=== PATIENT | male | born 1945 | race Caucasian/White ===

== ENCOUNTER 2018-01-05 04:11 | Inpatient (IN) | payer MEDICARE, OTHER ==
[2018-01-05] MEDS ORDERED: IPRATROPIUM-ALBUTEROL 3 ML NEB INHALATION PRN (04:30)
--- NOTE | 2018-01-05 04:30 | ED ---
General Adult HPI - General Time Seen by Provider: 01/05/18 04:11 Source: RN notes reviewed - History of Present Illness Initial comments: This is a 72-year-old male who presents emergency department with past medical history significant for COPD. Patient states tonight he started having difficulty breathing got so bad that he passed out briefly. Patient was taken [facility] where the did a workup on him and gave him multiple breathing treatments and steroids and BiPAP. After an hour BiPAP they're able to remove him from the BiPAP and put him on nasal cannula. Patient was satting in the low 80s when he got to [place] and by the time the left an a couple of liters she was oxygenating in the mid 90s. I was told that there was no pneumonia. End it all labs were essentially normal. Currently patient states he is mildly short of breath but much improved from what he came in. Patient denies any chest pain or palpitations. Patient denies abdominal pain patient denies nausea vomiting diarrhea. Patient denies any patient denies numbness weakness. Patient denies any lightheadedness or near syncopal episode. Review of Systems ROS Statement: Those systems with pertinent positive or pertinent negative responses have been documented in the HPI. ROS Other: All systems not noted in ROS Statement are negative. General Exam - General Exam Comments Initial Comments: GENERAL: Patient is well-developed and well-nourished. Patient is nontoxic and well- hydrated and is in mild distress. ENT: Neck is soft and supple. No significant lymphadenopathy is noted. Oropharynx is clear. Moist mucous membranes. EYES: The sclera were anicteric and conjunctiva were pink and moist. Extraocular movements were intact and pupils were equal round and reactive to light. Eyelids were unremarkable. PULMONARY: Expiratory wheezing diffusely CARDIOVASCULAR: There is a regular rate and rhythm without any murmurs gallops or rubs. ABDOMEN: Soft and nontender with normal bowel sounds. No palpable organomegaly was noted. There is no palpable pulsatile mass. SKIN: Skin is clear with no lesions or rashes and otherwise unremarkable. NEUROLOGIC: Patient is alert and oriented x3. Cranial nerves II through XII are grossly intact. Motor and sensory are also intact. Normal speech, volume and content. Symmetrical smile. MUSCULOSKELETAL: Normal extremities with adequate strength and full range of motion. No lower extremity swelling or edema. No calf tenderness. LYMPHATICS: No significant lymphadenopathy is noted PSYCHIATRIC: Normal psychiatric evaluation. Normal interpersonal interactions appears functionally intact in deals appropriately with others. Medical Decision Making - Medical Decision Making EKG shows normal sinus rhythm at 80 bpm HI interval is 170 QRS is 86 QT interval 398 QTC is 459. Patient's EKG shows no ST segment elevation or depression or T wave abnormalities are noted. Patient received a double treatment of albuterol and Atrovent. I spoke with the [facility] hospitalist and admitted the patient and I wrote admitting orders. Disposition Clinical Impression: COPD exacerbation Disposition: ADMITTED IP TO THIS HOSP Referrals: Natali Parkinson MD [Primary Care Provider] - 1-2 days Time of Disposition: 04:29
[2018-01-05] MEDS ORDERED: methylPREDNISolone SOD SUCCI 125 MG/2 ML VIAL IV SCH (06:00)
[2018-01-05] MEDS ORDERED: HYDROcodone/APAP 5-325MG 1 EACH TAB PO STA (06:03)
[2018-01-05 08:32] LABS: Glucose,Whole Blood 288 mg/dL (75-99)
[2018-01-05] MEDS ORDERED: clonazePAM 0.5 MG TAB PO PRN (09:49)
[2018-01-05 10:12] LABS: Basophils % (A) 0 %; Eosinophils % (A) 0 %; HCT 51.1 % (39.0-53.0); HGB 15.6 gm/dL (13.0-17.5); Hypochromasia Slight; Lymphocytes # (A) 0.6 k/uL (1.0-4.8); Lymphocytes % (A) 13 %; MCH 30.4 pg (25.0-35.0); MCHC 30.5 g/dL (31.0-37.0); MCV 99.5 fL (80.0-100.0); Mean Platelet Volume 7.4; Monocytes # (A) 0.1 k/uL (0-1.0); Monocytes % (A) 2 %; Neutrophils % (A) 85 %; Platelet Count 150 k/uL (150-450); RBC 5.14 m/uL (4.30-5.90); RDW 12.9 % (11.5-15.5); WBC 4.7 k/uL (3.8-10.6)
[2018-01-05 10:29] LABS: Albumin 3.9 g/dL (3.5-5.0); Calcium 8.9 mg/dL (8.4-10.2); Potassium 4.4 mmol/L (3.5-5.1); Total Bilirubin 0.5 mg/dL (0.2-1.3); Total Protein 6.3 g/dL (6.3-8.2)
[2018-01-05] MEDS: INSULIN ASPART 100 UNIT/ML 1 ML 10 ML VIAL SQ SCH ×3 (10:35→18:27)
[2018-01-05 11:17] LABS: Glucose,Whole Blood 303 mg/dL (75-99)
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
--- NOTE | 2018-01-05 11:51 | P.DS ---
Providers Date of admission: 01/05/18 04:30 Attending physician: Adolfo Thakkar Consults: 01/05/18 04:30 Consult Physician Routine Consulting Provider: Mina Faith Consult Reason/Comments: COPD exacerbation Do you want consulting provider notified?: Yes Primary care physician: Natali Parkinson [facility] Course: Please refer to my HPI Plan - Discharge Summary Discharge Rx Participant: No New Discharge Prescriptions: New Doxycycline Monohydrate [Monodox] 100 mg PO Q12HR #6 cap predniSONE 10 mg PO DAILY #30 tab sitaGLIPtin PHOSPHATE [Januvia] 50 mg PO DAILY #30 tab No Action Mirtazapine 30 mg PO HS HYDROcodone/APAP 10-325MG [[place] 10-325] 1 tab PO BID clonazePAM [KlonoPIN] 0.5 mg PO BID Atorvastatin [Lipitor] 10 mg PO HS Roflumilast [Daliresp] 500 mcg PO DAILY Carvedilol 25 mg PO BID Aspirin EC [Ecotrin Low Dose] 81 mg PO DAILY Discharge Medication List Aspirin EC [Ecotrin Low Dose] 81 mg PO DAILY 01/05/18 [History] Atorvastatin [Lipitor] 10 mg PO HS 01/05/18 [History] Carvedilol 25 mg PO BID 01/05/18 [History] Doxycycline Monohydrate [Monodox] 100 mg PO Q12HR #6 cap 01/05/18 [Rx] HYDROcodone/APAP 10-325MG [[place] 10-325] 1 tab PO BID 01/05/18 [History] Mirtazapine 30 mg PO HS 01/05/18 [History] Roflumilast [Daliresp] 500 mcg PO DAILY 01/05/18 [History] clonazePAM [KlonoPIN] 0.5 mg PO BID 01/05/18 [History] predniSONE 10 mg PO DAILY #30 tab 01/05/18 [Rx] sitaGLIPtin PHOSPHATE [Januvia] 50 mg PO DAILY #30 tab 01/05/18 [Rx] Follow up Appointment(s)/Referral(s): Natali Parkinson MD [Primary Care Provider] - 3 Days Mina Faith MD [STAFF PHYSICIAN] - 1 Week Discharge Disposition: HOME SELF-CARE
--- NOTE | 2018-01-05 12:57 | XR ---
EXAMINATION TYPE: XR chest 2V DATE OF EXAM: 01/05/2018 COMPARISON: NONE HISTORY: Shortness of breath TECHNIQUE: Frontal and lateral views of the chest are obtained. FINDINGS: Scattered senescent parenchymal changes noted. Hyperinflation compatible with COPD. No evidence for infiltrate. No evidence for atelectasis. Heart size is stable. Mediastinal structures are stable and grossly unremarkable. No evidence for hilar prominence. Degenerative changes dorsal spine. IMPRESSION: 1. No evidence for acute pulmonary disease.
[2018-01-05] MEDS: IPRATROPIUM-ALBUTEROL 3 ML NEB INHALATION SCH ×3 (13:41→20:13)
[2018-01-05 15:36] VITALS: BP 108/65; RESP 18; TEMP 98
[2018-01-05 17:15] VITALS: PULSE 67
[2018-01-05] MEDS ORDERED: CARVEDILOL 12.5 MG TAB PO SCH (17:30)
[2018-01-05 17:37] LABS: Glucose,Whole Blood 80 mg/dL (75-99)
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
[2018-01-05] MEDS ORDERED: ATORVASTATIN 10 MG TAB PO SCH (21:00)
[2018-01-05] MEDS ORDERED: HYDROcodone/APAP 10-325MG 1 EACH TAB PO SCH (21:00)
[2018-01-05] MEDS ORDERED: MIRTAZAPINE 15 MG TAB PO SCH (21:00)
[2018-01-06] MEDS ORDERED: NON-FORMULARY DRUG (Roflumilast [Daliresp] 500 MCG) PO SCH (09:00)
[2018-01-06] MEDS ORDERED: predniSONE 20 MG TAB PO SCH (09:00)
[2018-01-06] MEDS ORDERED: ASPIRIN 81 MG PO SCH (09:00)
== END 2018-01-05 20:56 | disposition home or self-care (01) | DRG 190 ==
LOC: EC 04:11 → 5MS5E 04:30
PROVIDERS: ADMIT Hospitalist; ATTEND Hospitalist
DX: J44.1 Chronic obstructive pulmonary disease with (acute) exacerbation (principal); J96.21 Acute and chronic respiratory failure with hypoxia; J96.22 Acute and chronic respiratory failure with hypercapnia; E78.5 Hyperlipidemia, unspecified; F17.200 Nicotine dependence, unspecified, uncomplicated; G47.00 Insomnia, unspecified; G89.4 Chronic pain syndrome; I25.10 Atherosclerotic heart disease of native coronary artery without angina pectoris; K21.9 Gastro-esophageal reflux disease without esophagitis; I12.9 Hypertensive chronic kidney disease with stage 1 through stage 4 chronic kidney disease, or unspecified chronic kidney disease; N18.3 Chronic kidney disease, stage 3 (moderate); E11.22 Type 2 diabetes mellitus with diabetic chronic kidney disease; Z79.84 Long term (current) use of oral hypoglycemic drugs; Z80.3 Family history of malignant neoplasm of breast; Z85.528 Personal history of other malignant neoplasm of kidney; Z87.442 Personal history of urinary calculi; Z90.5 Acquired absence of kidney; Z95.5 Presence of coronary angioplasty implant and graft; Z87.01 Personal history of pneumonia (recurrent); Z99.81 Dependence on supplemental oxygen; Z79.82 Long term (current) use of aspirin; Z79.891 Long term (current) use of opiate analgesic; Z79.52 Long term (current) use of systemic steroids; Z79.899 Other long term (current) drug therapy
CPT/HCPCS: 71046; 80053; 83036; 85025; 93005; 94640; 96374; 99285

== ENCOUNTER 2019-11-25 03:58 | Inpatient (IN) | payer MEDICARE, OTHER ==
[2019-11-25] MEDS ORDERED: NALOXONE 0.4 MG/ML 1 ML VIAL IV PRN (04:03)
[2019-11-25] MEDS ORDERED: IPRATROPIUM-ALBUTEROL 3 ML NEB INHALATION PRN ×2 (04:05→11:33)
[2019-11-25] MEDS ORDERED: NICOTINE POLACRILEX 2 MG GUM BUCCAL PRN (04:05)
[2019-11-25] MEDS ORDERED: LORazepam 2 MG/ML INJ IV STA (04:24)
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
[2019-11-25 08:13] LABS: Glucose,Whole Blood 109 mg/dL (75-99)
[2019-11-25] MEDS ORDERED: clonazePAM 0.5 MG TAB PO SCH (09:45)
[2019-11-25] MEDS ORDERED: CARVEDILOL 12.5 MG TAB PO SCH (09:45)
[2019-11-25] MEDS ORDERED: LINAGLIPTIN 5 MG TABLET PO SCH (09:45)
[2019-11-25] MEDS: METOPROLOL TARTRATE 25 MG TAB PO SCH (11:17)
[2019-11-25] MEDS: amLODIPine 10 MG TAB PO SCH (11:17)
[2019-11-25] MEDS: NICOTINE 14MG/24HR PATCH TRANSDERM SCH (11:17)
[2019-11-25] MEDS: methylPREDNISolone SOD SUCCI 40 MG/ML 1 ML VIAL IV SCH ×2 (11:17→22:02)
[2019-11-25] MEDS ORDERED: ACETAMINOPHEN TAB 325 MG TAB PO PRN (11:35)
[2019-11-25] MEDS: IPRATROPIUM-ALBUTEROL 3 ML NEB INHALATION SCH ×3 (11:39→20:39)
[2019-11-25 11:53] LABS: Glucose,Whole Blood 107 mg/dL (75-99)
[2019-11-25] MEDS ORDERED: IPRATROPIUM-ALBUTEROL 3 ML NEB INHALATION SCH (12:00)
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
[2019-11-25 16:59] LABS: Glucose,Whole Blood 142 mg/dL (75-99)
[2019-11-25] MEDS: PANTOPRAZOLE 40 MG/10 ML VIAL IVP SCH (18:14)
[2019-11-25 20:50] LABS: Glucose,Whole Blood 167 mg/dL (75-99)
[2019-11-25] MEDS ORDERED: MIRTAZAPINE 15 MG TAB PO SCH (21:00)
[2019-11-25] MEDS ORDERED: HYDROcodone/APAP 10-325MG 1 EACH TAB PO SCH (21:00)
[2019-11-25] MEDS: MIRTAZAPINE 45 MG TABLET PO SCH (21:58)
[2019-11-25] MEDS: ATORVASTATIN 10 MG TAB PO SCH (21:58)
[2019-11-25] MEDS: clonazePAM 0.5 MG TAB PO PRN (22:02)
[2019-11-26 06:12] LABS: Glucose,Whole Blood 149 mg/dL (75-99)
[2019-11-26] MEDS: methylPREDNISolone SOD SUCCI 40 MG/ML 1 ML VIAL IV SCH ×2 (08:27→21:23)
[2019-11-26] MEDS: PANTOPRAZOLE 40 MG/10 ML VIAL IVP SCH (08:28)
[2019-11-26] MEDS: METOPROLOL TARTRATE 25 MG TAB PO SCH (08:28)
[2019-11-26] MEDS: amLODIPine 10 MG TAB PO SCH (08:28)
[2019-11-26] MEDS: NICOTINE 14MG/24HR PATCH TRANSDERM SCH (08:28)
[2019-11-26] MEDS: clonazePAM 0.5 MG TAB PO PRN ×2 (08:32→21:23)
[2019-11-26] MEDS: IPRATROPIUM-ALBUTEROL 3 ML NEB INHALATION SCH ×4 (08:40→19:20)
[2019-11-26] MEDS ORDERED: MELOXICAM 7.5 MG TAB PO SCH (09:00)
[2019-11-26 09:01] LABS: Calcium 9.2 mg/dL (8.4-10.2); Magnesium 2.4 mg/dL (1.6-2.3); Potassium 5.5 mmol/L (3.5-5.1)
[2019-11-26 09:50] LABS: Basophils % (A) 0 %; Eosinophils % (A) 0 %; HCT 43.6 % (39.0-53.0); HGB 12.1 gm/dL (13.0-17.5); Hypochromasia Marked; Lymphocytes # (A) 0.6 k/uL (1.0-4.8); Lymphocytes % (A) 7 %; MCH 27.1 pg (25.0-35.0); MCHC 27.8 g/dL (31.0-37.0); MCV 97.6 fL (80.0-100.0); Mean Platelet Volume 7.4; Monocytes # (A) 0.2 k/uL (0-1.0); Monocytes % (A) 2 %; Neutrophils # (A) 7.2 k/uL (1.3-7.7); Neutrophils % (A) 90 %; Platelet Count 345 k/uL (150-450); RBC 4.46 m/uL (4.30-5.90); RDW 13.1 % (11.5-15.5); WBC 8.1 k/uL (3.8-10.6)
[2019-11-26 11:35] LABS: Glucose,Whole Blood 174 mg/dL (75-99)
[2019-11-26] MEDS ORDERED: SODIUM POLYSTYRENE SULFONATE 15 GM/60 ML BOTTLE PO STA (12:13)
--- NOTE | 2019-11-26 12:25 | P.PN ---
Subjective Patient is admitted for COPD exacerbation and the patient is found have a lung mass. For which patient will undergo CT-guided biopsy. Patient wheezing improved compared to yesterday. But still have significant wheezing on exam. Patient has admitted potassium secondary to renal failure patient will be started on IV fluids and will be given a dose of kayexalate Constitutional: Denied any fatigue denied any fever. Cardio vascular: denied any chest pain, palpitations Gastrointestinal denied any nausea vomiting Pulmonary: Denied any shortness of breath cough Neurologic denied any new focal deficits All inpatient medications were reviewed and appropriate changes in these medications as dictated in the interval history and assessment and plan. Objective - Vital Signs Vital signs: Vital Signs Temp 98.1 F 11/26/19 11:45 Pulse 88 11/26/19 12:12 Resp 20 11/26/19 11:45 BP 111/68 11/26/19 11:45 Pulse Ox 98 11/26/19 11:45 Intake & Output 11/25/19 11/26/19 11/26/19 18:59 06:59 18:59 Intake Total 180 240 Balance 180 240 Weight 79.2 kg Intake: Oral 180 240 Other: Voiding Method Toilet Toilet # Voids 2 - Exam PHYSICAL EXAMINATION: GENERAL: The patient is alert and oriented x3, not in any acute distress. Well developed, well nourished. HEENT: Pupils are round and equally reacting to light. EOMI. No scleral icterus. No conjunctival pallor. Normocephalic, atraumatic. No pharyngeal erythema. No thyromegaly. CARDIOVASCULAR: S1 and S2 present. No murmurs, rubs, or gallops. PULMONARY: expiratory wheezing with decreased air entry into bilateral lung owens. Wheezing improved compared to yesterday. ABDOMEN: Soft, nontender, nondistended, normoactive bowel sounds. No palpable organomegaly. MUSCULOSKELETAL: No joint swelling or deformity. EXTREMITIES: No cyanosis, clubbing, or pedal edema. NEUROLOGICAL: Gross neurological examination did not reveal any focal deficits. SKIN: No rashes. - Labs CBC & Chem 7: 11/26/19 08:19 11/26/19 08:49 Labs: Abnormal Lab Results - Last 24 Hours (Table) 11/25/19 11/25/19 11/26/19 Range/Units 16:57 20:49 06:11 Hgb (13.0-17.5) gm/dL MCHC (31.0-37.0) g/dL Lymphocytes # (1.0-4.8) k/uL Potassium (3.5-5.1) mmol/L Carbon Dioxide (22-30) mmol/L BUN (9-20) mg/dL Glucose (74-99) mg/dL POC Glucose (mg/dL) 142 H 167 H 149 H (75-99) mg/dL Magnesium (1.6-2.3) mg/dL 11/26/19 11/26/19 11/26/19 Range/Units 08:19 08:49 11:32 Hgb 12.1 L (13.0-17.5) gm/dL MCHC 27.8 L (31.0-37.0) g/dL Lymphocytes # 0.6 L (1.0-4.8) k/uL Potassium 5.5 H (3.5-5.1) mmol/L Carbon Dioxide 37 H (22-30) mmol/L BUN 28 H (9-20) mg/dL Glucose 172 H (74-99) mg/dL POC Glucose (mg/dL) 174 H (75-99) mg/dL Magnesium 2.4 H (1.6-2.3) mg/dL Assessment and Plan Plan: -acute on chronic hypercapnic respiratory failure secondary to COPD exacerbation, patient will be continued on systemic steroids inhalational treatments. Patient has bronchitis suspicion for pneumonia is low. -Left upper lobe mass suspicious for bronchogenic carcinoma patient will undergo bronchoscopy and the pulmonology evaluated the patient -Mild acute renal failure patient will be given IV fluids patient baseline creatinine is around 1 -Hyperkalemia secondary to renal failure will be given a dose of capsulate an expected to improve with IV fluids -History of renal cell carcinoma status post right nephrectomy -History of CVA in the past next and heparin could not disease -Chronic low back
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
[2019-11-26] MEDS: INSULIN ASPART (NovoLOG) 100 UNIT/ML VIAL SQ SCH ×3 (12:30→21:23)
[2019-11-26] MEDS: HYDROcodone/APAP 10-325MG 1 EACH TAB PO PRN (16:06)
[2019-11-26 16:45] LABS: Glucose,Whole Blood 156 mg/dL (75-99)
[2019-11-26] MEDS: SODIUM CHLORIDE 0.9% 1,000 ML IV SCH (18:36)
[2019-11-26 20:56] LABS: Glucose,Whole Blood 168 mg/dL (75-99)
[2019-11-26] MEDS: MIRTAZAPINE 45 MG TABLET PO SCH (21:22)
[2019-11-26] MEDS: ATORVASTATIN 10 MG TAB PO SCH (21:23)
[2019-11-26] MEDS: MELATONIN 3 MG TABLET PO SCH (21:23)
[2019-11-27 06:29] LABS: Glucose,Whole Blood 166 mg/dL (75-99)
[2019-11-27] MEDS: INSULIN ASPART (NovoLOG) 100 UNIT/ML VIAL SQ SCH ×4 (06:39→20:59)
[2019-11-27] MEDS: amLODIPine 10 MG TAB PO SCH (07:40)
[2019-11-27] MEDS: METOPROLOL TARTRATE 25 MG TAB PO SCH (07:40)
[2019-11-27] MEDS: NICOTINE 14MG/24HR PATCH TRANSDERM SCH (07:40)
[2019-11-27] MEDS: methylPREDNISolone SOD SUCCI 40 MG/ML 1 ML VIAL IV SCH ×4 (07:40→23:42)
[2019-11-27] MEDS: IPRATROPIUM-ALBUTEROL 3 ML NEB INHALATION SCH ×4 (08:09→19:49)
[2019-11-27 10:12] LABS: Basophils % (A) 0 %; Eosinophils % (A) 0 %; Hypochromasia Marked; Lymphocytes # (A) 0.5 k/uL (1.0-4.8); Lymphocytes % (A) 4 %; MCH 27.6 pg (25.0-35.0); MCHC 27.9 g/dL (31.0-37.0); Mean Platelet Volume 7.3; Monocytes # (A) 0.4 k/uL (0-1.0); Monocytes % (A) 3 %; Neutrophils # (A) 12.1 k/uL (1.3-7.7); Neutrophils % (A) 92 %; Platelet Count 331 k/uL (150-450); RBC 4.34 m/uL (4.30-5.90); WBC 13.1 k/uL (3.8-10.6)
[2019-11-27 10:23] LABS: Calcium 8.9 mg/dL (8.4-10.2); Potassium 5.7 mmol/L (3.5-5.1)
[2019-11-27 10:26] LABS: INR 0.9 (<1.2); Prothrombin Time 9.8 sec (9.0-12.0)
[2019-11-27] MEDS ORDERED: SODIUM POLYSTYRENE SULFONATE 15 GM/60 ML BOTTLE PO STA (11:56)
[2019-11-27 11:57] LABS: Glucose,Whole Blood 232 mg/dL (75-99)
--- NOTE | 2019-11-27 11:58 | P.PN ---
Subjective Patient is admitted for COPD exacerbation and the patient is found have a lung mass. For which patient will undergo CT-guided biopsy. Patient wheezing improved compared to yesterday. But still have significant wheezing on exam. Patient has admitted potassium secondary to renal failure patient will be started on IV fluids and will be given a dose of kayexalate. 11/27/2019 Patient is clinically doing well aspirin twice radiology they cannot do CT- guided biopsy and Wednesday because of 81 mg of aspirin he received couple days ago patient is still wheezing on exam patient the potassium is still high will given a dose of Regular changes type II low potassium diet Constitutional: Denied any fatigue denied any fever. Cardio vascular: denied any chest pain, palpitations Gastrointestinal denied any nausea vomiting Pulmonary: Denied any shortness of breath cough Neurologic denied any new focal deficits All inpatient medications were reviewed and appropriate changes in these medications as dictated in the interval history and assessment and plan. Objective - Vital Signs Vital signs: Vital Signs Temp 98.4 F 11/27/19 11:21 Pulse 88 11/27/19 11:46 Resp 22 11/27/19 11:21 BP 118/64 11/27/19 11:21 Pulse Ox 96 11/27/19 11:21 Intake & Output 11/26/19 11/27/19 11/27/19 18:59 06:59 18:59 Intake Total 480 180 Output Total 0 200 Balance 480 -200 180 Weight 83 kg Intake: Oral 480 180 Output: Urine 0 200 Other: Voiding Method Toilet Toilet Toilet # Voids 2 1 - Exam PHYSICAL EXAMINATION: GENERAL: The patient is alert and oriented x3, not in any acute distress. Well developed, well nourished. HEENT: Pupils are round and equally reacting to light. EOMI. No scleral icterus. No conjunctival pallor. Normocephalic, atraumatic. No pharyngeal erythema. No thyromegaly. CARDIOVASCULAR: S1 and S2 present. No murmurs, rubs, or gallops. PULMONARY: expiratory wheezing with decreased air entry into bilateral lung owens. Wheezing improved compared to yesterday. ABDOMEN: Soft, nontender, nondistended, normoactive bowel sounds. No palpable organomegaly. MUSCULOSKELETAL: No joint swelling or deformity. EXTREMITIES: No cyanosis, clubbing, or pedal edema. NEUROLOGICAL: Gross neurological examination did not reveal any focal deficits. SKIN: No rashes. - Labs CBC & Chem 7: 11/27/19 09:42 11/27/19 09:42 Labs: Abnormal Lab Results - Last 24 Hours (Table) 11/26/19 11/26/19 11/27/19 Range/Units 16:34 20:54 06:27 WBC (3.8-10.6) k/uL Hgb (13.0-17.5) gm/dL MCHC (31.0-37.0) g/dL Neutrophils # (1.3-7.7) k/uL Lymphocytes # (1.0-4.8) k/uL Potassium (3.5-5.1) mmol/L Carbon Dioxide (22-30) mmol/L BUN (9-20) mg/dL Glucose (74-99) mg/dL POC Glucose (mg/dL) 156 H 168 H 166 H (75-99) mg/dL 11/27/19 11/27/19 Range/Units 09:42 09:42 WBC 13.1 H (3.8-10.6) k/uL Hgb 12.0 L (13.0-17.5) gm/dL MCHC 27.9 L (31.0-37.0) g/dL Neutrophils # 12.1 H (1.3-7.7) k/uL Lymphocytes # 0.5 L (1.0-4.8) k/uL Potassium 5.7 H (3.5-5.1) mmol/L Carbon Dioxide 36 H (22-30) mmol/L BUN 41 H (9-20) mg/dL Glucose 155 H (74-99) mg/dL POC Glucose (mg/dL) (75-99) mg/dL Assessment and Plan Plan: -acute on chronic hypercapnic respiratory failure secondary to COPD exacerbation, patient will be continued on systemic steroids inhalational treatments. Patient has bronchitis suspicion for pneumonia is low. -Left upper lobe mass suspicious for bronchogenic carcinoma patient will undergo bronchoscopy and the pulmonology evaluated the patient -Mild acute renal failure patient will be given IV fluids patient baseline creatinine is around 1 -Hyperkalemia secondary to renal failure will be given a dose of capsulate an expected to improve with IV fluids -History of renal cell carcinoma status post right nephrectomy -History of CVA in the past next and heparin could not disease -Chronic low back
[2019-11-27] MEDS: SODIUM CHLORIDE 0.9% 1,000 ML IV SCH ×2 (13:35→18:21)
[2019-11-27] MEDS: PANTOPRAZOLE 40 MG TABLET PO SCH (13:35)
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
[2019-11-27 16:57] LABS: Glucose,Whole Blood 203 mg/dL (75-99)
[2019-11-27] MEDS: HYDROcodone/APAP 10-325MG 1 EACH TAB PO PRN (18:01)
[2019-11-27] MEDS: SYMBICORT 160-4.5 MCG INHALER INHALATION SCH (19:49)
[2019-11-27 20:50] LABS: Glucose,Whole Blood 156 mg/dL (75-99)
[2019-11-27] MEDS: MELATONIN 3 MG TABLET PO SCH (20:59)
[2019-11-27] MEDS: clonazePAM 0.5 MG TAB PO PRN (20:59)
[2019-11-27] MEDS: ATORVASTATIN 10 MG TAB PO SCH (20:59)
[2019-11-27] MEDS: MIRTAZAPINE 45 MG TABLET PO SCH (20:59)
[2019-11-28] MEDS: SODIUM CHLORIDE 0.9% 1,000 ML IV SCH ×2 (04:06→18:02)
[2019-11-28 06:31] LABS: Glucose,Whole Blood 179 mg/dL (75-99)
[2019-11-28] MEDS: INSULIN ASPART (NovoLOG) 100 UNIT/ML VIAL SQ SCH ×4 (06:37→21:08)
[2019-11-28] MEDS: methylPREDNISolone SOD SUCCI 40 MG/ML 1 ML VIAL IV SCH ×3 (06:37→18:02)
[2019-11-28] MEDS: SYMBICORT 160-4.5 MCG INHALER INHALATION SCH ×2 (08:11→19:56)
[2019-11-28] MEDS: IPRATROPIUM-ALBUTEROL 3 ML NEB INHALATION SCH ×4 (08:11→19:56)
[2019-11-28 08:28] LABS: Calcium 8.8 mg/dL (8.4-10.2); Potassium 5.7 mmol/L (3.5-5.1)
[2019-11-28] MEDS: PANTOPRAZOLE 40 MG TABLET PO SCH (09:11)
[2019-11-28] MEDS: amLODIPine 10 MG TAB PO SCH (09:11)
[2019-11-28] MEDS: METOPROLOL TARTRATE 25 MG TAB PO SCH (09:11)
[2019-11-28] MEDS: NICOTINE 14MG/24HR PATCH TRANSDERM SCH (09:12)
[2019-11-28] MEDS ORDERED: SODIUM POLYSTYRENE SULFONATE 15 GM/60 ML BOTTLE PO STA (10:31)
--- NOTE | 2019-11-28 11:13 | XR ---
EXAMINATION TYPE: XR chest 1V DATE OF EXAM: 11/28/2019 COMPARISON: Outside CT chest dated 11/25/2019 HISTORY: Congestive heart failure and shortness of breath TECHNIQUE: Single frontal view of the chest is obtained. FINDINGS: Left upper lobe mass appears to invade the mediastinum partly silhouetting the mediastinal borders measuring 10.11 0.0 cm in craniocaudal dimension. Surrounding increased interstitial lung ma rkings on the left in comparison to the right. Surgical clips overlie the left lower heart border. Ri ght lung remains well aerated other than platelike atelectasis at the right costophrenic angle. Pleur al parenchymal scarring at the right lung apex. Underlying emphysematous change. Cardiomediastinal si lhouette is upper limits of normal. IMPRESSION: Highly suspicious left upper lobe mass that should be considered neoplasm until proven o therwise with diffuse interstitial prominence on the left in comparison to the right. This could rela te to fibrotic change, atelectasis, or infectious etiology.
[2019-11-28 11:40] LABS: Glucose,Whole Blood 205 mg/dL (75-99)
--- NOTE | 2019-11-28 11:45 | P.PN ---
Subjective Patient is admitted for COPD exacerbation and the patient is found have a lung mass. For which patient will undergo CT-guided biopsy. Patient wheezing improved compared to yesterday. But still have significant wheezing on exam. Patient has admitted potassium secondary to renal failure patient will be started on IV fluids and will be given a dose of kayexalate. 11/27/2019 Patient is clinically doing well aspirin twice radiology they cannot do CT- guided biopsy and Wednesday because of 81 mg of aspirin he received couple days ago patient is still wheezing on exam patient the potassium is still high will given a dose of Regular changes type II low potassium diet 11/28/2019 Patient is still wheezing quite a bit, still has elevated potassium patient did have a bowel movement yesterday along obtain a chest x-ray make sure doesn't have any pulmonary edema patient is receiving IV fluids in spite of which his potassium stays had patient is on low potassium diet and received And yesterday patient will receive another dose of Late patient probably will undergo biopsy tomorrow, his creatinine continued to go up. Constitutional: Denied any fatigue denied any fever. Cardio vascular: denied any chest pain, palpitations Gastrointestinal denied any nausea vomiting Pulmonary: Denied any shortness of breath cough Neurologic denied any new focal deficits All inpatient medications were reviewed and appropriate changes in these medications as dictated in the interval history and assessment and plan. Objective - Vital Signs Vital signs: Vital Signs Temp 98.1 F 11/28/19 09:00 Pulse 94 11/28/19 09:00 Resp 18 11/28/19 09:00 BP 127/74 11/28/19 09:00 Pulse Ox 93 L 11/28/19 09:00 Intake & Output 11/27/19 11/28/19 11/28/19 18:59 06:59 18:59 Intake Total 1650 240 Balance 1650 240 Weight 83.9 kg Intake: Intake, IV Titration 750 Amount Sodium Chloride 0.9% 1, 750 000 ml @ 125 mls/hr IV . Q8H [facility] Rx#:[id number] Oral 900 240 Other: Voiding Method Toilet # Voids 4 2 1 - Labs CBC & Chem 7: 11/27/19 09:42 11/28/19 07:14 Labs: Abnormal Lab Results - Last 24 Hours (Table) 11/27/19 11/27/19 11/27/19 Range/Units 11:56 16:48 20:49 Potassium (3.5-5.1) mmol/L Carbon Dioxide (22-30) mmol/L BUN (9-20) mg/dL Creatinine (0.66-1.25) mg/dL Glucose (74-99) mg/dL POC Glucose (mg/dL) 232 H 203 H 156 H (75-99) mg/dL 11/28/19 11/28/19 11/28/19 Range/Units 06:30 07:14 11:38 Potassium 5.7 H (3.5-5.1) mmol/L Carbon Dioxide 36 H (22-30) mmol/L BUN 43 H (9-20) mg/dL Creatinine 1.37 H (0.66-1.25) mg/dL Glucose 147 H (74-99) mg/dL POC Glucose (mg/dL) 179 H 205 H (75-99) mg/dL
[2019-11-28] MEDS ORDERED: DEXTROSE 50% SYRINGE 50 ML IVP STA (12:15)
[2019-11-28] MEDS ORDERED: INSULIN REGULAR 100 UNIT/ML VIAL IV ONE (12:15)
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
--- NOTE | 2019-11-28 15:09 | US ---
EXAMINATION TYPE: US kidneys/renal and bladder DATE OF EXAM: 11/28/2019 COMPARISON: NONE CLINICAL HISTORY: sue. EXAM MEASUREMENTS: Right Kidney: not visualized Left Kidney: 12.3 x 6.5 x 5.7 cm Right Kidney: not identified Left Kidney: multiple cysts, largest upper pole measures 5.4 x 4.3x 4.6 cm Bladder: wnl Bilateral Jets seen: No Incidental note is made of large liver cyst measures 7.8 x 4.9 cm and multiple gallstones with shad owing. IMPRESSION: 1. Right kidney is not seen sonographically. The left kidney demonstrates numerous cysts suggesting p olycystic kidney disease and hepatic cysts are also seen with the largest measuring 7.8 cm, possible polycystic liver disease. 2. Incidentally noted cholelithiasis.
[2019-11-28 16:29] LABS: Appearance,Urine Clear (Clear); Bilirubin,Urine Negative (Negative); Blood,Urine Negative (Negative); Color,Urine Light Yellow; Glucose,Urine (UA) Negative (Negative); Ketones,Urine Negative (Negative); Leukocyte Esterase,Urine Negative (Negative); Nitrite,Urine Negative (Negative); PH, Urine 5.5 (5.0-8.0); Protein,Urine Trace (Negative); Specific Gravity,Urine 1.014 (1.001-1.035); Urobilinogen,Urine <2.0 mg/dL (<2.0)
[2019-11-28 16:45] LABS: Glucose,Whole Blood 175 mg/dL (75-99)
[2019-11-28 20:51] LABS: Glucose,Whole Blood 171 mg/dL (75-99)
[2019-11-28] MEDS: MIRTAZAPINE 45 MG TABLET PO SCH (21:08)
[2019-11-28] MEDS: ATORVASTATIN 10 MG TAB PO SCH (21:08)
[2019-11-28] MEDS: MELATONIN 3 MG TABLET PO SCH (21:08)
[2019-11-29] MEDS: methylPREDNISolone SOD SUCCI 40 MG/ML 1 ML VIAL IV SCH ×4 (00:23→17:33)
[2019-11-29 06:06] LABS: Glucose,Whole Blood 130 mg/dL (75-99)
[2019-11-29] MEDS: INSULIN ASPART (NovoLOG) 100 UNIT/ML VIAL SQ SCH ×4 (06:10→21:15)
[2019-11-29] MEDS: SODIUM CHLORIDE 0.9% 1,000 ML IV SCH ×2 (06:20→18:30)
[2019-11-29 07:13] LABS: HCT 40.7 % (39.0-53.0); HGB 11.8 gm/dL (13.0-17.5); Hypochromasia Marked; MCH 28.8 pg (25.0-35.0); MCHC 28.9 g/dL (31.0-37.0); MCV 99.5 fL (80.0-100.0); Mean Platelet Volume 7.2; Platelet Count 330 k/uL (150-450); RBC 4.09 m/uL (4.30-5.90); RDW 13.2 % (11.5-15.5); WBC 10.1 k/uL (3.8-10.6)
[2019-11-29 07:41] LABS: Calcium 9.1 mg/dL (8.4-10.2); Magnesium 2.4 mg/dL (1.6-2.3); Potassium 5.6 mmol/L (3.5-5.1)
[2019-11-29] MEDS: HYDROcodone/APAP 10-325MG 1 EACH TAB PO PRN (08:20)
[2019-11-29] MEDS: clonazePAM 0.5 MG TAB PO PRN (08:21)
[2019-11-29] MEDS: IPRATROPIUM-ALBUTEROL 3 ML NEB INHALATION SCH ×4 (09:17→19:47)
[2019-11-29] MEDS: SYMBICORT 160-4.5 MCG INHALER INHALATION SCH ×2 (09:17→19:47)
--- NOTE | 2019-11-29 09:27 | P.PCN ---
Date of Procedure: 11/29/19 Preoperative Diagnosis: left upper lobe lung mass Procedure(s) Performed: ct lung core biopsy Anesthesia: local Estimated Blood Loss (ml): 5 Pathology: other (2 x 20 ga core biopsy in formalin)
--- NOTE | 2019-11-29 09:38 | XR ---
EXAMINATION TYPE: XR chest 1V portable DATE OF EXAM: 11/29/2019 COMPARISON: 11/28/2019 INDICATION: Post left lung biopsy TECHNIQUE: Single frontal view of the chest is obtained. FINDINGS: The heart size is normal. The pulmonary vasculature is normal. Left upper lobe medial lung mass is again evident. There is mild diffuse increased lung markings to t he left lung. Couple surgical clips may be within the left breast region. No pneumothorax is evident. IMPRESSION: 1. No pneumothorax post lung biopsy.
[2019-11-29] MEDS: NICOTINE 14MG/24HR PATCH TRANSDERM SCH (09:48)
[2019-11-29] MEDS: amLODIPine 10 MG TAB PO SCH (09:48)
[2019-11-29] MEDS: PANTOPRAZOLE 40 MG TABLET PO SCH (09:48)
[2019-11-29] MEDS: METOPROLOL TARTRATE 25 MG TAB PO SCH (09:48)
--- NOTE | 2019-11-29 10:18 | CT ---
EXAMINATION TYPE: CT biopsy lung LT DATE OF EXAM: 11/29/2019 HISTORY: Left upper lobe lung mass COMPARISON: CT from outside institution 11/25/2019 Maximal barrier technique was utilized, hand hygiene obtained with soap and water. The skin overlyin g a suitable path to the lesion in the left upper lobe was localized using CT and the overlying skin was prepped and draped. Lidocaine used for local anesthesia. A skin gill made with a scalpel. Usin g CT guidance, access was gained to the lesion with a 19-gauge guide needle. Coaxial placement of a 2 0-gauge needle was performed. Core specimen submitted to pathology. 2 pass(es) performed in all. Fo llowing the procedure no immediate complications. The patient is discharged in stable condition. H emostasis achieved. IMPRESSION: SUCCESSFUL CT GUIDED CORE BIOPSY left upper lobe lung mass. PATHOLOGY PENDING. THIS PROCEDURE WAS P ERFORMED BY THE UNDERSIGNED.
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
[2019-11-29 11:47] LABS: Glucose,Whole Blood 136 mg/dL (75-99)
--- NOTE | 2019-11-29 12:03 | XR ---
EXAMINATION TYPE: XR chest 1V portable DATE OF EXAM: 11/29/2019 COMPARISON: 11/29/2019 HISTORY: Post lung biopsy TECHNIQUE: Single frontal view of the chest is obtained. FINDINGS: No sizable pneumothorax. Large left upper lobe lung mass again noted with displacement of the trachea. There is consolidation right upper lobe. No interstitial edema. No pleural effusion. IMPRESSION: 1. No pneumothorax. 2. There is a new area of consolidation in the right upper lobe correlate for atelectasis or infiltra te. Report called to the radiology nurse.
--- NOTE | 2019-11-29 12:13 | P.PN ---
Subjective Patient is admitted for COPD exacerbation and the patient is found have a lung mass. For which patient will undergo CT-guided biopsy. Patient wheezing improved compared to yesterday. But still have significant wheezing on exam. Patient has admitted potassium secondary to renal failure patient will be started on IV fluids and will be given a dose of kayexalate. 11/27/2019 Patient is clinically doing well aspirin twice radiology they cannot do CT- guided biopsy and Wednesday because of 81 mg of aspirin he received couple days ago patient is still wheezing on exam patient the potassium is still high will given a dose of Regular changes type II low potassium diet 11/28/2019 Patient is still wheezing quite a bit, still has elevated potassium patient did have a bowel movement yesterday along obtain a chest x-ray make sure doesn't have any pulmonary edema patient is receiving IV fluids in spite of which his potassium stays had patient is on low potassium diet and received And yesterday patient will receive another dose of Late patient probably will undergo biopsy tomorrow, his creatinine continued to go up. 11/29/2019 Patient is still wheezing quite a bit did get a CT-guided biopsy patient's prognosis extended for appears to have metastatic lung cancer and there may not be a candidate for chemotherapy will oncology for prognostication and patient probably will benefit from hospice more than anything else Review of systems: Unable to obtain All inpatient medications were reviewed and appropriate changes in these medications as dictated in the interval history and assessment and plan. Objective - Vital Signs Vital signs: Vital Signs Temp 97.9 F 11/29/19 12:05 Pulse 74 11/29/19 12:05 Resp 18 11/29/19 12:05 BP 128/72 11/29/19 12:05 Pulse Ox 96 11/29/19 12:05 Intake & Output 11/28/19 11/29/19 11/29/19 18:59 06:59 18:59 Intake Total 480 Output Total 436 550 Balance 44 -550 Intake: Oral 480 Output: Urine 400 550 Post Void Residual 36 Other: Voiding Method Toilet # Voids 1 - Exam PHYSICAL EXAMINATION: GENERAL: The patient is alert and oriented x3, not in any acute distress. Well developed, well nourished. HEENT: Pupils are round and equally reacting to light. EOMI. No scleral icterus. No conjunctival pallor. Normocephalic, atraumatic. No pharyngeal erythema. No thyromegaly. CARDIOVASCULAR: S1 and S2 present. No murmurs, rubs, or gallops. PULMONARY: expiratory wheezing with decreased air entry into bilateral lung owens. Wheezing improved compared to yesterday. ABDOMEN: Soft, nontender, nondistended, normoactive bowel sounds. No palpable organomegaly. MUSCULOSKELETAL: No joint swelling or deformity. EXTREMITIES: No cyanosis, clubbing, or pedal edema. NEUROLOGICAL: Gross neurological examination did not reveal any focal deficits. SKIN: No rashes. - Labs CBC & Chem 7: 11/29/19 06:28 11/29/19 06:28 Labs: Abnormal Lab Results - Last 24 Hours (Table) 11/28/19 11/28/19 11/28/19 Range/Units 07:14 15:00 16:44 RBC (4.30-5.90) m/uL Hgb (13.0-17.5) gm/dL MCHC (31.0-37.0) g/dL Potassium (3.5-5.1) mmol/L Carbon Dioxide (22-30) mmol/L BUN (9-20) mg/dL Creatinine (0.66-1.25) mg/dL Glucose (74-99) mg/dL POC Glucose (mg/dL) 175 H (75-99) mg/dL Magnesium (1.6-2.3) mg/dL Lactate Dehydrogenase 693 H (313-618) U/L Urine Protein Trace H (Negative) 11/28/19 11/28/19 11/28/19 Range/Units 16:55 19:10 20:49 RBC (4.30-5.90) m/uL Hgb (13.0-17.5) gm/dL MCHC (31.0-37.0) g/dL Potassium 5.4 H 5.3 H (3.5-5.1) mmol/L Carbon Dioxide (22-30) mmol/L BUN (9-20) mg/dL Creatinine (0.66-1.25) mg/dL Glucose (74-99) mg/dL POC Glucose (mg/dL) 171 H (75-99) mg/dL Magnesium (1.6-2.3) mg/dL Lactate Dehydrogenase (313-618) U/L Urine Protein (Negative) 11/29/19 11/29/1920 Range/Units 06:05 06:28 06:28 RBC 4.09 L (4.30-5.90) m/uL Hgb 11.8 L (13.0-17.5) gm/dL MCHC 28.9 L (31.0-37.0) g/dL Potassium 5.6 H (3.5-5.1) mmol/L Carbon Dioxide 37 H (22-30) mmol/L BUN 42 H (9-20) mg/dL Creatinine 1.27 H (0.66-1.25) mg/dL Glucose 125 H (74-99) mg/dL POC Glucose (mg/dL) 130 H (75-99) mg/dL Magnesium 2.4 H (1.6-2.3) mg/dL Lactate Dehydrogenase (313-618) U/L Urine Protein (Negative) 11/29/19 Range/Units 11:45 RBC (4.30-5.90) m/uL Hgb (13.0-17.5) gm/dL MCHC (31.0-37.0) g/dL Potassium (3.5-5.1) mmol/L Carbon Dioxide (22-30) mmol/L BUN (9-20) mg/dL Creatinine (0.66-1.25) mg/dL Glucose (74-99) mg/dL POC Glucose (mg/dL) 136 H (75-99) mg/dL Magnesium (1.6-2.3) mg/dL Lactate Dehydrogenase (313-618) U/L Urine Protein (Negative) Assessment and Plan Plan: -acute on chronic hypercapnic respiratory failure secondary to COPD exacerbation, patient will be continued on systemic steroids inhalational treatments. Patient has bronchitis suspicion for pneumonia is low. -Left upper lobe mass suspicious for bronchogenic carcinoma patient had CT- guided biopsy today. Oncology is being consulted patient appears to metastatic lung cancer -Mild acute renal failure , nephrology was consulted bladder scan did not show any urinary retention, continued on IV fluids -Hyperkalemia secondary to renal failure nephrology following the patient -History of renal cell carcinoma status post right nephrectomy -History of CVA in the past next and heparin could not disease -Chronic low back
[2019-11-29] MEDS ORDERED: FUROSEMIDE 10 MG/ML 2 ML VIAL IV ONE (14:50)
--- NOTE | 2019-11-29 14:54 | P.PN ---
Subjective Patient is seen in follow-up for acute kidney injury on chronic kidney disease. Renal function stable. Potassium still on the higher side. He has been voiding. No vomiting or diarrhea. Underwent CT-guided biopsy of the lung mass this morning. Vital signs are stable. General: The patient appeared well nourished and normally developed. HEENT: Head exam is unremarkable. Neck is without jugular venous distension. LUNGS: Lungs are clear to auscultation and percussion. Breath sounds decreased. HEART: Rate and Rhythm are regular. First and second heart sounds normal. No murmurs, rubs or gallops. ABDOMEN: Soft, nontender. EXTREMITITES: No clubbing, cyanosis, or edema. Objective - Vital Signs Vital signs: Vital Signs Temp 97.9 F 11/29/19 12:05 Pulse 74 11/29/19 12:05 Resp 18 11/29/19 12:05 BP 128/72 11/29/19 12:05 Pulse Ox 96 11/29/19 12:05 Intake & Output 11/28/19 11/29/19 11/29/19 18:59 06:59 18:59 Intake Total 480 80 Output Total 436 550 Balance 44 -550 80 Intake: Oral 480 80 Output: Urine 400 550 Post Void Residual 36 Other: Voiding Method Toilet # Voids 1 - Labs CBC & Chem 7: 11/29/19 06:28 11/29/19 06:28 Labs: Abnormal Lab Results - Last 24 Hours (Table) 11/28/19 11/28/19 11/28/19 Range/Units 15:00 16:44 16:55 RBC (4.30-5.90) m/uL Hgb (13.0-17.5) gm/dL MCHC (31.0-37.0) g/dL Potassium 5.4 H (3.5-5.1) mmol/L Carbon Dioxide (22-30) mmol/L BUN (9-20) mg/dL Creatinine (0.66-1.25) mg/dL Glucose (74-99) mg/dL POC Glucose (mg/dL) 175 H (75-99) mg/dL Magnesium (1.6-2.3) mg/dL Urine Protein Trace H (Negative) 11/28/19 11/28/19 11/29/19 Range/Units 19:10 20:49 06:05 RBC (4.30-5.90) m/uL Hgb (13.0-17.5) gm/dL MCHC (31.0-37.0) g/dL Potassium 5.3 H (3.5-5.1) mmol/L Carbon Dioxide (22-30) mmol/L BUN (9-20) mg/dL Creatinine (0.66-1.25) mg/dL Glucose (74-99) mg/dL POC Glucose (mg/dL) 171 H 130 H (75-99) mg/dL Magnesium (1.6-2.3) mg/dL Urine Protein (Negative) 11/29/19 11/29/19 11/29/19 Range/Units 06:28 06:28 11:45 RBC 4.09 L (4.30-5.90) m/uL Hgb 11.8 L (13.0-17.5) gm/dL MCHC 28.9 L (31.0-37.0) g/dL Potassium 5.6 H (3.5-5.1) mmol/L Carbon Dioxide 37 H (22-30) mmol/L BUN 42 H (9-20) mg/dL Creatinine 1.27 H (0.66-1.25) mg/dL Glucose 125 H (74-99) mg/dL POC Glucose (mg/dL) 136 H (75-99) mg/dL Magnesium 2.4 H (1.6-2.3) mg/dL Urine Protein (Negative) Assessment and Plan Plan: Assessment: 1. Mild acute kidney injury versus underlying chronic kidney disease. Patient's baseline creatinine appears to be range of 1.2-1.4. UA quite benign. No hydronephrosis noted on kidney ultrasound. Right kidney wasn't visualized. 2. Hyperkalemia secondary to chronic kidney disease. Blood sugars not too high. No evidence of acidosis. He is not on any medications that would raise the potassium level. Lactic acid 1.0. 3. Dyspnea secondary to COPD exacerbation. Maintained on IV steroids and bronchodilator therapy. 4. Benign hypertension. Controlled. 5. Lung mass status post CT guided biopsy this morning. Plan: Maintain normal saline at 75 mL an hour. Lasix 20 mg IV once today. Maintain low potassium diet. Repeat potassium level this evening.
[2019-11-29 16:38] LABS: Glucose,Whole Blood 158 mg/dL (75-99)
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
[2019-11-29 21:06] LABS: Glucose,Whole Blood 183 mg/dL (75-99)
[2019-11-29] MEDS: MIRTAZAPINE 45 MG TABLET PO SCH (21:15)
[2019-11-29] MEDS: MELATONIN 3 MG TABLET PO SCH (21:15)
[2019-11-29] MEDS: ATORVASTATIN 10 MG TAB PO SCH (21:15)
[2019-11-29 22:52] LABS: Allen Test Performed? Yes
[2019-11-29] MEDS ORDERED: clonazePAM 0.5 MG TAB ONE (23:19)
[2019-11-29] MEDS ORDERED: methylPREDNISolone SOD SUCCI 40 MG/ML 1 ML VIAL ONE (23:19)
[2019-11-30 03:46] LABS: Glucose,Whole Blood 139 mg/dL (75-99)
[2019-11-30 06:07] LABS: Glucose,Whole Blood 113 mg/dL (75-99)
[2019-11-30 06:17] LABS: ABG PH 7.28 (7.35-7.45)
[2019-11-30 06:19] LABS: ABG PCO2 84 mmHg (35-45); ABG PO2 105 mmHg (83-108)
[2019-11-30 06:20] LABS: ABG Base Excess 12.1 mmol/L; ABG HCO3 39 mmol/L (21-25); ABG TCO2 42 mmol/L (19-24)
[2019-11-30] MEDS: methylPREDNISolone SOD SUCCI 40 MG/ML 1 ML VIAL IV SCH ×4 (06:33→23:09)
[2019-11-30] MEDS: INSULIN ASPART (NovoLOG) 100 UNIT/ML VIAL SQ SCH ×4 (06:33→20:14)
[2019-11-30 07:19] LABS: Potassium 5.1 mmol/L (3.5-5.1)
[2019-11-30] MEDS: IPRATROPIUM-ALBUTEROL 3 ML NEB INHALATION SCH ×4 (07:54→19:35)
[2019-11-30] MEDS: SYMBICORT 160-4.5 MCG INHALER INHALATION SCH ×2 (08:44→19:35)
[2019-11-30] MEDS: PANTOPRAZOLE 40 MG TABLET PO SCH (09:38)
[2019-11-30] MEDS: METOPROLOL TARTRATE 25 MG TAB PO SCH (09:38)
[2019-11-30] MEDS: amLODIPine 10 MG TAB PO SCH (09:38)
[2019-11-30] MEDS: NICOTINE 14MG/24HR PATCH TRANSDERM SCH (09:38)
--- NOTE | 2019-11-30 10:54 | P.PN ---
Subjective Patient is admitted for COPD exacerbation and the patient is found have a lung mass. For which patient will undergo CT-guided biopsy. Patient wheezing improved compared to yesterday. But still have significant wheezing on exam. Patient has admitted potassium secondary to renal failure patient will be started on IV fluids and will be given a dose of kayexalate. 11/27/2019 Patient is clinically doing well aspirin twice radiology they cannot do CT- guided biopsy and Wednesday because of 81 mg of aspirin he received couple days ago patient is still wheezing on exam patient the potassium is still high will given a dose of Regular changes type II low potassium diet 11/28/2019 Patient is still wheezing quite a bit, still has elevated potassium patient did have a bowel movement yesterday along obtain a chest x-ray make sure doesn't have any pulmonary edema patient is receiving IV fluids in spite of which his potassium stays had patient is on low potassium diet and received And yesterday patient will receive another dose of Late patient probably will undergo biopsy tomorrow, his creatinine continued to go up. 11/29/2019 Patient is still wheezing quite a bit did get a CT-guided biopsy patient's prognosis extended for appears to have metastatic lung cancer and there may not be a candidate for chemotherapy will oncology for prognostication and patient probably will benefit from hospice more than anything else 11/30/2019 Patient wheezing is bit better today patient is on BiPAP at this time patient has respiratory acidosis CO2 retention but oncology evaluated the patient. Patient's creatinine improved to 1.1 Constitutional: Denied any fatigue denied any fever. Cardio vascular: denied any chest pain, palpitations Gastrointestinal denied any nausea vomiting Pulmonary: Shortness of breath Neurologic denied any new focal deficits All inpatient medications were reviewed and appropriate changes in these medications as dictated in the interval history and assessment and plan. Objective - Vital Signs Vital signs: Vital Signs Temp 97.8 F 11/30/19 08:27 Pulse 70 11/30/19 08:27 Resp 18 11/30/19 08:27 BP 138/85 11/30/19 08:27 Pulse Ox 94 L 11/30/19 08:27 Intake & Output 11/29/19 11/30/19 11/30/19 18:59 06:59 18:59 Intake Total 905 Output Total 1000 Balance 905 -1000 Intake: Intake, IV Titration 600 Amount Sodium Chloride 0.9% 1, 600 000 ml @ 75 mls/hr IV . [id number] [facility] Rx#:[id number] Oral 305 Output: Urine 1000 Other: Voiding Method Toilet # Voids 1 - Exam PHYSICAL EXAMINATION: GENERAL: The patient is alert and oriented x3, not in any acute distress. Well developed, well nourished. HEENT: Pupils are round and equally reacting to light. EOMI. No scleral icterus. No conjunctival pallor. Normocephalic, atraumatic. No pharyngeal erythema. No thyromegaly. CARDIOVASCULAR: S1 and S2 present. No murmurs, rubs, or gallops. PULMONARY: Presently on BiPAP with fairly good air entry into bilateral lung owens minimal expiratory wheezing on exam. ABDOMEN: Soft, nontender, nondistended, normoactive bowel sounds. No palpable organomegaly. MUSCULOSKELETAL: No joint swelling or deformity. EXTREMITIES: No cyanosis, clubbing, or pedal edema. NEUROLOGICAL: Gross neurological examination did not reveal any focal deficits. SKIN: No rashes. - Labs CBC & Chem 7: 11/29/19 06:28 11/30/19 06:20 Labs: Abnormal Lab Results - Last 24 Hours (Table) 11/29/19 11/29/19 11/29/19 Range/Units 11:45 16:37 20:41 ABG pH (7.35-7.45) ABG pCO2 (35-45) mmHg ABG HCO3 (21-25) mmol/L ABG Total CO2 (19-24) mmol/L ABG O2 Saturation (94-97) % Potassium 5.2 H (3.5-5.1) mmol/L Carbon Dioxide (22-30) mmol/L BUN (9-20) mg/dL Glucose (74-99) mg/dL POC Glucose (mg/dL) 136 H 158 H (75-99) mg/dL 11/29/19 11/29/19 11/30/19 Range/Units 21:04 22:39 01:24 ABG pH 7.28 L (7.35-7.45) ABG pCO2 84 H* (35-45) mmHg ABG HCO3 39 H (21-25) mmol/L ABG Total CO2 42 H (19-24) mmol/L ABG O2 Saturation 98.0 H (94-97) % Potassium (3.5-5.1) mmol/L Carbon Dioxide (22-30) mmol/L BUN (9-20) mg/dL Glucose (74-99) mg/dL POC Glucose (mg/dL) 183 H 139 H (75-99) mg/dL 11/30/19 11/30/19 Range/Units 06:06 06:20 ABG pH (7.35-7.45) ABG pCO2 (35-45) mmHg ABG HCO3 (21-25) mmol/L ABG Total CO2 (19-24) mmol/L ABG O2 Saturation (94-97) % Potassium (3.5-5.1) mmol/L Carbon Dioxide 40 H (22-30) mmol/L BUN 48 H (9-20) mg/dL Glucose 115 H (74-99) mg/dL POC Glucose (mg/dL) 113 H (75-99) mg/dL Assessment and Plan Plan: -acute on chronic hypercapnic respiratory failure secondary to COPD exacerbation, patient will be continued on systemic steroids inhalational treatments. Patient has bronchitis suspicion for pneumonia is low. -Respiratory acidosis secondary to COPD patient is on now BiPAP at this time which will be continued continue with the -Left upper lobe mass suspicious for bronchogenic carcinoma patient had CT- guided biopsy today. Oncology evaluated the patient. -Mild acute renal failure , nephrology was consulted bladder scan did not show any urinary retention, continued on IV fluids for renal failure improved creatinine is 1.1 -Hyperkalemia secondary to renal failure nephrology following the patient -History of renal cell carcinoma status post right nephrectomy -History of CVA in the past next and heparin could not disease -Chronic low back
--- NOTE | 2019-11-30 11:03 | P.PN ---
Subjective Patient is seen in follow-up for acute kidney injury on chronic kidney disease. Renal function stable. Potassium better. He has been voiding. No vomiting or diarrhea. Underwent CT-guided biopsy of the lung mass on November 28. No active complaints at this time. Vital signs are stable. General: The patient appeared well nourished and normally developed. HEENT: Head exam is unremarkable. Neck is without jugular venous distension. LUNGS: Lungs are clear to auscultation and percussion. Breath sounds decreased. HEART: Rate and Rhythm are regular. First and second heart sounds normal. No murmurs, rubs or gallops. ABDOMEN: Soft, nontender. EXTREMITITES: No clubbing, cyanosis, or edema. Objective - Vital Signs Vital signs: Vital Signs Temp 97.8 F 11/30/19 08:27 Pulse 70 11/30/19 08:27 Resp 18 11/30/19 08:27 BP 138/85 11/30/19 08:27 Pulse Ox 94 L 11/30/19 08:27 Intake & Output 11/29/19 11/30/19 11/30/19 18:59 06:59 18:59 Intake Total 905 Output Total 1000 Balance 905 -1000 Intake: Intake, IV Titration 600 Amount Sodium Chloride 0.9% 1, 600 000 ml @ 75 mls/hr IV . [id number] [facility] Rx#:[id number] Oral 305 Output: Urine 1000 Other: Voiding Method Toilet # Voids 1 - Labs CBC & Chem 7: 11/29/19 06:28 11/30/19 06:20 Labs: Abnormal Lab Results - Last 24 Hours (Table) 11/29/19 11/29/19 11/29/19 Range/Units 11:45 16:37 20:41 ABG pH (7.35-7.45) ABG pCO2 (35-45) mmHg ABG HCO3 (21-25) mmol/L ABG Total CO2 (19-24) mmol/L ABG O2 Saturation (94-97) % Potassium 5.2 H (3.5-5.1) mmol/L Carbon Dioxide (22-30) mmol/L BUN (9-20) mg/dL Glucose (74-99) mg/dL POC Glucose (mg/dL) 136 H 158 H (75-99) mg/dL 11/29/19 11/29/1911/29/20 Range/Units 21:04 22:39 01:24 ABG pH 7.28 L (7.35-7.45) ABG pCO2 84 H* (35-45) mmHg ABG HCO3 39 H (21-25) mmol/L ABG Total CO2 42 H (19-24) mmol/L ABG O2 Saturation 98.0 H (94-97) % Potassium (3.5-5.1) mmol/L Carbon Dioxide (22-30) mmol/L BUN (9-20) mg/dL Glucose (74-99) mg/dL POC Glucose (mg/dL) 183 H 139 H (75-99) mg/dL 11/30/19 11/30/19 Range/Units 06:06 06:20 ABG pH (7.35-7.45) ABG pCO2 (35-45) mmHg ABG HCO3 (21-25) mmol/L ABG Total CO2 (19-24) mmol/L ABG O2 Saturation (94-97) % Potassium (3.5-5.1) mmol/L Carbon Dioxide 40 H (22-30) mmol/L BUN 48 H (9-20) mg/dL Glucose 115 H (74-99) mg/dL POC Glucose (mg/dL) 113 H (75-99) mg/dL Assessment and Plan Plan: Assessment: 1. Mild acute kidney injury versus underlying chronic kidney disease. Patient's baseline creatinine appears to be range of 1.2-1.4. UA quite benign. No hydronephrosis noted on kidney ultrasound. Right kidney wasn't visualized. Renal function stable. 2. Hyperkalemia secondary to chronic kidney disease. Blood sugars not too high. No evidence of acidosis. He is not on any medications that would raise the potassium level. Lactic acid 1.0. 3. Dyspnea secondary to COPD exacerbation. Maintained on IV steroids and bronchodilator therapy. 4. Benign hypertension. Controlled. 5. Lung mass status post CT guided biopsy this morning. Plan: Decrease rate of normal saline 50 mL an hour. Add Lasix 20 mg orally once daily. Low potassium diet.
[2019-11-30 11:21] LABS: Glucose,Whole Blood 128 mg/dL (75-99)
[2019-11-30] MEDS: FUROSEMIDE 20 MG TAB PO SCH (11:22)
[2019-11-30] MEDS: IOPAMIDOL CONTRAST (ORAL USE) VIAL PO PRN ×2 (12:13→13:20)
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
--- NOTE | 2019-11-30 14:20 | CT ---
EXAMINATION TYPE: CT abdomen pelvis w con DATE OF EXAM: 11/30/2019 COMPARISON: Correlation outside CT chest 11/25/2019 HISTORY: 73-year-old male Lung cancer staging TECHNIQUE: Contiguous axial scanning of the abdomen and pelvis following administration of 100 ml Iso aissatou 300 IV contrast. Delayed images through the kidneys and coronal/sagittal reconstructions perform ed. CT DLP: 1105.4 mGycm Automated exposure control for dose reduction was used. FINDINGS: Heart normal size without pericardial effusion. Some patchy groundglass changes in the left base unch anged from 11/25/2019. This is to be some surgical material or posttraumatic metallic debris along the posterior left basilar pleural surface. Aorta ectatic at the thoracoabdominal junction at 3.0 cm, mildly aneurysmal upper abdominal aorta at 3.3 cm. There is an aortobiiliac endovascular stent graft also demonstrated. Large right and left hepatic lobe cysts measuring up to 9.7 and 6.4 cm, respectively. Portal venous s ystem is patent. No biliary ductal dilatation. Suspect gallbladder collapsed around multiple gallstones measuring up to 2.5 cm. There does seem to b e some gallbladder wall thickening; correlation can be made for chronic cholecystitis. Adrenal glands, spleen, and pancreas show no gross abdomen body. There are numerous left renal cysts measuring up to 5.8 cm. By 2.4 cm lesion shows intermediate atten uation of 54 Hounsfield units but no change in density on the delayed kidney scan suggesting a protei naceous or hemorrhagic cyst. Complex, partially calcified 2.5 x 1.4 cm lesion along the lower pole of the left kidney. Status post right nephrectomy with the nephrectomy bed containing some small bowel loops. No mesenteric or retroperitoneal lymphadenopathy. No dilated small bowel, free fluid, or free air. Moderate stool burden without there are chronic inflammatory change. Bladder is urine distended. Prostate gland measures 5.0 cm wide. No abnormal fluid collection in the pelvis or pelvic lymphadenopathy. Multiple pelvic lymph nodes are present. Bones: Right L5 laminectomy change. Trace grade 1 retrolisthesis at L2-L4 and L2-L3. At L2-L3, there is a broad-based disc protrusion which may contribute to a moderate spinal canal stenosis. Degenerati ve disc disease lower thoracic spine. IMPRESSION: 1. STATUS POST RIGHT NEPHRECTOMY. NUMEROUS LEFT-SIDED RENAL CYSTS MEASURING UP TO 5.8 CM. A 2.4 CM LE FT RENAL LESION SHOWS INTERMEDIATE ATTENUATION BUT IS MOST SUGGESTIVE OF A PROTEINACEOUS OR HEMORRHAG IC CYST. AN INDETERMINATE , PARTIALLY CALCIFIED 2.5 X 1.4 CM LESION AT THE LEFT LOWER POLE CAN BE RADHA SSESSED IN 6 MONTHS. 2. BENIGN LARGE HEPATIC CYSTS MEASURING UP TO 9.7 CM. 3. CHOLELITHIASIS WITH GALLBLADDER WALL THICKENING BUT NO HYDROPIC CHANGE. CORRELATE FOR CHRONIC CHOL ECYSTITIS. HIDA SCAN IF INDICATED. 4. NO EVIDENT METASTATIC DISEASE TO THE ABDOMEN OR PELVIS.
[2019-11-30 14:41] VITALS: BMI 25.0
--- NOTE | 2019-11-30 15:47 | P.PN ---
Subjective Progress Note Date: 11/30/19 Principal diagnosis: CHAPITO lung mass In f/u today pt is more alert and oriented, denies any pain post biopsy, hemoptysis, O2 is stable. Objective - Vital Signs Vital signs: Vital Signs Temp 97.8 F 11/30/19 08:27 Pulse 88 11/30/19 11:15 Resp 18 11/30/19 08:27 BP 138/85 11/30/19 08:27 Pulse Ox 94 L 11/30/19 08:27 Intake & Output 11/29/19 11/30/19 11/30/19 18:59 06:59 18:59 Intake Total 905 450 Output Total 1000 300 Balance 905 -1000 150 Weight 83.9 kg Intake: IV 450 Sodium Chloride 0.9% 1, 450 000 ml @ 50 mls/hr IV . Q20H [facility] Rx#:[id number] Intake, IV Titration 600 Amount Sodium Chloride 0.9% 1, 600 000 ml @ 50 mls/hr IV . Q20H [facility] Rx#:[id number] Oral 305 Output: Urine 1000 300 Other: Voiding Method Toilet # Voids 1 - Constitutional General appearance: Present: average body habitus, cooperative, no acute distre ss - EENT Eyes: Present: anicteric sclerae, EOMI ENT: Present: hearing grossly normal - Respiratory Respiratory: bilateral: diminished - Cardiovascular Heart sounds: normal: S1, S2 - Gastrointestinal General gastrointestinal: Present: normal bowel sounds, soft - Musculoskeletal Musculoskeletal: Present: strength equal bilaterally - Psychiatric Psychiatric: Present: A&O x's 3, appropriate affect, intact judgment & insight - Labs CBC & Chem 7: 11/29/19 06:28 11/30/19 06:20 Labs: Abnormal Lab Results - Last 24 Hours (Table) 11/29/19 11/29/19 11/29/19 Range/Units 16:37 20:41 21:04 ABG pH (7.35-7.45) ABG pCO2 (35-45) mmHg ABG HCO3 (21-25) mmol/L ABG Total CO2 (19-24) mmol/L ABG O2 Saturation (94-97) % Potassium 5.2 H (3.5-5.1) mmol/L Carbon Dioxide (22-30) mmol/L BUN (9-20) mg/dL Glucose (74-99) mg/dL POC Glucose (mg/dL) 158 H 183 H (75-99) mg/dL 11/29/19 11/30/19 11/30/19 Range/Units 22:39 01:24 06:06 ABG pH 7.28 L (7.35-7.45) ABG pCO2 84 H* (35-45) mmHg ABG HCO3 39 H (21-25) mmol/L ABG Total CO2 42 H (19-24) mmol/L ABG O2 Saturation 98.0 H (94-97) % Potassium (3.5-5.1) mmol/L Carbon Dioxide (22-30) mmol/L BUN (9-20) mg/dL Glucose (74-99) mg/dL POC Glucose (mg/dL) 139 H 113 H (75-99) mg/dL 11/30/19 11/30/19 Range/Units 06:20 11:18 ABG pH (7.35-7.45) ABG pCO2 (35-45) mmHg ABG HCO3 (21-25) mmol/L ABG Total CO2 (19-24) mmol/L ABG O2 Saturation (94-97) % Potassium (3.5-5.1) mmol/L Carbon Dioxide 40 H (22-30) mmol/L BUN 48 H (9-20) mg/dL Glucose 115 H (74-99) mg/dL POC Glucose (mg/dL) 128 H (75-99) mg/dL Assessment and Plan (1) Lung mass Narrative/Plan: With patient's history a primary lung cancer is certainly a possibility. Patient is status post biopsy. Pending pathology. Staging CT AP and brain MRI today Current Visit: Yes Status: Acute Priority: High Code(s): R91.8 - OTHER NONSPECIFIC ABNORMAL FINDING OF LUNG FIELD SNOMED Code(s): 963139468 (2) Renal cell adenocarcinoma Narrative/Plan: History of, no current treatment Current Visit: No Status: Chronic Priority: Medium Code(s): C64.9 - MALIGNANT NEOPLASM OF UNSP KIDNEY, EXCEPT RENAL PELVIS SNOMED Code(s): 702292674
[2019-11-30 16:18] LABS: Glucose,Whole Blood 231 mg/dL (75-99)
[2019-11-30] MEDS: SODIUM CHLORIDE 0.9% 1,000 ML IV SCH ×2 (16:32→20:15)
[2019-11-30 20:03] LABS: Glucose,Whole Blood 166 mg/dL (75-99)
[2019-11-30] MEDS: ATORVASTATIN 10 MG TAB PO SCH (20:14)
[2019-11-30] MEDS: MIRTAZAPINE 45 MG TABLET PO SCH (20:14)
[2019-11-30] MEDS: MELATONIN 3 MG TABLET PO SCH (20:14)
[2019-11-30] MEDS: clonazePAM 0.5 MG TAB PO PRN (20:15)
[2019-12-01 06:05] LABS: Glucose,Whole Blood 138 mg/dL (75-99)
[2019-12-01] MEDS: methylPREDNISolone SOD SUCCI 40 MG/ML 1 ML VIAL IV SCH ×5 (06:29→20:23)
[2019-12-01] MEDS: INSULIN ASPART (NovoLOG) 100 UNIT/ML VIAL SQ SCH ×4 (06:29→20:22)
[2019-12-01] MEDS: IPRATROPIUM-ALBUTEROL 3 ML NEB INHALATION SCH ×4 (07:54→19:28)
[2019-12-01 07:56] LABS: Calcium 8.8 mg/dL (8.4-10.2); Magnesium 2.3 mg/dL (1.6-2.3); Potassium 4.9 mmol/L (3.5-5.1)
[2019-12-01] MEDS: SYMBICORT 160-4.5 MCG INHALER INHALATION SCH ×2 (08:00→19:28)
[2019-12-01] MEDS: NICOTINE 14MG/24HR PATCH TRANSDERM SCH (10:12)
[2019-12-01] MEDS: FUROSEMIDE 20 MG TAB PO SCH (10:13)
[2019-12-01] MEDS: METOPROLOL TARTRATE 25 MG TAB PO SCH (10:13)
[2019-12-01] MEDS: amLODIPine 10 MG TAB PO SCH (10:13)
[2019-12-01] MEDS: PANTOPRAZOLE 40 MG TABLET PO SCH (10:13)
--- NOTE | 2019-12-01 10:42 | MR ---
EXAMINATION TYPE: MR brain wo/w con DATE OF EXAM: 12/01/2019 COMPARISON: None HISTORY: Lung cancer staging TECHNIQUE: Multiplanar, multisequence images of the brain and brainstem is performed without and with IV contras t, utilizing 7.5 mL intravenous Gadavist . FINDINGS: Diffusion weighted images demonstrate no evidence of a recent infarct or other diffusion ab normality. There is no extra-axial fluid collection. Scattered and confluent hyperintensities are pr esent on inversion recovery T2-weighted sequences within the subcortical, juxtacortical, periventricu lar and pericallosal white matter. Approximately 30-40 lesions are present. Some minimal encephalomal acia is associated with these hyperintensities toward the convexity, small lacunar infarcts suspected in the basal ganglia bilaterally.. The ventricular system and cisternal spaces are normal in size an d appearance. The brain volume is age appropriate. Midline structures demonstrate normal morphology. The craniocervical junction appears within normal limits. Post contrast images demonstrate no abnormal enhancement. The dural venous sinuses appear pa tent. The visualized sinuses are clear and the globes are intact. IMPRESSION: Age-related changes of atrophy and chronic small vessel ischemia. No evident metastatic d isease.
--- NOTE | 2019-12-01 11:42 | P.PN ---
Subjective Patient is seen in follow-up for acute kidney injury on chronic kidney disease. Renal function stable. Potassium better. He has been voiding. No vomiting or diarrhea. Underwent CT-guided biopsy of the lung mass on November 28. No active complaints at this time. Currently receiving nebulized treatment for COPD. Vital signs are stable. General: The patient appeared well nourished and normally developed. HEENT: Head exam is unremarkable. Neck is without jugular venous distension. LUNGS: Lungs are clear to auscultation and percussion. Breath sounds decreased. HEART: Rate and Rhythm are regular. First and second heart sounds normal. No murmurs, rubs or gallops. ABDOMEN: Soft, nontender. EXTREMITITES: No clubbing, cyanosis, or edema. Objective - Vital Signs Vital signs: Vital Signs Temp 98.3 F 12/01/19 08:00 Pulse 84 12/01/19 11:16 Resp 19 12/01/19 08:00 BP 120/76 12/01/19 08:00 Pulse Ox 94 L 12/01/19 08:00 Intake & Output 11/30/19 12/01/19 12/01/19 18:59 06:59 18:59 Intake Total 450 200 180 Output Total 1350 1350 Balance -900 -1150 180 Weight 83.9 kg 80.9 kg Intake: IV 450 Sodium Chloride 0.9% 1, 450 000 ml @ 50 mls/hr IV . Q20H [facility] Rx#:[id number] Intake, IV Titration 200 Amount Sodium Chloride 0.9% 1, 200 000 ml @ 50 mls/hr IV . Q20H [facility] Rx#:[id number] Oral 180 Output: Urine 1350 1350 Other: Voiding Method Urinal # Voids 1 - Labs CBC & Chem 7: 11/29/19 06:28 12/01/19 06:56 Labs: Abnormal Lab Results - Last 24 Hours (Table) 11/30/19 11/30/19 12/01/19 Range/Units 16:17 20:01 06:03 Chloride (98-107) mmol/L Carbon Dioxide (22-30) mmol/L BUN (9-20) mg/dL Glucose (74-99) mg/dL POC Glucose (mg/dL) 231 H 166 H 138 H (75-99) mg/dL 12/01/19 Range/Units 06:56 Chloride 95 L (98-107) mmol/L Carbon Dioxide 40 H (22-30) mmol/L BUN 47 H (9-20) mg/dL Glucose 133 H (74-99) mg/dL POC Glucose (mg/dL) (75-99) mg/dL Assessment and Plan Plan: Assessment: 1. Mild acute kidney injury versus underlying chronic kidney disease. Patient's baseline creatinine appears to be range of 1.2-1.4. UA quite benign. No hydronephrosis noted on kidney ultrasound. Renal function stable. 2. Hyperkalemia secondary to chronic kidney disease. Blood sugars not too high. No evidence of acidosis. He is not on any medications that would raise the potassium level. Lactic acid 1.0. Better with Lasix. 3. Dyspnea secondary to COPD exacerbation. Maintained on IV steroids and bronchodilator therapy. 4. Benign hypertension. Controlled. 5. Lung mass status post CT guided biopsy on November 28. 6. History of right nephrectomy. 7. Kidney cyst. Will need follow-up outpatient. Plan: Maintain normal saline at 50 mL an hour. Maintain Lasix 20 mg orally once daily. Low potassium diet.
[2019-12-01 11:44] LABS: Glucose,Whole Blood 196 mg/dL (75-99)
[2019-12-01 11:50] VITALS: RESP 18
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
--- NOTE | 2019-12-01 13:43 | P.PN ---
Subjective Progress Note Date: 12/01/19 Principal diagnosis: Acute exacerbation of COPD, lung mass 12/01/2019 in follow-up in the selective care unit. He is currently sitting up in a chair at the bedside. Awake and alert in no acute distress. Maintaining O2 saturation in the mid 90s on room air. She's afebrile. Hemodynamically stable. Pathology is pending still from the core biopsy of the left upper lobe lung mass. MRI of the brain did not reveal any evidence of metastatic disease. Sodium 139. Potassium 4.9. Bicarb 40. Creatinine 1.15. Objective - Vital Signs Vital signs: Vital Signs Temp 96 F L 12/01/19 11:49 Pulse 83 12/01/19 11:49 Resp 18 12/01/19 11:49 BP 136/80 12/01/19 11:49 Pulse Ox 95 12/01/19 11:49 Intake & Output 11/30/19 12/01/19 12/01/19 18:59 06:59 18:59 Intake Total 450 200 480 Output Total 1350 1350 250 Balance -900 -1150 230 Weight 83.9 kg 80.9 kg Intake: IV 450 Sodium Chloride 0.9% 1, 450 000 ml @ 50 mls/hr IV . Q20H [facility] Rx#:[id number] Intake, IV Titration 200 Amount Sodium Chloride 0.9% 1, 200 000 ml @ 50 mls/hr IV . Q20H [facility] Rx#:[id number] Oral 480 Output: Urine 1350 1350 250 Other: Voiding Method Urinal # Voids 1 1 - Exam Head exam is unremarkable. No scleral icterus or corneal arcus noted. Neck is without jugular venous distension, thyromegaly, or carotid bruits. Carotid upstrokes are brisk bilaterally. Lungs are diminished bilaterally, clear bilaterally. Cardiac exam reveals the PMI to be normally sized and situated. Rh ythm is regular. First and second heart sounds normal. No murmurs, rubs or gallops. Abdominal exam reveals normal bowel sounds, no masses, no organomegaly and no aortic enlargement. Extremities are nonedematous and both femoral and pedal pulses are normal.Examination of the skin revealed no evidence of significant rashes, suspicious appearing nevi or other concerning lesions. Neurologically the patient is awake and alert and is no focal neurological - Labs CBC & Chem 7: 11/29/19 06:28 06/12/20 06:56 Labs: Abnormal Lab Results - Last 24 Hours (Table) 11/30/19 11/30/19 12/01/19 Range/Units 16:17 20:01 06:03 Chloride (98-107) mmol/L Carbon Dioxide (22-30) mmol/L BUN (9-20) mg/dL Glucose (74-99) mg/dL POC Glucose (mg/dL) 231 H 166 H 138 H (75-99) mg/dL 12/01/19 12/01/19 Range/Units 06:56 11:42 Chloride 95 L (98-107) mmol/L Carbon Dioxide 40 H (22-30) mmol/L BUN 47 H (9-20) mg/dL Glucose 133 H (74-99) mg/dL POC Glucose (mg/dL) 196 H (75-99) mg/dL Assessment and Plan Assessment: -acute on chronic hypercapnic respiratory failure secondary to COPD exacerbation, patient will be continued on systemic steroids inhalational treatments. Patient has bronchitis suspicion for pneumonia is low. -Respiratory acidosis secondary to COPD patient is on now BiPAP at this time which will be continued continue with the -Left upper lobe mass suspicious for bronchogenic carcinoma patient had CT- guided biopsy today. Oncology evaluated the patient. -Mild acute renal failure , nephrology was consulted bladder scan did not show any urinary retention, continued on IV fluids for renal failure improved c reatinine is 1.1 -Hyperkalemia secondary to renal failure nephrology following the patient -History of renal cell carcinoma status post right nephrectomy -History of CVA in the past next and heparin could not disease -Chronic low back
[2019-12-01 16:13] LABS: Glucose,Whole Blood 172 mg/dL (75-99)
[2019-12-01] MEDS: SODIUM CHLORIDE 0.9% 1,000 ML IV SCH (16:51)
--- NOTE | 2019-12-01 19:14 | CDI ---
Documentation Clarification Form Date: 12/01/2019 06:56:40 PM From: Sobeida Ko RN CCDS Admit Date: 11/25/2019 04:05:00 AM Patient Name: Destin Holcomb Visit Number: [id number] Discharge Date: ATTENTION: The Clinical Documentation Specialists (CDI) and [facility] Coding Staff appreciate your assistance in clarifying documentation. Please respond to the clarification below the line at the bottom and electronically sign. The CDI & [facility] Coding staff will review the response and follow-up if needed. Please note: Queries are made part of the Legal Health Record. If you have any questions, please contact the author of this message via ITS. Dr. Jazmin Hassan The patient did become hypercapnic and confused and required BiPap support last evening. Documented in your progress note 11/29 History/Risk Factors: 73-year-old male presents to the ED with shortness of breath. Medical history of COPD FEV1 of 40% Severe and uses 2L home oxygen, CHF, renal cancer Clinical Indicators: 11/28 22:36 Nursing Note Patient confused. A&O to self only. States he is in the front room and the year is 2025. 93% 4L oxygen Order from Dr. Hassan for Stat Abg Labs: ABG 11/28 20:00 23:59 PCo2 7.28, pCO2 84, pO2 105, HCO3 39, Total CO2 39, 11/30 MRI Brain: Age related changes of atrophy and chronic small vessel ischemia Treatment: BiPap In your professional opinion, can you please clarify the specific type of Encephalopathy, if known? Metabolic Encephalopathy due to Hypercapnia Encephalopathy Ruled out Other, please specify Unable to determine (Last Revision: September 2017) MTDD
[2019-12-01 20:13] LABS: Glucose,Whole Blood 223 mg/dL (75-99)
[2019-12-01] MEDS: ATORVASTATIN 10 MG TAB PO SCH (20:20)
[2019-12-01] MEDS: MIRTAZAPINE 45 MG TABLET PO SCH (20:20)
[2019-12-01] MEDS: MELATONIN 3 MG TABLET PO SCH (20:20)
[2019-12-01] MEDS: clonazePAM 0.5 MG TAB PO PRN (20:22)
--- NOTE | 2019-12-02 01:17 | P.PN ---
Subjective Progress Note Date: 12/01/19 The patient feels better overall. He is stronger and mentally more clear. Shortness of breath is improved. No fever/ chills/nausea/vomiting. Objective - Vital Signs Vital signs: Vital Signs Temp 97.9 F 12/01/19 21:41 Pulse 80 12/01/19 21:41 Resp 18 12/01/19 21:41 BP 122/72 12/01/19 21:41 Pulse Ox 92 L 12/01/19 21:41 Intake & Output 12/01/19 12/01/19 12/02/19 06:59 18:59 06:59 Intake Total 200 720 Output Total 1350 950 Balance -1150 -230 Weight 80.9 kg Intake: Intake, IV Titration 200 Amount Sodium Chloride 0.9% 1, 200 000 ml @ 50 mls/hr IV . Q20H [facility] Rx#:[id number] Oral 720 Output: Urine 1350 950 Other: Voiding Method Urinal # Voids 1 2 - Constitutional General appearance: Present: no acute distress - EENT Eyes: Present: EOMI ENT: Present: hearing grossly normal, normal oropharynx - Respiratory Respiratory: left: diminished (upper lobe) - Cardiovascular Rhythm: regular Heart sounds: normal: S1, S2 - Gastrointestinal General gastrointestinal: Present: normal bowel sounds, soft - Integumentary Integumentary: Present: normal - Neurologic Neurologic: Present: CNII-XII intact - Musculoskeletal Musculoskeletal: Present: generalized weakness, strength equal bilaterally - Psychiatric Psychiatric: Present: A&O x's 3 - Labs CBC & Chem 7: 11/29/19 06:28 12/01/19 06:56 Labs: Abnormal Lab Results - Last 24 Hours (Table) 12/01/19 12/01/19 12/01/19 Range/Units 06:03 06:56 11:42 Chloride 95 L (98-107) mmol/L Carbon Dioxide 40 H (22-30) mmol/L BUN 47 H (9-20) mg/dL Glucose 133 H (74-99) mg/dL POC Glucose (mg/dL) 138 H 196 H (75-99) mg/dL 12/01/19 12/01/19 Range/Units 16:12 20:12 Chloride (98-107) mmol/L Carbon Dioxide (22-30) mmol/L BUN (9-20) mg/dL Glucose (74-99) mg/dL POC Glucose (mg/dL) 172 H 223 H (75-99) mg/dL Assessment and Plan (1) Adenocarcinoma of left lung Narrative/Plan: The patient's biopsy of the left lung mass is now resulted. It shows adenocarcinoma consistent with lung primary. The results and implications were discussed in detail. At this time the pat ient has no obvious metastatic disease, a stone CT scan of the abdomen and pelvis and MRI of the brain. The patient was advised that in case of localized disease with this pathology, surgical evaluation would be first-line of management. The patient was therefore need a PET scan as an outpatient for completion of staging. This will be set up by the office He was advised that this seems to represent a new pathology from his prior history of renal cell cancer Current Visit: Yes Status: Acute Code(s): C34.92 - MALIGNANT NEOPLASM OF UNSP PART OF LEFT BRONCHUS OR LUNG SNOMED Code(s): 01412055697772829 (2) Pneumonia Narrative/Plan: improved with current treatment. Defer to admitting service and pulmonary medicine for continued management Current Visit: Yes Status: Acute Code(s): J18.9 - PNEUMONIA, UNSPECIFIED ORGANISM SNOMED Code(s): 736299844 Plan: Defer to the admitting service and other consultants for management of his other medical problems.
[2019-12-02] MEDS: HYDROcodone/APAP 10-325MG 1 EACH TAB PO PRN (05:23)
[2019-12-02 06:50] LABS: Glucose,Whole Blood 120 mg/dL (75-99)
[2019-12-02] MEDS: INSULIN ASPART (NovoLOG) 100 UNIT/ML VIAL SQ SCH (07:07)
[2019-12-02 07:32] VITALS: PULSE 82; TEMP 98
[2019-12-02 07:33] VITALS: BP 132/81
[2019-12-02] MEDS: FUROSEMIDE 20 MG TAB PO SCH (08:02)
[2019-12-02] MEDS: amLODIPine 10 MG TAB PO SCH (08:02)
[2019-12-02] MEDS: METOPROLOL TARTRATE 25 MG TAB PO SCH (08:02)
[2019-12-02] MEDS: NICOTINE 14MG/24HR PATCH TRANSDERM SCH (08:02)
[2019-12-02] MEDS: PANTOPRAZOLE 40 MG TABLET PO SCH (08:02)
[2019-12-02] MEDS: SYMBICORT 160-4.5 MCG INHALER INHALATION SCH (08:26)
[2019-12-02] MEDS: IPRATROPIUM-ALBUTEROL 3 ML NEB INHALATION SCH (08:26)
--- NOTE | 2019-12-04 16:33 | CDI ---
Documentation Clarification Form Date: 12/04/19 From: Jessica Godinez CCS Phone: If you have a question about this query, please contact Lacy Ferrer, Flexible Nanny at [phone] between 8am and 5pm. Admit Date: 11/25/19 Discharge Date:12/02/19 Patient Name: Destin Holcomb Visit Number: [id number] ATTENTION: The Clinical Documentation Specialists (CDI) and [facility] Coding Staff appreciate your assistance in clarifying documentation. Please respond to the clarification below the line at the bottom and electronically sign. The CDI & [facility] Coding staff will review the response and follow-up if needed. Please note: Queries are made part of the Legal Health Record. If you have any questions, please contact the author of this message via ITS. Dear Dr. Thakkar, CKD is documented in the PNs, Consult . History/Risk Factors: HTN, COPD, TARA, Hx renal cell CA Hx nephrectomy Clinical Indicators: TARA on chronic kidney disease Current BUN: 28, 41 Creatinine: 1.21, 1.37 GFR: 69, 70, 59 Consults: Ramon In order to capture the severity of condition, please clarify the stage of the CKD, if known: CKD Stage 1 (GFR > 90) CKD Stage 2 (GFR 60-89) CKD Stage 3 (GFR 30-59) CKD Stage 4 (GFR 15-29) CKD Stage 5 (GFR <15) ESRD Other, please specify Unable to determine CKD Stage 2 (GFR 60-89) [facility]
--- NOTE | 2019-12-04 16:42 | CDI ---
Documentation Clarification Form Date: 12/04/19 From: Jessica Godinez CCS Phone: If you have a question about this query, please contact Lacy Ferrer, Call Center Receptionist at [phone] between 8am and 5pm. Admit Date: 11/25/19 Discharge Date:12/02/19 Patient Name: Destin Holcomb Visit Number: [id number] ATTENTION: The Clinical Documentation Specialists (CDI) and [facility] Coding Staff appreciate your assistance in clarifying documentation. Please respond to the clarification below the line at the bottom and electronically sign. The CDI & [facility] Coding staff will review the response and follow-up if needed. Please note: Queries are made part of the Legal Health Record. If you have any questions, please contact the author of this message via ITS. Dear Dr. Thakkar, CHF is documented in the H&P. Patient is found to be in CHF COPD exacerbation patient had a CT angios the chest which were then dissected 13 cm mass in the left upper lobe extending into the mediastinum likely of malignancy. History/Risk Factors: HTN, Tobacco, CAD, HX CA, COPD Clinical Indicators: Acute on chronic hypoxic/hypercapnic respiratory failure VS/Pulse OX: BP 142/87, RR 20, CO 101, O2 Sat 94 Chest X Ray: Highly suspicious left upper lobe mass that should be considered neoplasm until proven otherwise with diffuse interstitial prominence on the left in comparison to the right.This could relate to fibrotic change, atelectasis, or infectious etiology. Treatment: Lasix 20 mg IV ONCE, Lasix 20 mg PO Daily In your professional opinion, can you please clarify the acuity and type of CHF if known? Systolic Heart Failure: Acute Chronic Acute on Chronic Diastolic Heart Failure: Acute Chronic Acute on Chronic Systolic & Diastolic Heart Failure: Acute Chronic Acute on Chronic Heart Failure Unable to Determine Other, please specify Unable to Determine MTDD
--- NOTE | 2019-12-06 16:56 | P.DS ---
Providers Date of admission: 11/25/19 04:05 Expected date of discharge: 12/02/19 Attending physician: Adolfo Thakkar Consults: 11/25/19 04:04 Consult Physician Urgent Consulting Provider: Mina Faith Consult Reason/Comments: COPD hx, lung mass on CT Do you want consulting provider notified?: Yes 11/28/19 11:44 Consult Physician Routine Consulting Provider: Jairo Navarro Consult Reason/Comments: TARA, Hyperkalemia Do you want consulting provider notified?: Yes 11/29/19 11:09 Consult Physician Routine Consulting Provider: Luis Leong Consult Reason/Comments: lung cancer Do you want consulting provider notified?: Yes Primary care physician: Kristy Williamson MD Hospital Course: 73-year-old male patient well known to me. Of known him for many years regarding his COPD as the patient has an FEV1 of 40% of predicted consistent with severe COPD. He is a chronic smoker. He also has history of renal cell carcinoma of the right kidney that was resected many years back without evidence of any recurrence. The patient has chronic hypoxic respiratory failure and his been also on oxygen. The patient has been utilizing oxygen at 2 L per minute nasal cannula. Note that he presented to an outside hospital with increasing shortness of breath and cough and congestion of one month duration. He denied having any hemoptysis. He was however producing sputum. He denied having any chest pain. He had some limited weight loss. No chest pain or chest discomfort. No previous history of DVT or pulmonary embolism. The patient accordingly was given a chest x-ray he was found to have a right upper lobe mass on the chest x-ray findings and accordingly the patient was given a CAT scan of the chest and based on the results the patient was referred to us for further evaluation. I reviewed the CAT scan of the chest and it shows a 13 cm mass in the left upper lobe with extension into the mediastinum likely affecting a malignancy. There is also scattered subcentimeter nonspecific mediastinal lymph nodes and a patchy left upper airspace opacity which may potentially reflect either an infiltrate or metastatic disease. There is also several cystic hepatic lesions measuring up to 9.5 cm in size and several left renal cysts measuring up to 5.2 cm in size. The patient is aware of these results. He has no specific complaints for now. His own accommodation of bronchodilators and and he will be also started on Solu-Medrol to optimize his COPD. The patient is seen today 11/26/2019 in follow-up on the selective care unit. He is currently awake and alert in no acute distress. He is breathing easier today compared to yesterday. Currently maintaining O2 saturation in the 90s on 4 L/m per nasal cannula. He is afebrile. Hemodynamically stable. White count 8.1. Hemoglobin 12.1. Sodium 141. Potassium 5.5. Creatinine 1.21. He is continued on DuoNeb inhalations, IV Solu-Medrol, NicoDerm patch. On 11/27/2019 patient seen in follow-up on selective care unit. He is awake and alert, he is significantly bronchospastic on today's exam, still dyspneic, he remains on IV steroids, 40 mg every 12 hours, DuoNeb, supplemental oxygen is currently at 4 L and his pulse ox is 96%, he's been afebrile, she is dyspneic with exertion as well. he is scheduled for fine-needle aspiration biopsy of the 13 cm mass in the left upper lobe with extension into the mediastinum by interventional radiology however because patient was on aspirin his procedure had to be postponed till Wednesday. In the meantime patient COPD is quite active, and we will continue medical treating him to optimize his breathing. On 11/28/2019 patient seen in follow-up on selective care unit, he is resting comfortably in bed, in no acute distress, less bronchospastic and dyspneic on t brenda's exam, he is on 4 L of oxygen his pulse ox is 93-94%, he has been afebrile, hemodynamically patient has been stable. Follow chest x-ray was obtained showing left upper lobe mass, and diffuse interstitial prominence on the left, related to suspected neoplasm. She is scheduled for fine-needle aspirate biopsy by interventional radiology tomorrow on 11/29/2019. Remains on nebulized bronchodilators, Symbicort, IV steroids. There has been some worsening of patient's renal profile, BUN of 43 and creatinine is up to 1.37. Potassium is 5.7, patient has received an oral dose of Kayexalate today. Nephrology has been consulted. The patient is seen today 11/29/2019 in follow-up on the selective care unit. He is currently resting comfortably in bed. Awake and alert in no acute distress. He is maintaining O2 saturation in the 90s on 5 L/m per nasal cannula. He's been afebrile. White count 10.1. Hemoglobin 11.8. Sodium 141. Potassium 5.6. Creatinine 1.27. He is continued on DuoNeb inhalations, Symbicort, IV Solu-Medrol. NicoDerm patches in place. He did undergo core biopsy of the left upper lobe lung mass by interventional radiology today. Pathology pending. The patient is seen today 11/30/2019 in follow-up on the selective care unit. He is currently awake and alert in no acute distress. He did require BiPAP support due to oxygen desaturations last evening and through the night. Arterial blood gases revealed a pO2 of 105, pCO2 84 and a pH of 7.28 and 36% FiO2. He is currently on BiPAP 12 over 4 and 35% FiO2. He is afebrile. Hemodynamically stable. Sodium 140. Potassium 5.1. Bicarb 40. Creatinine 1.19. He remains on Symbicort, DuoNeb inhalations, IV Solu-Medrol. NicoDerm patch is in place. The patient is seen today 12/01/2019 in follow-up in the selective care unit. He is currently sitting up in a chair at the bedside. Awake and alert in no acute distress. Maintaining O2 saturation in the mid 90s on room air. She's afebrile. Hemodynamically stable. Pathology is pending still from the core biopsy of the left upper lobe lung mass. MRI of the brain did not reveal any evidence of metastatic disease. Sodium 139. Potassium 4.9. Bicarb 40. Creatinine 1.15. Patient is cleared for discharge from pulmonary standpoint Patient Condition at Discharge: Serious Plan - Discharge Summary Discharge Rx Participant: No New Discharge Prescriptions: New Furosemide [Lasix] 20 mg PO DAILY #30 tab predniSONE See Taper PO DIRECTED 10 Days #20 tab Pantoprazole [Protonix] 40 mg PO DAILY #30 tablet. Budesonide-Formot 160-4.5 Mcg [Symbicort 160-4.5 Mcg Inhaler] 2 puff INHALATION RT-BID #1 puff Continue Mirtazapine 45 mg PO HS Atorvastatin [Lipitor] 10 mg PO HS Roflumilast [Daliresp] 500 mcg PO DAILY Aspirin EC [Ecotrin Low Dose] 81 mg PO DAILY amLODIPine [Norvasc] 10 mg PO DAILY Meloxicam 15 mg PO DAILY Ibuprofen [Motrin] 800 mg PO BID PRN PRN Reason: Pain Metoprolol Succinate [Toprol XL] 25 mg PO DAILY Trazodone (Unknown Strength) 1 tab PO DAILY Discharge Medication List Aspirin EC [Ecotrin Low Dose] 81 mg PO DAILY 01/05/18 [History] Atorvastatin [Lipitor] 10 mg PO HS 01/05/18 [History] Mirtazapine 45 mg PO HS 01/05/18 [History] Roflumilast [Daliresp] 500 mcg PO DAILY 01/05/18 [History] Ibuprofen [Motrin] 800 mg PO BID PRN 11/25/19 [History] Meloxicam 15 mg PO DAILY 11/25/19 [History] Metoprolol Succinate [Toprol XL] 25 mg PO DAILY 11/25/19 [History] Trazodone (Unknown Strength) 1 tab PO DAILY 11/25/19 [History] amLODIPine [Norvasc] 10 mg PO DAILY 11/25/19 [History] Budesonide-Formot 160-4.5 Mcg [Symbicort 160-4.5 Mcg Inhaler] 2 puff INHALATION RT-BID #1 puff 12/01/19 [Rx] Furosemide [Lasix] 20 mg PO DAILY #30 tab 12/01/19 [Rx] Pantoprazole [Protonix] 40 mg PO DAILY #30 tablet. 12/01/19 [Rx] predniSONE See Taper PO DIRECTED 10 Days #20 tab 12/01/19 [Rx] Follow up Appointment(s)/Referral(s): Luis Leong MD [STAFF PHYSICIAN] - 1 Week () Kristy Williamson MD [Primary Care Provider] - 12/08/19 9:15 am [facility], [NON-STAFF] - Jairo Navarro DO [STAFF PHYSICIAN] - 12/20/19 10:40 am (With Chat DRILLER HELPER) Mina Faith MD [STAFF PHYSICIAN] - 12/07/19 10:30 am Patient Instructions/Handouts: Pneumonia (DC) Activity/Diet/Wound Care/Special Instructions: Patient requires a walker at discharge for unsteady gait/copd Discharge Disposition: HOME WITH HOME HEALTH SERVICES
== END 2019-12-02 08:49 | disposition home health service (06) | DRG 190 ==
LOC: EC 03:58 → 3SCARD 04:05 → 4SSUR 12-01 21:22
PROVIDERS: ADMIT Hospitalist; ATTEND Hospitalist
PROC: 5A09357 Assistance with Respiratory Ventilation, Less than 24 Consecutive Hours, Continuous Positive Airway Pressure (ICD-10-PCS; principal; 2019-11-29)
PROC: 0BBG3ZX Excision of Left Upper Lung Lobe, Percutaneous Approach, Diagnostic (ICD-10-PCS; 2019-11-29)
DX: J44.1 Chronic obstructive pulmonary disease with (acute) exacerbation (principal); J18.9 Pneumonia, unspecified organism; J96.22 Acute and chronic respiratory failure with hypercapnia; J96.21 Acute and chronic respiratory failure with hypoxia; G93.41 Metabolic encephalopathy; N17.9 Acute kidney failure, unspecified; I13.0 Hypertensive heart and chronic kidney disease with heart failure and stage 1 through stage 4 chronic kidney disease, or unspecified chronic kidney disease; C77.1 Secondary and unspecified malignant neoplasm of intrathoracic lymph nodes; E87.2 Acidosis; C34.12 Malignant neoplasm of upper lobe, left bronchus or lung; Z20.828 Contact with and (suspected) exposure to other viral communicable diseases; J44.0 Chronic obstructive pulmonary disease with (acute) lower respiratory infection; I50.9 Heart failure, unspecified; I25.10 Atherosclerotic heart disease of native coronary artery without angina pectoris; K21.9 Gastro-esophageal reflux disease without esophagitis; N18.2 Chronic kidney disease, stage 2 (mild); F17.210 Nicotine dependence, cigarettes, uncomplicated; G89.29 Other chronic pain; N28.1 Cyst of kidney, acquired; K76.9 Liver disease, unspecified; F41.9 Anxiety disorder, unspecified; F32.9 Major depressive disorder, single episode, unspecified; F51.04 Psychophysiologic insomnia; E87.5 Hyperkalemia; Z71.6 Tobacco abuse counseling; Z71.3 Dietary counseling and surveillance; Z79.82 Long term (current) use of aspirin; Z79.1 Long term (current) use of non-steroidal anti-inflammatories (NSAID); Z79.899 Other long term (current) drug therapy; Z87.442 Personal history of urinary calculi; Z85.528 Personal history of other malignant neoplasm of kidney; Z90.5 Acquired absence of kidney; Z87.01 Personal history of pneumonia (recurrent); Z86.73 Personal history of transient ischemic attack (TIA), and cerebral infarction without residual deficits; Z95.5 Presence of coronary angioplasty implant and graft; Z98.890 Other specified postprocedural states; Z87.828 Personal history of other (healed) physical injury and trauma; Z80.3 Family history of malignant neoplasm of breast
CPT/HCPCS: 36600; 70553; 71045; 74177; 76770; 77012; 80048; 81003; 82805; 83605; 83615; 83735; 84132; 85025; 85027; 85610; 88305; 88341; 88342; 94640; 94660; 94760; 96374; 99285

== ENCOUNTER → 2019-12-15 | Outpatient (CLI) | payer MEDICARE ==
--- NOTE | 2019-12-19 13:16 | PE ---
Nuclear medicine PET/CT HISTORY: Lung carcinoma, initial Patient received 11.8 mCi F-18 FDG intravenously in delayed scanning was performed from the skull bas e to the mid thighs. Localization and attenuation correction CT scan was performed. Correlation to prior CT scan of the abdomen pelvis 11/30/2019, chest x-ray 12/07/2019 neck and chest: The large mass in the left upper lobe which extends to the anterior pleural margin, m ediastinal surface, apex of the left hemithorax and measures approximately 12 cm in AP dimension by 4 .9 cm by proximally 11 cm in cephalad to caudal dimension shows associated hypermetabolic uptake. Ant e postobstructive changes are suspected in the left upper lobe. There is volume loss present. No pleu ral or pericardial effusion. No additional mass. There is a calcified pleural plaque present posterio rly, postop changes to some posterior ribs present on the left. Ascending aorta measures 4.9 cm, aort ic root 4.7 cm. There is atherosclerotic calcification present in the aortoiliac, proximal descending aorta is ectatic at 3.1 cm. Pulmonary arteries prominent, correlate for pulmonary artery hypertensio n. No evident mediastinal, axillary, or hilar adenopathy. No supraclavicular or cervical adenopathy. ABDOMEN: Large cystic foci present within the liver, there is no suspicious hypermetabolic uptake. Mu ltiple cortical cysts associated with the left kidney. Right kidney has been removed. No suspicious h ypermetabolic uptake. Aortic stent graft noted in the infrarenal location of the abdominal aorta. Upt maru along the bowel is thought to be physiologic. No pelvic adenopathy or free fluid. Osseous structures: Uptake along the left hip laterally is thought to be physiologic extending along the left ilium. Postop change noted in the lumbar spine. IMPRESSION: Patient's left upper lobe mass shows associated hypermetabolic uptake.
== END | disposition home or self-care (01) ==
LOC: RADPETMAIN 11:22
PROVIDERS: ATTEND Internal Medicine Hematology & Oncology
DX: C34.12 Malignant neoplasm of upper lobe, left bronchus or lung (principal)
CPT/HCPCS: 78815; A9552

== ENCOUNTER 2019-12-20 10:54 | Inpatient (IN) | payer MEDICARE ==
[2019-12-20] MEDS ORDERED: ASPIRIN 81 MG PO STA (11:13)
[2019-12-20 11:39] LABS: Basophils % (A) 0 %; Eosinophils # (A) 0.1 k/uL (0-0.7); Eosinophils % (A) 1 %; HCT 45.6 % (39.0-53.0); Hypochromasia Marked; Lymphocytes # (A) 0.9 k/uL (1.0-4.8); Lymphocytes % (A) 9 %; MCH 29.1 pg (25.0-35.0); MCHC 30.6 g/dL (31.0-37.0); MCV 95.1 fL (80.0-100.0); Mean Platelet Volume 7.2; Monocytes # (A) 0.5 k/uL (0-1.0); Monocytes % (A) 6 %; Neutrophils # (A) 7.9 k/uL (1.3-7.7); Neutrophils % (A) 83 %; Platelet Count 321 k/uL (150-450); RBC 4.79 m/uL (4.30-5.90); RDW 14.4 % (11.5-15.5); WBC 9.5 k/uL (3.8-10.6)
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
[2019-12-20 11:46] LABS: Albumin 3.8 g/dL (3.5-5.0); Calcium 9.6 mg/dL (8.4-10.2)
[2019-12-20 11:47] LABS: Magnesium 2.4 mg/dL (1.6-2.3); Potassium 5.3 mmol/L (3.5-5.1)
[2019-12-20 12:05] LABS: INR 0.9 (<1.2); Partial Thromboplastin Time 21.3 sec (22.0-30.0); Prothrombin Time 9.8 sec (9.0-12.0)
[2019-12-20 12:09] LABS: D-Dimer 2.64 mg/L FEU (<0.60)
--- NOTE | 2019-12-20 12:14 | XR ---
EXAMINATION TYPE: XR chest 2V DATE OF EXAM: 12/20/2019 COMPARISON: 11/29/19 HISTORY: Shortness of breath TECHNIQUE: Frontal and lateral views of the chest are obtained. FINDINGS: Scattered senescent parenchymal changes noted. Hyperinflation compatible with COPD. No evidence for infiltrate. No evidence for atelectasis. Heart size is stable. Left suprahilar mass is again noted. No evidence for hilar prominence. Degenerative changes dorsal spine. IMPRESSION: 1. Left suprahilar mass is again noted.
--- NOTE | 2019-12-20 14:22 | NM ---
EXAMINATION TYPE: NM pul vent and perfuse DATE OF EXAM: 12/20/2019 COMPARISON: NONE HISTORY: CA patient with tachycardia/pleuritic chest pain TECHNIQUE: Utilizing inhalation of 68.3 mCi Tc 99m DTPA aerosol and intravenous injection of 4.91 mC i of Tc 99m MAA, ventilation and perfusion images are acquired post injection in multiple projections . FINDINGS: There is essentially matched decreased perfusion throughout the left lung on ventilation and perfusio n portions of the study resulting in intermediate mobility for pulmonary embolism. There is a patchy uptake throughout the right lung on the ventilation portion of the study which may reflect underlying COPD. A few matched defects are also noted. No evidence for perfusion ventilation mismatch. IMPRESSION: Intermediate probability for pulmonary embolism.
[2019-12-20] MEDS ORDERED: HYDROmorphone 0.5 MG/0.5 ML SYRINGE IVP STA (14:50)
--- NOTE | 2019-12-20 15:31 | US ---
EXAMINATION TYPE: US venous doppler duplex LE BI DATE OF EXAM: 12/20/2019 3:00 PM COMPARISON: NONE CLINICAL HISTORY: leg pain, elevated dimer. SOB, elevated D-dimer SIDE PERFORMED: Bilateral TECHNIQUE: The lower extremity deep venous system is examined utilizing real time linear array sonog anjana with graded compression, doppler sonography and color-flow sonography. VESSELS IMAGED: External Iliac Vein (EIV) Common Femoral Vein Deep Femoral Vein Greater Saphenous Vein * Femoral Vein Popliteal Vein Small Saphenous Vein * Proximal Calf Veins (* superficial vessels) Right Leg: Negative for DVT Left Leg: Negative for DVT IMPRESSION: No evidence for DVT.
[2019-12-20] MEDS ORDERED: NALOXONE 0.4 MG/ML 1 ML VIAL IV PRN (15:33)
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
[2019-12-20] MEDS: SODIUM CHLORIDE 0.9% 1,000 ML IV SCH ×2 (19:40→23:54)
[2019-12-20] MEDS: SYMBICORT 160-4.5 MCG INHALER INHALATION SCH (20:04)
[2019-12-20] MEDS: busPIRone HCl 10 MG TAB PO SCH (20:58)
[2019-12-20] MEDS: ATORVASTATIN 10 MG TAB PO SCH (20:58)
[2019-12-20] MEDS: NICOTINE 14MG/24HR PATCH TRANSDERM SCH (20:58)
[2019-12-20] MEDS: HEPARIN SODIUM,PORCINE 5,000 UNIT/ML 1 ML VIAL SQ SCH ×2 (21:00→23:54)
[2019-12-20] MEDS ORDERED: MIRTAZAPINE 45 MG TABLET PO SCH (21:00)
[2019-12-20] MEDS ORDERED: DIAZEPAM 5 MG TAB PO SCH (21:00)
[2019-12-20] MEDS: HYDROmorphone 0.5 MG/0.5 ML SYRINGE IVP PRN (21:02)
[2019-12-20] MEDS ORDERED: DIAZEPAM 5 MG TAB PO PRN (21:41)
[2019-12-21] MEDS: HYDROmorphone 0.5 MG/0.5 ML SYRINGE IVP PRN ×2 (02:36→08:04)
[2019-12-21] MEDS: PANTOPRAZOLE 40 MG TABLET PO SCH (06:25)
[2019-12-21] MEDS: SYMBICORT 160-4.5 MCG INHALER INHALATION SCH ×2 (07:46→19:43)
--- NOTE | 2019-12-21 08:05 | P.PN ---
Subjective This is a pleasant 74 years old male with past medical history of coronary artery disease, COPD and for follow-up with Dr. Faith, asthma, GERD, hypertension, left renal mass, chronic hypoxic respiratory failure and 2 L oxygen at home, chronic low back pain. Patient states that he has chest pain for 2 days about 10/10 in severity, the left side nonradiating, No associated dizziness no dyspnea no palpitation, no nausea vomiting or sweating. Patient has chronic cough, with mild phlegm with no recent worsening. He keeps smoking 2 cigars per day and patient counseled as wants to quit and wants nicotine patch. No alcohol or illicit drugs. Vitals are stable and he is tachycardic. At 105. CBC is unremarkable, d-dimer is elevated at 2.6. His potassium was 5.3 which is slightly elevated, creatinine 1.5, baseline is 1.15. First troponin is negative for 0.018. Chest x-ray: No acute process. Left suprahilar mass. EKG showing sinus tac hycardia at [address]-T changes and QTC of 545 intermediate from ability for PE , however i spoke with bed side RN at [facility] she states came and evaluated the pt and recommended no therapeutic anti-coagulation for now in the emergency room pt was stared on normal saline at 100 ml/hr 12/21/2019 Patient is awake and alert, history of complaining of from chest pain about 8/10, his dyspnea is little more this morning. He complains from cough and clear phlegm but states that its chronic. He has low-grade temperature this morning 100.3, is tachycardic 114, blood pressure 118/65, saturating 94% on 2 L oxygen via nasal cannula. Labs from this morning, CBC and BMP are pending. We will repeat chest x-ray. is aware of his lung mass. Also patient has intermediate probability for PE on his VQ scan done last night, however were not sure patient will need anticoagulation so we'll call pulmonary consult We will consult cardiology, pulmonary service already consulted Review of Systems CONSTITUTIONAL: No fever, no malaise, no fatigue. HEENT: No recent visual problems or hearing problems. Denied any sore throat. CARDIOVASCULAR: no palpitations, no syncope. PULMONARY: no hemoptysis. GASTROINTESTINAL: No diarrhea, no nausea, no vomiting, no abdominal pain. Normoactive bowel sounds. NEUROLOGICAL: No headaches, no weakness, no numbness. HEMATOLOGICAL: Denies any bleeding or petechiae. GENITOURINARY: Denies any burning micturition, frequency, or urgency. MUSCULOSKELETAL/RHEUMATOLOGICAL: Denies any joint pain, swelling, or any muscle pain. ENDOCRINE: Denies any polyuria or polydipsia. Active Medications Generic Name Dose Route Start Last Admin Trade Name Freq PRN Reason Stop Dose Admin Aspirin 81 mg 12/21/19 09:00 Aspirin PO DAILY [facility] Atorvastatin Calcium 10 mg 12/20/19 21:00 12/20/19 20:58 Lipitor PO 10 mg HS LISA Administration Budesonide/Formoterol Fumarate 2 puff 12/20/19 20:00 12/21/19 07:46 Symbicort 160-4.5 Mcg Inhaler INHALATION 2 puff RT-BID LISA Administration Buspirone HCl 10 mg 12/20/19 21:00 12/20/19 20:58 Buspar PO 10 mg BID LISA Administration Diazepam 10 mg 12/20/19 21:41 Valium PO HS PRN Insomnia Furosemide 20 mg 12/21/19 09:00 Lasix PO DAILY [facility] Heparin Sodium (Porcine) 5,000 unit 12/20/19 19:15 12/20/19 23:54 Heparin SQ 5,000 unit Q8HR LISA Administration Hydromorphone HCl 0.5 mg 12/20/19 15:33 12/21/19 02:36 Dilaudid IVP 0.5 mg Q3HR PRN Administration Moderate Pain Sodium Chloride 1,000 mls @ 75 mls/hr 12/20/19 15:45 12/20/19 23:54 Saline 0.9% IV Not Given .[id number] [facility] Metoprolol Succinate 25 mg 12/21/19 09:00 Toprol Xl PO DAILY [facility] Mirtazapine 45 mg 12/20/19 21:00 12/20/19 20:58 Remeron PO 45 mg HS LISA Administration Naloxone HCl 0.2 mg 12/20/19 15:33 Narcan IV Q2M PRN Opioid Reversal Nicotine 1 patch 12/20/19 19:15 12/20/19 20:58 Habitrol 14mg/24hr Patch TRANSDERM Not Given DAILY [facility] Pantoprazole Sodium 40 mg 12/21/19 07:30 12/21/19 06:25 Protonix PO Not Given AC-BRKFST [facility] Objective - Vital Signs Vital signs: Vital Signs Temp 100.3 F H 12/21/19 07:53 Pulse 114 H 12/21/19 07:53 Resp 20 12/21/19 07:53 BP 118/65 12/21/19 07:53 Pulse Ox 94 L 12/21/19 07:53 Intake & Output 12/20/19 12/21/19 12/21/19 18:59 06:59 18:59 Output Total 200 Balance -200 Weight 74.389 kg 78 kg Output: Urine 200 - Exam GENERAL: The patient is alert and oriented x3, not in any acute distress. Well developed, well nourished. HEENT: Pupils are round and equally reacting to light. EOMI. No scleral icterus. No conjunctival pallor. Normocephalic, atraumatic. No pharyngeal erythema. No thyromegaly. CARDIOVASCULAR: S1 and S2 present. No murmurs, rubs, or gallops. -PULMONARY: Chest is clear to auscultation, no wheezing. Coarse crepitation bilaterally ABDOMEN: Soft, nontender, nondistended, normoactive bowel sounds. No palpable organomegaly. MUSCULOSKELETAL: No joint swelling or deformity. EXTREMITIES: No cyanosis, clubbing, or pedal edema. NEUROLOGICAL: Gross neurological examination did not reveal any focal deficits. SKIN: No rashes. No petechiae - Labs CBC & Chem 7: 12/20/19 11:25 12/20/19 11:25 Labs: Abnormal Lab Results - Last 24 Hours (Table) 12/20/19 12/20/19 12/20/19 Range/Units 11:25 11:25 11:25 MCHC 30.6 L (31.0-37.0) g/dL Neutrophils # 7.9 H (1.3-7.7) k/uL Lymphocytes # 0.9 L (1.0-4.8) k/uL APTT 21.3 L (22.0-30.0) sec D-Dimer 2.64 H (<0.60) mg/L FEU Potassium 5.3 H (3.5-5.1) mmol/L BUN 37 H (9-20) mg/dL Creatinine 1.58 H (0.66-1.25) mg/dL Glucose 114 H (74-99) mg/dL Magnesium 2.4 H (1.6-2.3) mg/dL Assessment and Plan Assessment: Chest pain, rule out cardiac causes in view of his history of coronary artery disease status post stent placed in the past fever, and possible sepsis with tachycardia, fever and tachypnea he has 3/4 of SIRS criteria, rule out pneumonia versus other. Acute kidney injury Elevated d-dimer, with intermediate from ability for PE, no need for AC per pulmonary service Left suprahilar mass Hypertension GERD COPD, not an active issue Chronic hypoxic respiratory failure Chronic low back pain Plan: This is a pleasant 74 years old male who presents with chest pain. We'll do serial troponins and EKG. Cardiology consult.pulmonary consult , c/w iv hydration and f/u creatinine . Start the patient on Zosyn. Send sputum culture. Labs and medication were reviewed.. Continue same treatment. Continue with symptomatic treatment. Resume home medication. Monitor lytes and vitals. DVT and GI prophylaxis. Further recommendations of the clinical course of the patient DVT prophylaxis: Subcutaneous heparin GI Prophylaxis: Pepcid PT/OT: Pending Prognosis is guarded
[2019-12-21] MEDS: busPIRone HCl 10 MG TAB PO SCH ×3 (08:06→21:36)
[2019-12-21] MEDS: ASPIRIN 81 MG PO SCH (08:06)
[2019-12-21] MEDS: HEPARIN SODIUM,PORCINE 5,000 UNIT/ML 1 ML VIAL SQ SCH ×3 (08:06→23:59)
[2019-12-21] MEDS: METOPROLOL SUCCINATE (ER) 25 MG TAB.ER.24H PO SCH (08:07)
[2019-12-21] MEDS: NICOTINE 14MG/24HR PATCH TRANSDERM SCH (08:07)
--- NOTE | 2019-12-21 08:23 | XR ---
EXAMINATION TYPE: XR chest 1V portable DATE OF EXAM: 12/21/2019 Comparison: 12/20/2019 Clinical History: 74 year-old male shortness of breath Findings: Heart normal size. Hyperinflation. Patchy density throughout the left lung with known large medial le ft upper lobe mass measuring up to at least 13.0 cm. No pleural effusion. Patchy density appears incr eased on the left. Impression: COPD and known, large medial left upper lobe mass. There are increasing patchy densities in the left lung that could represent pneumonia.
[2019-12-21] MEDS: ACETAMINOPHEN TAB 325 MG TAB PO PRN (08:30)
[2019-12-21] MEDS: PIPERACILLIN-TAZOBACTAM 3.375 GM in SODIUM CHLORIDE 0.9% 100 ML IVPB SCH ×3 (08:30→23:58)
[2019-12-21] MEDS ORDERED: SODIUM CHLORIDE 0.9% 1,000 ML IV SCH (09:00)
[2019-12-21] MEDS ORDERED: FUROSEMIDE 20 MG TAB PO SCH (09:00)
[2019-12-21 10:56] LABS: Basophils % (A) 0 %; Eosinophils % (A) 0 %; HCT 43.8 % (39.0-53.0); HGB 12.5 gm/dL (13.0-17.5); Hypochromasia Marked; Lymphocytes % (A) 13 %; MCH 27.9 pg (25.0-35.0); MCHC 28.6 g/dL (31.0-37.0); MCV 97.7 fL (80.0-100.0); Mean Platelet Volume 7.1; Monocytes # (A) 0.5 k/uL (0-1.0); Monocytes % (A) 6 %; Neutrophils # (A) 6.3 k/uL (1.3-7.7); Neutrophils % (A) 80 %; Platelet Count 304 k/uL (150-450); RBC 4.48 m/uL (4.30-5.90); RDW 14.1 % (11.5-15.5); WBC 7.9 k/uL (3.8-10.6)
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
[2019-12-21 11:02] LABS: Calcium 9.1 mg/dL (8.4-10.2); Potassium 5.5 mmol/L (3.5-5.1)
[2019-12-21] MEDS: methylPREDNISolone SOD SUCCI 125 MG/2 ML VIAL IV SCH ×3 (11:02→23:59)
[2019-12-21 11:27] LABS: ABG Base Excess 9.1 mmol/L; ABG HCO3 36 mmol/L (21-25); ABG PH 7.28 (7.35-7.45); ABG PO2 124 mmHg (83-108); ABG TCO2 38 mmol/L (19-24); Allen Test Performed? Yes
[2019-12-21 11:32] LABS: ABG PCO2 77 mmHg (35-45)
[2019-12-21] MEDS: IPRATROPIUM-ALBUTEROL 3 ML NEB INHALATION SCH ×3 (11:38→19:43)
--- NOTE | 2019-12-21 11:45 | ECHOF ---
Referral Reason:chest pain MEASUREMENTS -------- HEIGHT: 180.3 cm WEIGHT: 77.1 kg BP: 118/65 RVIDd: 3.5 cm (< 3.3) IVSd: 1.0 cm (0.6 - 1.1) LVIDd: 3.9 cm (3.9 - 5.3) LVPWd: 1.4 cm (0.6 - 1.1) IVSs: 2.1 cm LVIDs: 2.3 cm LVPWs: 1.8 cm Ao Diam: 4.1 cm (2.0 - 3.7) AV Cusp: 2.4 cm (1.5 - 2.6) LA Diam: 3.2 cm (2.7 - 3.8) MV E Golden: 0.55 m/s MV DecT: 210 ms MV A Golden: 0.85 m/s MV E/A Ratio: 0.64 RAP: 5.00 mmHg RVSP: 17.25 mmHg FINDINGS -------- Resting tachycardia (HR>100bpm). This was a technically difficult study with suboptimal views. The left ventricular size is normal. There is mild concentric left ventricular hypertrophy. Overa ll left ventricular systolic function is normal with, an EF between 55 - 60 %. The right ventricle is mildly enlarged. The left atrial size is normal. The right atrial size is normal. Lumason used The aortic valve is trileaflet and appears structurally normal. The mitral valve is normal. There is trace mitral regurgitation. The tricuspid valve appears structurally normal. Trace tricuspid regurgitation present. Right cheryl tricular systolic pressure is normal at < 35 mmHg. There is no pulmonic regurgitation present. There is no pericardial effusion. CONCLUSIONS -------- 1. Resting tachycardia (HR>100bpm). 2. This was a technically difficult study with suboptimal views. 3. The left ventricular size is normal. 4. There is mild concentric left ventricular hypertrophy. 5. Overall left ventricular systolic function is normal with, an EF between 55 - 60 %. 6. The right ventricle is mildly enlarged. 7. The left atrial size is normal. 8. The right atrial size is normal. 9. Lumason used 10. The aortic valve is trileaflet and appears structurally normal. 11. The mitral valve is normal. 12. There is trace mitral regurgitation. 13. The tricuspid valve appears structurally normal. 14. Trace tricuspid regurgitation present. 15. Right ventricular systolic pressure is normal at < 35 mmHg. 16. There is no pulmonic regurgitation present. 17. There is no pericardial effusion. SENIOR HUMAN RESOURCES REPRESENTATIVE: Rhea Mercado RDCS
[2019-12-21 12:43] LABS: Glucose,Whole Blood 112 mg/dL (75-99)
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
[2019-12-21] MEDS: ATORVASTATIN 10 MG TAB PO SCH ×2 (21:33→21:36)
[2019-12-22] MEDS: ACETAMINOPHEN TAB 325 MG TAB PO PRN (05:53)
[2019-12-22 06:23] LABS: Potassium 5.8 mmol/L (3.5-5.1)
[2019-12-22] MEDS: HYDROmorphone 1 MG/ML 1 ML SYRINGE IVP PRN ×4 (06:48→21:42)
[2019-12-22] MEDS: methylPREDNISolone SOD SUCCI 125 MG/2 ML VIAL IV SCH ×4 (06:48→23:39)
[2019-12-22] MEDS: PANTOPRAZOLE 40 MG TABLET PO SCH (06:48)
--- NOTE | 2019-12-22 07:20 | XR ---
EXAMINATION TYPE: XR chest 1V portable DATE OF EXAM: 12/22/2019 COMPARISON: Prior chest x-ray 12/21/2019 HISTORY: COPD, lung mass TECHNIQUE: Single frontal view of the chest is obtained. FINDINGS: Left upper lobe lung mass is again noted. There is no evident pneumothorax or pleural effu ricky. Heart size is likely stable. There may be postobstructive changes in the left lung, correlate f or pneumonia. Surgical clips are present overlying the left lower chest. There are overlying cardiac leads. IMPRESSION: Patient's left upper lobe lung mass as described.
[2019-12-22] MEDS: IPRATROPIUM-ALBUTEROL 3 ML NEB INHALATION SCH ×4 (08:35→21:13)
[2019-12-22] MEDS: SYMBICORT 160-4.5 MCG INHALER INHALATION SCH ×2 (08:35→21:13)
[2019-12-22] MEDS: ASPIRIN 81 MG PO SCH (08:45)
[2019-12-22] MEDS: PIPERACILLIN-TAZOBACTAM 3.375 GM in SODIUM CHLORIDE 0.9% 100 ML IVPB SCH ×3 (08:45→23:40)
[2019-12-22] MEDS: METOPROLOL SUCCINATE (ER) 25 MG TAB.ER.24H PO SCH (08:45)
[2019-12-22] MEDS: NICOTINE 14MG/24HR PATCH TRANSDERM SCH (08:46)
[2019-12-22] MEDS: busPIRone HCl 10 MG TAB PO SCH ×2 (08:46→21:15)
[2019-12-22] MEDS: SODIUM CHLORIDE 0.9% 1,000 ML IV SCH (08:47)
[2019-12-22] MEDS: HEPARIN SODIUM,PORCINE 5,000 UNIT/ML 1 ML VIAL SQ SCH ×3 (08:53→23:40)
--- NOTE | 2019-12-22 09:14 | P.PN ---
Subjective This is a pleasant 74 years old male with past medical history of coronary artery disease, COPD and for follow-up with Dr. Faith, asthma, GERD, hypertension, left renal mass, chronic hypoxic respiratory failure and 2 L oxygen at home, chronic low back pain. Patient states that he has chest pain for 2 days about 10/10 in severity, the left side nonradiating, No associated dizziness no dyspnea no palpitation, no nausea vomiting or sweating. Patient has chronic cough, with mild phlegm with no recent worsening. He keeps smoking 2 cigars per day and patient counseled as wants to quit and wants nicotine patch. No alcohol or illicit drugs. Vitals are stable and he is tachycardic. At 105. CBC is unremarkable, d-dimer is elevated at 2.6. His potassium was 5.3 which is slightly elevated, creatinine 1.5, baseline is 1.15. First troponin is negative for 0.018. Chest x-ray: No acute process. Left suprahilar mass. EKG showing sinus tac hycardia at [address]-T changes and QTC of 545 intermediate from ability for PE , however i spoke with bed side RN at [facility] she states came and evaluated the pt and recommended no therapeutic anti-coagulation for now in the emergency room pt was stared on normal saline at 100 ml/hr 12/21/2019 Patient is awake and alert, history of complaining of from chest pain about 8/10, his dyspnea is little more this morning. He complains from cough and clear phlegm but states that its chronic. He has low-grade temperature this morning 100.3, is tachycardic 114, blood pressure 118/65, saturating 94% on 2 L oxygen via nasal cannula. Labs from this morning, CBC and BMP are pending. We will repeat chest x-ray. is aware of his lung mass. Also patient has intermediate probability for PE on his VQ scan done last night, however were not sure patient will need anticoagulation so we'll call pulmonary consult We will consult cardiology, pulmonary service already consulted [id number] Patient is sedated become more dyspneic and he was transferred to the ICU. He needed 10 L of oxygen via nasal cannula, however it was lowered today to 6 L and he saturating 91-94% he is fully awake, he does not use accessory muscles a lot with no chest pain, he has some mild headache which is controlled with pain medication. Patient with low-grade temperature 100.3 yesterday, maybe some elements of pneumonia and he was placed on Zosyn. Chest x-ray showing left upper mass about 13 cm, (non-small cell lung cancer. Biopsy from 11/28) Although patient has abnormal VQ scan, pulmonary team does not think patient will need anticoagulation as his symptoms mostly comes from his lung mass, pneumonia and advanced COPD, no other evidence of clot in disease. Last night the nurse told me he was asking for hospice care consult however when I talked to the patient this morning he does not feel he is ready for that yet. Continue with Zosyn and Solu-Medrol 60 mg, aspirin, breathing treatments. Patient is followed closely by pulmonary/critical care team and cartilage team Review of Systems CONSTITUTIONAL: No fever, no malaise, no fatigue. HEENT: No recent visual problems or hearing problems. Denied any sore throat. CARDIOVASCULAR: no palpitations, no syncope. PULMONARY: no hemoptysis. GASTROINTESTINAL: No diarrhea, no nausea, no vomiting, no abdominal pain. Normoactive bowel sounds. NEUROLOGICAL: No headaches, no weakness, no numbness. HEMATOLOGICAL: Denies any bleeding or petechiae. GENITOURINARY: Denies any burning micturition, frequency, or urgency. MUSCULOSKELETAL/RHEUMATOLOGICAL: Denies any joint pain, swelling, or any muscle pain. ENDOCRINE: Denies any polyuria or polydipsia. Active Medications Generic Name Dose Route Start Last Admin Trade Name Freq PRN Reason Stop Dose Admin Acetaminophen 650 mg 12/21/19 08:14 12/22/19 05:53 Tylenol Tab PO 650 mg Q6HR PRN Administration Fever and/ or Pain Albuterol/Ipratropium 3 ml 12/21/19 12:00 12/22/19 08:35 Duoneb 0.5 Mg-3 Mg/3 Ml Soln INHALATION 3 ml RT-QID LISA Administration Aspirin 81 mg 12/21/19 09:00 12/22/19 08:45 Aspirin PO 81 mg DAILY LISA Administration Atorvastatin Calcium 10 mg 12/20/19 21:00 12/21/19 21:36 Lipitor PO Not Given HS LISA Budesonide/Formoterol Fumarate 2 puff 12/20/19 20:00 12/22/19 08:35 Symbicort 160-4.5 Mcg Inhaler INHALATION 2 puff RT-BID LISA Administration Buspirone HCl 10 mg 12/20/19 21:00 12/22/19 08:46 Buspar PO 10 mg BID LISA Administration Heparin Sodium (Porcine) 5,000 unit 12/20/19 19:15 12/22/19 08:53 Heparin SQ 5,000 unit Q8HR LISA Administration Hydromorphone HCl 1 mg 12/21/19 17:12 12/22/19 06:48 Dilaudid IVP 1 mg Q4HR PRN Administration Pain Piperacillin Sod/Tazobactam 100 mls @ 25 mls/hr 12/21/19 08:15 12/22/19 08:45 Sod 3.375 gm/ Sodium Chloride IVPB 25 mls/hr Q8HR LISA Administration Sodium Chloride 1,000 mls @ 50 mls/hr 12/22/19 08:30 12/22/19 08:47 Saline 0.9% IV 50 mls/hr .Q20H LISA Administration Methylprednisolone Sodium Succinate 60 mg 12/21/19 12:00 12/22/19 06:48 Solu-Medrol IV 60 mg Q6HR LISA Administration Metoprolol Succinate 25 mg 12/21/19 09:00 12/22/19 08:45 Toprol Xl PO 25 mg DAILY LISA Administration Naloxone HCl 0.2 mg 12/20/19 15:33 Narcan IV Q2M PRN Opioid Reversal Nicotine 1 patch 12/20/19 19:15 12/22/19 08:46 Habitrol 14mg/24hr Patch TRANSDERM 1 patch DAILY LISA Administration Pantoprazole Sodium 40 mg 12/21/19 07:30 12/22/19 06:48 Protonix PO 40 mg [id number] LISA Administration Objective - Vital Signs Vital signs: Vital Signs Temp 97.6 F 12/22/19 08:00 Pulse 82 12/22/19 09:00 Resp 22 12/22/19 09:00 BP 109/69 12/22/19 09:00 Pulse Ox 91 L 12/22/19 09:00 Intake & Output 12/21/19 12/22/19 12/22/19 18:59 06:59 18:59 Intake Total 140 340 90 Output Total 300 400 300 Balance -160 -60 -210 Weight 77.8 kg Intake: IV 20 240 90 Sodium Chloride 0.9% 1, 20 240 40 000 ml @ 20 mls/hr IV . Q24H [facility] Rx#:[id number] Sodium Chloride 0.9% 1, 50 000 ml @ 50 mls/hr IV . Q20H [facility] Rx#:[id number] Intake, IV Titration 100 Amount Piperacillin-Tazobactam 3 100 .375 gm In Sodium Chloride 0.9% 100 ml @ 25 mls/hr IVPB Q8HR LISA Rx# :[id number] Oral 120 Output: Urine 300 400 300 Other: Voiding Method Urinal # Voids 1 1 - Exam GENERAL: The patient is alert and oriented x3, not in any acute distress. Well developed, well nourished. HEENT: Pupils are round and equally reacting to light. EOMI. No scleral icterus. No conjunctival pallor. Normocephalic, atraumatic. No pharyngeal erythema. No thyromegaly. CARDIOVASCULAR: S1 and S2 present. No murmurs, rubs, or gallops. -PULMONARY: Chest is clear to auscultation, no wheezing. Coarse crepitation bilaterally ABDOMEN: Soft, nontender, nondistended, normoactive bowel sounds. No palpable organomegaly. MUSCULOSKELETAL: No joint swelling or deformity. EXTREMITIES: No cyanosis, clubbing, or pedal edema. NEUROLOGICAL: Gross neurological examination did not reveal any focal deficits. SKIN: No rashes. No petechiae - Labs CBC & Chem 7: 12/21/19 10:27 12/22/19 05:30 Labs: Abnormal Lab Results - Last 24 Hours (Table) 12/21/19 12/21/19 12/21/19 Range/Units 10:27 10:27 11:23 Hgb 12.5 L (13.0-17.5) gm/dL MCHC 28.6 L (31.0-37.0) g/dL ABG pH 7.28 L (7.35-7.45) ABG pCO2 77 H* (35-45) mmHg ABG pO2 124 H (83-108) mmHg ABG HCO3 36 H (21-25) mmol/L ABG Total CO2 38 H (19-24) mmol/L ABG O2 Saturation 98.0 H (94-97) % Potassium 5.5 H (3.5-5.1) mmol/L Carbon Dioxide 34 H (22-30) mmol/L BUN 39 H (9-20) mg/dL Creatinine 1.57 H (0.66-1.25) mg/dL Glucose 145 H (74-99) mg/dL POC Glucose (mg/dL) (75-99) mg/dL 12/21/19 12/22/19 Range/Units 12:41 05:30 Hgb (13.0-17.5) gm/dL MCHC (31.0-37.0) g/dL ABG pH (7.35-7.45) ABG pCO2 (35-45) mmHg ABG pO2 (83-108) mmHg ABG HCO3 (21-25) mmol/L ABG Total CO2 (19-24) mmol/L ABG O2 Saturation (94-97) % Potassium 5.8 H (3.5-5.1) mmol/L Carbon Dioxide 31 H (22-30) mmol/L BUN 55 H (9-20) mg/dL Creatinine 1.73 H (0.66-1.25) mg/dL Glucose 158 H (74-99) mg/dL POC Glucose (mg/dL) 112 H (75-99) mg/dL Assessment and Plan Assessment: Acute COPD exacerbation, advanced age Non-small lung cancer with Left upper lung mass, about 13 cm Possible left sided pneumonia with fever, and possible sepsis with tachycardia, fever and tachypnea he has 3/4 of SIRS criteria, rule out pneumonia versus o ther. Acute kidney injury Elevated d-dimer, with intermediate from ability for PE, no need for AC per pulmonary service Left suprahilar mass Hypertension GERD COPD, not an active issue Chronic hypoxic respiratory failure Chronic low back pain Plan: This is a pleasant 74 years old male who presents with chest pain. Continue with steroids and breathing treatment, oxygen as needed. Pulmonary and cardiology on the case. Patient's symptoms, and from lung disease rather than heart.. Start the patient on Zosyn. Send sputum culture. Labs and medication were reviewed.. Continue same treatment. Continue with symptomatic treatment. Resume home medication. Monitor lytes and vitals. DVT and GI prophylaxis. Further recommendations of the clinical course of the patient DVT prophylaxis: Subcutaneous heparin GI Prophylaxis: Pepcid PT/OT: Pending Prognosis is guarded
--- NOTE | 2019-12-22 09:44 | P.PN ---
Subjective Progress Note Date: 12/22/19 Is a 74-year-old gentleman with history of of coronary artery disease with previous stent placement who follows with a trials manager out of town and also has history of renal cell carcinoma with prior nephrectomy, COPD, hypertension, hyperlipidemia who was admitted to the hospital with increasing shortness of breath. Patient also has left upper lobe mass in addition to mediastinal lymph nodes. Patient had a VQ scan admission which was intermittent positive for pulmonary emboli. Patient was seen by pulmonary and felt his symptoms are mostly related to exacerbation of COPD and possibly to the lung mass. Patient is complaining of left-sided chest pain which is pleuritic. It seemed to be at the site where he had a biopsy done. The pain appears to be noncardiac. His troponin are borderline elevated and not consistent with acute coronary syndrome. At this point his symptoms are mostly pulmonary. We'll continue current medical therapy and will follow as needed Objective - Vital Signs Vital signs: Vital Signs Temp 97.6 F 12/22/19 08:00 Pulse 82 12/22/19 09:00 Resp 22 12/22/19 09:00 BP 109/69 12/22/19 09:00 Pulse Ox 91 L 12/22/19 09:00 Intake & Output 12/21/19 12/22/19 12/22/19 18:59 06:59 18:59 Intake Total 140 340 90 Output Total 300 400 300 Balance -160 -60 -210 Weight 77.8 kg Intake: IV 20 240 90 Sodium Chloride 0.9% 1, 20 240 40 000 ml @ 20 mls/hr IV . Q24H LISA Rx#:[id number] Sodium Chloride 0.9% 1, 50 000 ml @ 50 mls/hr IV . Q20H LISA Rx#:[id number] Intake, IV Titration 100 Amount Piperacillin-Tazobactam 3 100 .375 gm In Sodium Chloride 0.9% 100 ml @ 25 mls/hr IVPB Q8HR LISA Rx# :[id number] Oral 120 Output: Urine 300 400 300 Other: Voiding Method Urinal # Voids 1 1 - Exam GENERAL EXAM: Patient is alert and oriented and in mild distress HEENT: Normocephalic. Normal reaction of pupils, equal size, normal range of extraocular motion. No erythema or exudates in the throat. NECK: No masses, no nuchal rigidity. CHEST: No chest wall deformity. LUNGS: Distant breath sounds and rhonchi HEART: S1 and S2 normal. Distant heart sounds ABDOMEN: No hepatosplenomegaly, normal bowel sounds, no guarding or rigidity. SKIN: No rashes CENTRAL NERVOUS SYSTEM: No focal deficits. EXTREMITIES: No cyanosis, clubbing or edema. - Labs CBC & Chem 7: 12/21/19 10:27 12/22/19 05:30 Labs: Abnormal Lab Results - Last 24 Hours (Table) 12/21/19 12/21/19 12/21/19 Range/Units 10:27 10:27 11:23 Hgb 12.5 L (13.0-17.5) gm/dL MCHC 28.6 L (31.0-37.0) g/dL ABG pH 7.28 L (7.35-7.45) ABG pCO2 77 H* (35-45) mmHg ABG pO2 124 H (83-108) mmHg ABG HCO3 36 H (21-25) mmol/L ABG Total CO2 38 H (19-24) mmol/L ABG O2 Saturation 98.0 H (94-97) % Potassium 5.5 H (3.5-5.1) mmol/L Carbon Dioxide 34 H (22-30) mmol/L BUN 39 H (9-20) mg/dL Creatinine 1.57 H (0.66-1.25) mg/dL Glucose 145 H (74-99) mg/dL POC Glucose (mg/dL) (75-99) mg/dL 12/21/19 12/22/19 Range/Units 12:41 05:30 Hgb (13.0-17.5) gm/dL MCHC (31.0-37.0) g/dL ABG pH (7.35-7.45) ABG pCO2 (35-45) mmHg ABG pO2 (83-108) mmHg ABG HCO3 (21-25) mmol/L ABG Total CO2 (19-24) mmol/L ABG O2 Saturation (94-97) % Potassium 5.8 H (3.5-5.1) mmol/L Carbon Dioxide 31 H (22-30) mmol/L BUN 55 H (9-20) mg/dL Creatinine 1.73 H (0.66-1.25) mg/dL Glucose 158 H (74-99) mg/dL POC Glucose (mg/dL) 112 H (75-99) mg/dL Assessment and Plan (1) Atypical chest pain Current Visit: Yes Status: Acute Code(s): R07.89 - OTHER CHEST PAIN SNOMED Code(s): 529593290 (2) COPD exacerbation Current Visit: Yes Status: Acute Code(s): J44.1 - CHRONIC OBSTRUCTIVE PULMONARY DISEASE W (ACUTE) EXACERBATION SNOMED Code(s): 649861146 (3) Dyspnea Current Visit: Yes Status: Acute Code(s): R06.00 - DYSPNEA, UNSPECIFIED SNOMED Code(s): 652251086 (4) Adenocarcinoma of left lung Current Visit: No Status: Acute Code(s): C34.92 - MALIGNANT NEOPLASM OF UNSP PART OF LEFT BRONCHUS OR LUNG SNOMED Code(s): 09292445944668221 (5) History of coronary artery disease Current Visit: Yes Status: Acute Code(s): Z86.79 - PERSONAL HISTORY OF OTHER DISEASES OF THE CIRCULATORY SYSTEM SNOMED Code(s): 216420208 (6) Elevated troponin Current Visit: Yes Status: Acute Code(s): R79.89 - OTHER SPECIFIED ABNORMAL FINDINGS OF BLOOD CHEMISTRY SNOMED Code(s): 635827404 Plan: Patient's symptoms are mostly related to see COPD and lung issues. He chest pain is atypical and pleuritic. No further cardiac workup at this time. We'll follow as needed
--- NOTE | 2019-12-22 11:35 | P.PN ---
Subjective Progress Note Date: 12/22/19 Principal diagnosis: Acute exacerbation of COPD This is a very pleasant 74-year-old gentleman who is well-known to Dr. Faith in our office for many years regarding his COPD as the patient has an FEV1 of 40% of predicted consistent with severe COPD. He is a chronic smoker. He also has history of renal cell carcinoma of the right kidney that was resected many years back without evidence of any recurrence. The patient has chronic hypoxic respiratory failure and his been also on oxygen. The patient has been utilizing oxygen at 2 L per minute nasal cannula. He was admitted in early November of this year for COPD exacerbation. 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 Computed tomography scan of the abdomen and pelvis revealed no evidence of metastatic disease. MRI of the brain revealed no metastatic disease. He had seen Dr. Faith in follow-up. He did not feel he was a good candidate for surgical intervention. A PET scan was scheduled and follow-up pulmonary function testing was planned. He was scheduled to see Dr. Leong in his office yesterday. The patient however presented to the emergency room yesterday with worsening shortness of breath and left-sided chest pain. Chest x-ray revealed a left suprahilar mass. VQ scan was performed and revealed in Guy probability for pulmonary embolism. Venous Doppler of the lower extremities were negative. White count 7.9. Hemoglobin 12.5. D-dimer 2.64. Sodium 138. Potassium 5.5. Chloride 100 bicarb 34 creatinine 1.57 proBNP 573. Troponin negative 1. Aiken virus not detected. He is seen today in consultation on the [facility] care unit. He is currently sitting up in bed. In moderate respiratory distress. Loose nonproductive cough. Diaphoretic. Oxygen saturation 74% on 2 L nasal cannula. He is tachycardic. He was immediately placed on BiPAP 12/4 and 100% FiO2. Given a breathing treatment. Blood gases revealed a PaO2 of 124 , pCO2 of 77 and a pH of 7.28. He was initiated on IV Solu-Medrol and transferred to the intensive care unit. He is currently on Zosyn. NicoDerm patch is in place. Patient was reevaluated today in the ICU on 7/30/20, patient is on high flow nasal cannula at 6 L/m, he is off BiPAP, and he seems to be doing much better compared to yesterday. Patient seems to be comfortable, and in no distress. Remains on bronchodilators and steroids. Off diuretics. And his IV fluid was increased because of his renal functioning. Electrolytes are normal except for slightly elevated potassium of 5.8 his BUN is up to 55 and his creatinine is up to 1.73. Hence fluid was liberalized today. His Aiken virus screening/PCR is negative. Objective - Vital Signs Vital signs: Vital Signs Temp 97.6 F 12/22/19 08:00 Pulse 81 12/22/19 10:00 Resp 20 12/22/19 10:00 BP 115/69 12/22/19 10:00 Pulse Ox 96 12/22/19 10:00 Intake & Output 12/21/19 12/22/19 12/22/19 18:59 06:59 18:59 Intake Total 140 340 140 Output Total 300 400 300 Balance -160 -60 -160 Weight 77.8 kg Intake: IV 20 240 140 Sodium Chloride 0.9% 1, 20 240 40 000 ml @ 20 mls/hr IV . Q24H LISA Rx#:[id number] Sodium Chloride 0.9% 1, 100 000 ml @ 50 mls/hr IV . Q20H LISA Rx#:[id number] Intake, IV Titration 100 Amount Piperacillin-Tazobactam 3 100 .375 gm In Sodium Chloride 0.9% 100 ml @ 25 mls/hr IVPB Q8HR LISA Rx# :[id number] Oral 120 Output: Urine 300 400 300 Other: Voiding Method Urinal # Voids 1 1 - Exam GENERAL EXAM: Revealed 74-year-old white male, looks in no form of distress, on nasal cannula. HEENT: PERRLA, EOMI, no icterus, no neck masses, no JVD. CHEST: No chest wall deformity. LUNGS: Equal air entry with wheezing on forced expiratory maneuver only. CVS: S1 and S2 normal with no audible murmur, regular rhythm. ABDOMEN: No hepatosplenomegaly, normal bowel sounds, no guarding or rigidity. SPINE: No scoliosis or deformity SKIN: No rashes CENTRAL NERVOUS SYSTEM: No focal deficits, tone is normal in all 4 extremities. EXTREMITIES: There is no peripheral edema. No clubbing, no cyanosis. Peripheral pulses are intact. - Labs CBC & Chem 7: 12/21/19 10:27 12/22/19 05:30 Labs: Abnormal Lab Results - Last 24 Hours (Table) 12/21/19 12/21/19 12/22/19 Range/Units 11:23 12:41 05:30 ABG pH 7.28 L (7.35-7.45) ABG pCO2 77 H* (35-45) mmHg ABG pO2 124 H (83-108) mmHg ABG HCO3 36 H (21-25) mmol/L ABG Total CO2 38 H (19-24) mmol/L ABG O2 Saturation 98.0 H (94-97) % Potassium 5.8 H (3.5-5.1) mmol/L Carbon Dioxide 31 H (22-30) mmol/L BUN 55 H (9-20) mg/dL Creatinine 1.73 H (0.66-1.25) mg/dL Glucose 158 H (74-99) mg/dL POC Glucose (mg/dL) 112 H (75-99) mg/dL Assessment and Plan Assessment: Impression: Acute on chronic hypoxic respiratory failure secondary to acute exacerbation of COPD, and non-small cell lung cancer. Severe oxygen dependent COPD, FEV1 is normally in the range of 40%. Chronic and ongoing tobacco dependence syndrome. History of recently diagnosed non-small cell lung cancer and history of right renal cell carcinoma previous nephrectomy. Dyslipidemia Benign essential hypertension GERD without esophagitis Recommendation: Continue present supportive care measures including BiPAP as needed Bronchodilators IV Solu-Medrol We'll continue to monitor the patient in the ICU for the next 24 hours, We'll continue to follow. Time with Patient: Less than 30
[2019-12-22 21:08] LABS: Glucose,Whole Blood 209 mg/dL (75-99)
[2019-12-22] MEDS: ATORVASTATIN 10 MG TAB PO SCH (21:15)
[2019-12-22] MEDS: INSULIN ASPART (NovoLOG) 100 UNIT/ML VIAL SQ SCH (21:15)
[2019-12-23] MEDS: HYDROmorphone 1 MG/ML 1 ML SYRINGE IVP PRN ×5 (02:49→23:48)
[2019-12-23] MEDS: SODIUM CHLORIDE 0.9% 1,000 ML IV SCH (04:43)
[2019-12-23 04:44] LABS: HCT 42.4 % (39.0-53.0); HGB 12.2 gm/dL (13.0-17.5); Hypochromasia Marked; MCH 27.9 pg (25.0-35.0); MCHC 28.7 g/dL (31.0-37.0); MCV 97.3 fL (80.0-100.0); Mean Platelet Volume 7.6; Platelet Count 285 k/uL (150-450); RBC 4.36 m/uL (4.30-5.90)
[2019-12-23 04:55] LABS: Calcium 9.1 mg/dL (8.4-10.2)
[2019-12-23 05:01] LABS: Potassium 6.5 mmol/L (3.5-5.1)
[2019-12-23 05:15] LABS: Neutrophils % (M) 95 %; Nucleated Red Blood Cells 0 /100 WBC (0-0); Total Cells Counted 100
[2019-12-23] MEDS ORDERED: SODIUM POLYSTYRENE SULFONATE 15 GM/60 ML BOTTLE PO STA ×2 (05:25→13:30)
[2019-12-23] MEDS ORDERED: CALCIUM GLUCONATE 1 GM in SODIUM CHLORIDE 0.9% 100 ML IVPB ONE (05:25)
[2019-12-23] MEDS ORDERED: INSULIN REGULAR 100 UNIT/ML VIAL IV ONE (05:26)
[2019-12-23] MEDS ORDERED: DEXTROSE 50% SYRINGE 50 ML IVP STA (05:27)
[2019-12-23] MEDS ORDERED: SODIUM BICARB 8.4% 50 ML SYR (1 MEQ/ML) IV STA (05:28)
[2019-12-23] MEDS: methylPREDNISolone SOD SUCCI 125 MG/2 ML VIAL IV SCH ×4 (05:53→23:47)
[2019-12-23] MEDS ORDERED: SODIUM POLYSTYRENE SULFONATE 15 GM/60 ML BOTTLE PO ONE (06:05)
[2019-12-23] MEDS: PANTOPRAZOLE 40 MG TABLET PO SCH (06:56)
--- NOTE | 2019-12-23 07:25 | XR ---
EXAMINATION TYPE: XR chest 1V DATE OF EXAM: 12/23/2019 COMPARISON: 70 09/08/2019 INDICATION: Short of breath TECHNIQUE: Single frontal view of the chest is obtained. FINDINGS: The heart size is normal. The pulmonary vasculature is upper limits of normal. Stable large left suprahilar mass. There may be some increasing linear opacities within the periphery of the left midlung. Consider some developing volume overload. IMPRESSION: 1. Stable left upper lobe mass.
[2019-12-23 07:27] LABS: Glucose,Whole Blood 204 mg/dL (75-99)
[2019-12-23] MEDS: INSULIN ASPART (NovoLOG) 100 UNIT/ML VIAL SQ SCH ×4 (07:28→21:33)
[2019-12-23] MEDS: HEPARIN SODIUM,PORCINE 5,000 UNIT/ML 1 ML VIAL SQ SCH ×3 (08:10→23:47)
[2019-12-23] MEDS: PIPERACILLIN-TAZOBACTAM 3.375 GM in SODIUM CHLORIDE 0.9% 100 ML IVPB SCH ×3 (08:10→23:48)
[2019-12-23] MEDS: METOPROLOL SUCCINATE (ER) 25 MG TAB.ER.24H PO SCH (08:10)
[2019-12-23] MEDS: busPIRone HCl 10 MG TAB PO SCH ×2 (08:10→21:32)
[2019-12-23] MEDS: ASPIRIN 81 MG PO SCH (08:10)
[2019-12-23] MEDS: NICOTINE 14MG/24HR PATCH TRANSDERM SCH (08:11)
[2019-12-23] MEDS: IPRATROPIUM-ALBUTEROL 3 ML NEB INHALATION SCH ×4 (08:22→19:26)
[2019-12-23] MEDS: SYMBICORT 160-4.5 MCG INHALER INHALATION SCH ×2 (08:23→19:26)
--- NOTE | 2019-12-23 09:46 | P.PN ---
Subjective This is a pleasant 74 years old male with past medical history of coronary artery disease, COPD and for follow-up with Dr. Faith, asthma, GERD, hypertension, left renal mass, chronic hypoxic respiratory failure and 2 L oxygen at home, chronic low back pain. Patient states that he has chest pain for 2 days about 10/10 in severity, the left side nonradiating, No associated dizziness no dyspnea no palpitation, no nausea vomiting or sweating. Patient has chronic cough, with mild phlegm with no recent worsening. He keeps smoking 2 cigars per day and patient counseled as wants to quit and wants nicotine patch. No alcohol or illicit drugs. Vitals are stable and he is tachycardic. At 105. CBC is unremarkable, d-dimer is elevated at 2.6. His potassium was 5.3 which is slightly elevated, creatinine 1.5, baseline is 1.15. First troponin is negative for 0.018. Chest x-ray: No acute process. Left suprahilar mass. EKG showing sinus tac hycardia at [address]-T changes and QTC of 545 intermediate from ability for PE , however i spoke with bed side RN at [facility] she states came and evaluated the pt and recommended no therapeutic anti-coagulation for now in the emergency room pt was stared on normal saline at 100 ml/hr 12/21/2019 Patient is awake and alert, history of complaining of from chest pain about 8/10, his dyspnea is little more this morning. He complains from cough and clear phlegm but states that its chronic. He has low-grade temperature this morning 100.3, is tachycardic 114, blood pressure 118/65, saturating 94% on 2 L oxygen via nasal cannula. Labs from this morning, CBC and BMP are pending. We will repeat chest x-ray. is aware of his lung mass. Also patient has intermediate probability for PE on his VQ scan done last night, however were not sure patient will need anticoagulation so we'll call pulmonary consult We will consult cardiology, pulmonary service already consulted [phone] Patient is sedated become more dyspneic and he was transferred to the ICU. He needed 10 L of oxygen via nasal cannula, however it was lowered today to 6 L and he saturating 91-94% he is fully awake, he does not use accessory muscles a lot with no chest pain, he has some mild headache which is controlled with pain medication. Patient with low-grade temperature 100.3 yesterday, maybe some elements of pneumonia and he was placed on Zosyn. Chest x-ray showing left upper mass about 13 cm, (non-small cell lung cancer. Biopsy from 11/28) Although patient has abnormal VQ scan, pulmonary team does not think patient will need anticoagulation as his symptoms mostly comes from his lung mass, pneumonia and advanced COPD, no other evidence of clot in disease. Last night the nurse told me he was asking for hospice care consult however when I talked to the patient this morning he does not feel he is ready for that yet. Continue with Zosyn and Solu-Medrol 60 mg, aspirin, breathing treatments. Patient is followed closely by pulmonary/critical care team and cartilage team 12/23/2019 Patient remains in the ICU, is somewhat dyspneic, similar to yesterday, and he is still coughing however patient generally feels better. This morning he got 1 dose of Dilaudid for his chest pain which is mostly musculoskeletal in nature. Patient is saturating at 4-6 L oxygen per nasal cannula. Patient has been refusing BiPAP however he is not in significant respiratory distress now.He still have some degree of wheezing. Potassium this morning was 6.5, he got treatment and follow-up the potassium l otilio. He is on normal saline at 50 mm per hour, his on Zosyn for possible postobstructive pneumonia and also is on Solu-Medrol 60 mg. states that they supposed to see Dr. Leong for his lung mass but he got admitted to the hospital and the patient request and if he can talk to Dr. leong now while he is in-house, so consult was placed for Dr. Leong team. Review of Systems CONSTITUTIONAL: No fever, no malaise, no fatigue. HEENT: No recent visual problems or hearing problems. Denied any sore throat. CARDIOVASCULAR: no palpitations, no syncope. PULMONARY: no hemoptysis. GASTROINTESTINAL: No diarrhea, no nausea, no vomiting, no abdominal pain. Normoactive bowel sounds. NEUROLOGICAL: No headaches, no weakness, no numbness. HEMATOLOGICAL: Denies any bleeding or petechiae. GENITOURINARY: Denies any burning micturition, frequency, or urgency. MUSCULOSKELETAL/RHEUMATOLOGICAL: Denies any joint pain, swelling, or any muscle pain. ENDOCRINE: Denies any polyuria or polydipsia. Active Medications Generic Name Dose Route Start Last Admin Trade Name Freq PRN Reason Stop Dose Admin Acetaminophen 650 mg 12/21/19 08:14 12/22/19 05:53 Tylenol Tab PO 650 mg Q6HR PRN Administration Fever and/ or Pain Albuterol/Ipratropium 3 ml 12/21/19 12:00 12/23/19 08:22 Duoneb 0.5 Mg-3 Mg/3 Ml Soln INHALATION 3 ml RT-QID LISA Administration Aspirin 81 mg 12/21/19 09:00 12/23/19 08:10 Aspirin PO 81 mg DAILY LISA Administration Atorvastatin Calcium 10 mg 12/20/19 21:00 12/22/19 21:15 Lipitor PO 10 mg HS LISA Administration Budesonide/Formoterol Fumarate 2 puff 12/20/19 20:00 12/23/19 08:23 Symbicort 160-4.5 Mcg Inhaler INHALATION 2 puff RT-BID LISA Administration Buspirone HCl 10 mg 12/20/19 21:00 12/23/19 08:10 Buspar PO 10 mg BID LISA Administration Heparin Sodium (Porcine) 5,000 unit 12/20/19 19:15 12/23/19 08:10 Heparin SQ 5,000 unit Q8HR LISA Administration Hydromorphone HCl 1 mg 12/21/19 17:12 12/23/19 06:58 Dilaudid IVP 1 mg Q4HR PRN Administration Pain Piperacillin Sod/Tazobactam 100 mls @ 25 mls/hr 12/21/19 08:15 12/23/19 08:10 Sod 3.375 gm/ Sodium Chloride IVPB 25 mls/hr Q8HR LISA Administration Sodium Chloride 1,000 mls @ 50 mls/hr 12/22/19 08:30 12/23/19 04:43 Saline 0.9% IV 50 mls/hr .Q20H LISA Administration Insulin Aspart 0 unit 12/22/19 21:00 12/23/19 07:28 Novolog SQ 6 unit ACHS LISA Administration Protocol Methylprednisolone Sodium Succinate 60 mg 12/21/19 12:00 12/23/19 05:53 Solu-Medrol IV 60 mg Q6HR LISA Administration Metoprolol Succinate 25 mg 12/21/19 09:00 12/23/19 08:10 Toprol Xl PO 25 mg DAILY LISA Administration Naloxone HCl 0.2 mg 12/20/19 15:33 Narcan IV Q2M PRN Opioid Reversal Nicotine 1 patch 12/20/19 19:15 12/23/19 08:11 Habitrol 14mg/24hr Patch TRANSDERM 1 patch DAILY LISA Administration Pantoprazole Sodium 40 mg 12/21/19 07:30 12/23/19 06:56 Protonix PO 40 mg [id number] LISA Administration Objective - Vital Signs Vital signs: Vital Signs Temp 97.1 F L 12/23/19 08:00 Pulse 89 12/23/19 09:00 Resp 19 12/23/19 09:00 BP 119/70 12/23/19 09:00 Pulse Ox 89 L 12/23/19 09:00 Intake & Output 12/22/19 12/23/19 12/23/19 18:59 06:59 18:59 Intake Total 540 880 205 Output Total 700 275 Balance -160 605 205 Weight 79.9 kg Intake: IV 540 880 205 Piperacillin-Tazobactam 3 300 100 .375 gm In Sodium Chloride 0.9% 100 ml @ 25 mls/hr IVPB Q8HR LISA Rx# :[id number] Sodium Chloride 0.9% 1, 40 000 ml @ 20 mls/hr IV . Q24H LISA Rx#:[id number] Sodium Chloride 0.9% 1, 500 580 105 000 ml @ 50 mls/hr IV . Q20H LISA Rx#:[id number] Output: Urine 700 275 Other: Voiding Method Urinal Urinal Urinal # Voids 1 - Exam GENERAL: The patient is alert and oriented x3, not in any acute distress. Well developed, well nourished. HEENT: Pupils are round and equally reacting to light. EOMI. No scleral icterus. No conjunctival pallor. Normocephalic, atraumatic. No pharyngeal erythema. No thyromegaly. CARDIOVASCULAR: S1 and S2 present. No murmurs, rubs, or gallops. -PULMONARY: Chest is clear to auscultation, no wheezing. Coarse crepitation bilaterally ABDOMEN: Soft, nontender, nondistended, normoactive bowel sounds. No palpable organomegaly. MUSCULOSKELETAL: No joint swelling or deformity. EXTREMITIES: No cyanosis, clubbing, or pedal edema. NEUROLOGICAL: Gross neurological examination did not reveal any focal deficits. SKIN: No rashes. No petechiae - Labs CBC & Chem 7: 12/23/19 04:27 12/23/19 04:27 Labs: Abnormal Lab Results - Last 24 Hours (Table) 12/22/19 12/23/19 12/23/19 Range/Units 21:06 04:27 04:27 Hgb 12.2 L (13.0-17.5) gm/dL MCHC 28.7 L (31.0-37.0) g/dL Neutrophils # (Manual) 9.50 H (1.3-7.7) k/uL Lymphocytes # (Manual) 0.50 L (1.0-4.8) k/uL Potassium 6.5 H* (3.5-5.1) mmol/L BUN 57 H (9-20) mg/dL Creatinine 1.64 H (0.66-1.25) mg/dL Glucose 155 H (74-99) mg/dL POC Glucose (mg/dL) 209 H (75-99) mg/dL 12/23/19 Range/Units 07:25 Hgb (13.0-17.5) gm/dL MCHC (31.0-37.0) g/dL Neutrophils # (Manual) (1.3-7.7) k/uL Lymphocytes # (Manual) (1.0-4.8) k/uL Potassium (3.5-5.1) mmol/L BUN (9-20) mg/dL Creatinine (0.66-1.25) mg/dL Glucose (74-99) mg/dL POC Glucose (mg/dL) 204 H (75-99) mg/dL Assessment and Plan Assessment: Acute COPD exacerbation, advanced age Non-small lung cancer with Left upper lung mass, about 13 cm Possible left sided pneumonia with fever, and possible sepsis with tachycardia, fever and tachypnea he has 3/4 of SIRS criteria, rule out pneumonia versus other. Acute kidney injury Elevated d-dimer, with intermediate from ability for PE, no need for AC per pulmonary service Left suprahilar mass Hypertension GERD COPD, not an active issue Chronic hypoxic respiratory failure Chronic low back pain Plan: This is a pleasant 74 years old male who presents with chest pain. Continue with steroids and breathing treatment, oxygen as needed. Pulmonary and cardiology on the case. Patient's symptoms, and from lung disease rather than heart.. Start the patient on Zosyn. Send sputum culture. Consult oncology team. Follow-up potassium level Labs and medication were reviewed.. Continue same treatment. Continue with symptomatic treatment. Resume home medication. Monitor lytes and vitals. DVT and GI prophylaxis. Further recommendations of the clinical course of the patient DVT prophylaxis: Subcutaneous heparin GI Prophylaxis: Pepcid PT/OT: Pending Prognosis is guarded
[2019-12-23 12:09] LABS: Glucose,Whole Blood 143 mg/dL (75-99)
--- NOTE | 2019-12-23 13:29 | P.PN ---
Subjective Progress Note Date: 12/23/19 Principal diagnosis: Acute exacerbation of COPD This is a very pleasant 74-year-old gentleman who is well-known to Dr. Faith in our office for many years regarding his COPD as the patient has an FEV1 of 40% of predicted consistent with severe COPD. He is a chronic smoker. He also has history of renal cell carcinoma of the right kidney that was resected many years back without evidence of any recurrence. The patient has chronic hypoxic respiratory failure and his been also on oxygen. The patient has been utilizing oxygen at 2 L per minute nasal cannula. He was admitted in early November of this year for COPD exacerbation. 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 Computed tomography scan of the abdomen and pelvis revealed no evidence of metastatic disease. MRI of the brain revealed no metastatic disease. He had seen Dr. Faith in follow-up. He did not feel he was a good candidate for surgical intervention. A PET scan was scheduled and follow-up pulmonary function testing was planned. He was scheduled to see Dr. Leong in his office yesterday. The patient however presented to the emergency room yesterday with worsening shortness of breath and left-sided chest pain. Chest x-ray revealed a left suprahilar mass. VQ scan was performed and revealed in Guy probability for pulmonary embolism. Venous Doppler of the lower extremities were negative. White count 7.9. Hemoglobin 12.5. D-dimer 2.64. Sodium 138. Potassium 5.5. Chloride 100 bicarb 34 creatinine 1.57 proBNP 573. Troponin negative 1. Aiken virus not detected. He is seen today in consultation on the [facility] care unit. He is currently sitting up in bed. In moderate respiratory distress. Loose nonproductive cough. Diaphoretic. Oxygen saturation 74% on 2 L nasal cannula. He is tachycardic. He was immediately placed on BiPAP 12/4 and 100% FiO2. Given a breathing treatment. Blood gases revealed a PaO2 of 124 , pCO2 of 77 and a pH of 7.28. He was initiated on IV Solu-Medrol and transferred to the intensive care unit. He is currently on Zosyn. NicoDerm patch is in place. Patient was reevaluated today in the ICU on 12/22/19, patient is on high flow nasal cannula at 6 L/m, he is off BiPAP, and he seems to be doing much better compared to yesterday. Patient seems to be comfortable, and in no distress. Remains on bronchodilators and steroids. Off diuretics. And his IV fluid was increased because of his renal functioning. Electrolytes are normal except for slightly elevated potassium of 5.8 his BUN is up to 55 and his creatinine is up to 1.73. Hence fluid was liberalized today. His Aiken virus screening/PCR is negative. Patient was reevaluated today on 12/23/19, remains in the intensive care unit, improving, but not back to his baseline. Patient has less shortness of breath and less cough and less wheezing. His potassium was noted to be quite high today, 6.5, patient was given bicarb, insulin, dextrose, calcium gluconate, and Kayexalate. Follow-up potassium came back down to 5.8, has the patient will receive another dose of Kayexalate. Overall no major change except for slight improvement in his pulmonary status. His labs showed slight improvement in his creatinine down to 1.64. CBC is relatively normal. Objective - Vital Signs Vital signs: Vital Signs Temp 97.4 F L 12/23/19 12:00 Pulse 93 12/23/19 13:00 Resp 22 12/23/19 13:00 BP 123/65 12/23/19 13:00 Pulse Ox 94 L 12/23/19 13:00 Intake & Output 12/22/19 12/23/19 12/23/19 18:59 06:59 18:59 Intake Total 540 880 405 Output Total 700 275 500 Balance -160 605 -95 Weight 79.9 kg Intake: IV 540 880 405 Piperacillin-Tazobactam 3 300 100 .375 gm In Sodium Chloride 0.9% 100 ml @ 25 mls/hr IVPB Q8HR [facility] Rx# :[id number] Sodium Chloride 0.9% 1, 40 000 ml @ 20 mls/hr IV . Q24H [facility] Rx#:[id number] Sodium Chloride 0.9% 1, 500 580 305 000 ml @ 50 mls/hr IV . Q20H [facility] Rx#:[id number] Output: Urine 700 275 500 Other: Voiding Method Urinal Urinal Urinal # Voids 1 - Exam GENERAL EXAM: Revealed 74-year-old white male, looks in no form of distress, on nasal cannula. BiPAP is at bedside, but not using at present. HEENT: PERRLA, EOMI, no icterus, no neck masses, no JVD. CHEST: No chest wall deformity. LUNGS: Equal air entry with wheezing on forced expiratory maneuver only. CVS: S1 and S2 normal with no audible murmur, regular rhythm. ABDOMEN: No hepatosplenomegaly, normal bowel sounds, no guarding or rigidity. SPINE: No scoliosis or deformity SKIN: No rashes CENTRAL NERVOUS SYSTEM: No focal deficits, tone is normal in all 4 extremities. EXTREMITIES: There is no peripheral edema. No clubbing, no cyanosis. Peripheral pulses are intact. - Labs CBC & Chem 7: 12/23/19 04:27 12/23/19 10:20 Labs: Abnormal Lab Results - Last 24 Hours (Table) 12/22/19 12/23/19 12/23/19 Range/Units 21:06 04:27 04:27 Hgb 12.2 L (13.0-17.5) gm/dL MCHC 28.7 L (31.0-37.0) g/dL Neutrophils # (Manual) 9.50 H (1.3-7.7) k/uL Lymphocytes # (Manual) 0.50 L (1.0-4.8) k/uL Potassium 6.5 H* (3.5-5.1) mmol/L BUN 57 H (9-20) mg/dL Creatinine 1.64 H (0.66-1.25) mg/dL Glucose 155 H (74-99) mg/dL POC Glucose (mg/dL) 209 H (75-99) mg/dL 12/23/19 12/23/19 12/23/19 Range/Units 07:25 10:20 12:08 Hgb (13.0-17.5) gm/dL MCHC (31.0-37.0) g/dL Neutrophils # (Manual) (1.3-7.7) k/uL Lymphocytes # (Manual) (1.0-4.8) k/uL Potassium 5.8 H (3.5-5.1) mmol/L BUN (9-20) mg/dL Creatinine (0.66-1.25) mg/dL Glucose (74-99) mg/dL POC Glucose (mg/dL) 204 H 143 H (75-99) mg/dL Assessment and Plan Assessment: Impression: Acute on chronic hypoxic respiratory failure secondary to acute exacerbation of COPD, and non-small cell lung cancer. Severe oxygen dependent COPD, FEV1 is normally in the range of 40%. Chronic and ongoing tobacco dependence syndrome. History of recently diagnosed non-small cell lung cancer and history of right renal cell carcinoma previous nephrectomy. Dyslipidemia Benign essential hypertension GERD without esophagitis Acute hyperkalemia secondary to acute on chronic kidney injury. Recommendation: Continue present supportive care measures including BiPAP as needed Bronchodilators IV Solu-Medrol Address hyperkalemia and treat accordingly. We'll continue to monitor the patient in the ICU specially with the significantly elevated potassium earlier today. Will follow. Time with Patient: Less than 30
[2019-12-23 16:52] LABS: Glucose,Whole Blood 168 mg/dL (75-99)
[2019-12-23 20:59] LABS: Glucose,Whole Blood 170 mg/dL (75-99)
[2019-12-23] MEDS: ATORVASTATIN 10 MG TAB PO SCH (21:32)
--- NOTE | 2019-12-23 22:33 | CONS ---
CONSULTATION REASON FOR CONSULTATION: Lung carcinoma. CHIEF COMPLAINT: Shortness of breath. Mr. Holcomb is a very pleasant 74 years old gentleman who recently diagnosed was adenocarcinoma of the lung when he presented with a 13 cm left upper lobe mass with extension to the mediastinum. He was evaluated by Dr. Faith. Subsequently had a CT-guided biopsy which was which confirmed the diagnosis. CT scan of the abdomen and pelvis revealed no evidence of metastatic disease. Brain MRI was negative for metastatic disease. Also, he had a PET scan done as part of his evaluation and there was no extrathoracic disease. He was supposed to see Dr. Leong for the 1st time yesterday in the office. However, he ended up coming into the hospital with worsening dyspnea and left-sided chest pain. He had a chest x-ray, which revealed he has known left suprahilar mass and V/Q scan was low probability for PE and venous Doppler were negative. The patient ended up being admitted to the hospital. He was seen by Dr. Hassan and it was felt they had that he had acute on chronic exacerbation of his COPD. The patient is known to have poor pulmonary function and advanced COPD and he has been on oxygen supplement at home. He feels tired. He has significant exertional dyspnea and cough, generalized weakness. He denies any headaches or blurred vision. No dysphagia. He has cough but no hemoptysis. His appetite is fair. No abdominal pain. No melena, hematochezia, hematuria, hemoptysis, hematemesis or epistaxis. PAST MEDICAL HISTORY: Significant for COPD, coronary artery disease. Gastroesophageal reflux disease, hypertension. He has a history of renal cell carcinoma status post right nephrectomy years ago. He had a heart cath in the past with stent placement. He has low back surgery and he had a colonoscopy in the past. PAST FAMILY HISTORY: His mother had breast cancer at age 42. His father had cancer at age 55 of unknown type. REVIEW OF SYSTEMS: As stated above in history of present illness. ALLERGIES: He has no known drug allergies. HOME MEDICATIONS: Include aspirin 81 mg daily, Lipitor 10 mg daily, Mirtazapine 45 mg q.h.s., Daliresp 500 mcg daily and meloxicam 50 mg daily and Toprol 25 mg daily, trazodone at bedtime, amlodipine 10 mg daily, Symbicort 2 puffs b.i.d., Lasix 20 mg daily, Protonix 40 mg daily. Diazepam 10 mg at bedtime. Buspirone 10 mg b.i.d. PHYSICAL EXAMINATION: He is alert, oriented x3. He does not appear to be in acute distress at this point in time. His vital signs: Temperature 97.4, afebrile, pulse 94 regular, respiration 34, blood pressure 118/72, pulse ox 93 percent on 4 L. HEENT: Normocephalic, atraumatic. No obvious icterus. NECK: Supple. CHEST equal expansion bilaterally. LUNGS: Decreased breath sounds in the right upper lobe and left upper lobe, prolonged expiration all owens. ABDOMEN: Soft. No tenderness. EXTREMITIES reveal no significant edema. SKIN: Few bruises on extremities. No petechiae or ecchymosis. LYMPHATICS: No peripherally enlarged cervical, supraclavicular nodes. MUSCULOSKELETAL: No percussion tenderness or response to sternum. LABORATORY DATA: WBC of 10.0, hemoglobin 12.2, hematocrit is 42.4, platelets are 285. Sodium 137, potassium 5.8, chloride 103, CO2 is 29, BUN is 56, creatinine 1.64. IMPRESSION: 1. Locally advanced non-small cell lung carcinoma without any obvious evidence of extrathoracic metastases. This is likely stage III disease based on the extension of his disease and the fact that he has poor pulmonary function, is was felt that the patient is not a surgical candidate. 2. Multiple other comorbidities as stated above. RECOMMENDATION: Ideally the patient would be treated with concurrent chemoradiation therapy with consideration for consolidative immunotherapy after completion of chemo radiation therapy. However, he has multiple comorbidities and advanced COPD. He may not be tolerate for concurrent therapy. Alternatively, sequential therapy would be a reasonable approach. Molecular studies in PDL1 should already been ordered on his recent biopsy. I highly encouraged him to follow up with Dr. Leong upon discharge for further recommendation in regard to systemic therapy and also he may benefit from a referral to Radiation Oncology. The above was discussed with the patient. I have answered all his questions. Thank you very much for asking me to participate in the care of this nice gentleman. MMODL / IJN: [id number] /
[2019-12-24] MEDS: SODIUM CHLORIDE 0.9% 1,000 ML IV SCH ×2 (03:46→20:23)
[2019-12-24] MEDS: HYDROmorphone 1 MG/ML 1 ML SYRINGE IVP PRN (03:48)
[2019-12-24 05:03] LABS: Basophils % (A) 0 %; Eosinophils % (A) 0 %; HCT 38.8 % (39.0-53.0); HGB 11.3 gm/dL (13.0-17.5); Hypochromasia Marked; Lymphocytes # (A) 0.3 k/uL (1.0-4.8); Lymphocytes % (A) 4 %; MCH 29.2 pg (25.0-35.0); MCHC 29.3 g/dL (31.0-37.0); MCV 99.8 fL (80.0-100.0); Mean Platelet Volume 7.4; Monocytes # (A) 0.2 k/uL (0-1.0); Monocytes % (A) 3 %; Neutrophils % (A) 92 %; Platelet Count 291 k/uL (150-450); RBC 3.88 m/uL (4.30-5.90); RDW 13.6 % (11.5-15.5); WBC 7.6 k/uL (3.8-10.6)
[2019-12-24 05:12] LABS: Calcium 8.6 mg/dL (8.4-10.2); Potassium 4.9 mmol/L (3.5-5.1)
[2019-12-24 06:18] LABS: Glucose,Whole Blood 143 mg/dL (75-99)
[2019-12-24] MEDS: INSULIN ASPART (NovoLOG) 100 UNIT/ML VIAL SQ SCH ×5 (06:20→21:47)
[2019-12-24] MEDS: PANTOPRAZOLE 40 MG TABLET PO SCH (06:20)
[2019-12-24] MEDS: methylPREDNISolone SOD SUCCI 125 MG/2 ML VIAL IV SCH ×4 (06:20→23:48)
--- NOTE | 2019-12-24 07:22 | XR ---
EXAMINATION TYPE: XR chest 1V DATE OF EXAM: 12/24/2019 COMPARISON: 12/23/2019 HISTORY: Shortness of breath TECHNIQUE: Single frontal view of the chest is obtained. FINDINGS: Large left upper lobe mass with deviation of the airway from left to right stable. Surgica l clips seen overlying the left chest. No pleural effusion or pneumothorax. No acute infiltrate. Degr ee of chronic underlying interstitial lung disease suspected. Subsegmental changes at the right lung base. IMPRESSION: 1. Stable large left upper lobe lung mass. 2. Right basilar atelectasis favored over infiltrate correlate clinically.
[2019-12-24] MEDS: PIPERACILLIN-TAZOBACTAM 3.375 GM in SODIUM CHLORIDE 0.9% 100 ML IVPB SCH ×3 (08:33→23:48)
[2019-12-24] MEDS: HEPARIN SODIUM,PORCINE 5,000 UNIT/ML 1 ML VIAL SQ SCH ×3 (08:33→23:48)
[2019-12-24] MEDS: ASPIRIN 81 MG PO SCH (08:33)
[2019-12-24] MEDS: busPIRone HCl 10 MG TAB PO SCH ×2 (08:33→20:21)
[2019-12-24] MEDS: METOPROLOL SUCCINATE (ER) 25 MG TAB.ER.24H PO SCH (08:34)
[2019-12-24] MEDS: NICOTINE 14MG/24HR PATCH TRANSDERM SCH (08:34)
[2019-12-24] MEDS: SYMBICORT 160-4.5 MCG INHALER INHALATION SCH ×2 (09:36→20:02)
[2019-12-24] MEDS: IPRATROPIUM-ALBUTEROL 3 ML NEB INHALATION SCH ×4 (09:36→20:02)
[2019-12-24 12:05] LABS: Glucose,Whole Blood 160 mg/dL (75-99)
--- NOTE | 2019-12-24 12:27 | P.PN ---
Subjective This is a pleasant 74 years old male with past medical history of coronary artery disease, COPD and for follow-up with Dr. Faith, asthma, GERD, hypertension, left renal mass, chronic hypoxic respiratory failure and 2 L oxygen at home, chronic low back pain. Patient states that he has chest pain for 2 days about 10/10 in severity, the left side nonradiating, No associated dizziness no dyspnea no palpitation, no nausea vomiting or sweating. Patient has chronic cough, with mild phlegm with no recent worsening. He keeps smoking 2 cigars per day and patient counseled as wants to quit and wants nicotine patch. No alcohol or illicit drugs. Vitals are stable and he is tachycardic. At 105. CBC is unremarkable, d-dimer is elevated at 2.6. His potassium was 5.3 which is slightly elevated, creatinine 1.5, baseline is 1.15. First troponin is negative for 0.018. Chest x-ray: No acute process. Left suprahilar mass. EKG showing sinus tac hycardia at [address]-T changes and QTC of 545 intermediate from ability for PE , however i spoke with bed side RN at [facility] she states came and evaluated the pt and recommended no therapeutic anti-coagulation for now in the emergency room pt was stared on normal saline at 100 ml/hr 12/21/2019 Patient is awake and alert, history of complaining of from chest pain about 8/10, his dyspnea is little more this morning. He complains from cough and clear phlegm but states that its chronic. He has low-grade temperature this morning 100.3, is tachycardic 114, blood pressure 118/65, saturating 94% on 2 L oxygen via nasal cannula. Labs from this morning, CBC and BMP are pending. We will repeat chest x-ray. is aware of his lung mass. Also patient has intermediate probability for PE on his VQ scan done last night, however were not sure patient will need anticoagulation so we'll call pulmonary consult We will consult cardiology, pulmonary service already consulted [id number] Patient is sedated become more dyspneic and he was transferred to the ICU. He needed 10 L of oxygen via nasal cannula, however it was lowered today to 6 L and he saturating 91-94% he is fully awake, he does not use accessory muscles a lot with no chest pain, he has some mild headache which is controlled with pain medication. Patient with low-grade temperature 100.3 yesterday, maybe some elements of pneumonia and he was placed on Zosyn. Chest x-ray showing left upper mass about 13 cm, (non-small cell lung cancer. Biopsy from 11/28) Although patient has abnormal VQ scan, pulmonary team does not think patient will need anticoagulation as his symptoms mostly comes from his lung mass, pneumonia and advanced COPD, no other evidence of clot in disease. Last night the nurse told me he was asking for hospice care consult however when I talked to the patient this morning he does not feel he is ready for that yet. Continue with Zosyn and Solu-Medrol 60 mg, aspirin, breathing treatments. Patient is followed closely by pulmonary/critical care team and cartilage team 12/23/2019 Patient remains in the ICU, is somewhat dyspneic, similar to yesterday, and he is still coughing however patient generally feels better. This morning he got 1 dose of Dilaudid for his chest pain which is mostly musculoskeletal in nature. Patient is saturating at 4-6 L oxygen per nasal cannula. Patient has been refusing BiPAP however he is not in significant respiratory distress now.He still have some degree of wheezing. Potassium this morning was 6.5, he got treatment and follow-up the ann yañez. He is on normal saline at 50 mm per hour, his on Zosyn for possible postobstructive pneumonia and also is on Solu-Medrol 60 mg. states that they supposed to see Dr. Leong for his lung mass but he got admitted to the hospital and the patient request and if he can talk to Dr. leong now while he is in-house, so consult was placed for Dr. Leong team. 12/24/2019 Patient seen and examined today in the ICU. His breathing looks better with some coughing he saturating 92% on 4 L oxygen via nasal cannula, not yesterday and is a breathing arthritis 20 06/22/2022. Blood pressure 107/76. And he is afebrile. He has improving creatinine down to 1.4, sugar controlled. CBC showed unremarkable WBC and platelet count, hemoglobin 11.3. His potassium improved down to 4.9. chest x-ray: Stable left upper lobe lung mass and right basilar atelectasis favored over infiltrate per radiologist, however when I reviewed chest x-ray by myself the postobstructive changes seen on 12/21 is improved on today's chest x- ray Patient remains on Zosyn, Solu-Medrol and normal saline at 50 mm per hour Patient can go to general medical floor once cleared by pulmonary team Review of Systems CONSTITUTIONAL: No fever, no malaise, no fatigue. HEENT: No recent visual problems or hearing problems. Denied any sore throat. CARDIOVASCULAR: no palpitations, no syncope. PULMONARY: no hemoptysis. GASTROINTESTINAL: No diarrhea, no nausea, no vomiting, no abdominal pain. Normoactive bowel sounds. NEUROLOGICAL: No headaches, no weakness, no numbness. HEMATOLOGICAL: Denies any bleeding or petechiae. GENITOURINARY: Denies any burning micturition, frequency, or urgency. MUSCULOSKELETAL/RHEUMATOLOGICAL: Denies any joint pain, swelling, or any muscle pain. ENDOCRINE: Denies any polyuria or polydipsia Active Medications Generic Name Dose Route Start Last Admin Trade Name Freq PRN Reason Stop Dose Admin Acetaminophen 650 mg 12/21/19 08:14 12/22/19 05:53 Tylenol Tab PO 650 mg Q6HR PRN Administration Fever and/ or Pain Hydrocodone Bitart/Acetaminophen 2 each 12/24/19 10:22 [place] 5-325 PO Q6HR PRN Pain Albuterol/Ipratropium 3 ml 12/21/19 12:00 12/24/19 12:12 Duoneb 0.5 Mg-3 Mg/3 Ml Soln INHALATION 3 ml RT-QID [facility] Administration Aspirin 81 mg 12/21/19 09:00 12/24/19 08:33 Aspirin PO 81 mg DAILY [facility] Administration Atorvastatin Calcium 10 mg 12/20/19 21:00 12/23/19 21:32 Lipitor PO 10 mg HS [facility] Administration Budesonide/Formoterol Fumarate 2 puff 12/20/19 20:00 12/24/19 09:36 Symbicort 160-4.5 Mcg Inhaler INHALATION Not Given RT-BID [facility] Buspirone HCl 10 mg 12/20/19 21:00 12/24/19 08:33 Buspar PO 10 mg BID [facility] Administration Heparin Sodium (Porcine) 5,000 unit 12/20/19 19:15 12/24/19 08:33 Heparin SQ 5,000 unit Q8HR [facility] Administration Hydromorphone HCl 1 mg 12/21/19 17:12 12/24/19 03:48 Dilaudid IVP 1 mg Q4HR PRN Administration Pain Piperacillin Sod/Tazobactam 100 mls @ 25 mls/hr 12/21/19 08:15 12/24/19 08:33 Sod 3.375 gm/ Sodium Chloride IVPB 25 mls/hr Q8HR [facility] Administration Sodium Chloride 1,000 mls @ 50 mls/hr 12/22/19 08:30 12/24/19 03:46 Saline 0.9% IV 50 mls/hr .Q20H [facility] Administration Insulin Aspart 0 unit 12/22/19 21:00 12/24/19 06:20 Novolog SQ 2 unit ACHS LISA Administration Protocol Methylprednisolone Sodium Succinate 60 mg 12/21/19 12:00 12/24/19 06:20 Solu-Medrol IV 60 mg Q6HR [facility] Administration Metoprolol Succinate 25 mg 12/21/19 09:00 12/24/19 08:34 Toprol Xl PO 25 mg DAILY [facility] Administration Naloxone HCl 0.2 mg 12/20/19 15:33 Narcan IV Q2M PRN Opioid Reversal Nicotine 1 patch 12/20/19 19:15 12/24/19 08:34 Habitrol 14mg/24hr Patch TRANSDERM 1 patch DAILY [facility] Administration Pantoprazole Sodium 40 mg 12/21/19 07:30 12/24/19 06:20 Protonix PO 40 mg [id number] [facility] Administration Objective - Vital Signs Vital signs: Vital Signs Temp 97.0 F L 12/24/19 08:00 Pulse 84 12/24/19 12:12 Resp 23 12/24/19 12:12 BP 107/65 12/24/19 10:00 Pulse Ox 92 L 12/24/19 10:00 Intake & Output 12/23/19 12/24/19 12/24/19 18:59 06:59 18:59 Intake Total 755 1005 300 Output Total 900 750 600 Balance -145 255 -300 Weight 81.8 kg Intake: IV 755 660 300 Piperacillin-Tazobactam 3 200 100 100 .375 gm In Sodium Chloride 0.9% 100 ml @ 25 mls/hr IVPB Q8HR [facility] Rx# :[id number] Sodium Chloride 0.9% 1, 555 560 200 000 ml @ 50 mls/hr IV . Q20H [facility] Rx#:[id number] Intake, IV Titration 100 Amount Piperacillin-Tazobactam 3 100 .375 gm In Sodium Chloride 0.9% 100 ml @ 25 mls/hr IVPB Q8HR [facility] Rx# :[id number] Tube Feeding 45 Other 200 Output: Urine 900 750 600 Other: Voiding Method Urinal Urinal Urinal # Voids 1 - Exam GENERAL: The patient is alert and oriented x3, not in any acute distress. Well developed, well nourished. HEENT: Pupils are round and equally reacting to light. EOMI. No scleral icterus. No conjunctival pallor. Normocephalic, atraumatic. No pharyngeal erythema. No thyromegaly. CARDIOVASCULAR: S1 and S2 present. No murmurs, rubs, or gallops. -PULMONARY: Chest is clear to auscultation, no wheezing. Coarse crepitation bilaterally ABDOMEN: Soft, nontender, nondistended, normoactive bowel sounds. No palpable organomegaly. MUSCULOSKELETAL: No joint swelling or deformity. EXTREMITIES: No cyanosis, clubbing, or pedal edema. NEUROLOGICAL: Gross neurological examination did not reveal any focal deficits. SKIN: No rashes. No petechiae - Labs CBC & Chem 7: 12/24/19 04:20 12/24/19 04:20 Labs: Abnormal Lab Results - Last 24 Hours (Table) 12/23/19 12/23/19 12/24/19 Range/Units 16:50 20:57 04:20 RBC 3.88 L (4.30-5.90) m/uL Hgb 11.3 L (13.0-17.5) gm/dL Hct 38.8 L (39.0-53.0) % MCHC 29.3 L (31.0-37.0) g/dL Lymphocytes # 0.3 L (1.0-4.8) k/uL Carbon Dioxide (22-30) mmol/L BUN (9-20) mg/dL Creatinine (0.66-1.25) mg/dL Glucose (74-99) mg/dL POC Glucose (mg/dL) 168 H 170 H (75-99) mg/dL 12/24/19 12/24/19 12/24/19 Range/Units 04:20 06:16 12:03 RBC (4.30-5.90) m/uL Hgb (13.0-17.5) gm/dL Hct (39.0-53.0) % MCHC (31.0-37.0) g/dL Lymphocytes # (1.0-4.8) k/uL Carbon Dioxide 36 H (22-30) mmol/L BUN 50 H (9-20) mg/dL Creatinine 1.44 H (0.66-1.25) mg/dL Glucose 150 H (74-99) mg/dL POC Glucose (mg/dL) 143 H 160 H (75-99) mg/dL Assessment and Plan Assessment: Acute COPD exacerbation, advanced age Non-small lung cancer with Left upper lung mass, about 13 cm Possible left sided pneumonia with fever, and possible sepsis with tachycardia, fever and tachypnea he has 3/4 of SIRS criteria, rule out pneumonia versus other. Acute kidney injury Elevated d-dimer, with intermediate from ability for PE, no need for AC per pulmonary service Left suprahilar mass Hypertension GERD COPD, not an active issue Chronic hypoxic respiratory failure Chronic low back pain Plan: This is a pleasant 74 years old male who presents with chest pain. Continue with steroids and breathing treatment, oxygen as needed. Pulmonary and cardiology on the case. Patient's symptoms, and from lung disease rather than heart.. Start the patient on Zosyn. Send sputum culture. Consult oncology team. Follow-up potassium level Labs and medication were reviewed.. Continue same treatment. Continue with symptomatic treatment. Resume home medication. Monitor lytes and vitals. DVT and GI prophylaxis. Further recommendations of the clinical course of the patient DVT prophylaxis: Subcutaneous heparin GI Prophylaxis: Pepcid PT/OT: Pending Prognosis is guarded
--- NOTE | 2019-12-24 14:00 | P.PN ---
Subjective Progress Note Date: 12/24/19 Principal diagnosis: Acute exacerbation of chronic obstructive pulmonary disease, recent diagnosis of lung cancer his is a very pleasant 74-year-old gentleman who is well-known to Dr. Faith in our office for many years regarding his COPD as the patient has an FEV1 of 40% of predicted consistent with severe COPD. He is a chronic smoker. He also has history of renal cell carcinoma of the right kidney that was resected many years back without evidence of any recurrence. The patient has chronic hypoxic respiratory failure and his been also on oxygen. The patient has been utilizing oxygen at 2 L per minute nasal cannula. He was admitted in early November of this year for COPD exacerbation. 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 Computed tomography scan of the abdomen and pelvis revealed no evidence of metastatic disease. MRI of the brain revealed no metastatic disease. He had seen Dr. Faith in follow-up. He did not feel he was a good candidate for surgical intervention. A PET scan was scheduled and follow-up pulmonary function testing was planned. He was scheduled to see Dr. Leogn in his office yesterday. The patient however presented to the emergency room yesterday with worsening shortness of breath and left-sided chest pain. Chest x-ray revealed a left suprahilar mass. VQ scan was performed and revealed in Guy probability for pulmonary embolism. Venous Doppler of the lower extremities were negative. White count 7.9. Hemoglobin 12.5. D-dimer 2.64. Sodium 138. Potassium 5.5. Chloride 100 bicarb 34 creatinine 1.57 proBNP 573. Troponin negative 1. Aiken virus not detected. He is seen today in consultation on the selective care unit. He is currently sitting up in bed. In moderate respiratory distress. Loose nonproductive cough. Diaphoretic. Oxygen saturation 74% on 2 L nasal cannula. He is tachycardic. He was immediately placed on BiPAP 12/4 and 100% FiO2. Given a breathing treatment. Blood gases revealed a PaO2 of 124, pCO2 of 77 and a pH of 7.28. He was initiated on IV Solu-Medrol and transferred to the intensive care unit. He is currently on Zosyn. NicoDerm patch is in place. Patient was reevaluated today in the ICU on 12/22/19, patient is on high flow nasal cannula at 6 L/m, he is off BiPAP, and he seems to be doing much better compared to yesterday. Patient seems to be comfortable, and in no distress. Remains on bronchodilators and steroids. Off diuretics. And his IV fluid was increased because of his renal functioning. Electrolytes are normal except for slightly elevated potassium of 5.8 his BUN is up to 55 and his creatinine is up to 1.73. Hence fluid was liberalized today. His Aiken virus screening/PCR is negative. Patient was reevaluated today on 12/23/19, remains in the intensive care unit, improving, but not back to his baseline. Patient has less shortness of breath and less cough and less wheezing. His potassium was noted to be quite high today, 6.5, patient was given bicarb, insulin, dextrose, calcium gluconate, and Kayexalate. Follow-up potassium came back down to 5.8, has the patient will receive another dose of Kayexalate. Overall no major change except for slight improvement in his pulmonary status. His labs showed slight improvement in his creatinine down to 1.64. CBC is relatively normal. Patient is seen today 12/24/2019 and follow-up in the intensive care unit. He is currently sitting up in a chair at the bedside. Awake and alert in no acute distress. He denies any worsening shortness of breath, cough or congestion. He is maintaining O2 saturations in the low 90s on 4 L high flow nasal cannula. He is having ongoing issues with left-sided chest discomfort, pain medications being adjusted. He's been afebrile. White count 7.6. Hemoglobin 11.3. Sodium 138. Potassium 4.9. Creatinine 1.44. Objective - Vital Signs Vital signs: Vital Signs Temp 97.4 F L 12/24/19 13:00 Pulse 103 H 12/24/19 13:00 Resp 17 12/24/19 13:00 BP 132/89 12/24/19 13:00 Pulse Ox 92 L 12/24/19 13:00 Intake & Output 12/23/19 12/24/19 12/24/19 18:59 06:59 18:59 Intake Total 755 1005 300 Output Total 900 750 600 Balance -145 255 -300 Weight 81.8 kg Intake: IV 755 660 300 Piperacillin-Tazobactam 3 200 100 100 .375 gm In Sodium Chloride 0.9% 100 ml @ 25 mls/hr IVPB Q8HR [facility] Rx# :[id number] Sodium Chloride 0.9% 1, 555 560 200 000 ml @ 50 mls/hr IV . Q20H [facility] Rx#:[id number] Intake, IV Titration 100 Amount Piperacillin-Tazobactam 3 100 .375 gm In Sodium Chloride 0.9% 100 ml @ 25 mls/hr IVPB Q8HR [facility] Rx# :[id number] Tube Feeding 45 Other 200 Output: Urine 900 750 600 Other: Voiding Method Urinal Urinal Urinal # Voids 1 - Exam GENERAL EXAM: Revealed 74-year-old white male, looks in no form of distress, on nasal cannula. BiPAP is at bedside, but not using at present. HEENT: PERRLA, EOMI, no icterus, no neck masses, no JVD. CHEST: No chest wall deformity. LUNGS: Equal air entry with wheezing on forced expiratory maneuver only. CVS: S1 and S2 normal with no audible murmur, regular rhythm. ABDOMEN: No hepatosplenomegaly, normal bowel sounds, no guarding or rigidity. SPINE: No scoliosis or deformity SKIN: No rashes CENTRAL NERVOUS SYSTEM: No focal deficits, tone is normal in all 4 extremities. EXTREMITIES: There is no peripheral edema. No clubbing, no cyanosis. Peripheral pulses are intact. - Labs CBC & Chem 7: 12/24/19 04:20 12/24/19 04:20 Labs: Abnormal Lab Results - Last 24 Hours (Table) 12/23/19 12/23/19 12/24/19 Range/Units 16:50 20:57 04:20 RBC 3.88 L (4.30-5.90) m/uL Hgb 11.3 L (13.0-17.5) gm/dL Hct 38.8 L (39.0-53.0) % MCHC 29.3 L (31.0-37.0) g/dL Lymphocytes # 0.3 L (1.0-4.8) k/uL Carbon Dioxide (22-30) mmol/L BUN (9-20) mg/dL Creatinine (0.66-1.25) mg/dL Glucose (74-99) mg/dL POC Glucose (mg/dL) 168 H 170 H (75-99) mg/dL 12/24/19 12/24/19 12/24/19 Range/Units 04:20 06:16 12:03 RBC (4.30-5.90) m/uL Hgb (13.0-17.5) gm/dL Hct (39.0-53.0) % MCHC (31.0-37.0) g/dL Lymphocytes # (1.0-4.8) k/uL Carbon Dioxide 36 H (22-30) mmol/L BUN 50 H (9-20) mg/dL Creatinine 1.44 H (0.66-1.25) mg/dL Glucose 150 H (74-99) mg/dL POC Glucose (mg/dL) 143 H 160 H (75-99) mg/dL Assessment and Plan Assessment: 1 Acute on chronic hypoxemic respiratory failure secondary to an acute exacerbation of chronic obstructive pulmonary disease, large left lung mass measuring 13 cm with recent diagnosis of non-small cell lung cancer on biopsy 11/29/2019. 2 Severe oxygen dependent chronic obstructive pulmonary disease with an FEV1 v alue of 40% of predicted 3 Recent diagnosis in November 2019 of primary lung adenocarcinoma with no evidence of metastasis to the abdomen, pelvis or brain. PET scan pending. Oncology consult was for 12/20/2019 however the patient and had been hospitalized, no treatment initiated. Not deemed a surgical candidate due to his severe COPD. 4 Chronic and ongoing tobacco dependence 5 History of right renal cell carcinoma status post nephrectomy 6 History of insomnia 7 Hyperlipidemia 8 Hyper tension 9 GERD Plan: The patient was seen and evaluated by Dr. Hassan He is currently stable from the critical care standpoint Transfer her out to the regular medical floor today Continue with BiPAP at the bedside Overall prognosis guarded He is a DO NOT RESUSCITATE/DO NOT INTUBATE CODE STATUS We will continue to follow and make further recommendations based on his clinical status I, the cosigning physician, performed a history & physical examination of the patient. Lungs sounds with bilateral scattered rhonchi more so on the left, end expiratory wheeze, diminished. Maintaining good O2 saturations in the 90s on 4 L/m per nasal cannula. I discussed the assessment and plan of care with my nurse practitioner, Bernadette Fernandez. I attest to the above note as dictated by her.
[2019-12-24 16:43] LABS: Glucose,Whole Blood 229 mg/dL (75-99)
[2019-12-24] MEDS: HYDROcodone/APAP 5-325MG 1 EACH TAB PO PRN (17:32)
[2019-12-24] MEDS: ATORVASTATIN 10 MG TAB PO SCH (20:21)
[2019-12-24 21:44] LABS: Glucose,Whole Blood 250 mg/dL (75-99)
[2019-12-25] MEDS: methylPREDNISolone SOD SUCCI 125 MG/2 ML VIAL IV SCH ×4 (05:40→23:42)
[2019-12-25 06:18] LABS: Basophils % (A) 0 %; Eosinophils % (A) 1 %; HCT 38.7 % (39.0-53.0); HGB 11.5 gm/dL (13.0-17.5); Hypochromasia Marked; Lymphocytes # (A) 0.4 k/uL (1.0-4.8); Lymphocytes % (A) 6 %; MCH 29.2 pg (25.0-35.0); MCHC 29.7 g/dL (31.0-37.0); MCV 98.4 fL (80.0-100.0); Mean Platelet Volume 7.3; Monocytes # (A) 0.3 k/uL (0-1.0); Monocytes % (A) 4 %; Neutrophils # (A) 5.7 k/uL (1.3-7.7); Neutrophils % (A) 89 %; Platelet Count 288 k/uL (150-450); RBC 3.93 m/uL (4.30-5.90); RDW 13.7 % (11.5-15.5); WBC 6.4 k/uL (3.8-10.6)
[2019-12-25 06:28] LABS: Calcium 8.6 mg/dL (8.4-10.2); Potassium 4.5 mmol/L (3.5-5.1)
[2019-12-25 06:42] LABS: Glucose,Whole Blood 158 mg/dL (75-99)
[2019-12-25] MEDS: INSULIN ASPART (NovoLOG) 100 UNIT/ML VIAL SQ SCH ×4 (06:46→20:09)
[2019-12-25] MEDS: PANTOPRAZOLE 40 MG TABLET PO SCH (06:51)
--- NOTE | 2019-12-25 07:33 | XR ---
EXAMINATION TYPE: XR chest 1V portable DATE OF EXAM: 12/25/2019 HISTORY: Shortness of breath. COMPARISON: 12/24/2019 TECHNIQUE: Single view of the chest is submitted. FINDINGS: Demonstrated are scattered senescent parenchymal change. Left suprahilar mass is unchanged. Patchy density left lower lobe persists. Right lung The heart is stable. Hilar and mediastinal structures are within normal limits. Degenerative changes are seen of the dorsal spine. IMPRESSION: 1. Stable left-sided suprahilar mass.
[2019-12-25] MEDS: busPIRone HCl 10 MG TAB PO SCH ×2 (07:54→20:10)
[2019-12-25] MEDS: METOPROLOL SUCCINATE (ER) 25 MG TAB.ER.24H PO SCH (07:54)
[2019-12-25] MEDS: ASPIRIN 81 MG PO SCH (07:54)
[2019-12-25] MEDS: HEPARIN SODIUM,PORCINE 5,000 UNIT/ML 1 ML VIAL SQ SCH ×3 (07:55→23:42)
[2019-12-25] MEDS: NICOTINE 14MG/24HR PATCH TRANSDERM SCH (07:55)
[2019-12-25] MEDS: HYDROcodone/APAP 5-325MG 1 EACH TAB PO PRN ×2 (07:55→20:13)
[2019-12-25] MEDS: PIPERACILLIN-TAZOBACTAM 3.375 GM in SODIUM CHLORIDE 0.9% 100 ML IVPB SCH ×3 (07:55→23:42)
[2019-12-25] MEDS: SYMBICORT 160-4.5 MCG INHALER INHALATION SCH ×2 (08:46→20:35)
[2019-12-25] MEDS: IPRATROPIUM-ALBUTEROL 3 ML NEB INHALATION SCH ×4 (08:46→20:35)
--- NOTE | 2019-12-25 09:32 | P.PN ---
Subjective Progress Note Date: 12/25/19 Principal diagnosis: Acute exacerbation of chronic obstructive pulmonary disease, recent diagnosis of adenocarcinoma of the lung This is a very pleasant 74-year-old gentleman who is well-known to Dr. Faith in our office for many years regarding his COPD as the patient has an FEV1 of 40% of predicted consistent with severe COPD. He is a chronic smoker. He also has history of renal cell carcinoma of the right kidney that was resected many years back without evidence of any recurrence. The patient has chronic hypoxic respiratory failure and his been also on oxygen. The patient has been utilizing oxygen at 2 L per minute nasal cannula. He was admitted in early November of this year for COPD exacerbation. 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 Computed tomography scan of the abdomen and pelvis revealed no evidence of metastatic disease. MRI of the brain revealed no metastatic disease. He had seen Dr. Juan Luis del angel in follow-up. He did not feel he was a good candidate for surgical intervention. A PET scan was scheduled and follow-up pulmonary function testing was planned. He was scheduled to see Dr. Leong in his office yesterday. The patient however presented to the emergency room yesterday with worsening shortness of breath and left-sided chest pain. Chest x-ray revealed a left suprahilar mass. VQ scan was performed and revealed in Guy probability for pulmonary embolism. Venous Doppler of the lower extremities were negative. White count 7.9. Hemoglobin 12.5. D-dimer 2.64. Sodium 138. Potassium 5.5. Chloride 100 bicarb 34 creatinine 1.57 proBNP 573. Troponin negative 1. Aiken virus not detected. He is seen today in consultation on the selective care unit. He is currently sitting up in bed. In moderate respiratory distress. Loose nonproductive cough. Diaphoretic. Oxygen saturation 74% on 2 L nasal cannula. He is tachycardic. He was immediately placed on BiPAP 12/4 and 100% FiO2. Given a breathing treatment. Blood gases revealed a PaO2 of 124, pCO2 of 77 and a pH of 7.28. He was initiated on IV Solu-Medrol and transferred to the intensive care unit. He is currently on Zosyn. NicoDerm patch is in place. Patient was reevaluated today in the ICU on 12/22/19, patient is on high flow nasal cannula at 6 L/m, he is off BiPAP, and he seems to be doing much better compared to yesterday. Patient seems to be comfortable, and in no distress. Remains on bronchodilators and steroids. Off diuretics. And his IV fluid was increased because of his renal functioning. Electrolytes are normal except for slightly elevated potassium of 5.8 his BUN is up to 55 and his creatinine is up to 1.73. Hence fluid was liberalized today. His Aiken virus screening/PCR is negative. Patient was reevaluated today on 12/23/19, remains in the intensive care unit, improving, but not back to his baseline. Patient has less shortness of breath and less cough and less wheezing. His potassium was noted to be quite high today, 6.5, patient was given bicarb, insulin, dextrose, calcium gluconate, and Kayexalate. Follow-up potassium came back down to 5.8, has the patient will receive another dose of Kayexalate. Overall no major change except for slight improvement in his pulmonary status. His labs showed slight improvement in his creatinine down to 1.64. CBC is relatively normal. Patient is seen today 12/24/2019 and follow-up in the intensive care unit. He is currently sitting up in a chair at the bedside. Awake and alert in no acute distress. He denies any worsening shortness of breath, cough or congestion. He is maintaining O2 saturations in the low 90s on 4 L high flow nasal cannula. He is having ongoing issues with left-sided chest discomfort, pain medications being adjusted. He's been afebrile. White count 7.6. Hemoglobin 11.3. Sodium 138. Potassium 4.9. Creatinine 1.44. On 12/25/2019 patient seen in follow-up in the intensive care unit, he is awake and alert, oriented 3, he is in no acute distress, he remains on 4 L of oxygen, the pulse ox of 97%, respirations are nonlabored however patient is still diffusely bronchospastic on physical exam, denies any cough, or congestion, he is afebrile. He states his breathing is improving, today's chest x-ray still shows stable left-sided suprahilar mass. Patient continues on IV steroids, molly athing treatments, and antibiotics in the form of Zosyn. IV fluids infusing at a rate of 50 ML per hour. Today's labs have been reviewed, showing white blood cell count of 6.4, hemoglobin of 11.5, sodium is 141, potassium is 4.5, chloride is 104, CO2 36, BUN of 48 and creatinine 1.14. He denies any chest pain, no signs have been stable, patient has been awaiting a bed on medical surgical floor with remote telemetry. Objective - Vital Signs Vital signs: Vital Signs Temp 97.8 F 12/25/19 08:00 Pulse 88 12/25/19 09:00 Resp 24 12/25/19 08:00 BP 144/98 12/25/19 08:00 Pulse Ox 97 12/25/19 08:00 Intake & Output 12/24/19 12/25/19 12/25/19 18:59 06:59 18:59 Intake Total 500 250 150 Output Total 1000 300 Balance -500 250 -150 Weight 83.6 kg Intake: IV 500 250 150 Piperacillin-Tazobactam 3 200 100 100 .375 gm In Sodium Chloride 0.9% 100 ml @ 25 mls/hr IVPB Q8HR [facility] Rx# :[id number] Sodium Chloride 0.9% 1, 300 150 50 000 ml @ 50 mls/hr IV . Q20H [facility] Rx#:[id number] Output: Urine 1000 300 Other: Voiding Method Urinal Urinal Urinal # Voids 1 1 - Exam GENERAL EXAM: Alert, very pleasant, 74-year-old white male, on 4 L of oxygen with a pulse ox of 97%, comfortable in no apparent distress. HEAD: Normocephalic/atraumatic. EYES: Normal reaction of pupils, equal size. Conjunctiva pink, sclera white. NOSE: Clear with pink turbinates. THROAT: No erythema or exudates. NECK: No masses, no JVD, no thyroid enlargement, no adenopathy. CHEST: No chest wall deformity. Symmetrical expansion. LUNGS: Equal air entry with diffuse wheezes CVS: Regular rate and rhythm, normal S1 and S2, no gallops, no murmurs, no rubs ABDOMEN: Soft, nontender. No hepatosplenomegaly, normal bowel sounds, no guarding or rigidity. EXTREMITIES: No clubbing, no edema, no cyanosis, 2+ pulses and upper and lower extremities. MUSCULOSKELETAL: Muscle strength and tone normal. SPINE: No scoliosis or deformity SKIN: No rashes CENTRAL NERVOUS SYSTEM: Alert and oriented -3. No focal deficits, tone is normal in all 4 extremities. PSYCHIATRIC: Alert and oriented -3. Appropriate affect. Intact judgment and insight. - Labs CBC & Chem 7: 12/25/19 05:44 12/25/19 05:44 Labs: Abnormal Lab Results - Last 24 Hours (Table) 12/24/19 12/24/19 12/24/19 Range/Units 12:03 16:41 21:42 RBC (4.30-5.90) m/uL Hgb (13.0-17.5) gm/dL Hct (39.0-53.0) % MCHC (31.0-37.0) g/dL Lymphocytes # (1.0-4.8) k/uL Carbon Dioxide (22-30) mmol/L BUN (9-20) mg/dL Glucose (74-99) mg/dL POC Glucose (mg/dL) 160 H 229 H 250 H (75-99) mg/dL 12/25/19 12/25/19 12/25/19 Range/Units 05:44 05:44 06:41 RBC 3.93 L (4.30-5.90) m/uL Hgb 11.5 L (13.0-17.5) gm/dL Hct 38.7 L (39.0-53.0) % MCHC 29.7 L (31.0-37.0) g/dL Lymphocytes # 0.4 L (1.0-4.8) k/uL Carbon Dioxide 36 H (22-30) mmol/L BUN 48 H (9-20) mg/dL Glucose 139 H (74-99) mg/dL POC Glucose (mg/dL) 158 H (75-99) mg/dL Assessment and Plan Plan: Assessment: #1. Acute on chronic hypercapnic respiratory failure secondary to an acute exacerbation of chronic obstructive pulmonary disease, large left lung mass measuring 13 cm with recent diagnosis of non-small cell cancer on biopsy dated 11/29/2019 #2. Severe oxygen dependent COPD with an FEV1 value of 40% of predicted #3. Recent diagnosis in November 2019 of primary lung adenocarcinoma with no evidence of metastasis to the abdomen, pelvis her brain, PET scan is pending. #4. Chronic and ongoing tobacco dependence #5. History of right renal cell carcinoma status post nephrectomy #6. History of insomnia #7. Hyperlipidemia #8. Hypertension #9. GERD Plan: Continue same dose IV steroids, breathing treatments, continue current antibiotics, vital signs have been stable, patient is still bronchospastic and dyspneic, although improved since admission, continue BiPAP as needed, code status is DO NOT RESUSCITATE and DO NOT INTUBATE. Continue to optimize patient's COPD, and and hopefully patient will be able to start concurrent chemoradiation as per medical oncology. Stable to go out in the intensive care unit to medical surgical floor with remote telemetry, will continue to follow I performed a history & physical examination of the patient and discussed their management with my nurse practitioner, Odalis Munguia. I reviewed the nurse practitioner's note and agree with the documented findings and plan of care. Lung sounds are positive for diminished breath sounds. The findings and the impression was discussed with the patient. I attest to the documentation by the nurse practitioner. Time with Patient: Less than 30
[2019-12-25 11:52] LABS: Glucose,Whole Blood 175 mg/dL (75-99)
--- NOTE | 2019-12-25 15:44 | P.PN ---
Subjective 74 years old male with past medical history of coronary artery disease, COPD and for follow-up with Dr. Faith, asthma, GERD, hypertension, left renal mass, chronic hypoxic respiratory failure and 2 L oxygen at home, chronic low back pain. Patient states that he has chest pain for 2 days about 10/10 in severity, the left side nonradiating, No associated dizziness no dyspnea no palpitation, no nausea vomiting or sweating. Patient has chronic cough, with mild phlegm with no recent worsening. He keeps smoking 2 cigars per day and patient counseled as wants to quit and wants nicotine patch. No alcohol or illicit drugs. Vitals are stable and he is tachycardic. At 105. CBC is unremarkable, d-dimer is elevated at 2.6. His potassium was 5.3 which is slightly elevated, creatinine 1.5, baseline is 1.15. First troponin is negative for 0.018. Chest x-ray: No acute process. Left suprahilar mass. EKG showing sinus tachycardia at [address]-T changes and QTC of 545 intermediate from ability for PE , however i spoke with bed side [facility] she states came and evaluated the pt and recommended no therapeutic anti-coagulation for now in the emergency room pt was stared on normal saline at 100 ml/hr 12/21/2019 Patient is awake and alert, history of complaining of from chest pain about 8/10, his dyspnea is little more this morning. He complains from cough and clear phlegm but states that its chronic. He has low-grade temperature this morning 100.3, is tachycardic 114, blood pressure 118/65, saturating 94% on 2 L oxygen via nasal cannula. Labs from this morning, CBC and BMP are pending. We will repeat chest x-ray. is aware of his lung mass. Also patient has intermediate probability for PE on his VQ scan done last night, however were not sure patient will need anticoagulation so we'll call pulmonary consult We will consult cardiology, pulmonary service already consulted [id number] Patient is sedated become more dyspneic and he was transferred to the ICU. He needed 10 L of oxygen via nasal cannula, however it was lowered today to 6 L and he saturating 91-94% he is fully awake, he does not use accessory muscles a lot with no chest pain, he has some mild headache which is controlled with pain medication. Patient with low-grade temperature 100.3 yesterday, maybe some elements of pneumonia and he was placed on Zosyn. Chest x-ray showing left upper mass about 13 cm, (non-small cell lung cancer. Biopsy from 11/28) Although patient has abnormal VQ scan, pulmonary team does not think patient will need anticoagulation as his symptoms mostly comes from his lung mass, pneumonia and advanced COPD, no other evidence of clot in disease. Last night the nurse told me he was asking for hospice care consult however when I talked to the patient this morning he does not feel he is ready for that yet. Continue with Zosyn and Solu-Medrol 60 mg, aspirin, breathing treatments. Patient is followed closely by pulmonary/critical care team and cartilage team 12/23/2019 Patient remains in the ICU, is somewhat dyspneic, similar to yesterday, and he is still coughing however patient generally feels better. This morning he got 1 dose of Dilaudid for his chest pain which is mostly musculoskeletal in nature. Patient is saturating at 4-6 L oxygen per nasal cannula. Patient has been refusing BiPAP however he is not in significant respiratory distress now.He still have some degree of wheezing. Potassium this morning was 6.5, he got treatment and follow-up the potassium level. He is on normal saline at 50 mm per hour, his on Zosyn for possible postobstructive pneumonia and also is on Solu-Medrol 60 mg. states that they supposed to see Dr. Leong for his lung mass but he got admitted to the hospital and the patient request and if he can talk to Dr. leong now while he is in-house, so consult was placed for Dr. Leong team. 12/24/2019 Patient seen and examined today in the ICU. His breathing looks better with some coughing he saturating 92% on 4 L oxygen via nasal cannula, not yesterday and is a breathing arthritis 20 06/22/2022. Blood pressure 107/76. And he is afebrile. He has improving creatinine down to 1.4, sugar controlled. CBC showed unremarkable WBC and platelet count, hemoglobin 11.3. His potassium improved down to 4.9. chest x-ray: Stable left upper lobe lung mass and right basilar atelectasis favored over infiltrate per radiologist, however when I reviewed chest x-ray by myself the postobstructive changes seen on 12/21 is improved on today's chest x- ray Patient remains on Zosyn, Solu-Medrol and normal saline at 50 mm per hour Patient can go to general medical floor once cleared by pulmonary team 12/25/2019 Patient has significant wheezing on exam. Constitutional: Denied any fatigue denied any fever. Cardio vascular: denied any chest pain, palpitations Gastrointestinal denied any nausea vomiting Pulmonary: still short of breath Neurologic denied any new focal deficits All inpatient medications were reviewed and appropriate changes in these medications as dictated in the interval history and assessment and plan. Objective - Vital Signs Vital signs: Vital Signs Temp 97.8 F 12/25/19 08:00 Pulse 84 12/25/19 12:27 Resp 24 12/25/19 08:00 BP 144/98 12/25/19 08:00 Pulse Ox 97 12/25/19 08:00 Intake & Output 12/24/19 12/25/19 12/25/19 18:59 06:59 18:59 Intake Total 500 250 150 Output Total 1000 300 Balance -500 250 -150 Weight 83.6 kg Intake: IV 500 250 150 Piperacillin-Tazobactam 3 200 100 100 .375 gm In Sodium Chloride 0.9% 100 ml @ 25 mls/hr IVPB Q8HR [facility] Rx# :[id number] Sodium Chloride 0.9% 1, 300 150 50 000 ml @ 50 mls/hr IV . Q20H [facility] Rx#:[id number] Output: Urine 1000 300 Other: Voiding Method Urinal Urinal Urinal # Voids 1 1 # Bowel Movements 1 - Exam PHYSICAL EXAMINATION: GENERAL: The patient is alert and oriented x3, not in any acute distress. Well developed, well nourished. HEENT: Pupils are round and equally reacting to light. EOMI. No scleral icterus. No conjunctival pallor. Normocephalic, atraumatic. No pharyngeal erythema. No thyromegaly. CARDIOVASCULAR: S1 and S2 present. No murmurs, rubs, or gallops. PULMONARY significant expiratory wheezing on exam significantly decreased air entry into bilateral lung owens ABDOMEN: Soft, nontender, nondistended, normoactive bowel sounds. No palpable organomegaly. MUSCULOSKELETAL: No joint swelling or deformity. EXTREMITIES: No cyanosis, clubbing, or pedal edema. NEUROLOGICAL: Gross neurological examination did not reveal any focal deficits. SKIN: No rashes. - Labs CBC & Chem 7: 12/25/19 05:44 12/25/19 05:44 Labs: Abnormal Lab Results - Last 24 Hours (Table) 12/24/19 12/24/19 12/25/19 Range/Units 16:41 21:42 05:44 RBC 3.93 L (4.30-5.90) m/uL Hgb 11.5 L (13.0-17.5) gm/dL Hct 38.7 L (39.0-53.0) % MCHC 29.7 L (31.0-37.0) g/dL Lymphocytes # 0.4 L (1.0-4.8) k/uL Carbon Dioxide (22-30) mmol/L BUN (9-20) mg/dL Glucose (74-99) mg/dL POC Glucose (mg/dL) 229 H 250 H (75-99) mg/dL 12/25/19 12/25/19 12/25/19 Range/Units 05:44 06:41 11:50 RBC (4.30-5.90) m/uL Hgb (13.0-17.5) gm/dL Hct (39.0-53.0) % MCHC (31.0-37.0) g/dL Lymphocytes # (1.0-4.8) k/uL Carbon Dioxide 36 H (22-30) mmol/L BUN 48 H (9-20) mg/dL Glucose 139 H (74-99) mg/dL POC Glucose (mg/dL) 158 H 175 H (75-99) mg/dL Assessment and Plan Plan: -Acute on chronic hypercapnic respiratory failure secondary to COPD exacerbation: Continue systemic steroids inhalational treatments -Metastatic non-small cell lung cancer patient was evaluated by oncology once patient is more stable will undergo chemotherapy followed by immunotherapy. -Continued nicotine use -Hyperlipidemia -Hypertension -Gastroesophageal reflux disease -His. Right renal cell cancer status post nephrectomy -Acute renal failure prerenal azotemia secondary to intravascular depletion improved now with IV fluids -Possibly of chronic kidney disease secondary to nephrectomy I cannot stage his chronic kidney disease at this time
[2019-12-25 16:34] LABS: Glucose,Whole Blood 219 mg/dL (75-99)
[2019-12-25] MEDS: SODIUM CHLORIDE 0.9% 1,000 ML IV SCH (17:33)
[2019-12-25] MEDS: NICOTINE 21MG/24HR PATCH TRANSDERM SCH (19:01)
[2019-12-25 19:57] LABS: Glucose,Whole Blood 196 mg/dL (75-99)
[2019-12-25] MEDS: ATORVASTATIN 10 MG TAB PO SCH (20:10)
--- NOTE | 2019-12-25 20:36 | P.PN ---
Subjective Progress Note Date: 12/25/19 Principal diagnosis: Exacerbation COPD no acute distress, oxygenating sufficient on 4 L of oxygen, continues on IV steroids, breathing treatments, and antibiotics.Pain in chest is improved since admission. at bedside and concerned he missed his first follow-up with oncology as an outpatient. Will get this rescheduled. Patient is stating the nicoteine patch is not working and asking for something stronger. 21mcg ordered.. Objective - Vital Signs Vital signs: Vital Signs Temp 97.8 F 12/25/19 08:00 Pulse 84 12/25/19 12:27 Resp 24 12/25/19 08:00 BP 144/98 12/25/19 08:00 Pulse Ox 97 12/25/19 08:00 Intake & Output 12/24/19 12/25/19 12/25/19 18:59 06:59 18:59 Intake Total 500 250 150 Output Total 1000 300 Balance -500 250 -150 Weight 83.6 kg Intake: IV 500 250 150 Piperacillin-Tazobactam 3 200 100 100 .375 gm In Sodium Chloride 0.9% 100 ml @ 25 mls/hr IVPB Q8HR [facility] Rx# :[id number] Sodium Chloride 0.9% 1, 300 150 50 000 ml @ 50 mls/hr IV . Q20H [facility] Rx#:[id number] Output: Urine 1000 300 Other: Voiding Method Urinal Urinal Urinal # Voids 1 1 # Bowel Movements 1 - Constitutional General appearance: Present: average body habitus, cooperative, no acute distress - EENT Eyes: Present: PERRLA, poor dentition ENT: Present: hard of hearing, NA/AT - Neck Neck: Present: normal ROM - Respiratory Respiratory: bilateral: diminished, rhonchi - Cardiovascular Rhythm: regular Heart sounds: normal: S1, S2 - Gastrointestinal General gastrointestinal: Present: normal bowel sounds, soft - Integumentary Integumentary: Present: pale - Neurologic Neurologic: Present: CNII-XII intact - Musculoskeletal Musculoskeletal: Present: generalized weakness, strength equal bilaterally - Psychiatric Psychiatric: Present: A&O x's 3, appropriate affect, intact judgment & insight - Labs CBC & Chem 7: 12/25/19 05:44 12/25/19 05:44 Labs: Abnormal Lab Results - Last 24 Hours (Table) 12/24/19 12/24/19 12/25/19 Range/Units 16:41 21:42 05:44 RBC 3.93 L (4.30-5.90) m/uL Hgb 11.5 L (13.0-17.5) gm/dL Hct 38.7 L (39.0-53.0) % MCHC 29.7 L (31.0-37.0) g/dL Lymphocytes # 0.4 L (1.0-4.8) k/uL Carbon Dioxide (22-30) mmol/L BUN (9-20) mg/dL Glucose (74-99) mg/dL POC Glucose (mg/dL) 229 H 250 H (75-99) mg/dL 12/25/19 12/25/19 12/25/19 Range/Units 05:44 06:41 11:50 RBC (4.30-5.90) m/uL Hgb (13.0-17.5) gm/dL Hct (39.0-53.0) % MCHC (31.0-37.0) g/dL Lymphocytes # (1.0-4.8) k/uL Carbon Dioxide 36 H (22-30) mmol/L BUN 48 H (9-20) mg/dL Glucose 139 H (74-99) mg/dL POC Glucose (mg/dL) 158 H 175 H (75-99) mg/dL - Imaging and Cardiology Chest x-ray: report reviewed, image reviewed Assessment and Plan (1) Atypical chest pain Current Visit: Yes Status: Acute Code(s): R07.89 - OTHER CHEST PAIN SNOMED Code(s): 298354782 (2) COPD exacerbation Current Visit: Yes Status: Acute Code(s): J44.1 - CHRONIC OBSTRUCTIVE PULMONARY DISEASE W (ACUTE) EXACERBATION SNOMED Code(s): 679811327 (3) Adenocarcinoma of left lung Current Visit: No Status: Acute Code(s): C34.92 - MALIGNANT NEOPLASM OF UNSP PART OF LEFT BRONCHUS OR LUNG SNOMED Code(s): 89704012243325514 Plan: Assessment and Recommendations: New Diagnosis of Adenocarcinoma of the Right Lung - No evidence of distant metastasis although likely locally advanced. - Missed follow-up for treatment plan with Dr. Leong secondary to this current hospital admission - PDL1 and NGS Sent on tissue pathology - No evidence of distant mets on MRI Brain or PET scan - Tobacco Cessation COPD Exacerbation: - Per Pulmonary - Steroids, Abx, and Nebs - Supportive Care Acute Renal Insufficiency: Resolved - Likely from decreased PO intake, not feeling well. Will have our office place [facility] on for patient office follow-up.
[2019-12-26 05:30] LABS: Calcium 8.5 mg/dL (8.4-10.2); Potassium 4.5 mmol/L (3.5-5.1)
[2019-12-26] MEDS: methylPREDNISolone SOD SUCCI 125 MG/2 ML VIAL IV SCH ×3 (05:33→18:16)
[2019-12-26 06:34] LABS: Glucose,Whole Blood 132 mg/dL (75-99)
[2019-12-26] MEDS: PANTOPRAZOLE 40 MG TABLET PO SCH (06:35)
[2019-12-26] MEDS: INSULIN ASPART (NovoLOG) 100 UNIT/ML VIAL SQ SCH ×4 (06:35→21:22)
--- NOTE | 2019-12-26 08:05 | P.PN ---
Subjective Progress Note Date: 12/26/19 Principal diagnosis: Acute exacerbation of chronic obstructive pulmonary disease, recent diagnosis of adenocarcinoma of the lung This is a very pleasant 74-year-old gentleman who is well-known to Dr. Faith in our office for many years regarding his COPD as the patient has an FEV1 of 40% of predicted consistent with severe COPD. He is a chronic smoker. He also has history of renal cell carcinoma of the right kidney that was resected many years back without evidence of any recurrence. The patient has chronic hypoxic respiratory failure and his been also on oxygen. The patient has been utilizing oxygen at 2 L per minute nasal cannula. He was admitted in early November of this year for COPD exacerbation. 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 Computed tomography scan of the abdomen and pelvis revealed no evidence of metastatic disease. MRI of the brain revealed no metastatic disease. He had seen Dr. Juan Luis del angel in follow-up. He did not feel he was a good candidate for surgical intervention. A PET scan was scheduled and follow-up pulmonary function testing was planned. He was scheduled to see Dr. Leong in his office yesterday. The patient however presented to the emergency room yesterday with worsening shortness of breath and left-sided chest pain. Chest x-ray revealed a left suprahilar mass. VQ scan was performed and revealed in Guy probability for pulmonary embolism. Venous Doppler of the lower extremities were negative. White count 7.9. Hemoglobin 12.5. D-dimer 2.64. Sodium 138. Potassium 5.5. Chloride 100 bicarb 34 creatinine 1.57 proBNP 573. Troponin negative 1. Aiken virus not detected. He is seen today in consultation on the selective care unit. He is currently sitting up in bed. In moderate respiratory distress. Loose nonproductive cough. Diaphoretic. Oxygen saturation 74% on 2 L nasal cannula. He is tachycardic. He was immediately placed on BiPAP 12/4 and 100% FiO2. Given a breathing treatment. Blood gases revealed a PaO2 of 124, pCO2 of 77 and a pH of 7.28. He was initiated on IV Solu-Medrol and transferred to the intensive care unit. He is currently on Zosyn. NicoDerm patch is in place. Patient was reevaluated today in the ICU on 12/22/19, patient is on high flow nasal cannula at 6 L/m, he is off BiPAP, and he seems to be doing much better compared to yesterday. Patient seems to be comfortable, and in no distress. Remains on bronchodilators and steroids. Off diuretics. And his IV fluid was increased because of his renal functioning. Electrolytes are normal except for slightly elevated potassium of 5.8 his BUN is up to 55 and his creatinine is up to 1.73. Hence fluid was liberalized today. His Aiken virus screening/PCR is negative. Patient was reevaluated today on 12/23/19, remains in the intensive care unit, improving, but not back to his baseline. Patient has less shortness of breath and less cough and less wheezing. His potassium was noted to be quite high today, 6.5, patient was given bicarb, insulin, dextrose, calcium gluconate, and Kayexalate. Follow-up potassium came back down to 5.8, has the patient will receive another dose of Kayexalate. Overall no major change except for slight improvement in his pulmonary status. His labs showed slight improvement in his creatinine down to 1.64. CBC is relatively normal. Patient is seen today 12/24/2019 and follow-up in the intensive care unit. He is currently sitting up in a chair at the bedside. Awake and alert in no acute distress. He denies any worsening shortness of breath, cough or congestion. He is maintaining O2 saturations in the low 90s on 4 L high flow nasal cannula. He is having ongoing issues with left-sided chest discomfort, pain medications being adjusted. He's been afebrile. White count 7.6. Hemoglobin 11.3. Sodium 138. Potassium 4.9. Creatinine 1.44. On 12/25/2019 patient seen in follow-up in the intensive care unit, he is awake and alert, oriented 3, he is in no acute distress, he remains on 4 L of oxygen, the pulse ox of 97%, respirations are nonlabored however patient is still diffusely bronchospastic on physical exam, denies any cough, or congestion, he is afebrile. He states his breathing is improving, today's chest x-ray still shows stable left-sided suprahilar mass. Patient continues on IV steroids, molly athing treatments, and antibiotics in the form of Zosyn. IV fluids infusing at a rate of 50 ML per hour. Today's labs have been reviewed, showing white blood cell count of 6.4, hemoglobin of 11.5, sodium is 141, potassium is 4.5, chloride is 104, CO2 36, BUN of 48 and creatinine 1.14. He denies any chest pain, no signs have been stable, patient has been awaiting a bed on medical surgical floor with remote telemetry. On 12/26/2019 patient seen in follow-up in intensive care unit, patient is awake and alert, oriented 3, taken on 4 L of oxygen, pulse ox is 92%, he has not required BiPAP support since 12/21/2019. FiO2 is down to 4 L, still broncospastic on today's exam, loose congested cough, but states his breathing easier. Remains on Zosyn for empiric and manic coverage, IV steroids 60 mg every 6 hours, nebulized bronchodilators and Symbicort. Today's chest x-ray has been reviewed, showing stable left-sided suprahilar mass, and appears to the patient's left hand is over his left chest. Today's labs have been reviewed, showing sodium of 139, potassium is 4.5, chloride is 105, CO2 is 21, BUN is 45 creatinine is 1.06. Patient states he was up in the chair yesterday, will savannah nue increasing his activity, will consult physical therapy. Otherwise no acute events overnight, still awaiting a bed in medical surgical floor with remote telemetry Objective - Vital Signs Vital signs: Vital Signs Temp 98.7 F 12/26/19 00:00 Pulse 85 12/25/19 20:49 Resp 24 12/26/19 00:00 BP 105/60 12/26/19 00:00 Pulse Ox 92 L 12/26/19 00:00 Intake & Output 12/25/19 12/26/19 12/26/19 18:59 06:59 18:59 Intake Total 150 275 Output Total 300 675 Balance -150 -400 Weight 86.273 kg Intake: IV 150 275 Piperacillin-Tazobactam 3 100 25 .375 gm In Sodium Chloride 0.9% 100 ml @ 25 mls/hr IVPB Q8HR [facility] Rx# :[id number] Sodium Chloride 0.9% 1, 50 250 000 ml @ 50 mls/hr IV . Q20H [facility] Rx#:[id number] Output: Urine 300 675 Other: Voiding Method Urinal Urinal # Voids 0 # Bowel Movements 1 - Exam GENERAL EXAM: Alert, very pleasant, 74-year-old white male, on 4 L of oxygen with a pulse ox of 92%, comfortable in no apparent distress. HEAD: Normocephalic/atraumatic. EYES: Normal reaction of pupils, equal size. Conjunctiva pink, sclera white. NOSE: Clear with pink turbinates. THROAT: No erythema or exudates. NECK: No masses, no JVD, no thyroid enlargement, no adenopathy. CHEST: No chest wall deformity. Symmetrical expansion. LUNGS: Equal air entry with diffuse wheezes CVS: Regular rate and rhythm, normal S1 and S2, no gallops, no murmurs, no rubs ABDOMEN: Soft, nontender. No hepatosplenomegaly, normal bowel sounds, no guarding or rigidity. EXTREMITIES: No clubbing, no edema, no cyanosis, 2+ pulses and upper and lower extremities. MUSCULOSKELETAL: Muscle strength and tone normal. SPINE: No scoliosis or deformity SKIN: No rashes CENTRAL NERVOUS SYSTEM: Alert and oriented -3. No focal deficits, tone is normal in all 4 extremities. PSYCHIATRIC: Alert and oriented -3. Appropriate affect. Intact judgment and insight. - Labs CBC & Chem 7: 12/25/19 05:44 12/26/19 05:09 Labs: Abnormal Lab Results - Last 24 Hours (Table) 12/25/19 12/25/19 12/25/19 Range/Units 11:50 16:33 19:55 Carbon Dioxide (22-30) mmol/L BUN (9-20) mg/dL Glucose (74-99) mg/dL POC Glucose (mg/dL) 175 H 219 H 196 H (75-99) mg/dL 12/26/19 12/26/19 Range/Units 05:09 06:32 Carbon Dioxide 31 H (22-30) mmol/L BUN 45 H (9-20) mg/dL Glucose 127 H (74-99) mg/dL POC Glucose (mg/dL) 132 H (75-99) mg/dL Assessment and Plan Plan: Assessment: #1. Acute on chronic hypercapnic respiratory failure secondary to an acute exacerbation of chronic obstructive pulmonary disease, large left lung mass measuring 13 cm with recent diagnosis of non-small cell cancer on biopsy dated 11/29/2019 #2. Severe oxygen dependent COPD with an FEV1 value of 40% of predicted #3. Recent diagnosis in November 2019 of primary lung adenocarcinoma with no evidence of metastasis to the abdomen, pelvis her brain, PET scan is pending. #4. Chronic and ongoing tobacco dependence #5. History of right renal cell carcinoma status post nephrectomy #6. History of insomnia #7. Hyperlipidemia #8. Hypertension #9. GERD Plan: Today's chest x-ray has been reviewed, stable in appearance, with the left suprahilar mass, patient's left hand is across his left chest. Did not require BiPAP last night, medicines signs are stable, continue same dose IV steroids, we'll switch Symbicort Pulmicort and Perforomist, increase activity, consult physical therapy. Continue with antibiotics, will try to collect sputum for culture, awaiting a bed in medical surgical floor without telemetry, stable overnight, we'll continue to follow. Use BiPAP as needed I performed a history & physical examination of the patient and discussed their management with my nurse practitioner, Odalis Munguia. I reviewed the nurse pr actitioner's note and agree with the documented findings and plan of care. Lung sounds are positive for diminished breath sounds. The findings and the impression was discussed with the patient. I attest to the documentation by the nurse practitioner. Time with Patient: Less than 30
[2019-12-26] MEDS: IPRATROPIUM-ALBUTEROL 3 ML NEB INHALATION SCH ×4 (08:23→20:06)
[2019-12-26] MEDS: ASPIRIN 81 MG PO SCH (08:25)
[2019-12-26] MEDS: HEPARIN SODIUM,PORCINE 5,000 UNIT/ML 1 ML VIAL SQ SCH ×2 (08:25→16:17)
[2019-12-26] MEDS: busPIRone HCl 10 MG TAB PO SCH ×2 (08:25→21:22)
[2019-12-26] MEDS: PIPERACILLIN-TAZOBACTAM 3.375 GM in SODIUM CHLORIDE 0.9% 100 ML IVPB SCH ×2 (08:25→16:17)
[2019-12-26] MEDS: METOPROLOL SUCCINATE (ER) 25 MG TAB.ER.24H PO SCH (08:25)
[2019-12-26] MEDS: NICOTINE 21MG/24HR PATCH TRANSDERM SCH (08:25)
[2019-12-26] MEDS: SYMBICORT 160-4.5 MCG INHALER INHALATION SCH (08:29)
--- NOTE | 2019-12-26 09:56 | XR ---
EXAMINATION TYPE: XR chest 1V portable DATE OF EXAM: 12/26/2019 COMPARISON: 12/25/2019 INDICATION: COPD, CHF TECHNIQUE: Single frontal view of the chest is obtained. FINDINGS: The heart size is upper limits of normal. Masslike area extending from the level aortic arch to the left upper lung field remains present. The pulmonary vasculature is normal. Suspicious developing infiltrate is not identified. A hand overlies the lower chest. IMPRESSION: 1. Stable left upper lobe mass.
[2019-12-26 11:40] LABS: Glucose,Whole Blood 137 mg/dL (75-99)
[2019-12-26] MEDS: SODIUM CHLORIDE 0.9% 1,000 ML IV SCH (12:27)
[2019-12-26] MEDS: HYDROcodone/APAP 5-325MG 1 EACH TAB PO PRN (13:20)
[2019-12-26 14:30] VITALS: BMI 25.7
--- NOTE | 2019-12-26 16:22 | P.PN ---
Subjective 74 years old male with past medical history of coronary artery disease, COPD and for follow-up with Dr. Faith, asthma, GERD, hypertension, left renal mass, chronic hypoxic respiratory failure and 2 L oxygen at home, chronic low back pain. Patient states that he has chest pain for 2 days about 10/10 in severity, the left side nonradiating, No associated dizziness no dyspnea no palpitation, no nausea vomiting or sweating. Patient has chronic cough, with mild phlegm with no recent worsening. He keeps smoking 2 cigars per day and patient counseled as wants to quit and wants nicotine patch. No alcohol or illicit drugs. Vitals are stable and he is tachycardic. At 105. CBC is unremarkable, d-dimer is elevated at 2.6. His potassium was 5.3 which is slightly elevated, creatinine 1.5, baseline is 1.15. First troponin is negative for 0.018. Chest x-ray: No acute process. Left suprahilar mass. EKG showing sinus tachycardia at [address]-T changes and QTC of 545 intermediate from ability for PE , however i spoke with bed side RN at [facility] she states came and evaluated the pt and recommended no therapeutic anti-coagulation for now in the emergency room pt was stared on normal saline at 100 ml/hr 12/21/2019 Patient is awake and alert, history of complaining of from chest pain about 8/10, his dyspnea is little more this morning. He complains from cough and clear phlegm but states that its chronic. He has low-grade temperature this morning 100.3, is tachycardic 114, blood pressure 118/65, saturating 94% on 2 L oxygen via nasal cannula. Labs from this morning, CBC and BMP are pending. We will repeat chest x-ray. is aware of his lung mass. Also patient has intermediate probability for PE on his VQ scan done last night, however were not sure patient will need anticoagulation so we'll call pulmonary consult We will consult cardiology, pulmonary service already consulted [phone] Patient is sedated become more dyspneic and he was transferred to the ICU. He needed 10 L of oxygen via nasal cannula, however it was lowered today to 6 L and he saturating 91-94% he is fully awake, he does not use accessory muscles a lot with no chest pain, he has some mild headache which is controlled with pain medication. Patient with low-grade temperature 100.3 yesterday, maybe some elements of pneumonia and he was placed on Zosyn. Chest x-ray showing left upper mass about 13 cm, (non-small cell lung cancer. Biopsy from 11/28) Although patient has abnormal VQ scan, pulmonary team does not think patient will need anticoagulation as his symptoms mostly comes from his lung mass, pneumonia and advanced COPD, no other evidence of clot in disease. Last night the nurse told me he was asking for hospice care consult however when I talked to the patient this morning he does not feel he is ready for that yet. Continue with Zosyn and Solu-Medrol 60 mg, aspirin, breathing treatments. Patient is followed closely by pulmonary/critical care team and cartilage team 12/23/2019 Patient remains in the ICU, is somewhat dyspneic, similar to yesterday, and he is still coughing however patient generally feels better. This morning he got 1 dose of Dilaudid for his chest pain which is mostly musculoskeletal in nature. Patient is saturating at 4-6 L oxygen per nasal cannula. Patient has been refusing BiPAP however he is not in significant respiratory distress now.He still have some degree of wheezing. Potassium this morning was 6.5, he got treatment and follow-up the potassium level. He is on normal saline at 50 mm per hour, his on Zosyn for possible postobstructive pneumonia and also is on Solu-Medrol 60 mg. states that they supposed to see Dr. Leong for his lung mass but he got admitted to the hospital and the patient request and if he can talk to Dr. leong now while he is in-house, so consult was placed for Dr. Leong team. 12/24/2019 Patient seen and examined today in the ICU. His breathing looks better with some coughing he saturating 92% on 4 L oxygen via nasal cannula, not yesterday and is a breathing arthritis 20 06/22/2022. Blood pressure 107/76. And he is afebrile. He has improving creatinine down to 1.4, sugar controlled. CBC showed unremarkable WBC and platelet count, hemoglobin 11.3. His potassium improved down to 4.9. chest x-ray: Stable left upper lobe lung mass and right basilar atelectasis favored over infiltrate per radiologist, however when I reviewed chest x-ray by myself the postobstructive changes seen on 12/21 is improved on today's chest x- ray Patient remains on Zosyn, Solu-Medrol and normal saline at 50 mm per hour Patient can go to general medical floor once cleared by pulmonary team 12/25/2019 Patient has significant wheezing on exam. 12/26/2019 Patient has significant improvement in his respiratory status patient still has rhonchi and wheezing but significantly improved compared to yesterday patient is feeling better patient is saturating well on 4 L of onset and which will be weaned off even further patient will transfer out of ICU patient actually wanted to go home Constitutional: Denied any fatigue denied any fever. Cardio vascular: denied any chest pain, palpitations Gastrointestinal denied any nausea vomiting Pulmonary: still short of breath Neurologic denied any new focal deficits All inpatient medications were reviewed and appropriate changes in these medications as dictated in the interval history and assessment and plan. Objective - Vital Signs Vital signs: Vital Signs Temp 97.6 F 12/26/19 16:00 Pulse 80 12/26/19 16:00 Resp 18 12/26/19 16:00 BP 128/83 12/26/19 16:00 Pulse Ox 95 12/26/19 16:00 Intake & Output 12/25/19 12/26/19 12/26/19 18:59 06:59 18:59 Intake Total 150 275 275 Output Total 300 675 Balance -150 -400 275 Weight 86.273 kg 86.273 kg Intake: IV 150 275 275 Piperacillin-Tazobactam 3 100 25 100 .375 gm In Sodium Chloride 0.9% 100 ml @ 25 mls/hr IVPB Q8HR [facility] Rx# :[id number] Sodium Chloride 0.9% 1, 50 250 175 000 ml @ 50 mls/hr IV . Q20H [facility] Rx#:[id number] Output: Urine 300 675 Other: Voiding Method Urinal Urinal Urinal # Voids 0 2 # Bowel Movements 1 2 - Exam PHYSICAL EXAMINATION: GENERAL: The patient is alert and oriented x3, not in any acute distress. Well developed, well nourished. HEENT: Pupils are round and equally reacting to light. EOMI. No scleral icterus. No conjunctival pallor. Normocephalic, atraumatic. No pharyngeal erythema. No thyromegaly. CARDIOVASCULAR: S1 and S2 present. No murmurs, rubs, or gallops. PULMONARYsignificant improvement in expiratory wheezing but still wheezing with some rhonchi ABDOMEN: Soft, nontender, nondistended, normoactive bowel sounds. No palpable organomegaly. MUSCULOSKELETAL: No joint swelling or deformity. EXTREMITIES: No cyanosis, clubbing, or pedal edema. NEUROLOGICAL: Gross neurological examination did not reveal any focal deficits. SKIN: No rashes. - Labs CBC & Chem 7: 12/25/19 05:44 12/26/19 05:09 Labs: Abnormal Lab Results - Last 24 Hours (Table) 12/25/19 12/25/19 12/26/19 Range/Units 16:33 19:55 05:09 Carbon Dioxide 31 H (22-30) mmol/L BUN 45 H (9-20) mg/dL Glucose 127 H (74-99) mg/dL POC Glucose (mg/dL) 219 H 196 H (75-99) mg/dL 12/26/19 12/26/19 Range/Units 06:32 11:38 Carbon Dioxide (22-30) mmol/L BUN (9-20) mg/dL Glucose (74-99) mg/dL POC Glucose (mg/dL) 132 H 137 H (75-99) mg/dL Assessment and Plan Plan: -Acute on chronic hypercapnic respiratory failure secondary to COPD exacerb ation: Continue systemic steroids inhalational treatments -Metastatic non-small cell lung cancer patient was evaluated by oncology once patient is more stable will undergo chemotherapy followed by immunotherapy. -Continued nicotine use -Hyperlipidemia -Hypertension -Gastroesophageal reflux disease -His. Right renal cell cancer status post nephrectomy -Acute renal failure prerenal azotemia secondary to intravascular depletion improved now with IV fluids -Possibly of chronic kidney disease secondary to nephrectomy I cannot stage his chronic kidney disease at this time
[2019-12-26 16:44] LABS: Glucose,Whole Blood 169 mg/dL (75-99)
[2019-12-26] MEDS: BUDESONIDE 1 MG/2 ML NEBU INHALATION SCH (20:06)
[2019-12-26] MEDS: FORMOTEROL FUMARATE 20 MCG/2 ML NEBU INHALATION SCH (20:06)
[2019-12-26 20:34] LABS: Glucose,Whole Blood 184 mg/dL (75-99)
[2019-12-26] MEDS: ATORVASTATIN 10 MG TAB PO SCH (21:22)
[2019-12-27] MEDS: PIPERACILLIN-TAZOBACTAM 3.375 GM in SODIUM CHLORIDE 0.9% 100 ML IVPB SCH ×2 (00:16→07:59)
[2019-12-27] MEDS: HEPARIN SODIUM,PORCINE 5,000 UNIT/ML 1 ML VIAL SQ SCH ×2 (00:16→07:59)
[2019-12-27] MEDS: methylPREDNISolone SOD SUCCI 125 MG/2 ML VIAL IV SCH ×2 (00:16→07:03)
[2019-12-27 00:32] VITALS: TEMP 98.4
[2019-12-27 06:58] LABS: Glucose,Whole Blood 129 mg/dL (75-99)
[2019-12-27] MEDS: INSULIN ASPART (NovoLOG) 100 UNIT/ML VIAL SQ SCH (07:02)
[2019-12-27] MEDS: PANTOPRAZOLE 40 MG TABLET PO SCH (07:03)
[2019-12-27] MEDS: FORMOTEROL FUMARATE 20 MCG/2 ML NEBU INHALATION SCH (08:23)
[2019-12-27] MEDS: IPRATROPIUM-ALBUTEROL 3 ML NEB INHALATION SCH ×2 (08:23→12:42)
[2019-12-27] MEDS: BUDESONIDE 1 MG/2 ML NEBU INHALATION SCH (08:23)
[2019-12-27] MEDS: SODIUM CHLORIDE 0.9% 1,000 ML IV SCH (08:35)
[2019-12-27] MEDS: METOPROLOL SUCCINATE (ER) 25 MG TAB.ER.24H PO SCH (08:35)
[2019-12-27] MEDS: NICOTINE 21MG/24HR PATCH TRANSDERM SCH (08:35)
[2019-12-27] MEDS: busPIRone HCl 10 MG TAB PO SCH (08:35)
[2019-12-27] MEDS: ASPIRIN 81 MG PO SCH (08:37)
--- NOTE | 2019-12-27 08:57 | P.PN ---
Subjective Progress Note Date: 12/27/19 Principal diagnosis: Acute exacerbation of chronic obstructive pulmonary disease, recent diagnosis of adenocarcinoma of the lung This is a very pleasant 74-year-old gentleman who is well-known to Dr. Faith in our office for many years regarding his COPD as the patient has an FEV1 of 40% of predicted consistent with severe COPD. He is a chronic smoker. He also has history of renal cell carcinoma of the right kidney that was resected many years back without evidence of any recurrence. The patient has chronic hypoxic respiratory failure and his been also on oxygen. The patient has been utilizing oxygen at 2 L per minute nasal cannula. He was admitted in early November of this year for COPD exacerbation. 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 Computed tomography scan of the abdomen and pelvis revealed no evidence of metastatic disease. MRI of the brain revealed no metastatic disease. He had seen Dr. Juan Luis del angel in follow-up. He did not feel he was a good candidate for surgical intervention. A PET scan was scheduled and follow-up pulmonary function testing was planned. He was scheduled to see Dr. Leong in his office yesterday. The patient however presented to the emergency room yesterday with worsening shortness of breath and left-sided chest pain. Chest x-ray revealed a left suprahilar mass. VQ scan was performed and revealed in Guy probability for pulmonary embolism. Venous Doppler of the lower extremities were negative. White count 7.9. Hemoglobin 12.5. D-dimer 2.64. Sodium 138. Potassium 5.5. Chloride 100 bicarb 34 creatinine 1.57 proBNP 573. Troponin negative 1. Aiken virus not detected. He is seen today in consultation on the selective care unit. He is currently sitting up in bed. In moderate respiratory distress. Loose nonproductive cough. Diaphoretic. Oxygen saturation 74% on 2 L nasal cannula. He is tachycardic. He was immediately placed on BiPAP 12/4 and 100% FiO2. Given a breathing treatment. Blood gases revealed a PaO2 of 124, pCO2 of 77 and a pH of 7.28. He was initiated on IV Solu-Medrol and transferred to the intensive care unit. He is currently on Zosyn. NicoDerm patch is in place. Patient was reevaluated today in the ICU on 12/22/19, patient is on high flow nasal cannula at 6 L/m, he is off BiPAP, and he seems to be doing much better compared to yesterday. Patient seems to be comfortable, and in no distress. Remains on bronchodilators and steroids. Off diuretics. And his IV fluid was increased because of his renal functioning. Electrolytes are normal except for slightly elevated potassium of 5.8 his BUN is up to 55 and his creatinine is up to 1.73. Hence fluid was liberalized today. His Aiken virus screening/PCR is negative. Patient was reevaluated today on 12/23/19, remains in the intensive care unit, improving, but not back to his baseline. Patient has less shortness of breath and less cough and less wheezing. His potassium was noted to be quite high today, 6.5, patient was given bicarb, insulin, dextrose, calcium gluconate, and Kayexalate. Follow-up potassium came back down to 5.8, has the patient will receive another dose of Kayexalate. Overall no major change except for slight improvement in his pulmonary status. His labs showed slight improvement in his creatinine down to 1.64. CBC is relatively normal. Patient is seen today 12/24/2019 and follow-up in the intensive care unit. He is currently sitting up in a chair at the bedside. Awake and alert in no acute distress. He denies any worsening shortness of breath, cough or congestion. He is maintaining O2 saturations in the low 90s on 4 L high flow nasal cannula. He is having ongoing issues with left-sided chest discomfort, pain medications being adjusted. He's been afebrile. White count 7.6. Hemoglobin 11.3. Sodium 138. Potassium 4.9. Creatinine 1.44. On 12/25/2019 patient seen in follow-up in the intensive care unit, he is awake and alert, oriented 3, he is in no acute distress, he remains on 4 L of oxygen, the pulse ox of 97%, respirations are nonlabored however patient is still diffusely bronchospastic on physical exam, denies any cough, or congestion, he is afebrile. He states his breathing is improving, today's chest x-ray still shows stable left-sided suprahilar mass. Patient continues on IV steroids, molly athing treatments, and antibiotics in the form of Zosyn. IV fluids infusing at a rate of 50 ML per hour. Today's labs have been reviewed, showing white blood cell count of 6.4, hemoglobin of 11.5, sodium is 141, potassium is 4.5, chloride is 104, CO2 36, BUN of 48 and creatinine 1.14. He denies any chest pain, no signs have been stable, patient has been awaiting a bed on medical surgical floor with remote telemetry. On 12/26/2019 patient seen in follow-up in intensive care unit, patient is awake and alert, oriented 3, taken on 4 L of oxygen, pulse ox is 92%, he has not required BiPAP support since 12/21/2019. FiO2 is down to 4 L, still broncospastic on today's exam, loose congested cough, but states his breathing easier. Remains on Zosyn for empiric and manic coverage, IV steroids 60 mg every 6 hours, nebulized bronchodilators and Symbicort. Today's chest x-ray has been reviewed, showing stable left-sided suprahilar mass, and appears to the patient's left hand is over his left chest. Today's labs have been reviewed, showing sodium of 139, potassium is 4.5, chloride is 105, CO2 is 21, BUN is 45 creatinine is 1.06. Patient states he was up in the chair yesterday, will savannah nue increasing his activity, will consult physical therapy. Otherwise no acute events overnight, still awaiting a bed in medical surgical floor with remote telemetry On 12/27/2019 patient seen in follow-up in the intensive care unit, he still awaiting a bed on medical surgical floor. He continues to improve, breathing easier, hardly any wheezing at today's exam, some scattered rhonchi, loose co ugh, did not require BiPAP support last night, he is currently on 2 L of oxygen the pulse ox of 91-94%, no fever or chills, vital signs have been stable, plan and was seen is running at a rate of 50 ML per hour, patient is tolerating oral intake. Denies any nausea vomiting or diarrhea, patient has been get not with physical therapy, and has been ambulating with a walker with minimal assistance. Patient has been treated with IV steroids, empiric antibiotics, breathing treatments, and as responded well to treatment. No acute events overnight. Sputum culture has been sent and Gram stain shows moderate yeast, rare gram- positive cocci. No fever or chills, vital stables overnight Objective - Vital Signs Vital signs: Vital Signs Temp 98.4 F 12/27/19 00:20 Pulse 78 12/27/19 08:50 Resp 21 12/27/19 00:20 BP 131/86 12/27/19 04:00 Pulse Ox 91 L 12/27/19 02:00 Intake & Output 12/26/19 12/27/19 12/27/19 18:59 06:59 18:59 Intake Total 675 350 650 Output Total 300 450 Balance 375 -100 650 Weight 86.273 kg 85.2 kg Intake: IV 675 350 500 Piperacillin-Tazobactam 3 200 100 100 .375 gm In Sodium Chloride 0.9% 100 ml @ 25 mls/hr IVPB Q8HR [facility] Rx# :[id number] Sodium Chloride 0.9% 1, 475 250 400 000 ml @ 50 mls/hr IV . Q20H [facility] Rx#:[id number] Oral 150 Output: Urine 300 450 Other: Voiding Method Urinal Urinal # Voids 2 1 # Bowel Movements 2 1 - Exam GENERAL EXAM: Alert, very pleasant, 74-year-old white male, on 2 L of oxygen with a pulse ox of 94%, comfortable in no apparent distress. HEAD: Normocephalic/atraumatic. EYES: Normal reaction of pupils, equal size. Conjunctiva pink, sclera white. NOSE: Clear with pink turbinates. THROAT: No erythema or exudates. NECK: No masses, no JVD, no thyroid enlargement, no adenopathy. CHEST: No chest wall deformity. Symmetrical expansion. LUNGS: Equal air entry with some scattered rhonchi CVS: Regular rate and rhythm, normal S1 and S2, no gallops, no murmurs, no rubs ABDOMEN: Soft, nontender. No hepatosplenomegaly, normal bowel sounds, no guarding or rigidity. EXTREMITIES: No clubbing, no edema, no cyanosis, 2+ pulses and upper and lower extremities. MUSCULOSKELETAL: Muscle strength and tone normal. SPINE: No scoliosis or deformity SKIN: No rashes CENTRAL NERVOUS SYSTEM: Alert and oriented -3. No focal deficits, tone is normal in all 4 extremities. PSYCHIATRIC: Alert and oriented -3. Appropriate affect. Intact judgment and insight. - Labs CBC & Chem 7: 12/25/19 05:44 12/26/19 05:09 Labs: Abnormal Lab Results - Last 24 Hours (Table) 12/26/19 12/26/19 12/26/19 Range/Units 11:38 16:43 20:33 POC Glucose (mg/dL) 137 H 169 H 184 H (75-99) mg/dL 12/27/19 Range/Units 06:57 POC Glucose (mg/dL) 129 H (75-99) mg/dL Microbiology - Last 24 Hours (Table) 12/26/19 15:44 Gram Stain - Preliminary Sputum Sputum Culture - Preliminary Assessment and Plan Plan: Assessment: #1. Acute on chronic hypercapnic respiratory failure secondary to an acute exacerbation of chronic obstructive pulmonary disease, large left lung mass measuring 13 cm with recent diagnosis of non-small cell cancer on biopsy dated 11/29/2019 #2. Severe oxygen dependent COPD with an FEV1 value of 40% of predicted #3. Recent diagnosis in November 2019 of primary lung adenocarcinoma with no evidence of metastasis to the abdomen, pelvis her brain, PET scan is pending. #4. Chronic and ongoing tobacco dependence #5. History of right renal cell carcinoma status post nephrectomy #6. History of insomnia #7. Hyperlipidemia #8. Hypertension #9. GERD Plan: Patient has remained stable, he continues to improve, we'll can switch his IV Solu-Medrol to oral prednisone, switch his Zosyn to oral Augmentin, Pulmicort and Perforomist to Symbicort, continue DuoNeb, from pulmonary perspective patient can be considered for discharge home today. He is tolerating activity, walking with minimal assistance with a walker. Vital signs are stable, outpatient follow-up with Dr. Faith in the office in 7-10 days I performed a history & physical examination of the patient and discussed their management with my nurse practitioner, Odalis Munguia. I reviewed the nurse practitioner's note and agree with the documented findings and plan of care. Lung sounds are positive for diminished breath sounds. The findings and the impression was discussed with the patient. I attest to the documentation by the nurse practitioner. Time with Patient: Less than 30
[2019-12-27] MEDS ORDERED: predniSONE 20 MG TAB PO SCH (09:00)
[2019-12-27] MEDS ORDERED: AMOXIC-POT CLAV 875-125MG 1 EACH TAB PO SCH (09:00)
[2019-12-27 11:51] LABS: Glucose,Whole Blood 138 mg/dL (75-99)
[2019-12-27] MEDS ORDERED: methylPREDNISolone SOD SUCCI 125 MG/2 ML VIAL ONE (12:00)
[2019-12-27] MEDS ORDERED: IPRATROPIUM-ALBUTEROL 3 ML NEB ONE (12:00)
--- NOTE | 2019-12-27 13:27 | P.DS ---
Providers Date of admission: 12/20/19 14:03 Attending physician: Juliet Rodriguez Consults: 12/20/19 15:33 Consult Physician Routine Consulting Provider: Jazmin Hassan Consult Reason/Comments: SOB, CA patient Do you want consulting provider notified?: Already Contacted 12/21/19 08:15 Consult Physician Stat Consulting Provider: Garret Messer Consult Reason/Comments: CHEST PAIN Do you want consulting provider notified?: Yes 12/23/19 09:07 Consult Physician Routine Consulting Provider: Luis Leong Consult Reason/Comments: lung cancer Do you want consulting provider notified?: Yes Primary care physician: Kristy Williamson MD Hospital Course: 74 years old male with past medical history of coronary artery disease, COPD and for follow-up with Dr. Faith, asthma, GERD, hypertension, left renal mass, chronic hypoxic respiratory failure and 2 L oxygen at home, chronic low back pain. Patient states that he has chest pain for 2 days about 10/10 in severity, the left side nonradiating, No associated dizziness no dyspnea no palpitation, no nausea vomiting or sweating. Patient has chronic cough, with mild phlegm with no recent worsening. He keeps smoking 2 cigars per day and patient counseled as wants to quit and wants nicotine patch. No alcohol or illicit drugs. Vitals are stable and he is tachycardic. At 105. CBC is unremarkable, d-dimer is elevated at 2.6. His potassium was 5.3 which is slightly elevated, creatinine 1.5, baseline is 1.15. First troponin is negative for 0.018. Chest x-ray: No acute process. Left suprahilar mass. EKG showing sinus tachycardia at [address]-T changes and QTC of 545 intermediate from ability for PE , however i spoke [facility] she states came and evaluated the pt and recommended no therapeutic a nti-coagulation for now in the emergency room pt was stared on normal saline at 100 ml/hr 12/21/2019 Patient is awake and alert, history of complaining of from chest pain about 8/10, his dyspnea is little more this morning. He complains from cough and clear phlegm but states that its chronic. He has low-grade temperature this morning 100.3, is tachycardic 114, blood pressure 118/65, saturating 94% on 2 L oxygen via nasal cannula. Labs from this morning, CBC and BMP are pending. We will repeat chest x-ray. is aware of his lung mass. Also patient has intermediate probability for PE on his VQ scan done last night, however were not sure patient will need anticoagulation so we'll call pulmonary consult We will consult cardiology, pulmonary service already consulted [id number] Patient is sedated become more dyspneic and he was transferred to the ICU. He needed 10 L of oxygen via nasal cannula, however it was lowered today to 6 L and he saturating 91-94% he is fully awake, he does not use accessory muscles a lot with no chest pain, he has some mild headache which is controlled with pain medication. Patient with low-grade temperature 100.3 yesterday, maybe some elements of pneumonia and he was placed on Zosyn. Chest x-ray showing left upper mass about 13 cm, (non-small cell lung cancer. Biopsy from 11/28) Although patient has abnormal VQ scan, pulmonary team does not think patient will need anticoagulation as his symptoms mostly comes from his lung mass, pneumonia and advanced COPD, no other evidence of clot in disease. Last night the nurse told me he was asking for hospice care consult however when I talked to the patient this morning he does not feel he is ready for that yet. Continue with Zosyn and Solu-Medrol 60 mg, aspirin, breathing treatments. Patient is followed closely by pulmonary/critical care team and cartilage team 12/23/2019 Patient remains in the ICU, is somewhat dyspneic, similar to yesterday, and he is still coughing however patient generally feels better. This morning he got 1 dose of Dilaudid for his chest pain which is mostly musculoskeletal in nature. Patient is saturating at 4-6 L oxygen per nasal cannula. Patient has been refusing BiPAP however he is not in significant respiratory distress now.He still have some degree of wheezing. Potassium this morning was 6.5, he got treatment and follow-up the potassium level. He is on normal saline at 50 mm per hour, his on Zosyn for possible postobstructive pneumonia and also is on Solu-Medrol 60 mg. states that they supposed to see Dr. Leong for his lung mass but he got admitted to the hospital and the patient request and if he can talk to Dr. leong now while he is in-house, so consult was placed for Dr. Leong team. 12/24/2019 Patient seen and examined today in the ICU. His breathing looks better with some coughing he saturating 92% on 4 L oxygen via nasal cannula, not yesterday and is a breathing arthritis 20 06/22/2022. Blood pressure 107/76. And he is afebrile. He has improving creatinine down to 1.4, sugar controlled. CBC showed unremarkable WBC and platelet count, hemoglobin 11.3. His potassium improved down to 4.9. chest x-ray: Stable left upper lobe lung mass and right basilar atelectasis favored over infiltrate per radiologist, however when I reviewed chest x-ray by myself the postobstructive changes seen on 12/21 is improved on today's chest x- ray Patient remains on Zosyn, Solu-Medrol and normal saline at 50 mm per hour Patient can go to general medical floor once cleared by pulmonary team 12/25/2019 Patient has significant wheezing on exam. 12/26/2019 Patient has significant improvement in his respiratory status patient still has rhonchi and wheezing but significantly improved compared to yesterday patient is feeling better patient is saturating well on 4 L of onset and which will be weaned off even further patient will transfer out of ICU patient actually wanted to go home 12/27/2019 Although there is significant improvement in his wheezing patient still has wheezing probably this is baseline patient has advanced COPD the patient weighs 2 L of onset at home presently on 2 L. His renal failure improved after discontinue his diuretics and these are being discontinued upon discharge patient's prescription given prescription for steroid taper patient was on meloxicam as well which will be discontinued as well but can be restarted once h is kidney function recovers present creatinine is around 1 PHYSICAL EXAMINATION: GENERAL: The patient is alert and oriented x3, not in any acute distress. Well developed, well nourished. HEENT: Pupils are round and equally reacting to light. EOMI. No scleral icterus. No conjunctival pallor. Normocephalic, atraumatic. No pharyngeal erythema. No thyromegaly. CARDIOVASCULAR: S1 and S2 present. No murmurs, rubs, or gallops. PULMONARYsignificant improvement in expiratory wheezing but still wheezing with some rhonchi ABDOMEN: Soft, nontender, nondistended, normoactive bowel sounds. No palpable organomegaly. MUSCULOSKELETAL: No joint swelling or deformity. EXTREMITIES: No cyanosis, clubbing, or pedal edema. NEUROLOGICAL: Gross neurological examination did not reveal any focal deficits. SKIN: No rashes. Assessment and Plan Plan: -Acute on chronic hypercapnic respiratory failure secondary to COPD exacerbation: His respiratory status appears to be at his baseline patient will be discharged today -Metastatic non-small cell lung cancer patient was evaluated by oncology once patient is more stable will undergo chemotherapy followed by immunotherapy. -Continued nicotine use -Hyperlipidemia -Hypertension -Gastroesophageal reflux disease -His. Right renal cell cancer status post nephrectomy -Acute renal failure prerenal azotemia secondary to intravascular depletion improved now with IV fluids, discontinued diuretics -Possibly of chronic kidney disease secondary to nephrectomy I cannot stage his chronic kidney disease at this time Patient Condition at Discharge: Stable Plan - Discharge Summary Discharge Rx Participant: No New Discharge Prescriptions: New predniSONE 10 mg PO DAILY #30 tab Acetaminophen Tab [Tylenol] 650 mg PO Q6HR PRN tab PRN Reason: Fever And/ Or Pain Ipratropium-Albuterol Nebulize [Duoneb 0.5 mg-3 mg/3 ml Soln] 3 ml INHALATION RT-QID #30 day Continue Mirtazapine 45 mg PO HS Atorvastatin [Lipitor] 10 mg PO HS Roflumilast [Daliresp] 500 mcg PO DAILY Aspirin EC [Ecotrin Low Dose] 81 mg PO DAILY amLODIPine [Norvasc] 10 mg PO DAILY Metoprolol Succinate [Toprol XL] 25 mg PO DAILY Trazodone (Unknown Strength) 1 tab PO HS Pantoprazole [Protonix] 40 mg PO DAILY #30 tablet. Budesonide-Formot 160-4.5 Mcg [Symbicort 160-4.5 Mcg Inhaler] 2 puff INHALATION RT-BID #1 puff busPIRone HCl [Buspar] 10 mg PO BID Discontinued Meloxicam 15 mg PO DAILY Furosemide [Lasix] 20 mg PO DAILY #30 tab Diazepam 10 mg PO HS Discharge Medication List Aspirin EC [Ecotrin Low Dose] 81 mg PO DAILY 01/05/18 [History] Atorvastatin [Lipitor] 10 mg PO HS 01/05/18 [History] Mirtazapine 45 mg PO HS 01/05/18 [History] Roflumilast [Daliresp] 500 mcg PO DAILY 01/05/18 [History] Metoprolol Succinate [Toprol XL] 25 mg PO DAILY 11/25/19 [History] Trazodone (Unknown Strength) 1 tab PO HS 11/25/19 [History] amLODIPine [Norvasc] 10 mg PO DAILY 11/25/19 [History] Budesonide-Formot 160-4.5 Mcg [Symbicort 160-4.5 Mcg Inhaler] 2 puff INHALATION RT-BID #1 puff 12/01/19 [Rx] Pantoprazole [Protonix] 40 mg PO DAILY #30 tablet.dr 12/01/19 [Rx] busPIRone HCl [Buspar] 10 mg PO BID 12/20/19 [History] Acetaminophen Tab [Tylenol] 650 mg PO Q6HR PRN tab 12/27/19 [Rx] Ipratropium-Albuterol Nebulize [Duoneb 0.5 mg-3 mg/3 ml Soln] 3 ml INHALATION RT-QID #30 day 12/27/19 [Rx] predniSONE 10 mg PO DAILY #30 tab 12/27/19 [Rx] Follow up Appointment(s)/Referral(s): Luis Leong MD [STAFF PHYSICIAN] - 01/02/20 4:00 pm Kristy Williamson MD [Primary Care Provider] - 1-2 days [facility], [NON-STAFF] - 1-2 Days ([facility] Care Team will also be out to evaluate you for any needs. ) Mina Faith MD [STAFF PHYSICIAN] - 01/15/20 9:45 am Patient Instructions/Handouts: COPD (Chronic Obstructive Pulmonary Disease) (DC) Discharge Disposition: HOME WITH HOME HEALTH SERVICES
[2019-12-27] MEDS ORDERED: SYMBICORT 160-4.5 MCG INHALER INHALATION SCH (20:00)
[2019-12-29 05:20] VITALS: BP 140/89; PULSE 70; RESP 16
--- NOTE | 2019-12-31 22:07 | CDI ---
Documentation Clarification Form Date: 01/01/2020 From: Rasta Padilla Phone: If you have a question about this query, please contact Lacy Ferrer, Information Security at [phone] between 8am and 5pm. Admit Date: 12/20/2019 Discharge Date: 12/27/2019 Patient Name: Destin Holcomb Visit Number: [id number] ATTENTION: The Clinical Documentation Specialists (CDI) and [facility] Coding Staff appreciate your assistance in clarifying documentation. Please respond to the clarification below the line at the bottom and electronically sign. The CDI & [facility] Coding staff will review the response and follow-up if needed. Please note: Queries are made part of the Legal Health Record. If you have any questions, please contact the author of this message via ITS. Dear Jane Arce., The patient presented with the Possible left sided pneumonia with fever, and possible sepsis with tachycardia, fever and tachypnea he has 3/4 of SIRS criteria, rule out pneumonia versus other. History/Risk Factors: HTN, COPD, CKD, TARA WBC : 9.5 Blood cultures: NA Vitals signs on admission: Pulse Rate 99 96 Respiratory 20 18 Rate Blood Pressure 118/85 114/75 O2 Sat by Pulse 98 97 Treatment:Patient has been treated with IV steroids, empiric antibiotics, breathing treatments, and as responded well to treatment. Antibiotics: Zosyn Other: Dr. Akhtar Sheet Note stated "Possible left sided pneumonia with fever, and possible sepsis with tachycardia, fever and tachypnea he has 3/4 of SIRS criteria, rule out pneumonia versus other". In your professional opinion, please clarify if these findings signify one of the following conditions, Sepsis ruled out SIRS, without underlying infectious process Sepsis Severe Sepsis Septic Shock Other, please specify Unable to determine No pneumonia, no sepsis MTDD
== END 2019-12-27 13:00 | disposition home health service (06) | DRG 190 ==
LOC: EC 10:54 → 3SCARD 14:03 → 2SICU 12-21 12:41
PROVIDERS: ADMIT Internal Medicine; ATTEND Internal Medicine
PROC: 5A09457 Assistance with Respiratory Ventilation, 24-96 Consecutive Hours, Continuous Positive Airway Pressure (ICD-10-PCS; principal; 2019-12-20)
DX: J44.1 Chronic obstructive pulmonary disease with (acute) exacerbation (principal); J96.21 Acute and chronic respiratory failure with hypoxia; J96.22 Acute and chronic respiratory failure with hypercapnia; I26.99 Other pulmonary embolism without acute cor pulmonale; N17.9 Acute kidney failure, unspecified; C34.92 Malignant neoplasm of unspecified part of left bronchus or lung; F32.9 Major depressive disorder, single episode, unspecified; F41.9 Anxiety disorder, unspecified; E87.5 Hyperkalemia; E78.5 Hyperlipidemia, unspecified; G89.29 Other chronic pain; I12.9 Hypertensive chronic kidney disease with stage 1 through stage 4 chronic kidney disease, or unspecified chronic kidney disease; N18.9 Chronic kidney disease, unspecified; M54.9 Dorsalgia, unspecified; G47.00 Insomnia, unspecified; Z66 Do not resuscitate; F17.290 Nicotine dependence, other tobacco product, uncomplicated; I25.10 Atherosclerotic heart disease of native coronary artery without angina pectoris; Z20.828 Contact with and (suspected) exposure to other viral communicable diseases; K21.9 Gastro-esophageal reflux disease without esophagitis; Z79.82 Long term (current) use of aspirin; Z79.51 Long term (current) use of inhaled steroids; Z79.1 Long term (current) use of non-steroidal anti-inflammatories (NSAID); Z80.3 Family history of malignant neoplasm of breast; Z79.899 Other long term (current) drug therapy; Z87.01 Personal history of pneumonia (recurrent); Z85.528 Personal history of other malignant neoplasm of kidney; Z85.118 Personal history of other malignant neoplasm of bronchus and lung; Z99.81 Dependence on supplemental oxygen; Z95.5 Presence of coronary angioplasty implant and graft; Z90.5 Acquired absence of kidney; Z95.1 Presence of aortocoronary bypass graft; Z87.442 Personal history of urinary calculi
CPT/HCPCS: 36415; 36600; 71045; 71046; 78582; 80048; 80053; 82805; 83735; 83880; 84132; 84484; 85025; 85379; 85610; 85730; 87070; 87205; 93005; 93306; 93970; 94640; 94660; 96374; 99285

== ENCOUNTER 2019-12-29 10:11 | Inpatient (IN) | payer MEDICARE ==
[2019-12-29] MEDS ORDERED: IPRATROPIUM-ALBUTEROL 3 ML NEB INHALATION PRN (10:20)
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
[2019-12-29] MEDS ORDERED: methylPREDNISolone SOD SUCCI 125 MG/2 ML VIAL IV SCH (12:00)
[2019-12-29] MEDS: IPRATROPIUM-ALBUTEROL 3 ML NEB INHALATION SCH ×4 (12:28→19:21)
[2019-12-29] MEDS ORDERED: TRAZODONE PO PRN (12:31)
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
[2019-12-29 13:29] LABS: ABG Base Excess 18.3 mmol/L; ABG Oxygen Saturation 93.2 % (94-97); ABG PCO2 65 mmHg (35-45); ABG PH 7.43 (7.35-7.45); ABG PO2 65 mmHg (83-108); ABG TCO2 45 mmol/L (19-24); Allen Test Performed? Yes
[2019-12-29 13:32] LABS: ABG HCO3 43 mmol/L (21-25)
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
[2019-12-29] MEDS: PIPERACILLIN-TAZOBACTAM 3.375 GM in SODIUM CHLORIDE 0.9% 100 ML IVPB SCH (15:36)
[2019-12-29] MEDS: ACETAMINOPHEN TAB 325 MG TAB PO PRN ×2 (15:51→20:01)
[2019-12-29] MEDS ORDERED: methylPREDNISolone SOD SUCCI 40 MG/ML 1 ML VIAL IV SCH (16:00)
[2019-12-29 16:09] LABS: Albumin 2.8 g/dL (3.5-5.0); Calcium 8.3 mg/dL (8.4-10.2); Magnesium 2.3 mg/dL (1.6-2.3); Potassium 4.1 mmol/L (3.5-5.1); Total Bilirubin 0.6 mg/dL (0.2-1.3); Total Protein 4.9 g/dL (6.3-8.2)
[2019-12-29 16:13] LABS: Basophils % (A) 0 %; Eosinophils % (A) 0 %; HCT 35.3 % (39.0-53.0); HGB 10.7 gm/dL (13.0-17.5); Hypochromasia Marked; Lymphocytes # (A) 0.3 k/uL (1.0-4.8); Lymphocytes % (A) 3 %; MCH 29.1 pg (25.0-35.0); MCHC 30.2 g/dL (31.0-37.0); MCV 96.4 fL (80.0-100.0); Mean Platelet Volume 7.7; Monocytes # (A) 0.1 k/uL (0-1.0); Monocytes % (A) 1 %; Neutrophils # (A) 8.6 k/uL (1.3-7.7); Neutrophils % (A) 95 %; Platelet Count 221 k/uL (150-450); RBC 3.66 m/uL (4.30-5.90); RDW 14.1 % (11.5-15.5)
--- NOTE | 2019-12-29 18:21 | XR ---
EXAMINATION TYPE: XR chest 2V DATE OF EXAM: 12/29/2019 COMPARISON: Prior exam 12/26/2019, 12/29/2019 from outside institution HISTORY: Abnormal chest x-ray, left upper lobe mass TECHNIQUE: Frontal and lateral views of the chest are obtained. FINDINGS: Findings are similar to prior. Largest left upper lobe mass is present. There is no pneumo thorax or evident sizable effusion, difficult to exclude small amount pleural fluid. Prominent lung l xenia suggest underlying COPD. The aorta is dense. IMPRESSION: Large left upper lobe mass.
[2019-12-29] MEDS: SYMBICORT 160-4.5 MCG INHALER INHALATION SCH (19:21)
[2019-12-29] MEDS: ATORVASTATIN 10 MG TAB PO SCH (20:40)
[2019-12-29] MEDS: busPIRone HCl 10 MG TAB PO SCH (20:40)
[2019-12-29] MEDS: MIRTAZAPINE 45 MG TABLET PO SCH (20:41)
[2019-12-30] MEDS: PIPERACILLIN-TAZOBACTAM 3.375 GM in SODIUM CHLORIDE 0.9% 100 ML IVPB SCH ×4 (01:08→23:11)
[2019-12-30 04:16] LABS: Glucose,Whole Blood 143 mg/dL (75-99)
[2019-12-30] MEDS ORDERED: FUROSEMIDE 10 MG/ML 4 ML VIAL IV STA (04:32)
[2019-12-30] MEDS ORDERED: FUROSEMIDE 10 MG/ML 4 ML VIAL ONE (04:33)
--- NOTE | 2019-12-30 04:48 | XR ---
EXAMINATION TYPE: XR chest 1V portable DATE OF EXAM: 12/30/2019 COMPARISON: Yesterday HISTORY: Respiratory distress TECHNIQUE: Single view FINDINGS: There is a large mass involving the left pulmonary hilum and left paratracheal region jackie t measures 14 x 11 cm with some displacement of the trachea to the right side. There is no heart fail ure. There is some linear infiltrate and atelectasis left upper lobe. There is slight blunting left c ostophrenic angle. There are chest leads. There is mild infiltrate left lung base. Right lung is fair ly clear. IMPRESSION: Large left side chest mass unchanged compared to yesterday. Mild infiltrate in the left l rebecca in left upper lobe and left lower lobe unchanged. No heart failure.
[2019-12-30] MEDS: ACETAMINOPHEN TAB 325 MG TAB PO PRN ×3 (04:53→20:00)
[2019-12-30 07:53] LABS: HCT 37.9 % (39.0-53.0); HGB 11.4 gm/dL (13.0-17.5); Hypochromasia Marked; MCH 29.4 pg (25.0-35.0); MCV 97.9 fL (80.0-100.0); Mean Platelet Volume 7.5; Platelet Count 229 k/uL (150-450); RBC 3.87 m/uL (4.30-5.90); RDW 14.2 % (11.5-15.5); WBC 11.7 k/uL (3.8-10.6)
[2019-12-30] MEDS: SYMBICORT 160-4.5 MCG INHALER INHALATION SCH ×2 (08:02→19:45)
[2019-12-30] MEDS: IPRATROPIUM-ALBUTEROL 3 ML NEB INHALATION SCH ×4 (08:02→19:45)
[2019-12-30 08:08] LABS: Calcium 8.3 mg/dL (8.4-10.2); Potassium 3.7 mmol/L (3.5-5.1)
[2019-12-30] MEDS: METOPROLOL SUCCINATE (ER) 25 MG TAB.ER.24H PO SCH (08:48)
[2019-12-30] MEDS: PANTOPRAZOLE 40 MG TABLET PO SCH (08:48)
[2019-12-30] MEDS: predniSONE 10 MG TAB PO SCH (08:48)
[2019-12-30] MEDS: amLODIPine 5 MG TAB PO SCH (08:48)
[2019-12-30] MEDS: busPIRone HCl 10 MG TAB PO SCH ×2 (08:48→20:01)
[2019-12-30] MEDS: ASPIRIN 81 MG PO SCH (08:48)
[2019-12-30] MEDS: NON FORMULARY DRUG (Roflumilast [Daliresp] 500 MCG) PO SCH (09:39)
--- NOTE | 2019-12-30 11:34 | P.PN ---
Subjective 74-year-old male history of COPD, current lung cancer presented to an outside hospital with respiratory distress. He was placed on BiPAP, x-ray had shown a worsening pneumonia patient was started on Zosyn and vancomycin as well as IV steroids. He was transferred for further evaluation to this institution. He was recently discharged from this hospital approximately 2 days ago. Denies fever. Denies chest pain. Denies lower extremity edema.patient has advanced COPD, patient has a squamous, cell cancer left side lung cancer. The chest x-ra y that was done at the outside facility apparently had increased the infiltrate on the right lower lobes. Although I cannot see a report of imaging studies from the other hospital for lipid on the chest x-ray here . I was told the patient had a pCO2 of time more than 100 result of which is not available at this time for me. Patient was initiated on BiPAP which will be continued. 12/30/2019 Patient went into respiratory decompensation last night after which patient received a dose of Lasix which was discontinued and the patient will need IV fluids respirations is related to decompensation is secondary to COPD. Patient remains on systemic steroids although his wheezing significantly improved still has some wheezing. Patient has a large mass in the left lung with some atelectasis. Patient's prognosis in my opinion is poor because of his COPD mainly pulmonology consulted the hospice. Oncology wanted to try radiation for the mass as the mass is localized shrinking of mass will help his symptoms. Will discuss with oncology as well and decided and not hospice or consulting hospice. Objective - Vital Signs Vital signs: Vital Signs Temp 97.9 F 12/30/19 03:30 Pulse 120 H 12/30/19 08:13 Resp 28 H 12/30/19 05:18 BP 160/94 12/30/19 04:38 Pulse Ox 97 12/30/19 05:18 Intake & Output 12/29/19 12/30/19 12/30/19 18:59 06:59 18:59 Output Total 700 1300 Balance -700 -1300 Weight 77.111 kg 79.5 kg 79.5 kg Output: Urine 700 1300 Other: Voiding Method Urinal - Exam PHYSICAL EXAMINATION: GENERAL: The patient is alert and oriented x3,patient is in mild distress on BiPAP. Well developed, well nourished. HEENT: Pupils are round and equally reacting to light. EOMI. No scleral icterus. No conjunctival pallor. Normocephalic, atraumatic. No pharyngeal erythema. No thyromegaly. CARDIOVASCULAR: S1 and S2 present. No murmurs, rubs, or gallops. PULMONARY:decreased air entry into bilateral lung owens predominantly on the right side left-sided fairly good air entry, minimal wheezing was appreciated bilaterally expiratory ABDOMEN: Soft, nontender, nondistended, normoactive bowel sounds. No palpable organomegaly. MUSCULOSKELETAL: No joint swelling or deformity. EXTREMITIES: No cyanosis, clubbing, or pedal edema. NEUROLOGICAL: Gross neurological examination did not reveal any focal deficits. SKIN: No rashes. - Labs CBC & Chem 7: 12/30/19 06:43 12/30/19 06:43 Labs: Abnormal Lab Results - Last 24 Hours (Table) 12/29/19 12/29/19 12/29/19 Range/Units 13:16 15:00 15:00 WBC (3.8-10.6) k/uL RBC 3.66 L (4.30-5.90) m/uL Hgb 10.7 L (13.0-17.5) gm/dL Hct 35.3 L (39.0-53.0) % MCHC 30.2 L (31.0-37.0) g/dL Neutrophils # 8.6 H (1.3-7.7) k/uL Lymphocytes # 0.3 L (1.0-4.8) k/uL ABG pCO2 65 H (35-45) mmHg ABG pO2 65 L (83-108) mmHg ABG HCO3 43 H* (21-25) mmol/L ABG Total CO2 45 H (19-24) mmol/L ABG O2 Saturation 93.2 L (94-97) % Sodium 135 L (137-145) mmol/L Chloride 90 L (98-107) mmol/L Carbon Dioxide 39 H (22-30) mmol/L BUN 31 H (9-20) mg/dL Creatinine (0.66-1.25) mg/dL Glucose 226 H (74-99) mg/dL POC Glucose (mg/dL) (75-99) mg/dL Calcium 8.3 L (8.4-10.2) mg/dL ALT 62 H (4-49) U/L Lactate Dehydrogenase 666 H (313-618) U/L Total Protein 4.9 L (6.3-8.2) g/dL Albumin 2.8 L (3.5-5.0) g/dL 12/30/19 12/30/19 12/30/19 Range/Units 04:14 06:43 06:43 WBC 11.7 H (3.8-10.6) k/uL RBC 3.87 L (4.30-5.90) m/uL Hgb 11.4 L (13.0-17.5) gm/dL Hct 37.9 L (39.0-53.0) % MCHC 30.0 L (31.0-37.0) g/dL Neutrophils # (1.3-7.7) k/uL Lymphocytes # (1.0-4.8) k/uL ABG pCO2 (35-45) mmHg ABG pO2 (83-108) mmHg ABG HCO3 (21-25) mmol/L ABG Total CO2 (19-24) mmol/L ABG O2 Saturation (94-97) % Sodium (137-145) mmol/L Chloride 92 L (98-107) mmol/L Carbon Dioxide 46 H* (22-30) mmol/L BUN 32 H (9-20) mg/dL Creatinine 1.37 H (0.66-1.25) mg/dL Glucose 113 H (74-99) mg/dL POC Glucose (mg/dL) 143 H (75-99) mg/dL Calcium 8.3 L (8.4-10.2) mg/dL ALT (4-49) U/L Lactate Dehydrogenase (313-618) U/L Total Protein (6.3-8.2) g/dL Albumin (3.5-5.0) g/dL Assessment and Plan Plan: Acute on chronic hypercapnic respiratory failure secondary to COPD exacerbation, patient appears to have large left-sided mass with some atelectasis surrounded is a possibility of postobstructive pneumonia which cannot be ruled out continue Zosyn. And use systemic steroids in the form of oral steroids -COPD with acute exacerbation -Acute renal failure secondary to Lasix patient received last night patient was started on IV fluids -History of lung cancer squamous cell cancer patient has advanced COPD I do not believe patient will tolerate any kind of chemotherapy or Biologic agents area discussed with oncology they believe radiation therapy with strength is the past may help his symptoms gastroesophageal reflux disease -Hypertension -Coronary artery disease with cardiac catheterization and stenting in the past
[2019-12-30] MEDS: SODIUM CHLORIDE 0.9% 1,000 ML IV SCH (12:45)
--- NOTE | 2019-12-30 13:11 | PN ---
PROGRESS NOTE DATE OF SERVICE: December 30, 2019 This is a 74-year-old gentleman with a history of acute on chronic hypoxemic and hypercapnic respiratory failure, related to underlying COPD exacerbation as well as left-sided pneumonia and lung cancer. The patient has a stage IIIA (T4 N0 M0), adenocarcinoma of the lung. He was diagnosed in November 21 2019. The patient also suffers from severe oxygen-dependent COPD, FEV1 being 40% predicted, has a history of chronic tobacco dependence, right renal cell carcinoma, status post nephrectomy, insomnia, hyperlipidemia, and GERD. The patient was recently inpatient discharged and was readmitted. The patient is a NO CODE. We have discussed hospice and palliative care with him in the past. Currently, he seems to be doing relatively well. He is on BiPAP. I told the nurses he can come off BiPAP and 1 either nasal O2 or Venturi mask. Saturations are perfectly acceptable in the 88-92 percent range. PHYSICAL EXAMINATION: VITAL SIGNS: Currently, vital signs include a temperature which is 97.9, heart rate which is 96, respiratory rate which is 24, and a blood pressure 160/94 with mean of 116. Saturations are 94%. Appears in no acute distress. HEENT: Examination is grossly unremarkable. NECK: Supple. Full range of motion. No adenopathy. Neck veins are flat. CARDIOVASCULAR: Examination reveals regular rhythm rate. Heart rate about 95 beats per minute. S1, S2 normal. LUNGS: Reveal coarse inspiratory and expiratory rhonchi and wheezes. Breath sounds are diminished. There is prolongation. No crackles. ABDOMEN: Soft. Bowel sounds are noted. EXTREMITIES are intact. No cyanosis, clubbing, or edema. SKIN: Without rash. NEUROLOGIC: Examination is nonfocal. Lab data reviewed. White count 11.7, hemoglobin 11.4, hematocrit 37.9, platelet count 329,000, sodium 140, potassium 3.7, chloride 92, CO2 46, from 39, anion gap is 2. BUN and creatinine were 32 and 1.37. The rest of the labs look okay. Microbiology is currently negative. The chest x-ray shows a large mass in the left peritracheal region. In addition, he has significant infiltrates throughout the left lung. Current medications are reviewed. He is on appropriate medications. From the pulmonary standpoint including Daliresp, prednisone, Zosyn, DuoNeb, and Symbicort. ASSESSMENT: 1. Acute on chronic hypoxemic hypercapnic respiratory failure, secondary to chronic obstructive pulmonary disease exacerbation and possible left lung pneumonia. 2. Stage IIIA (T4 N0 M0) adenocarcinoma of the lung, diagnosed in November 2019. 3. Severe oxygen-dependent chronic obstructive pulmonary disease, with a baseline FEV1 at 40% of predicted. 4. History of chronic tobacco dependence. 5. History of right renal cell carcinoma, status post nephrectomy. 6. History of insomnia. 7. Hyperlipidemia. 8. Gastroesophageal reflux disease. PLAN: The patient is stable. I told the nurses he could come off BiPAP. In addition, his saturation should be maintained between 88, 92%. He has a CO2 retainer. Giving him a high concentrations of oxygen may worsen his respiratory status. We did put in a consult for palliative care/hospice care. Additional recommendations and suggestions are forthcoming. From the pulmonary standpoint, he remains on DuoNeb, Symbicort, prednisone, antibiotics and Daliresp. MMODL / IJN: [id number] /
--- NOTE | 2019-12-30 18:25 | P.PN ---
Progress Note - Text Progress Note Date: 12/30/19 Discussed with case management and with Dr. Kumar. Patient is newly diagnosed with locally advanced (no evidence of metastatic disease) lung cancer. He unfortunately continues with repeated hospital stays due to his baseline COPD and exacerbations. Resonable treatment options with radiation and possible immune therapy should still be considered if chemotherapy is not an option. Molecular testing is also pending. At this time palliative care considerations should be based off his known COPD but not his cancer as this is still considered treatable. Treatment of his underlying new NSCLCA may hopefully help systems. Recommend to continue aggressive supportive care with Abx, steroids, and breathing treatments per pulmonology and reassess Wednesday by Dr. Leong for treatment options.
[2019-12-30] MEDS: MIRTAZAPINE 45 MG TABLET PO SCH (20:01)
[2019-12-30] MEDS: ATORVASTATIN 10 MG TAB PO SCH (20:01)
[2019-12-31] MEDS: SODIUM CHLORIDE 0.9% 1,000 ML IV SCH ×2 (03:16→14:48)
[2019-12-31] MEDS: PANTOPRAZOLE 40 MG TABLET PO SCH (06:08)
[2019-12-31] MEDS: SYMBICORT 160-4.5 MCG INHALER INHALATION SCH ×2 (08:11→20:44)
[2019-12-31] MEDS: IPRATROPIUM-ALBUTEROL 3 ML NEB INHALATION SCH ×4 (08:11→20:44)
[2019-12-31] MEDS: ASPIRIN 81 MG PO SCH (08:29)
[2019-12-31] MEDS: busPIRone HCl 10 MG TAB PO SCH ×2 (08:29→19:59)
[2019-12-31] MEDS: predniSONE 10 MG TAB PO SCH (08:29)
[2019-12-31] MEDS: amLODIPine 5 MG TAB PO SCH (08:29)
[2019-12-31] MEDS: PIPERACILLIN-TAZOBACTAM 3.375 GM in SODIUM CHLORIDE 0.9% 100 ML IVPB SCH ×3 (08:29→23:45)
[2019-12-31] MEDS: METOPROLOL SUCCINATE (ER) 25 MG TAB.ER.24H PO SCH (08:29)
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
[2019-12-31] MEDS: ONDANSETRON 4 MG/2 ML VIAL IVP PRN ×2 (09:35→17:08)
[2019-12-31] MEDS: NON FORMULARY DRUG (Roflumilast [Daliresp] 500 MCG) PO SCH (09:49)
[2019-12-31] MEDS: ACETAMINOPHEN TAB 325 MG TAB PO PRN (11:44)
--- NOTE | 2019-12-31 12:39 | PN ---
PROGRESS NOTE DATE OF SERVICE: December 31, 2019 74-year-old gentleman with history of acute on chronic hypoxemic hypercapnic respiratory failure, related to underlying COPD exacerbation as well as left-sided pneumonia and lung cancer. The patient has stage IIIA lung cancer (T4 N0 M0), adenocarcinoma of the lung. He was diagnosed in November 2019. He suffers from severe oxygen-dependent COPD with an FEV1 that is 40% of predicted, and a history of chronic tobacco dependence and right renal cell carcinoma status post nephrectomy. Other medical problems include insomnia, hyperlipidemia, and GERD. The patient is a NO CODE. He was recently inpatient and was discharged. The patient is basically back to the hospital. He had similar issues with his breathing. We have discussed hospice and palliative care with him and initially he was agreeable, but apparently now he has decided against those 2 modalities. Currently, he seems to be quite short of breath. He is on nasal O2. He goes on and off BiPAP. His BiPAP settings are typically 12/5 and 50%. The today we had a discussion about possible transfer at the [facility]. The patient's lung cancer doctor is there. This is the same cancer doctor who took care of him when he was diagnosed with renal cell carcinoma. He is going to give it some thought. Current vital signs are reviewed. Temperature is 98.6. Heart rate 98, respiratory rate 28, blood pressure 141/83 mean 102. 2 L saturation of 92%-93%. He does have some conversational dyspnea and some use of accessory muscles. No audible wheezing. Looks much more comfortable today than he did yesterday. HEENT: Examination is grossly unremarkable. Neck is supple. Full range of motion. No adenopathy. Neck veins are flat. CARDIOVASCULAR: Examination reveals regular rhythm rate. Heart rate 88 beats per minute. S1, S2 normal. Heart sounds are distant. LUNGS: Reveal diffuse inspiratory and expiratory rhonchi and wheezes. No crackles. Breath sounds equal bilaterally. ABDOMEN soft. Bowel sounds are heard. EXTREMITIES are intact. No cyanosis, clubbing, or significant edema. SKIN: Without rash. NEUROLOGIC: Examination is brief but nonfocal. LABS: Reviewed. Nothing new from December 30. Microbiology is reviewed. Nothing new there. No recent x-rays done other than the chest x-ray done yesterday on December 29, which shows a large left-sided chest mass, which is unchanged. There is also some left upper lobe and left lower lobe infiltrate consistent with possible underlying pneumonia. Medications are reviewed. ASSESSMENT: 1. Acute on chronic hypoxemic and hypercapnic respiratory failure, secondary to COPD exacerbation and possible left-sided pneumonia. 2. Stage IIIA (T4 N0 M0)adenocarcinoma of the lung, diagnosed in November 2019. 3. Severe oxygen-dependent COPD with a baseline FEV1 of 40% of predicted. 4. History of chronic tobacco dependence. 5. History of right renal cell carcinoma, status post nephrectomy. 6. History of insomnia. 7. Hyperlipidemia. 8. Gastroesophageal reflux disease. PLAN: Currently, the patient has given some consideration of palliative care and hospice. He has come back and forth about this. He is a NO CODE. The patient may want to be transferred to the [facility] to see his old oncologist. Additional recommendations and suggestions are forthcoming. He spends time both on BiPAP and nasal O2. He does not particularly care for the BiPAP, but he does seem to breathe better when he is on it. Additional recommendations and suggestions are forthcoming. Prognosis is guarded. We will continue to follow. The patient has not had any treatment thus far for his lung cancer. MMODL / IJN: [id number] /
[2019-12-31 12:52] LABS: Calcium 8.3 mg/dL (8.4-10.2); Potassium 4.2 mmol/L (3.5-5.1)
--- NOTE | 2019-12-31 13:28 | P.PN ---
Subjective 74-year-old male history of COPD, current lung cancer presented to an outside hospital with respiratory distress. He was placed on BiPAP, x-ray had shown a worsening pneumonia patient was started on Zosyn and vancomycin as well as IV steroids. He was transferred for further evaluation to this institution. He was recently discharged from this hospital approximately 2 days ago. Denies fever. Denies chest pain. Denies lower extremity edema.patient has advanced COPD, patient has a squamous, cell cancer left side lung cancer. The chest x-ra y that was done at the outside facility apparently had increased the infiltrate on the right lower lobes. Although I cannot see a report of imaging studies from the other hospital for lipid on the chest x-ray here . I was told the patient had a pCO2 of time more than 100 result of which is not available at this time for me. Patient was initiated on BiPAP which will be continued. 12/30/2019 Patient went into respiratory decompensation last night after which patient received a dose of Lasix which was discontinued and the patient will need IV fluids respirations is related to decompensation is secondary to COPD. Patient remains on systemic steroids although his wheezing significantly improved still has some wheezing. Patient has a large mass in the left lung with some atelectasis. Patient's prognosis in my opinion is poor because of his COPD mainly pulmonology consulted the hospice. Oncology wanted to try radiation for the mass as the mass is localized shrinking of mass will help his symptoms. Will discuss with oncology as well and decided and not hospice or consulting hospice. 12/31/2019 Patient was a evaluated with radiation oncology and radiation therapy is being planned the patient the looks fairly better today does have still wheezing on exam and decreased air entry into bilateral lung owens. Constitutional: Denied any fatigue denied any fever. Cardio vascular: denied any chest pain, palpitations Gastrointestinal denied any nausea vomiting Pulmonary: As mentioned in HPI Neurologic denied any new focal deficits All inpatient medications were reviewed and appropriate changes in these medications as dictated in the interval history and assessment and plan. Objective - Vital Signs Vital signs: Vital Signs Temp 98.5 F 12/31/19 12:00 Pulse 95 12/31/19 12:51 Resp 31 H 12/31/19 12:00 BP 123/62 12/31/19 12:00 Pulse Ox 89 L 12/31/19 12:00 Intake & Output 12/30/19 12/31/19 12/31/19 18:59 06:59 18:59 Intake Total 402 250 200 Output Total 1050 900 Balance -648 -650 200 Weight 79.5 kg 81.6 kg Intake: Oral 402 250 200 Output: Urine 1050 900 Other: Voiding Method Urinal Urinal Urinal # Voids 1 # Bowel Movements 0 - Exam PHYSICAL EXAMINATION: GENERAL: The patient is alert and oriented x3,patient is in mild distress on BiPAP. Well developed, well nourished. HEENT: Pupils are round and equally reacting to light. EOMI. No scleral icterus. No conjunctival pallor. Normocephalic, atraumatic. No pharyngeal erythema. No thyromegaly. CARDIOVASCULAR: S1 and S2 present. No murmurs, rubs, or gallops. PULMONARY:decreased air entry into bilateral lung owens predominantly on the right side left-sided fairly good air entry, minimal wheezing was appreciated bilaterally expiratory ABDOMEN: Soft, nontender, nondistended, normoactive bowel sounds. No palpable organomegaly. MUSCULOSKELETAL: No joint swelling or deformity. EXTREMITIES: No cyanosis, clubbing, or pedal edema. NEUROLOGICAL: Gross neurological examination did not reveal any focal deficits. SKIN: No rashes. - Labs CBC & Chem 7: 12/30/19 06:43 12/31/19 12:22 Labs: Abnormal Lab Results - Last 24 Hours (Table) 12/31/19 Range/Units 12:22 Chloride 91 L (98-107) mmol/L Carbon Dioxide 48 H* (22-30) mmol/L BUN 32 H (9-20) mg/dL Glucose 135 H (74-99) mg/dL Calcium 8.3 L (8.4-10.2) mg/dL Microbiology - Last 24 Hours (Table) 12/29/19 15:06 Blood Culture - Preliminary Blood No Growth after 24 hours 12/29/19 15:00 Blood Culture - Preliminary Blood No Growth after 24 hours Assessment and Plan Plan: Acute on chronic hypercapnic respiratory failure secondary to COPD exacerbation, patient appears to have large left-sided mass with some atelectasis surrounded is a possibility of postobstructive pneumonia which cannot be ruled out continue Zosyn. And use systemic steroids in the form of oral steroids -COPD with acute exacerbation -Acute renal failure secondary to Lasix , patient is on IV fluids with improved creatinine to 1.09 IV fluids will be continued as patient appears to have some contraction alkalosis -Metabolic alkalosis: As a compensation to CO2 retention and patient also has some contraction alkalosis -History of lung cancer squamous cell cancer patient has advanced COPD , patient has a large mass for which radiation oncology evaluated the planning or radiation therapy tomorrow with radiation therapy the mass is expected to shrink probably will help with the postobstructive pneumonia or atelectasis gastroesophageal reflux disease -Hypertension -Coronary artery disease with cardiac catheterization and stenting in the past
--- NOTE | 2019-12-31 13:53 | P.PN ---
Subjective Progress Note Date: 12/31/19 Principal diagnosis: New Lung Cancer Diagnosis, POst Obstructive Pneumonia and COPD Exacerbation I did review note from radiation oncology and agree with XRT directed to attempt to shrink tumor possibly increasing symptoms of post obstruction. Objective - Vital Signs Vital signs: Vital Signs Temp 98.5 F 12/31/19 12:00 Pulse 95 12/31/19 12:51 Resp 31 H 12/31/19 12:00 BP 123/62 12/31/19 12:00 Pulse Ox 89 L 12/31/19 12:00 Intake & Output 12/30/19 12/31/19 12/31/19 18:59 06:59 18:59 Intake Total 402 250 200 Output Total 1050 900 Balance -648 -650 200 Weight 79.5 kg 81.6 kg Intake: Oral 402 250 200 Output: Urine 1050 900 Other: Voiding Method Urinal Urinal Urinal # Voids 1 # Bowel Movements 0 - Exam - Constitutional General appearance: Present: average body habitus, cooperative, no acute distress - EENT Eyes: Present: PERRLA, poor dentition ENT: Present: hard of hearing, NA/AT - Neck Neck: Present: normal ROM - Respiratory Respiratory: bilateral: diminished, rhonchi bipap, increased respiratory effort - Cardiovascular Rhythm: regular Tachy Heart sounds: normal: S1, S2 - Gastrointestinal General gastrointestinal: Present: normal bowel sounds, soft - Integumentary Integumentary: Present: pale - Neurologic Neurologic: Present: CNII-XII intact - Musculoskeletal Musculoskeletal: Present: generalized weakness, strength equal bilaterally - Psychiatric Psychiatric: Present: A&O x's 3, appropriate affect, intact judgment & insight - Labs CBC & Chem 7: 12/30/19 06:43 12/31/19 12:22 Labs: Abnormal Lab Results - Last 24 Hours (Table) 12/31/19 Range/Units 12:22 Chloride 91 L (98-107) mmol/L Carbon Dioxide 48 H* (22-30) mmol/L BUN 32 H (9-20) mg/dL Glucose 135 H (74-99) mg/dL Calcium 8.3 L (8.4-10.2) mg/dL Microbiology - Last 24 Hours (Table) 12/29/19 15:06 Blood Culture - Preliminary Blood No Growth after 24 hours 12/29/19 15:00 Blood Culture - Preliminary Blood No Growth after 24 hours Assessment and Plan (1) Acute on chronic respiratory failure with hypoxia and hypercapnia Current Visit: Yes Status: Acute Code(s): J96.21 - ACUTE AND CHRONIC RESPIRATORY FAILURE WITH HYPOXIA; J96.22 - ACUTE AND CHRONIC RESPIRATORY FAILURE WITH HYPERCAPNIA SNOMED Code(s): 89930993581044 (2) COPD (chronic obstructive pulmonary disease) Current Visit: Yes Status: Acute Code(s): J44.9 - CHRONIC OBSTRUCTIVE PULMONARY DISEASE, UNSPECIFIED SNOMED Code(s): 40158578 (3) Adenocarcinoma of left lung Current Visit: No Status: Acute Code(s): C34.92 - MALIGNANT NEOPLASM OF UNSP PART OF LEFT BRONCHUS OR LUNG SNOMED Code(s): 26677612132425105 (4) COPD exacerbation Current Visit: No Status: Acute Code(s): J44.1 - CHRONIC OBSTRUCTIVE PULMONARY DISEASE W (ACUTE) EXACERBATION SNOMED Code(s): 320001198 (5) Dyspnea Current Visit: No Status: Acute Code(s): R06.00 - DYSPNEA, UNSPECIFIED SNOMED Code(s): 346336392 Plan: Assessment and Plan Acute on Chronic Hypoxic Respiratory Failure: - Currently on Bipap - Pulmonology is following - COPD Exacerbation plus Post obstruction component - Agree with XRT consultation for intervention to shrink and assist in improving symptoms New Diagnosis of Adenocarcinoma of the Right Lung - No evidence of distant metastasis although likely locally advanced. - Missed follow-up for treatment plan with Dr. Leong secondary to this current hospital admission - PDL1 and NGS Sent on tissue pathology - No evidence of distant mets on MRI Brain or PET scan - Tobacco Cessation COPD Exacerbation: - Per Pulmonary - Steroids, Abx, and Nebs - Supportive Care Acute Renal Insufficiency: Resolved - Likely from decreased PO intake, not feeling well. Plan: - Locally advanced new lung cancer diagnosis with delay in initiation of treatment related to recurrent hospitalizations from copd and possible post obstructive pneumonia - Await XRT intervention and improved performance to hopefully improve symptoms to allow discharge long enough to provide intervention for cancer as outpatient - Aggressive supportive care still recommended at this time
[2019-12-31] MEDS: MIRTAZAPINE 45 MG TABLET PO SCH (19:59)
[2019-12-31] MEDS: ATORVASTATIN 10 MG TAB PO SCH (19:59)
[2020-01-01] MEDS: SODIUM CHLORIDE 0.9% 1,000 ML IV SCH ×2 (03:18→17:20)
[2020-01-01] MEDS: PANTOPRAZOLE 40 MG TABLET PO SCH (06:09)
[2020-01-01] MEDS: SYMBICORT 160-4.5 MCG INHALER INHALATION SCH ×2 (07:39→21:16)
[2020-01-01] MEDS: IPRATROPIUM-ALBUTEROL 3 ML NEB INHALATION SCH ×4 (07:40→21:16)
[2020-01-01 08:06] LABS: Calcium 8.2 mg/dL (8.4-10.2); Potassium 4.4 mmol/L (3.5-5.1)
[2020-01-01] MEDS: busPIRone HCl 10 MG TAB PO SCH ×2 (08:06→21:19)
[2020-01-01] MEDS: amLODIPine 5 MG TAB PO SCH (08:06)
[2020-01-01] MEDS: PIPERACILLIN-TAZOBACTAM 3.375 GM in SODIUM CHLORIDE 0.9% 100 ML IVPB SCH ×2 (08:06→17:18)
[2020-01-01] MEDS: predniSONE 10 MG TAB PO SCH (08:06)
[2020-01-01] MEDS: ASPIRIN 81 MG PO SCH (08:06)
[2020-01-01] MEDS: ACETAMINOPHEN TAB 325 MG TAB PO PRN ×3 (08:07→21:24)
[2020-01-01] MEDS: METOPROLOL SUCCINATE (ER) 25 MG TAB.ER.24H PO SCH (08:07)
[2020-01-01] MEDS: NON FORMULARY DRUG (Roflumilast [Daliresp] 500 MCG) PO SCH (08:36)
--- NOTE | 2020-01-01 12:14 | P.PN ---
Subjective 74-year-old male history of COPD, current lung cancer presented to an outside hospital with respiratory distress. He was placed on BiPAP, x-ray had shown a worsening pneumonia patient was started on Zosyn and vancomycin as well as IV steroids. He was transferred for further evaluation to this institution. He was recently discharged from this hospital approximately 2 days ago. Denies fever. Denies chest pain. Denies lower extremity edema.patient has advanced COPD, patient has a squamous, cell cancer left side lung cancer. The chest x-ra y that was done at the outside facility apparently had increased the infiltrate on the right lower lobes. Although I cannot see a report of imaging studies from the other hospital for lipid on the chest x-ray here . I was told the patient had a pCO2 of time more than 100 result of which is not available at this time for me. Patient was initiated on BiPAP which will be continued. 12/30/2019 Patient went into respiratory decompensation last night after which patient received a dose of Lasix which was discontinued and the patient will need IV fluids respirations is related to decompensation is secondary to COPD. Patient remains on systemic steroids although his wheezing significantly improved still has some wheezing. Patient has a large mass in the left lung with some atelectasis. Patient's prognosis in my opinion is poor because of his COPD mainly pulmonology consulted the hospice. Oncology wanted to try radiation for the mass as the mass is localized shrinking of mass will help his symptoms. Will discuss with oncology as well and decided and not hospice or consulting hospice. 12/31/2019 Patient was a evaluated with radiation oncology and radiation therapy is being planned the patient the looks fairly better today does have still wheezing on exam and decreased air entry into bilateral lung owens. 01/01/2020 Patient looks better today will undergo radiation therapy today Constitutional: Denied any fatigue denied any fever. Cardio vascular: denied any chest pain, palpitations Gastrointestinal denied any nausea vomiting Pulmonary: As mentioned in HPI Neurologic denied any new focal deficits All inpatient medications were reviewed and appropriate changes in these medications as dictated in the interval history and assessment and plan. Objective - Vital Signs Vital signs: Vital Signs Temp 98.4 F 01/01/20 03:20 Pulse 88 01/01/20 07:55 Resp 20 01/01/20 03:20 BP 131/72 01/01/20 03:20 Pulse Ox 89 L 01/01/20 03:20 Intake & Output 12/31/19 01/01/20 01/01/20 18:59 06:59 18:59 Intake Total 560 Output Total 600 575 Balance -40 -575 Weight 109.5 kg Intake: Oral 560 Output: Urine 600 575 Other: Voiding Method Urinal Urinal # Voids 4 2 # Bowel Movements 0 - Exam PHYSICAL EXAMINATION: GENERAL: The patient is alert and oriented x3,patient is in mild distress on BiPAP. Well developed, well nourished. HEENT: Pupils are round and equally reacting to light. EOMI. No scleral icterus. No conjunctival pallor. Normocephalic, atraumatic. No pharyngeal erythema. No thyromegaly. CARDIOVASCULAR: S1 and S2 present. No murmurs, rubs, or gallops. PULMONARY: Wheezing improved fairly good air entry into bilateral lung owens. ABDOMEN: Soft, nontender, nondistended, normoactive bowel sounds. No palpable organomegaly. MUSCULOSKELETAL: No joint swelling or deformity. EXTREMITIES: No cyanosis, clubbing, or pedal edema. NEUROLOGICAL: Gross neurological examination did not reveal any focal deficits. SKIN: No rashes. - Labs CBC & Chem 7: 12/30/19 06:43 01/01/20 07:08 Labs: Abnormal Lab Results - Last 24 Hours (Table) 12/31/19 01/01/20 Range/Units 12:22 07:08 Chloride 91 L 94 L (98-107) mmol/L Carbon Dioxide 48 H* 44 H* (22-30) mmol/L BUN 32 H 26 H (9-20) mg/dL Glucose 135 H (74-99) mg/dL Calcium 8.3 L 8.2 L (8.4-10.2) mg/dL Microbiology - Last 24 Hours (Table) 12/31/19 16:17 Gram Stain - Preliminary Sputum Sputum Culture - Preliminary 12/29/19 15:06 Blood Culture - Preliminary Blood No Growth after 48 hours 12/29/19 15:00 Blood Culture - Preliminary Blood No Growth after 48 hours Assessment and Plan Plan: Acute on chronic hypercapnic respiratory failure secondary to COPD exacerbation, patient appears to have large left-sided mass with some atelectasis surrounded is a possibility of postobstructive pneumonia which cannot be ruled out continue Zosyn. And use systemic steroids in the form of oral steroids -COPD with acute exacerbation -Acute renal failure secondary to Lasix , patient is on IV fluids with improved creatinine to 1.09 IV fluids will be continued as patient appears to have some contraction alkalosis -Metabolic alkalosis: As a compensation to CO2 retention and patient also has some contraction alkalosis -History of lung cancer squamous cell cancer patient has advanced COPD , patient has a large mass for which radiation oncology evaluated the planning or radiation therapy tomorrow with radiation therapy the mass is expected to shrink probably will help with the postobstructive pneumonia or atelectasis gastroesophageal reflux disease -Hypertension -Coronary artery disease with cardiac catheterization and stenting in the past
--- NOTE | 2020-01-01 13:35 | P.PN ---
Subjective Progress Note Date: 01/01/20 74-year-old male patient with a recent diagnosis of lung cancer was Hospital as for worsening shortness of breath. The patient has a large left upper lobe mass for which the patient underwent a fine-needle aspirate and the patient was found to have squamous cell carcinoma of the lung. PET scan did not show any distant metastases and disease is locally advanced, possibly stage III. The patient has not started any treatment. The patient is not a candidate for any surgical resection as the patient has advanced COPD. He came in for respiratory distress and COPD exacerbation. He was initially placed on BiPAP for respiratory support and he was covered with broad-spectrum antibiotic including Zosyn and vancomycin and he was given IV Solu-Medrol. On today's evaluation is off the BiPAP he is feeling slightly better. Nevertheless, he still weak and he has very limited exercise capacity and he gets short of breath with limited amount of activity. The patient's has no significant sputum production. No hemoptysis. No pleurisy. He is feeling slightly better compared to yesterday. He was seen by radiation oncology and the patient is being given palliative radiation therapy. Regarding his left upper lobe mass. No reported fever. No reported chills. No reported hemoptysis. He is on bronchodilators. He is on prednisone burst taper starting with 30 mg. Objective - Vital Signs Vital signs: Vital Signs Temp 98.4 F 01/01/20 03:20 Pulse 92 01/01/20 12:40 Resp 20 01/01/20 03:20 BP 131/72 01/01/20 03:20 Pulse Ox 89 L 01/01/20 03:20 Intake & Output 12/31/19 01/01/20 01/01/20 18:59 06:59 18:59 Intake Total 560 Output Total 600 575 Balance -40 -575 Weight 109.5 kg 109.5 kg Intake: Oral 560 Output: Urine 600 575 Other: Voiding Method Urinal Urinal # Voids 4 2 # Bowel Movements 0 - Exam Gen. appearance sick elderly male patient nonacute distress Head exam was generally normal. There was no scleral icterus or corneal arcus. Mucous membranes were moist. Neck was supple and without jugular venous distension, thyromegaly, or carotid bruits. Carotids were easily palpable bilaterally. There was no adenopathy. Lungs sounds are diminished bilaterally along with diminished breath sounds and scattered expiratory wheezes throughout the lung owens bilaterally Cardiac exam revealed the PMI to be normally situated and sized. The rhythm was regular and no extrasystoles were noted during several minutes of auscultation. The first and second heart sounds were normal and physiologic splitting of the second heart sound was noted. There were no murmurs, rubs, clicks, or gallops. Abdominal exam revealed normal bowel sounds. The abdomen was soft, non-tender, and without masses, organomegaly, or appreciable enlargement of the abdominal aorta. Examination of the extremities revealed easily palpable radial, femoral and pedal pulses. There was no cyanosis, clubbing or edema. Examination of the skin revealed no evidence of significant rashes, suspicious appearing nevi or other concerning lesions. Neurologically the patient is awake and alert and is no focal neurological deficit. - Labs CBC & Chem 7: 12/30/19 06:43 01/01/20 07:08 Labs: Abnormal Lab Results - Last 24 Hours (Table) 01/01/20 Range/Units 07:08 Chloride 94 L (98-107) mmol/L Carbon Dioxide 44 H* (22-30) mmol/L BUN 26 H (9-20) mg/dL Calcium 8.2 L (8.4-10.2) mg/dL Microbiology - Last 24 Hours (Table) 12/31/19 16:17 Gram Stain - Preliminary Sputum Sputum Culture - Preliminary 12/29/19 15:06 Blood Culture - Preliminary Blood No Growth after 48 hours 12/29/19 15:00 Blood Culture - Preliminary Blood No Growth after 48 hours Assessment and Plan Plan: 1 advanced COPD with an FEV1 of 40% of predicted with significant limitation of exercise capacity. The patient also has a chronic hypoxic respiratory failure and the patient has been on oxygen at 2 L per minute nasal cannula on outpatient basis. 2 shortness of breath and COPD exacerbation. 3 locally advanced adenocarcinoma a large left upper lobe mass not causing any mass effect on the main trachea or in the left upper lobe bronchus based on the CAT scan and the PET scan findings. The patient was started on radiation therapy 4 previous history of nephrectomy for renal cell carcinoma 5 coronary artery disease 6 History of CVA/TIA 7 hypertension 8 acid reflux 9 chronic anxiety 10 chronic insomnia. 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 Not sure that the patient will be able to handle any concurrent chemoradiation therapy at this stage. He is receiving palliative radiation therapy. The PVL 1 and the rest of the oncologic and it is still pending for now. Maybe candidate for targeted/immunotherapy. The final decision will be done by oncology. We'll continue to follow. Poor prognosis
[2020-01-01] MEDS: ONDANSETRON 4 MG/2 ML VIAL IVP PRN (13:37)
--- NOTE | 2020-01-01 17:01 | P.PN ---
Subjective Progress Note Date: 01/01/20 Principal diagnosis: lung ca - dyspnea The patient reports he is feeling slightly better, but is still very winded with minimal activity. He is currently on 3L of O2 and appears comfortable. He reports a poor appetite. Objective - Vital Signs Vital signs: Vital Signs Temp 98.9 F 01/01/20 15:59 Pulse 96 01/01/20 16:43 Resp 18 01/01/20 15:59 BP 114/59 01/01/20 15:59 Pulse Ox 93 L 01/01/20 15:59 Intake & Output 12/31/19 01/01/20 01/01/20 18:59 06:59 18:59 Intake Total 560 240 Output Total 600 575 Balance -40 -335 Weight 109.5 kg 109.5 kg Intake: Oral 560 240 Output: Urine 600 575 Other: Voiding Method Urinal Urinal # Voids 4 2 # Bowel Movements 0 - Constitutional General appearance: Present: no acute distress - EENT Eyes: Present: EOMI, PERRLA ENT: Present: hearing grossly normal - Neck Neck: Absent: lymphadenopathy - Respiratory Respiratory: right: diminished, left: CTA - Cardiovascular Rhythm: regular - Integumentary Integumentary: Absent: calor, cellulitis - Neurologic Neurologic: Present: CNII-XII intact - Psychiatric Psychiatric: Present: appropriate affect - Labs CBC & Chem 7: 12/30/19 06:43 01/01/20 07:08 Labs: Abnormal Lab Results - Last 24 Hours (Table) 01/01/20 Range/Units 07:08 Chloride 94 L (98-107) mmol/L Carbon Dioxide 44 H* (22-30) mmol/L BUN 26 H (9-20) mg/dL Calcium 8.2 L (8.4-10.2) mg/dL Microbiology - Last 24 Hours (Table) 12/31/19 16:17 Gram Stain - Preliminary Sputum Sputum Culture - Preliminary 12/29/19 15:06 Blood Culture - Preliminary Blood No Growth after 48 hours 12/29/19 15:00 Blood Culture - Preliminary Blood No Growth after 48 hours Assessment and Plan Plan: 74 year old male with a stage III non-small cell lung cancer of the left upper lobe. The patient was not felt to be good candidate for concurrent therapy owing to his underlying medical comorbidities. He was planning on initiating chemotherapy as an outpatient, but now that he has had 2 recent hospitalizations secondary to dyspnea, we will be initiating palliative radiation as an inpatient. 1. Left upper lobe lung cancer: The patient underwent CT simulation for milli tment planning. The patient's was contacted regarding the plan for palliative radiation. She is in agreement with the patient undergoing palliative radiotherapy, but unfortunately when he is discharged and will be very difficult for them to commute down to our center from [place]. I will plan to initiate his therapy as long as he is in house, and upon discharge home we will transfer his care to Dr. Torres at [facility] which is closer to the patient and his could drive him. Time with Patient: Less than 30
--- NOTE | 2020-01-01 17:01 | P.PN ---
Subjective Progress Note Date: 01/01/20 Principal diagnosis: New Lung Cancer Diagnosis, POst Obstructive Pneumonia and COPD Exacerbation Breathing better, nasal canula, to begin xrt today Objective - Vital Signs Vital signs: Vital Signs Temp 98.9 F 01/01/20 15:59 Pulse 96 01/01/20 16:43 Resp 18 01/01/20 15:59 BP 114/59 01/01/20 15:59 Pulse Ox 93 L 01/01/20 15:59 Intake & Output 12/31/19 01/01/20 01/01/20 18:59 06:59 18:59 Intake Total 560 240 Output Total 600 575 Balance -40 -335 Weight 109.5 kg 109.5 kg Intake: Oral 560 240 Output: Urine 600 575 Other: Voiding Method Urinal Urinal # Voids 4 2 # Bowel Movements 0 - Exam - Constitutional General appearance: Present: average body habitus, cooperative, no acute distress - EENT Eyes: Present: PERRLA, poor dentition ENT: Present: hard of hearing, NA/AT - Neck Neck: Present: normal ROM - Respiratory Respiratory: bilateral: diminished, rhonchi bipap, increased respiratory effort - Cardiovascular Rhythm: regular Tachy Heart sounds: normal: S1, S2 - Gastrointestinal General gastrointestinal: Present: normal bowel sounds, soft - Integumentary Integumentary: Present: pale - Neurologic Neurologic: Present: CNII-XII intact - Musculoskeletal Musculoskeletal: Present: generalized weakness, strength equal bilaterally - Psychiatric Psychiatric: Present: A&O x's 3, appropriate affect, intact judgment & insight - Labs CBC & Chem 7: 12/30/19 06:43 01/01/20 07:08 Labs: Abnormal Lab Results - Last 24 Hours (Table) 01/01/20 Range/Units 07:08 Chloride 94 L (98-107) mmol/L Carbon Dioxide 44 H* (22-30) mmol/L BUN 26 H (9-20) mg/dL Calcium 8.2 L (8.4-10.2) mg/dL Microbiology - Last 24 Hours (Table) 12/31/19 16:17 Gram Stain - Preliminary Sputum Sputum Culture - Preliminary 12/29/19 15:06 Blood Culture - Preliminary Blood No Growth after 48 hours 12/29/19 15:00 Blood Culture - Preliminary Blood No Growth after 48 hours Assessment and Plan (1) Acute on chronic respiratory failure with hypoxia and hypercapnia Current Visit: Yes Status: Acute Code(s): J96.21 - ACUTE AND CHRONIC RESP IRATORY FAILURE WITH HYPOXIA; J96.22 - ACUTE AND CHRONIC RESPIRATORY FAILURE WITH HYPERCAPNIA SNOMED Code(s): 80739659105282 (2) COPD (chronic obstructive pulmonary disease) Current Visit: Yes Status: Acute Code(s): J44.9 - CHRONIC OBSTRUCTIVE PULMONARY DISEASE, UNSPECIFIED SNOMED Code(s): 40110018 (3) Adenocarcinoma of left lung Current Visit: No Status: Acute Code(s): C34.92 - MALIGNANT NEOPLASM OF UNSP PART OF LEFT BRONCHUS OR LUNG SNOMED Code(s): 45793056151754848 (4) COPD exacerbation Current Visit: No Status: Acute Code(s): J44.1 - CHRONIC OBSTRUCTIVE PULMONARY DISEASE W (ACUTE) EXACERBATION SNOMED Code(s): 230507288 (5) Dyspnea Current Visit: No Status: Acute Code(s): R06.00 - DYSPNEA, UNSPECIFIED SNOMED Code(s): 581173048 Plan: Assessment and Plan Acute on Chronic Hypoxic Respiratory Failure: - Currently on Bipap - Pulmonology is following - COPD Exacerbation plus Post obstruction component - Agree with XRT consultation for intervention to shrink and assist in improving symptoms New Diagnosis of Adenocarcinoma of the Right Lung - No evidence of distant metastasis although likely locally advanced. - Missed follow-up for treatment plan with Dr. Leong secondary to this current hospital admission - PDL1 and NGS Sent on tissue pathology - No evidence of distant mets on MRI Brain or PET scan - Tobacco Cessation COPD Exacerbation: - Per Pulmonary - Steroids, Abx, and Nebs - Supportive Care Acute Renal Insufficiency: Resolved - Likely from decreased PO intake, not feeling well. Plan: - XRT -Continue to improve performance to hopefully improve symptoms to allow discharge long enough to provide intervention for cancer as outpatient - Aggressive supportive care still recommended at this time
[2020-01-01] MEDS: ATORVASTATIN 10 MG TAB PO SCH (21:19)
[2020-01-01] MEDS: MIRTAZAPINE 45 MG TABLET PO SCH (21:19)
[2020-01-02] MEDS: PIPERACILLIN-TAZOBACTAM 3.375 GM in SODIUM CHLORIDE 0.9% 100 ML IVPB SCH ×2 (01:27→07:54)
[2020-01-02] MEDS: PANTOPRAZOLE 40 MG TABLET PO SCH (06:39)
[2020-01-02] MEDS: ACETAMINOPHEN TAB 325 MG TAB PO PRN ×2 (06:45→15:47)
[2020-01-02] MEDS: busPIRone HCl 10 MG TAB PO SCH ×2 (07:52→22:08)
[2020-01-02] MEDS: METOPROLOL SUCCINATE (ER) 25 MG TAB.ER.24H PO SCH (07:52)
[2020-01-02] MEDS: ASPIRIN 81 MG PO SCH (07:52)
[2020-01-02] MEDS: amLODIPine 5 MG TAB PO SCH (07:53)
[2020-01-02] MEDS: predniSONE 10 MG TAB PO SCH (07:53)
[2020-01-02] MEDS: IPRATROPIUM-ALBUTEROL 3 ML NEB INHALATION SCH ×4 (08:05→19:27)
[2020-01-02] MEDS: SYMBICORT 160-4.5 MCG INHALER INHALATION SCH ×2 (08:06→19:28)
--- NOTE | 2020-01-02 11:49 | P.PN ---
Subjective 74-year-old male history of COPD, current lung cancer presented to an outside hospital with respiratory distress. He was placed on BiPAP, x-ray had shown a worsening pneumonia patient was started on Zosyn and vancomycin as well as IV steroids. He was transferred for further evaluation to this institution. He was recently discharged from this hospital approximately 2 days ago. Denies fever. Denies chest pain. Denies lower extremity edema.patient has advanced COPD, patient has a squamous, cell cancer left side lung cancer. The chest x-ra y that was done at the outside facility apparently had increased the infiltrate on the right lower lobes. Although I cannot see a report of imaging studies from the other hospital for lipid on the chest x-ray here . I was told the patient had a pCO2 of time more than 100 result of which is not available at this time for me. Patient was initiated on BiPAP which will be continued. 12/30/2019 Patient went into respiratory decompensation last night after which patient received a dose of Lasix which was discontinued and the patient will need IV fluids respirations is related to decompensation is secondary to COPD. Patient remains on systemic steroids although his wheezing significantly improved still has some wheezing. Patient has a large mass in the left lung with some atelectasis. Patient's prognosis in my opinion is poor because of his COPD mainly pulmonology consulted the hospice. Oncology wanted to try radiation for the mass as the mass is localized shrinking of mass will help his symptoms. Will discuss with oncology as well and decided and not hospice or consulting hospice. 12/31/2019 Patient was a evaluated with radiation oncology and radiation therapy is being planned the patient the looks fairly better today does have still wheezing on exam and decreased air entry into bilateral lung owens. 01/01/2020 Patient looks better today will undergo radiation therapy today 01/02/2020 Patient went on BiPAP clinically not doing well significant wheezing patient was evaluated by pulmonology. I had discussion with pulmonology patient had a CAT scan in the past which didn't show any posterior obstructive atelectasis or pneumonia patient was switched to Augmentin patient not may not benefit from antibiotics considering his advanced COPD after discussion with pulmonology patient the may or may not tolerate radiation therapy and chemotherapy and patient prognosis remains poor. Constitutional: Denied any fatigue denied any fever. Cardio vascular: denied any chest pain, palpitations Gastrointestinal denied any nausea vomiting Pulmonary: As mentioned in HPI Neurologic denied any new focal deficits All inpatient medications were reviewed and appropriate changes in these medications as dictated in the interval history and assessment and plan. Objective - Vital Signs Vital signs: Vital Signs Temp 99.9 F H 01/02/20 08:00 Pulse 95 01/02/20 11:13 Resp 28 H 01/02/20 08:00 BP 134/76 01/02/20 08:00 Pulse Ox 88 L 01/02/20 08:00 Intake & Output 01/01/20 01/02/20 01/02/20 18:59 06:59 18:59 Intake Total 760 Output Total 775 450 Balance -15 -450 Weight 109.5 kg 83 kg Intake: Intake, IV Titration 280 Amount Piperacillin-Tazobactam 3 200 .375 gm In Sodium Chloride 0.9% 100 ml @ 25 mls/hr IVPB Q8HR [facility] Rx# :[id number] Sodium Chloride 0.9% 1, 80 000 ml @ 10 mls/hr IV . Q24H [facility] Rx#:[id number] Oral 480 Output: Urine 775 450 Other: Voiding Method Urinal # Voids 1 1 - Exam PHYSICAL EXAMINATION: GENERAL: The patient is alert and oriented x3,patient is in mild distress on BiPAP. Well developed, well nourished. HEENT: Pupils are round and equally reacting to light. EOMI. No scleral icterus. No conjunctival pallor. Normocephalic, atraumatic. No pharyngeal erythema. No thyromegaly. CARDIOVASCULAR: S1 and S2 present. No murmurs, rubs, or gallops. PULMONARY: Significant wheezing on exam rhonchi bilaterally ABDOMEN: Soft, nontender, nondistended, normoactive bowel sounds. No palpable organomegaly. MUSCULOSKELETAL: No joint swelling or deformity. EXTREMITIES: No cyanosis, clubbing, or pedal edema. NEUROLOGICAL: Gross neurological examination did not reveal any focal deficits. SKIN: No rashes. - Labs CBC & Chem 7: 12/30/19 06:43 01/01/20 07:08 Labs: Microbiology - Last 24 Hours (Table) 12/31/19 16:17 Gram Stain - Final Sputum Sputum Culture - Final Valeria albicans 12/29/19 15:06 Blood Culture - Preliminary Blood No Growth after 72 hours 12/29/19 15:00 Blood Culture - Preliminary Blood No Growth after 72 hours Assessment and Plan Plan: Acute on chronic hypercapnic respiratory failure secondary to COPD exacerbation, patient appears to have large left-sided mass computed tomography scan from the last admission did not she does show significant of postop obstructive atelectasis or pneumonia. Patient was switched to Augmentin -COPD with acute exacerbation and patient was switched to IV steroids by pulmonology. -Acute renal failure secondary to Lasix , patient is on IV fluids with improved creatinine to 1.09 IV fluids will be continued as patient appears to have some contraction alkalosis -Metabolic alkalosis: As a compensation to CO2 retention and patient also has some contraction alkalosis -History of lung cancer squamous cell cancer patient has advanced COPD , patient has a large mass for which radiation oncology evaluated the planning or radiation therapy tomorrow with radiation therapy the mass is expected to shrink probably will help with the postobstructive pneumonia or atelectasis gastroesophageal reflux disease -Hypertension -Coronary artery disease with cardiac catheterization and stenting in the past
[2020-01-02] MEDS: NON FORMULARY DRUG (Roflumilast [Daliresp] 500 MCG) PO SCH (11:52)
[2020-01-02] MEDS: methylPREDNISolone SOD SUCCI 125 MG/2 ML VIAL IV SCH ×3 (14:11→22:09)
--- NOTE | 2020-01-02 15:50 | P.PN ---
Subjective Progress Note Date: 01/02/20 74-year-old male patient with a recent diagnosis of lung cancer was Hospital as for worsening shortness of breath. The patient has a large left upper lobe mass for which the patient underwent a fine-needle aspirate and the patient was found to have squamous cell carcinoma of the lung. PET scan did not show any distant metastases and disease is locally advanced, possibly stage III. The patient has not started any treatment. The patient is not a candidate for any surgical resection as the patient has advanced COPD. He came in for respiratory distress and COPD exacerbation. He was initially placed on BiPAP for respiratory support and he was covered with broad-spectrum antibiotic including Zosyn and vancomycin and he was given IV Solu-Medrol. On today's evaluation is off the BiPAP he is feeling slightly better. Nevertheless, he still weak and he has very limited exercise capacity and he gets short of breath with limited amount of activity. The patient's has no significant sputum production. No hemoptysis. No pleurisy. He is feeling slightly better compared to yesterday. He was seen by radiation oncology and the patient is being given palliative radiation therapy. Regarding his left upper lobe mass. No reported fever. No reported chills. No reported hemoptysis. He is on bronchodilators. He is on prednisone burst taper starting with 30 mg. On today's evaluation of 01/02/2020, the patient is still doing poorly. The patient on BiPAP at a pressure of 1205 cm of water and he seems to be requiring BiPAP more often. He underwent his first session of radiation yesterday. No hemoptysis. No pleurisy. No chest pain. He is awake and alert. He is on DuoNeb about treatments around the clock. I would suggest putting this patient back on IV Solu-Medrol as the patient is still quite bronchospastic and wheezy and I think this switched to oral prednisone was admitted to [facility]. For that reason is for sedation back in 93 Solu-Medrol. No other new complaints otherwise for now. Objective - Vital Signs Vital signs: Vital Signs Temp 99.9 F H 01/02/20 08:00 Pulse 100 01/02/20 15:44 Resp 29 H 01/02/20 12:00 BP 134/89 01/02/20 12:00 Pulse Ox 88 L 01/02/20 12:00 Intake & Output 01/01/20 01/02/20 01/02/20 18:59 06:59 18:59 Intake Total 760 Output Total 775 450 Balance -15 -450 Weight 109.5 kg 83 kg Intake: Intake, IV Titration 280 Amount Piperacillin-Tazobactam 3 200 .375 gm In Sodium Chloride 0.9% 100 ml @ 25 mls/hr IVPB Q8HR [facility] Rx# :[id number] Sodium Chloride 0.9% 1, 80 000 ml @ 10 mls/hr IV . Q24H LISA Rx#:[id number] Oral 480 Output: Urine 775 450 Other: Voiding Method Urinal # Voids 1 1 - Exam Gen. appearance sick elderly male patient mild degree of respiratory distress the patient is utilizing BiPAP for now. Head exam was generally normal. There was no scleral icterus or corneal arcus. Mucous membranes were moist. Neck was supple and without jugular venous distension, thyromegaly, or carotid bruits. Carotids were easily palpable bilaterally. There was no adenopathy. Lungs sounds are diminished bilaterally along with diminished breath sounds and scattered expiratory wheezes throughout the lung owens bilaterally Cardiac exam revealed the PMI to be normally situated and sized. The rhythm was regular and no extrasystoles were noted during several minutes of auscultation. The first and second heart sounds were normal and physiologic splitting of the second heart sound was noted. There were no murmurs, rubs, clicks, or gallops. Abdominal exam revealed normal bowel sounds. The abdomen was soft, non-tender, and without masses, organomegaly, or appreciable enlargement of the abdominal aorta. Examination of the extremities revealed easily palpable radial, femoral and pedal pulses. There was no cyanosis, clubbing or edema. Examination of the skin revealed no evidence of significant rashes, suspicious appearing nevi or other concerning lesions. Neurologically the patient is awake and alert and is no focal neurological deficit. - Labs CBC & Chem 7: 12/30/19 06:43 01/01/20 07:08 Labs: Microbiology - Last 24 Hours (Table) 12/31/19 16:17 Gram Stain - Final Sputum Sputum Culture - Final Valeria albicans 12/29/19 15:06 Blood Culture - Preliminary Blood No Growth after 72 hours 12/29/19 15:00 Blood Culture - Preliminary Blood No Growth after 72 hours Assessment and Plan Plan: 1 advanced COPD with an FEV1 of 40% of predicted with significant limitation of exercise capacity. The patient also has a chronic hypoxic respiratory failure and the patient has been on oxygen at 2 L per minute nasal cannula on outpatient basis. Currently the patient is a combination of bronchodilators and noninvasive positive pressure ventilator is being dosed utilized for respiratory support in regards to COPD exacerbation. He has a large left upper lobe mass consistent with adenocarcinoma lung. He is receiving palliative radiation therapy for now. 2 shortness of breath and COPD exacerbation. 3 locally advanced adenocarcinoma a large left upper lobe mass not causing any mass effect on the main trachea or in the left upper lobe bronchus based on the CAT scan and the PET scan findings. The patient was started on radiation therapy 4 previous history of nephrectomy for renal cell carcinoma 5 coronary artery disease 6 History of CVA/TIA 7 hypertension 8 acid reflux 9 chronic anxiety 10 chronic insomnia. 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 Not sure that the patient will be able to handle any concurrent chemoradiation therapy at this stage. He is receiving palliative radiation therapy. The PVL 1 and the rest of the oncologic and it is still pending for no w. Maybe candidate for targeted/immunotherapy. The final decision will be done by oncology. We'll continue to follow. Poor prognosis
[2020-01-02 16:54] LABS: Glucose,Whole Blood 166 mg/dL (75-99)
--- NOTE | 2020-01-02 17:05 | P.PN ---
Subjective Progress Note Date: 01/02/20 Principal diagnosis: New Lung Cancer Diagnosis, POst Obstructive Pneumonia and COPD Exacerbation patient back on bipap through night. Planning with radiation, discussed with dr heredia Objective - Vital Signs Vital signs: Vital Signs Temp 99.9 F H 01/02/20 08:00 Pulse 100 01/02/20 15:44 Resp 29 H 01/02/20 12:00 BP 134/89 01/02/20 12:00 Pulse Ox 88 L 01/02/20 12:00 Intake & Output 01/01/20 01/02/20 01/02/20 18:59 06:59 18:59 Intake Total 760 Output Total 775 450 Balance -15 -450 Weight 109.5 kg 83 kg Intake: Intake, IV Titration 280 Amount Piperacillin-Tazobactam 3 200 .375 gm In Sodium Chloride 0.9% 100 ml @ 25 mls/hr IVPB Q8HR LISA Rx# :[id number] Sodium Chloride 0.9% 1, 80 000 ml @ 10 mls/hr IV . Q24H LISA Rx#:[id number] Oral 480 Output: Urine 775 450 Other: Voiding Method Urinal # Voids 1 1 - Exam - Constitutional General appearance: Present: average body habitus, cooperative, no acute distress - EENT Eyes: Present: PERRLA, poor dentition ENT: Present: hard of hearing, NA/AT - Neck Neck: Present: normal ROM - Respiratory Respiratory: bilateral: diminished, rhonchi bipap, increased respiratory effort - Cardiovascular Rhythm: regular Tachy Heart sounds: normal: S1, S2 - Gastrointestinal General gastrointestinal: Present: normal bowel sounds, soft - Integumentary Integumentary: Present: pale - Neurologic Neurologic: Present: CNII-XII intact - Musculoskeletal Musculoskeletal: Present: generalized weakness, strength equal bilaterally - Psychiatric Psychiatric: Present: A&O x's 3, appropriate affect, intact judgment & insight - Labs CBC & Chem 7: 12/30/19 06:43 01/01/20 07:08 Labs: Abnormal Lab Results - Last 24 Hours (Table) 01/02/20 Range/Units 16:53 POC Glucose (mg/dL) 166 H (75-99) mg/dL Microbiology - Last 24 Hours (Table) 12/31/19 16:17 Gram Stain - Final Sputum Sputum Culture - Final Valeria albicans 12/29/19 15:06 Blood Culture - Preliminary Blood No Growth after 72 hours 12/29/19 15:00 Blood Culture - Preliminary Blood No Growth after 72 hours Assessment and Plan (1) Acute on chronic respiratory failure with hypoxia and hypercapnia Current Visit: Yes Status: Acute Code(s): J96.21 - ACUTE AND CHRONIC RESPIRATORY FAILURE WITH HYPOXIA; J96.22 - ACUTE AND CHRONIC RESPIRATORY FAILURE WITH HYPERCAPNIA SNOMED Code(s): 54997274348770 (2) COPD (chronic obstructive pulmonary disease) Current Visit: Yes Status: Acute Code(s): J44.9 - CHRONIC OBSTRUCTIVE PULMONARY DISEASE, UNSPECIFIED SNOMED Code(s): 44122587 (3) Adenocarcinoma of left lung Current Visit: No Status: Acute Code(s): C34.92 - MALIGNANT NEOPLASM OF UNSP PART OF LEFT BRONCHUS OR LUNG SNOMED Code(s): 92381482864458535 (4) COPD exacerbation Current Visit: No Status: Acute Code(s): J44.1 - CHRONIC OBSTRUCTIVE PULMONARY DISEASE W (ACUTE) EXACERBATION SNOMED Code(s): 935641889 (5) Dyspnea Current Visit: No Status: Acute Code(s): R06.00 - DYSPNEA, UNSPECIFIED SNOMED Code(s): 026948835 Plan: Assessment and Plan Acute on Chronic Hypoxic Respiratory Failure: - Currently on Bipap - Pulmonology is following - COPD Exacerbation plus Post obstruction component - Cont XRT consultation for intervention to shrink and assist in improving symptoms New Diagnosis of Adenocarcinoma of the Right Lung - No evidence of distant metastasis although likely locally advanced. - Missed follow-up for treatment plan with Dr. Leong secondary to this current hospital admission - PDL1 and NGS Sent on tissue pathology - No evidence of distant mets on MRI Brain or PET scan - Tobacco Cessation COPD Exacerbation: - Per Pulmonary - Steroids, Abx, and Nebs - Supportive Care Acute Renal Insufficiency: Resolved - Likely from decreased PO intake, not feeling well. Plan: - Once patient is stable plan will be to continue radiation in [place] as transportation richi be issue per , dicussed with Dr. Heredia
[2020-01-02] MEDS: INSULIN ASPART (NovoLOG) 100 UNIT/ML VIAL SQ SCH ×2 (18:07→22:08)
[2020-01-02] MEDS: SODIUM CHLORIDE 0.9% 1,000 ML IV SCH (18:08)
[2020-01-02 20:51] LABS: Glucose,Whole Blood 184 mg/dL (75-99)
[2020-01-02] MEDS: AMOXIC-POT CLAV 875-125MG 1 EACH TAB PO SCH (22:08)
[2020-01-02] MEDS: ATORVASTATIN 10 MG TAB PO SCH (22:08)
[2020-01-02] MEDS: MIRTAZAPINE 45 MG TABLET PO SCH (22:09)
[2020-01-03 06:07] LABS: Glucose,Whole Blood 165 mg/dL (75-99)
[2020-01-03] MEDS: INSULIN ASPART (NovoLOG) 100 UNIT/ML VIAL SQ SCH ×4 (06:17→20:45)
[2020-01-03] MEDS: methylPREDNISolone SOD SUCCI 125 MG/2 ML VIAL IV SCH ×4 (06:17→22:54)
[2020-01-03] MEDS: PANTOPRAZOLE 40 MG TABLET PO SCH (06:17)
[2020-01-03] MEDS: IPRATROPIUM-ALBUTEROL 3 ML NEB INHALATION SCH ×4 (08:17→19:54)
[2020-01-03] MEDS: SYMBICORT 160-4.5 MCG INHALER INHALATION SCH ×2 (08:17→19:54)
[2020-01-03] MEDS: busPIRone HCl 10 MG TAB PO SCH ×2 (09:46→20:45)
[2020-01-03] MEDS: METOPROLOL SUCCINATE (ER) 25 MG TAB.ER.24H PO SCH (09:47)
[2020-01-03] MEDS: amLODIPine 5 MG TAB PO SCH (09:47)
[2020-01-03] MEDS: ASPIRIN 81 MG PO SCH (09:47)
[2020-01-03] MEDS: AMOXIC-POT CLAV 875-125MG 1 EACH TAB PO SCH ×2 (09:47→20:45)
[2020-01-03] MEDS: ACETAMINOPHEN TAB 325 MG TAB PO PRN ×2 (09:47→20:44)
[2020-01-03] MEDS: NON FORMULARY DRUG (Roflumilast [Daliresp] 500 MCG) PO SCH (11:07)
--- NOTE | 2020-01-03 12:26 | P.PN ---
Subjective Progress Note Date: 01/03/20 Principal diagnosis: Acute exacerbation of COPD, clinically advanced adenocarcinoma 74-year-old male patient with a recent diagnosis of lung cancer was Hospital as for worsening shortness of breath. The patient has a large left upper lobe mass for which the patient underwent a fine-needle aspirate and the patient was found to have squamous cell carcinoma of the lung. PET scan did not show any distant metastases and disease is locally advanced, possibly stage III. The patient has not started any treatment. The patient is not a candidate for any surgical resection as the patient has advanced COPD. He came in for respiratory distress and COPD exacerbation. He was initially placed on BiPAP for respiratory support and he was covered with broad-spectrum antibiotic including Zosyn and vancomycin and he was given IV Solu-Medrol. On today's evaluation is off the BiPAP he is feeling slightly better. Nevertheless, he still weak and he has very limited exercise capacity and he gets short of breath with limited amount of activity. The patient's has no significant sputum production. No hemoptysis. No pleurisy. He is feeling slightly better compared to yesterday. He was seen by radiation oncology and the patient is being given palliative radiation therapy. Regarding his left upper lobe mass. No reported fever. No reported chills. No reported hemoptysis. He is on bronchodilators. He is on prednisone burst taper starting with 30 mg. On today's evaluation of 01/02/2020, the patient is still doing poorly. The patient on BiPAP at a pressure of 1205 cm of water and he seems to be requiring BiPAP more often. He underwent his first session of radiation yesterday. No hemoptysis. No pleurisy. No chest pain. He is awake and alert. He is on DuoNeb about treatments around the clock. I would suggest putting this patient back on IV Solu-Medrol as the patient is still quite bronchospastic and wheezy and I think this switched to oral prednisone was admitted to [facility]. For that reason is for sedation back in 93 Solu-Medrol. No other new complaints otherwise for now. On 01/03/2020 patient seen in follow-up on selective care unit, he is awake and alert, in no acute distress, patient is on 4 L of oxygen pulse ox of 92%, she did wear BiPAP at night, with pressures of 12/5 FiO2 of 45%, he's been afebrile, hemodynamically patient has been stable. Patient continues on empiric antibiotics, currently on Augmentin, continues on IV Solu-Medrol, breathing treatments. Breathing has improved, some scattered wheezing and rhonchi, nonproductive cough. IV fluids infusing at a rate of 50 ML per hour, patient has been started on radiation therapy. Denies any chest pain, denies any pleurisy or hemoptysis. Mentation is appropriate, he is answering questions appropriately. No confusion. Objective - Vital Signs Vital signs: Vital Signs Temp 99.5 F 01/03/20 08:00 Pulse 94 01/03/20 11:30 Resp 22 01/03/20 08:00 BP 124/67 01/03/20 08:00 Pulse Ox 92 L 01/03/20 08:00 Intake & Output 01/02/20 01/03/20 01/03/20 18:59 06:59 18:59 Intake Total 100 Output Total 350 0 Balance -250 0 Weight 85 kg Intake: Oral 100 Output: Urine 350 0 Other: Voiding Method Urinal Urinal Urinal # Voids 2 1 # Bowel Movements 0 - Exam GENERAL EXAM: Alert, very pleasant, 74-year-old white male, on BiPAP support with FiO2 of 45% comfortable in no apparent distress. HEAD: Normocephalic/atraumatic. EYES: Normal reaction of pupils, equal size. Conjunctiva pink, sclera white. NOSE: Clear with pink turbinates. THROAT: No erythema or exudates. NECK: No masses, no JVD, no thyroid enlargement, no adenopathy. CHEST: No chest wall deformity. Symmetrical expansion. LUNGS: Equal air entry with some scattered rhonchi and wheezing CVS: Regular rate and rhythm, normal S1 and S2, no gallops, no murmurs, no rubs ABDOMEN: Soft, nontender. No hepatosplenomegaly, normal bowel sounds, no guard ing or rigidity. EXTREMITIES: No clubbing, no edema, no cyanosis, 2+ pulses and upper and lower extremities. MUSCULOSKELETAL: Muscle strength and tone normal. SPINE: No scoliosis or deformity SKIN: No rashes CENTRAL NERVOUS SYSTEM: Alert and oriented -3. No focal deficits, tone is normal in all 4 extremities. PSYCHIATRIC: Alert and oriented -3. Appropriate affect. Intact judgment and insight. - Labs CBC & Chem 7: 12/30/19 06:43 01/01/20 07:08 Labs: Abnormal Lab Results - Last 24 Hours (Table) 01/02/20 01/02/20 01/03/20 Range/Units 16:53 20:50 06:06 POC Glucose (mg/dL) 166 H 184 H 165 H (75-99) mg/dL Microbiology - Last 24 Hours (Table) 12/29/19 15:06 Blood Culture - Preliminary Blood No Growth after 96 hours 12/29/19 15:00 Blood Culture - Preliminary Blood No Growth after 96 hours 12/31/19 16:17 Gram Stain - Final Sputum Sputum Culture - Final Valeria albicans Assessment and Plan Plan: Assessment: #1. Acute on chronic hypoxemic and hypercapnic respiratory failure related to acute COPD exacerbation #2. Locally advanced pulmonary adenocarcinoma with a large left upper lobe mass not causing any mass effect in the meantime care or in the left upper lobe bronchus based on the CAT scan and the PET scan findings, recently diagnosed, in November 2019, with no evidence of distant metastasis, outpatient PET scan, stage IIIa. Patient has been started on radiation therapy #3. Severe oxygen-dependent COPD with a baseline FEV1 value of 40% of predicted #4. History of tobacco dependence #5. History of right renal cell carcinoma status post nephrectomy #6. History of insomnia #7. Hyperlipidemia #8. GERD #9. 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 Chronic back pain Plan: Continue IV steroids for another 24 hours, continue breathing treatments, use BiPAP support as needed, breathing is improving, patient continues on radiation therapy. Increase activity as tolerated, continue empiric antibiotics, blood and sputum cultures have shown no growth. Vital signs are stable. Overall prognosis extremely poor in view of overall medical debility, poor underlying lung function, and multiple comorbidities. We'll continue to follow I performed a history & physical examination of the patient and discussed their management with my nurse practitioner, Odalis Munguia. I reviewed the nurse practitioner's note and agree with the documented findings and plan of care. Lung sounds are positive for decreased breath sounds, decreased rhonchi. The findings and the impression was discussed with the patient. I attest to the documentation by the nurse practitioner. Time with Patient: Less than 30
[2020-01-03 13:09] LABS: Glucose,Whole Blood 289 mg/dL (75-99)
[2020-01-03 14:28] LABS: Basophils % (A) 0 %; Eosinophils % (A) 0 %; HCT 39.1 % (39.0-53.0); HGB 10.6 gm/dL (13.0-17.5); Hypochromasia Marked; Lymphocytes # (A) 0.2 k/uL (1.0-4.8); Lymphocytes % (A) 3 %; MCH 27.1 pg (25.0-35.0); MCHC 27.2 g/dL (31.0-37.0); MCV 99.7 fL (80.0-100.0); Macrocytosis Slight; Mean Platelet Volume 7.9; Monocytes # (A) 0.2 k/uL (0-1.0); Monocytes % (A) 2 %; Neutrophils # (A) 8.8 k/uL (1.3-7.7); Neutrophils % (A) 95 %; Platelet Count 185 k/uL (150-450); RBC 3.93 m/uL (4.30-5.90); RDW 14.7 % (11.5-15.5); WBC 9.3 k/uL (3.8-10.6)
[2020-01-03 14:31] LABS: Calcium 8.5 mg/dL (8.4-10.2); Magnesium 2.5 mg/dL (1.6-2.3); Potassium 4.8 mmol/L (3.5-5.1); Total Bilirubin 0.3 mg/dL (0.2-1.3); Total Protein 5.3 g/dL (6.3-8.2)
--- NOTE | 2020-01-03 14:34 | P.PN ---
Subjective 74-year-old male history of COPD, current lung cancer presented to an outside hospital with respiratory distress. He was placed on BiPAP, x-ray had shown a worsening pneumonia patient was started on Zosyn and vancomycin as well as IV steroids. He was transferred for further evaluation to this institution. He was recently discharged from this hospital approximately 2 days ago. Denies fever. Denies chest pain. Denies lower extremity edema.patient has advanced COPD, patient has a squamous, cell cancer left side lung cancer. The chest x-ra y that was done at the outside facility apparently had increased the infiltrate on the right lower lobes. Although I cannot see a report of imaging studies from the other hospital for lipid on the chest x-ray here . I was told the patient had a pCO2 of time more than 100 result of which is not available at this time for me. Patient was initiated on BiPAP which will be continued. 12/30/2019 Patient went into respiratory decompensation last night after which patient received a dose of Lasix which was discontinued and the patient will need IV fluids respirations is related to decompensation is secondary to COPD. Patient remains on systemic steroids although his wheezing significantly improved still has some wheezing. Patient has a large mass in the left lung with some atelectasis. Patient's prognosis in my opinion is poor because of his COPD mainly pulmonology consulted the hospice. Oncology wanted to try radiation for the mass as the mass is localized shrinking of mass will help his symptoms. Will discuss with oncology as well and decided and not hospice or consulting hospice. 12/31/2019 Patient was a evaluated with radiation oncology and radiation therapy is being planned the patient the looks fairly better today does have still wheezing on exam and decreased air entry into bilateral lung owens. 01/01/2020 Patient looks better today will undergo radiation therapy today 01/02/2020 Patient went on BiPAP clinically not doing well significant wheezing patient was evaluated by pulmonology. I had discussion with pulmonology patient had a CAT scan in the past which didn't show any post obstructive atelectasis or pneumonia patient was switched to Augmentin patient not may not benefit from antibiotics considering his advanced COPD after discussion with pulmonology patient the may or may not tolerate radiation therapy and chemotherapy and patient prognosis remains poor. 01/03/2020 Looks better today with no syncope and wheezing today shadows with improved patient presently on 4 L of Cardizem which we'll try to wean it off in the possibility of discharge tomorrow and patient will need to follow up with radiation oncology as an outpatient. Constitutional: Denied any fatigue denied any fever. Cardio vascular: denied any chest pain, palpitations Gastrointestinal denied any nausea vomiting Pulmonary: As mentioned in HPI Neurologic denied any new focal deficits All inpatient medications were reviewed and appropriate changes in these medications as dictated in the interval history and assessment and plan. Objective - Vital Signs Vital signs: Vital Signs Temp 99.5 F 01/03/20 08:00 Pulse 94 01/03/20 11:30 Resp 22 01/03/20 08:00 BP 124/67 01/03/20 08:00 Pulse Ox 92 L 01/03/20 08:00 Intake & Output 01/02/20 01/03/20 01/03/20 18:59 06:59 18:59 Intake Total 100 Output Total 350 0 Balance -250 0 Weight 85 kg Intake: Oral 100 Output: Urine 350 0 Other: Voiding Method Urinal Urinal Urinal # Voids 2 1 # Bowel Movements 0 - Exam PHYSICAL EXAMINATION: GENERAL: The patient is alert and oriented x3,patient is in mild distress on BiPAP. Well developed, well nourished. HEENT: Pupils are round and equally reacting to light. EOMI. No scleral icterus. No conjunctival pallor. Normocephalic, atraumatic. No pharyngeal erythema. No thyromegaly. CARDIOVASCULAR: S1 and S2 present. No murmurs, rubs, or gallops. PULMONARY: Significant improvement in wheezing fairly good air entry into bilateral lung owens. ABDOMEN: Soft, nontender, nondistended, normoactive bowel sounds. No palpable organomegaly. MUSCULOSKELETAL: No joint swelling or deformity. EXTREMITIES: No cyanosis, clubbing, or pedal edema. NEUROLOGICAL: Gross neurological examination did not reveal any focal deficits. SKIN: No rashes. - Labs CBC & Chem 7: 01/03/20 14:00 01/01/20 07:08 Labs: Abnormal Lab Results - Last 24 Hours (Table) 01/02/20 01/02/20 01/03/20 Range/Units 16:53 20:50 06:06 RBC (4.30-5.90) m/uL Hgb (13.0-17.5) gm/dL MCHC (31.0-37.0) g/dL Neutrophils # (1.3-7.7) k/uL Lymphocytes # (1.0-4.8) k/uL POC Glucose (mg/dL) 166 H 184 H 165 H (75-99) mg/dL 01/03/20 01/03/20 Range/Units 13:07 14:00 RBC 3.93 L (4.30-5.90) m/uL Hgb 10.6 L (13.0-17.5) gm/dL MCHC 27.2 L (31.0-37.0) g/dL Neutrophils # 8.8 H (1.3-7.7) k/uL Lymphocytes # 0.2 L (1.0-4.8) k/uL POC Glucose (mg/dL) 289 H (75-99) mg/dL Microbiology - Last 24 Hours (Table) 12/29/19 15:06 Blood Culture - Preliminary Blood No Growth after 96 hours 12/29/19 15:00 Blood Culture - Preliminary Blood No Growth after 96 hours Assessment and Plan Plan: Acute on chronic hypercapnic respiratory failure secondary to COPD exacerbation, patient appears to have large left-sided mass computed tomography scan from the last admission did not she does show significant of postop obstructive atelectasis or pneumonia. Patient was switched to Augmentin -COPD with acute exacerbation and patient was switched to IV steroids by pulmonology. -Acute renal failure secondary to Lasix , patient is on IV fluids with improved creatinine to 1.09 IV fluids will be continued as patient appears to have some contraction alkalosis -Metabolic alkalosis: As a compensation to CO2 retention and patient also has some contraction alkalosis -History of lung cancer squamous cell cancer patient has advanced COPD , patient has a large mass for which radiation oncology evaluated the planning or radiati on therapy tomorrow with radiation therapy the mass is expected to shrink probably will help with the postobstructive pneumonia or atelectasis gastroesophageal reflux disease -Hypertension -Coronary artery disease with cardiac catheterization and stenting in the past
--- NOTE | 2020-01-03 16:17 | P.PN ---
Subjective Progress Note Date: 01/03/20 Principal diagnosis: New Lung Cancer Diagnosis, POst Obstructive Pneumonia and COPD Exacerbation nO acute complaints today, no increased distressed Objective - Vital Signs Vital signs: Vital Signs Temp 99.5 F 01/03/20 08:00 Pulse 94 01/03/20 11:30 Resp 22 01/03/20 08:00 BP 124/67 01/03/20 08:00 Pulse Ox 92 L 01/03/20 08:00 Intake & Output 01/02/20 01/03/20 01/03/20 18:59 06:59 18:59 Intake Total 100 Output Total 350 0 Balance -250 0 Weight 85 kg Intake: Oral 100 Output: Urine 350 0 Other: Voiding Method Urinal Urinal Urinal # Voids 2 1 # Bowel Movements 0 - Exam - Constitutional General appearance: Present: average body habitus, cooperative, no acute distress - EENT Eyes: Present: PERRLA, poor dentition ENT: Present: hard of hearing, NA/AT - Neck Neck: Present: normal ROM - Respiratory Respiratory: bilateral: diminished, rhonchi bipap, increased respiratory effort - Cardiovascular Rhythm: regular Tachy Heart sounds: normal: S1, S2 - Gastrointestinal General gastrointestinal: Present: normal bowel sounds, soft - Integumentary Integumentary: Present: pale - Neurologic Neurologic: Present: CNII-XII intact - Musculoskeletal Musculoskeletal: Present: generalized weakness, strength equal bilaterally - Psychiatric Psychiatric: Present: A&O x's 3, appropriate affect, intact judgment & insight - Labs CBC & Chem 7: 01/03/20 14:00 01/03/20 14:00 Labs: Abnormal Lab Results - Last 24 Hours (Table) 01/02/20 01/02/20 01/03/20 Range/Units 16:53 20:50 06:06 POC Glucose (mg/dL) 166 H 184 H 165 H (75-99) mg/dL 01/03/20 Range/Units 13:07 POC Glucose (mg/dL) 289 H (75-99) mg/dL Microbiology - Last 24 Hours (Table) 12/29/19 15:06 Blood Culture - Preliminary Blood No Growth after 96 hours 12/29/19 15:00 Blood Culture - Preliminary Blood No Growth after 96 hours Assessment and Plan (1) Acute on chronic respiratory failure with hypoxia and hypercapnia Current Visit: Yes Status: Acute Code(s): J96.21 - ACUTE AND CHRONIC RESPIRATORY FAILURE WITH HYPOXIA; J96.22 - ACUTE AND CHRONIC RESPIRATORY FAILURE WITH HYPERCAPNIA SNOMED Code(s): 28262131176988 (2) COPD (chronic obstructive pulmonary disease) Current Visit: Yes Status: Acute Code(s): J44.9 - CHRONIC OBSTRUCTIVE PULMONARY DISEASE, UNSPECIFIED SNOMED Code(s): 67093563 (3) Adenocarcinoma of left lung Current Visit: No Status: Acute Code(s): C34.92 - MALIGNANT NEOPLASM OF UNSP PART OF LEFT BRONCHUS OR LUNG SNOMED Code(s): 53156741476595709 (4) COPD exacerbation Current Visit: No Status: Acute Code(s): J44.1 - CHRONIC OBSTRUCTIVE PULMONARY DISEASE W (ACUTE) EXACERBATION SNOMED Code(s): 804774600 (5) Dyspnea Current Visit: No Status: Acute Code(s): R06.00 - DYSPNEA, UNSPECIFIED SNOMED Code(s): 229427145 Plan: Assessment and Plan Acute on Chronic Hypoxic Respiratory Failure: - Currently on Bipap - Pulmonology is following - COPD Exacerbation plus Post obstruction component - Cont XRT consultation for intervention to shrink and assist in improving symptoms 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 - Missed follow-up for treatment plan with Dr. Leong secondary to this current hospital admission - PDL1 and NGS Sent on tissue pathology - No evidence of distant mets on MRI Brain or PET scan - Tobacco Cessation COPD Exacerbation: - Per Pulmonary - Steroids, Abx, and Nebs - Supportive Care Acute Renal Insufficiency: Resolved 12/31 - Re-evaluate CMP today - Likely from decreased PO intake, not feeling well. Normocytic Anemia: - Anemia work-up and recheck CBC Plan: - Once patient is stable plan will be to continue radiation in [place] as transportation richi be issue per , dicussed with Dr. Zhou
[2020-01-03] MEDS: SODIUM CHLORIDE 0.9% 1,000 ML IV SCH (16:24)
[2020-01-03 17:25] LABS: Glucose,Whole Blood 205 mg/dL (75-99)
[2020-01-03 20:08] LABS: Glucose,Whole Blood 194 mg/dL (75-99)
[2020-01-03] MEDS: ATORVASTATIN 10 MG TAB PO SCH (20:45)
[2020-01-03] MEDS: MIRTAZAPINE 45 MG TABLET PO SCH (20:51)
[2020-01-04 00:52] LABS: % Iron Saturation 14.23 (15.00-50.00)
[2020-01-04 01:00] LABS: Folate, Serum 5.6 ng/mL
[2020-01-04 01:03] LABS: Ferritin 310.9 ng/mL (22.0-322.0)
[2020-01-04 03:09] LABS: Glucose,Whole Blood 165 mg/dL (75-99)
[2020-01-04 06:08] LABS: Glucose,Whole Blood 176 mg/dL (75-99)
[2020-01-04] MEDS: PANTOPRAZOLE 40 MG TABLET PO SCH (06:29)
[2020-01-04] MEDS: methylPREDNISolone SOD SUCCI 125 MG/2 ML VIAL IV SCH ×4 (06:29→23:47)
[2020-01-04] MEDS: INSULIN ASPART (NovoLOG) 100 UNIT/ML VIAL SQ SCH ×4 (06:30→21:06)
[2020-01-04] MEDS: SYMBICORT 160-4.5 MCG INHALER INHALATION SCH ×2 (06:56→19:20)
[2020-01-04] MEDS: IPRATROPIUM-ALBUTEROL 3 ML NEB INHALATION SCH ×4 (06:56→19:20)
[2020-01-04 08:00] LABS: Basophils % (A) 0 %; Eosinophils % (A) 0 %; HCT 35.8 % (39.0-53.0); HGB 10.2 gm/dL (13.0-17.5); Hypochromasia Marked; Lymphocytes # (A) 0.3 k/uL (1.0-4.8); Lymphocytes % (A) 3 %; MCH 27.7 pg (25.0-35.0); MCHC 28.5 g/dL (31.0-37.0); MCV 97.2 fL (80.0-100.0); Mean Platelet Volume 7.5; Monocytes # (A) 0.2 k/uL (0-1.0); Monocytes % (A) 2 %; Neutrophils # (A) 8.9 k/uL (1.3-7.7); Neutrophils % (A) 94 %; Platelet Count 169 k/uL (150-450); RBC 3.68 m/uL (4.30-5.90); RDW 14.5 % (11.5-15.5); WBC 9.4 k/uL (3.8-10.6)
[2020-01-04 08:04] LABS: Albumin 2.7 g/dL (3.5-5.0); Calcium 8.1 mg/dL (8.4-10.2); Magnesium 2.3 mg/dL (1.6-2.3); Total Bilirubin 0.4 mg/dL (0.2-1.3); Total Protein 4.9 g/dL (6.3-8.2)
[2020-01-04] MEDS: AMOXIC-POT CLAV 875-125MG 1 EACH TAB PO SCH ×2 (09:11→21:05)
[2020-01-04] MEDS: SODIUM CHLORIDE 0.9% 1,000 ML IV SCH (09:11)
[2020-01-04] MEDS: amLODIPine 5 MG TAB PO SCH (09:11)
[2020-01-04] MEDS: ASPIRIN 81 MG PO SCH (09:11)
[2020-01-04] MEDS: METOPROLOL SUCCINATE (ER) 25 MG TAB.ER.24H PO SCH (09:11)
[2020-01-04] MEDS: busPIRone HCl 10 MG TAB PO SCH ×2 (09:11→21:05)
[2020-01-04] MEDS: NON FORMULARY DRUG (Roflumilast [Daliresp] 500 MCG) PO SCH (09:12)
[2020-01-04] MEDS: ACETAMINOPHEN TAB 325 MG TAB PO PRN ×2 (09:16→21:20)
[2020-01-04 12:08] LABS: Glucose,Whole Blood 176 mg/dL (75-99)
[2020-01-04 13:03] LABS: Glucose,Whole Blood 220 mg/dL (75-99)
--- NOTE | 2020-01-04 13:16 | P.PN ---
Subjective Progress Note Date: 01/04/20 Principal diagnosis: Acute exacerbation of chronic obstructive pulmonary disease, clinically advanced adenocarcinoma 74-year-old male patient with a recent diagnosis of lung cancer was Hospital as for worsening shortness of breath. The patient has a large left upper lobe mass for which the patient underwent a fine-needle aspirate and the patient was found to have squamous cell carcinoma of the lung. PET scan did not show any distant metastases and disease is locally advanced, possibly stage III. The patient has not started any treatment. The patient is not a candidate for any surgical resection as the patient has advanced COPD. He came in for respiratory distress and COPD exacerbation. He was initially placed on BiPAP for respiratory support and he was covered with broad-spectrum antibiotic including Zosyn and vancomycin and he was given IV Solu-Medrol. On today's evaluation is off the BiPAP he is feeling slightly better. Nevertheless, he still weak and he has very limited exercise capacity and he gets short of breath with limited amount of activity. The patient's has no significant sputum production. No hemoptysis. No pleurisy. He is feeling slightly better compared to yesterday. He was seen by radiation oncology and the patient is being given palliative radiation therapy. Regarding his left upper lobe mass. No reported fever. No reported chills. No reported hemoptysis. He is on bronchodilators. He is on prednisone burst taper starting with 30 mg. On today's evaluation of 01/02/2020, the patient is still doing poorly. The patient on BiPAP at a pressure of 1205 cm of water and he seems to be requiring BiPAP more often. He underwent his first session of radiation yesterday. No hemoptysis. No pleurisy. No chest pain. He is awake and alert. He is on DuoNeb about treatments around the clock. I would suggest putting this patient back on IV Solu-Medrol as the patient is still quite bronchospastic and wheezy and I think this switched to oral prednisone was admitted to [facility]. For that reason is for sedation back in 93 Solu-Medrol. No other new complaints otherwise for now. On 01/03/2020 patient seen in follow-up on selective care unit, he is awake and alert, in no acute distress, patient is on 4 L of oxygen pulse ox of 92%, she did wear BiPAP at night, with pressures of 12/5 FiO2 of 45%, he's been afebrile, hemodynamically patient has been stable. Patient continues on empiric antibiotics, currently on Augmentin, continues on IV Solu-Medrol, breathing treatments. Breathing has improved, some scattered wheezing and rhonchi, nonproductive cough. IV fluids infusing at a rate of 50 ML per hour, patient has been started on radiation therapy. Denies any chest pain, denies any pleurisy or hemoptysis. Mentation is appropriate, he is answering questions appropriately. No confusion. The patient is seen today 01/04/2020 in follow-up on the selective care unit. He is currently off BiPAP and on oxygen at 3 L/m per nasal cannula. O2 saturation 98%. He is currently afebrile. Hemodynamically stable. Sputum culture positive for Valeria only. Blood cultures reveal no growth. White count 9.4. Hemoglobin 10.2. Sodium 141. Potassium 5.0. Bicarb 46. Creatinine 0.97. He remains on DuoNeb inhalations, Symbicort, IV Solu-Medrol, Augmentin. Objective - Vital Signs Vital signs: Vital Signs Temp 97.9 F 01/04/20 07:50 Pulse 92 01/04/20 11:01 Resp 22 01/04/20 07:50 BP 144/85 01/04/20 07:50 Pulse Ox 98 01/04/20 07:50 Intake & Output 01/03/20 01/04/20 01/04/20 18:59 06:59 18:59 Intake Total 1480 100 120 Output Total 3 600 Balance 1477 -500 120 Weight 79.5 kg Intake: Intake, IV Titration 600 100 Amount Sodium Chloride 0.9% 1, 600 100 000 ml @ 50 mls/hr IV . Q20H [facility] Rx#:[id number] Oral 880 120 Output: Urine 3 600 Other: Voiding Method Urinal Urinal Urinal # Voids 350 0 # Bowel Movements 0 0 - Exam GENERAL EXAM: Alert, very pleasant, 74-year-old male patient, on on 3 L nasal cannula, O2 saturation 98%, comfortable in no apparent distress. HEAD: Normocephalic/atraumatic. EYES: Normal reaction of pupils, equal size. Conjunctiva pink, sclera white. NOSE: Clear with pink turbinates. THROAT: No erythema or exudates. NECK: No masses, no JVD, no thyroid enlargement, no adenopathy. CHEST: No chest wall deformity. Symmetrical expansion. LUNGS: Equal air entry with some scattered rhonchi and wheezing CVS: Regular rate and rhythm, normal S1 and S2, no gallops, no murmurs, no rubs ABDOMEN: Soft, nontender. No hepatosplenomegaly, normal bowel sounds, no guarding or rigidity. EXTREMITIES: No clubbing, no edema, no cyanosis, 2+ pulses and upper and lower extremities. MUSCULOSKELETAL: Muscle strength and tone normal. SPINE: No scoliosis or deformity SKIN: No rashes CENTRAL NERVOUS SYSTEM: No focal deficits, tone is normal in all 4 extremities. PSYCHIATRIC: Alert and oriented -3. Appropriate affect. Intact judgment and insight. - Labs CBC & Chem 7: 01/04/20 06:50 01/04/20 06:50 Labs: Abnormal Lab Results - Last 24 Hours (Table) 01/03/20 01/03/20 01/03/20 Range/Units 13:07 14:00 14:00 RBC 3.93 L (4.30-5.90) m/uL Hgb 10.6 L (13.0-17.5) gm/dL Hct (39.0-53.0) % MCHC 27.2 L (31.0-37.0) g/dL Neutrophils # 8.8 H (1.3-7.7) k/uL Lymphocytes # 0.2 L (1.0-4.8) k/uL Chloride 93 L (98-107) mmol/L Carbon Dioxide 42 H* (22-30) mmol/L BUN 37 H (9-20) mg/dL Creatinine 1.27 H (0.66-1.25) mg/dL Glucose 275 H (74-99) mg/dL POC Glucose (mg/dL) 289 H (75-99) mg/dL Calcium (8.4-10.2) mg/dL Magnesium 2.5 H (1.6-2.3) mg/dL Iron 38 L (65-175) ug/dL % Saturation 14.23 L (15.00-50.00) ALT 75 H (4-49) U/L Lactate Dehydrogenase 866 H (313-618) U/L Total Protein 5.3 L (6.3-8.2) g/dL Albumin 3.0 L (3.5-5.0) g/dL 01/03/20 01/03/20 01/04/20 Range/Units 17:07 20:06 02:53 RBC (4.30-5.90) m/uL Hgb (13.0-17.5) gm/dL Hct (39.0-53.0) % MCHC (31.0-37.0) g/dL Neutrophils # (1.3-7.7) k/uL Lymphocytes # (1.0-4.8) k/uL Chloride (98-107) mmol/L Carbon Dioxide (22-30) mmol/L BUN (9-20) mg/dL Creatinine (0.66-1.25) mg/dL Glucose (74-99) mg/dL POC Glucose (mg/dL) 205 H 194 H 165 H (75-99) mg/dL Calcium (8.4-10.2) mg/dL Magnesium (1.6-2.3) mg/dL Iron (65-175) ug/dL % Saturation (15.00-50.00) ALT (4-49) U/L Lactate Dehydrogenase (313-618) U/L Total Protein (6.3-8.2) g/dL Albumin (3.5-5.0) g/dL 01/04/20 01/04/20 01/04/20 Range/Units 06:07 06:50 06:50 RBC 3.68 L (4.30-5.90) m/uL Hgb 10.2 L (13.0-17.5) gm/dL Hct 35.8 L (39.0-53.0) % MCHC 28.5 L (31.0-37.0) g/dL Neutrophils # 8.9 H (1.3-7.7) k/uL Lymphocytes # 0.3 L (1.0-4.8) k/uL Chloride 96 L (98-107) mmol/L Carbon Dioxide 46 H* (22-30) mmol/L BUN 38 H (9-20) mg/dL Creatinine (0.66-1.25) mg/dL Glucose 145 H (74-99) mg/dL POC Glucose (mg/dL) 176 H (75-99) mg/dL Calcium 8.1 L (8.4-10.2) mg/dL Magnesium (1.6-2.3) mg/dL Iron (65-175) ug/dL % Saturation (15.00-50.00) ALT 64 H (4-49) U/L Lactate Dehydrogenase (313-618) U/L Total Protein 4.9 L (6.3-8.2) g/dL Albumin 2.7 L (3.5-5.0) g/dL 01/04/20 01/04/20 Range/Units 11:52 12:59 RBC (4.30-5.90) m/uL Hgb (13.0-17.5) gm/dL Hct (39.0-53.0) % MCHC (31.0-37.0) g/dL Neutrophils # (1.3-7.7) k/uL Lymphocytes # (1.0-4.8) k/uL Chloride (98-107) mmol/L Carbon Dioxide (22-30) mmol/L BUN (9-20) mg/dL Creatinine (0.66-1.25) mg/dL Glucose (74-99) mg/dL POC Glucose (mg/dL) 176 H 220 H (75-99) mg/dL Calcium (8.4-10.2) mg/dL Magnesium (1.6-2.3) mg/dL Iron (65-175) ug/dL % Saturation (15.00-50.00) ALT (4-49) U/L Lactate Dehydrogenase (313-618) U/L Total Protein (6.3-8.2) g/dL Albumin (3.5-5.0) g/dL Microbiology - Last 24 Hours (Table) 12/29/19 15:06 Blood Culture - Preliminary Blood No Growth after 120 hours 12/29/19 15:00 Blood Culture - Preliminary Blood No Growth after 120 hours Assessment and Plan Assessment: #1. Acute on chronic hypoxemic and hypercapnic respiratory failure related to acute COPD exacerbation #2. Locally advanced pulmonary adenocarcinoma with a large left upper lobe mass not causing any mass effect in the meantime care or in the left upper lobe bronchus based on the CAT scan and the PET scan findings, recently diagnosed, in November 2019, with no evidence of distant metastasis, outpatient PET scan, stage IIIa. Patient has been started on radiation therapy #3. Severe oxygen-dependent COPD with a baseline FEV1 value of 40% of predicted #4. History of tobacco dependence #5. History of right renal cell carcinoma status post nephrectomy #6. History of insomnia #7. Hyperlipidemia #8. GERD #9. 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 Chronic back pain Plan: The patient was seen and evaluated by Dr. Faith He may qualify for BiPAP Obtain a nocturnal pulse oximeter readings Continue current medical treatment Overall prognosis remains quite poor and guarded I, the cosigning physician, performed a history & physical examination of the patient. Lungs sounds with bilateral end expiratory wheeze, diminished. Maintaining good O2 saturations in the 90s on 3 L/m per nasal cannula. I discussed the assessment and plan of care with my nurse practitioner, Bernadette Fernandez. I attest to the above note as dictated by her.
[2020-01-04 14:07] VITALS: BMI 23.8
--- NOTE | 2020-01-04 14:11 | P.PN ---
Subjective Progress Note Date: 01/04/20 Principal diagnosis: New Lung Cancer Diagnosis, POst Obstructive Pneumonia and COPD Exacerbation Patient appeared better this am when evaluated. He is saturating well on 3 liter NC. Objective - Vital Signs Vital signs: Vital Signs Temp 97.9 F 01/04/20 07:50 Pulse 92 01/04/20 11:01 Resp 22 01/04/20 07:50 BP 144/85 01/04/20 07:50 Pulse Ox 98 01/04/20 07:50 Intake & Output 01/03/20 01/04/20 01/04/20 18:59 06:59 18:59 Intake Total 1480 100 240 Output Total 3 600 Balance 1477 -500 240 Weight 79.5 kg 79.5 kg Intake: Intake, IV Titration 600 100 Amount Sodium Chloride 0.9% 1, 600 100 000 ml @ 50 mls/hr IV . Q20H [facility] Rx#:[id number] Oral 880 240 Output: Urine 3 600 Other: Voiding Method Urinal Urinal Urinal # Voids 350 0 # Bowel Movements 0 0 - Exam - Constitutional General appearance: Present: average body habitus, cooperative, no acute distress - EENT Eyes: Present: PERRLA, poor dentition ENT: Present: hard of hearing, NA/AT - Neck Neck: Present: normal ROM - Respiratory - Improving Respiratory: bilateral: diminished, rhonchi NC, increased respiratory effort - Cardiovascular Rhythm: regular Tachy Heart sounds: normal: S1, S2 - Gastrointestinal General gastrointestinal: Present: normal bowel sounds, soft - Integumentary Integumentary: Present: pale - Neurologic Neurologic: Present: CNII-XII intact - Musculoskeletal Musculoskeletal: Present: generalized weakness, strength equal bilaterally - Psychiatric Psychiatric: Present: A&O x's 3, appropriate affect, intact judgment & insight - Labs CBC & Chem 7: 01/04/20 06:50 01/04/20 06:50 Labs: Abnormal Lab Results - Last 24 Hours (Table) 01/03/20 01/03/20 01/03/20 Range/Units 14:00 14:00 17:07 RBC 3.93 L (4.30-5.90) m/uL Hgb 10.6 L (13.0-17.5) gm/dL Hct (39.0-53.0) % MCHC 27.2 L (31.0-37.0) g/dL Neutrophils # 8.8 H (1.3-7.7) k/uL Lymphocytes # 0.2 L (1.0-4.8) k/uL Chloride 93 L (98-107) mmol/L Carbon Dioxide 42 H* (22-30) mmol/L BUN 37 H (9-20) mg/dL Creatinine 1.27 H (0.66-1.25) mg/dL Glucose 275 H (74-99) mg/dL POC Glucose (mg/dL) 205 H (75-99) mg/dL Calcium (8.4-10.2) mg/dL Magnesium 2.5 H (1.6-2.3) mg/dL Iron 38 L (65-175) ug/dL % Saturation 14.23 L (15.00-50.00) ALT 75 H (4-49) U/L Lactate Dehydrogenase 866 H (313-618) U/L Total Protein 5.3 L (6.3-8.2) g/dL Albumin 3.0 L (3.5-5.0) g/dL 01/03/20 01/04/20 01/04/20 Range/Units 20:06 02:53 06:07 RBC (4.30-5.90) m/uL Hgb (13.0-17.5) gm/dL Hct (39.0-53.0) % MCHC (31.0-37.0) g/dL Neutrophils # (1.3-7.7) k/uL Lymphocytes # (1.0-4.8) k/uL Chloride (98-107) mmol/L Carbon Dioxide (22-30) mmol/L BUN (9-20) mg/dL Creatinine (0.66-1.25) mg/dL Glucose (74-99) mg/dL POC Glucose (mg/dL) 194 H 165 H 176 H (75-99) mg/dL Calcium (8.4-10.2) mg/dL Magnesium (1.6-2.3) mg/dL Iron (65-175) ug/dL % Saturation (15.00-50.00) ALT (4-49) U/L Lactate Dehydrogenase (313-618) U/L Total Protein (6.3-8.2) g/dL Albumin (3.5-5.0) g/dL 01/04/20 01/04/20 01/04/20 Range/Units 06:50 06:50 11:52 RBC 3.68 L (4.30-5.90) m/uL Hgb 10.2 L (13.0-17.5) gm/dL Hct 35.8 L (39.0-53.0) % MCHC 28.5 L (31.0-37.0) g/dL Neutrophils # 8.9 H (1.3-7.7) k/uL Lymphocytes # 0.3 L (1.0-4.8) k/uL Chloride 96 L (98-107) mmol/L Carbon Dioxide 46 H* (22-30) mmol/L BUN 38 H (9-20) mg/dL Creatinine (0.66-1.25) mg/dL Glucose 145 H (74-99) mg/dL POC Glucose (mg/dL) 176 H (75-99) mg/dL Calcium 8.1 L (8.4-10.2) mg/dL Magnesium (1.6-2.3) mg/dL Iron (65-175) ug/dL % Saturation (15.00-50.00) ALT 64 H (4-49) U/L Lactate Dehydrogenase (313-618) U/L Total Protein 4.9 L (6.3-8.2) g/dL Albumin 2.7 L (3.5-5.0) g/dL 01/04/20 Range/Units 12:59 RBC (4.30-5.90) m/uL Hgb (13.0-17.5) gm/dL Hct (39.0-53.0) % MCHC (31.0-37.0) g/dL Neutrophils # (1.3-7.7) k/uL Lymphocytes # (1.0-4.8) k/uL Chloride (98-107) mmol/L Carbon Dioxide (22-30) mmol/L BUN (9-20) mg/dL Creatinine (0.66-1.25) mg/dL Glucose (74-99) mg/dL POC Glucose (mg/dL) 220 H (75-99) mg/dL Calcium (8.4-10.2) mg/dL Magnesium (1.6-2.3) mg/dL Iron (65-175) ug/dL % Saturation (15.00-50.00) ALT (4-49) U/L Lactate Dehydrogenase (313-618) U/L Total Protein (6.3-8.2) g/dL Albumin (3.5-5.0) g/dL Microbiology - Last 24 Hours (Table) 12/29/19 15:06 Blood Culture - Preliminary Blood No Growth after 120 hours 12/29/19 15:00 Blood Culture - Preliminary Blood No Growth after 120 hours Assessment and Plan (1) Acute on chronic respiratory failure with hypoxia and hypercapnia Current Visit: Yes Status: Acute Code(s): J96.21 - ACUTE AND CHRONIC RESPIRATORY FAILURE WITH HYPOXIA; J96.22 - ACUTE AND CHRONIC RESPIRATORY FAILURE WITH HYPERCAPNIA SNOMED Code(s): 57419882961630 (2) COPD (chronic obstructive pulmonary disease) Current Visit: Yes Status: Acute Code(s): J44.9 - CHRONIC OBSTRUCTIVE PULMONARY DISEASE, UNSPECIFIED SNOMED Code(s): 24087614 (3) Adenocarcinoma of left lung Current Visit: No Status: Acute Code(s): C34.92 - MALIGNANT NEOPLASM OF UNSP PART OF LEFT BRONCHUS OR LUNG SNOMED Code(s): 71773753869553563 (4) COPD exacerbation Current Visit: No Status: Acute Code(s): J44.1 - CHRONIC OBSTRUCTIVE PULMONARY DISEASE W (ACUTE) EXACERBATION SNOMED Code(s): 121020256 (5) Dyspnea Current Visit: No Status: Acute Code(s): R06.00 - DYSPNEA, UNSPECIFIED SNOMED Code(s): 027952318 Plan: Assessment and Plan Acute on Chronic Hypoxic Respiratory Failure: - Currently on Bipap - Pulmonology is following - COPD Exacerbation plus Post obstruction component - Cotninue on XRT in attempt to shrink and assist in improving symptoms 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 - Missed follow-up for treatment plan with Dr. Leong secondary to this current hospital admission - PDL1 and NGS Sent on tissue pathology - No evidence of distant mets on MRI Brain or PET scan - Tobacco Cessation COPD Exacerbation: - Per Pulmonary - Steroids, Abx, and Nebs - Supportive Care Acute Renal Insufficiency: Resolved 12/31 - Re-evaluate CMP today - Likely from decreased PO intake, not feeling well. Normocytic Anemia: - Anemia work-up and recheck CBC Plan: - Once patient is stable plan will be to continue [facility] [place] [facility] as transportation will be issue - Continue supportive care and PT/OT - Continue Radiation per Dr. Zhou - Follow-up in office immediately after stable to [place] for systemic treatment - Discussed with Dr. Zhou in detail
--- NOTE | 2020-01-04 14:50 | P.PN ---
Subjective Progress Note Date: 01/04/20 Principal diagnosis: 74-year-old male history of COPD, current lung cancer presented to an outside hospital with respiratory distress. He was placed on BiPAP, x-ray had shown a w orsening pneumonia patient was started on Zosyn and vancomycin as well as IV steroids. He was transferred for further evaluation to this institution. He was recently discharged from this hospital approximately 2 days ago. Denies fever. Denies chest pain. Denies lower extremity edema.patient has advanced COPD, patient has a squamous, cell cancer left side lung cancer. The chest x- ray that was done at the outside facility apparently had increased the infiltrate on the right lower lobes. Although I cannot see a report of imaging studies from the other hospital for lipid on the chest x-ray here . I was told the patient had a pCO2 of time more than 100 result of which is not available at this time for me. Patient was initiated on BiPAP which will be continued. 12/30/2019 Patient went into respiratory decompensation last night after which patient received a dose of Lasix which was discontinued and the patient will need IV fluids respirations is related to decompensation is secondary to COPD. Patient remains on systemic steroids although his wheezing significantly improved still has some wheezing. Patient has a large mass in the left lung with some atelectasis. Patient's prognosis in my opinion is poor because of his COPD mainly pulmonology consulted the hospice. Oncology wanted to try radiation for the mass as the mass is localized shrinking of mass will help his symptoms. Will discuss with oncology as well and decided and not hospice or consulting hospice. 12/31/2019 Patient was a evaluated with radiation oncology and radiation therapy is being planned the patient the looks fairly better today does have still wheezing on exam and decreased air entry into bilateral lung owens. 01/01/2020 Patient looks better today will undergo radiation therapy today 01/02/2020 Patient went on BiPAP clinically not doing well significant wheezing patient was evaluated by pulmonology. I had discussion with pulmonology patient had a CAT scan in the past which didn't show any post obstructive atelectasis or pneumonia patient was switched to Augmentin patient not may not benefit from antibiotics considering his advanced COPD after discussion with pulmonology patient the may or may not tolerate radiation therapy and chemotherapy and patient prognosis remains poor. 01/03/2020 Looks better today with no syncope and wheezing today shadows with improved patient presently on 4 L of Cardizem which we'll try to wean it off in the possibility of discharge tomorrow and patient will need to follow up with radiation oncology as an outpatient. Constitutional: Denied any fatigue denied any fever. Cardio vascular: denied any chest pain, palpitations Gastrointestinal denied any nausea vomiting Pulmonary: As mentioned in HPI Neurologic denied any new focal deficits All inpatient medications were reviewed and appropriate changes in these medications as dictated in the interval history and assessment and plan. 01/04/2020 Patient is seen and evaluated and follow-up and continues to be dyspneic although states has improved slightly. Per nursing staff patient oxygen saturations dropped into the 70s off of BiPAP last night and has been using the BiPAP at night. Patient to undergo pulse oximeter readings to see if he qualifies for a BiPAP in the home setting. Case management and social work following and working on possible discharge planning needs and patient will continue with home care in the outpatient setting. Pulmonary continues to follow closely as well. Patient currently on 4 L of oxygen via nasal cannula. Patient is also maintained on IV steroids and bronchodilators and will continue at this time. Currently no reports of chest pain or palpitations. Patient is afebrile. No reports of nausea or vomiting and patient is tolerating diet. Oncology also following and arranging for radiation to continue in [place] in the outpatient setting. Objective - Vital Signs Vital signs: Vital Signs Temp 97.9 F 01/04/20 07:50 Pulse 92 01/04/20 11:01 Resp 22 01/04/20 07:50 BP 144/85 01/04/20 07:50 Pulse Ox 98 01/04/20 07:50 Intake & Output 01/03/20 01/04/20 01/04/20 18:59 06:59 18:59 Intake Total 1480 100 120 Output Total 3 600 Balance 1477 -500 120 Weight 79.5 kg Intake: Intake, IV Titration 600 100 Amount Sodium Chloride 0.9% 1, 600 100 000 ml @ 50 mls/hr IV . Q20H [facility] Rx#:[id number] Oral 880 120 Output: Urine 3 600 Other: Voiding Method Urinal Urinal Urinal # Voids 350 0 # Bowel Movements 0 0 - Exam GENERAL: The patient is alert and oriented x3, patient is in no acute distress. Well developed, well nourished. HEENT: Pupils are round and equally reacting to light. EOMI. No scleral icterus. No conjunctival pallor. Normocephalic, atraumatic. No pharyngeal erythema. No thyromegaly. CARDIOVASCULAR: S1 and S2 present. No murmurs, rubs, or gallops. PULMONARY: Significant improvement in wheezing fairly good air entry into bilateral lung owens. ABDOMEN: Soft, nontender, nondistended, normoactive bowel sounds. No palpable organomegaly. MUSCULOSKELETAL: No joint swelling or deformity. EXTREMITIES: No cyanosis, clubbing, or pedal edema. NEUROLOGICAL: Gross neurological examination did not reveal any focal deficits. SKIN: No rashes. - Labs CBC & Chem 7: 01/04/20 06:50 01/04/20 06:50 Labs: Abnormal Lab Results - Last 24 Hours (Table) 01/03/20 01/03/20 01/03/20 Range/Units 13:07 14:00 14:00 RBC 3.93 L (4.30-5.90) m/uL Hgb 10.6 L (13.0-17.5) gm/dL Hct (39.0-53.0) % MCHC 27.2 L (31.0-37.0) g/dL Neutrophils # 8.8 H (1.3-7.7) k/uL Lymphocytes # 0.2 L (1.0-4.8) k/uL Chloride 93 L (98-107) mmol/L Carbon Dioxide 42 H* (22-30) mmol/L BUN 37 H (9-20) mg/dL Creatinine 1.27 H (0.66-1.25) mg/dL Glucose 275 H (74-99) mg/dL POC Glucose (mg/dL) 289 H (75-99) mg/dL Calcium (8.4-10.2) mg/dL Magnesium 2.5 H (1.6-2.3) mg/dL Iron 38 L (65-175) ug/dL % Saturation 14.23 L (15.00-50.00) ALT 75 H (4-49) U/L Lactate Dehydrogenase 866 H (313-618) U/L Total Protein 5.3 L (6.3-8.2) g/dL Albumin 3.0 L (3.5-5.0) g/dL 07/01/03/20 01/04/20 Range/Units 17:07 20:06 02:53 RBC (4.30-5.90) m/uL Hgb (13.0-17.5) gm/dL Hct (39.0-53.0) % MCHC (31.0-37.0) g/dL Neutrophils # (1.3-7.7) k/uL Lymphocytes # (1.0-4.8) k/uL Chloride (98-107) mmol/L Carbon Dioxide (22-30) mmol/L BUN (9-20) mg/dL Creatinine (0.66-1.25) mg/dL Glucose (74-99) mg/dL POC Glucose (mg/dL) 205 H 194 H 165 H (75-99) mg/dL Calcium (8.4-10.2) mg/dL Magnesium (1.6-2.3) mg/dL Iron (65-175) ug/dL % Saturation (15.00-50.00) ALT (4-49) U/L Lactate Dehydrogenase (313-618) U/L Total Protein (6.3-8.2) g/dL Albumin (3.5-5.0) g/dL 01/04/20 01/04/20 01/04/20 Range/Units 06:07 06:50 06:50 RBC 3.68 L (4.30-5.90) m/uL Hgb 10.2 L (13.0-17.5) gm/dL Hct 35.8 L (39.0-53.0) % MCHC 28.5 L (31.0-37.0) g/dL Neutrophils # 8.9 H (1.3-7.7) k/uL Lymphocytes # 0.3 L (1.0-4.8) k/uL Chloride 96 L (98-107) mmol/L Carbon Dioxide 46 H* (22-30) mmol/L BUN 38 H (9-20) mg/dL Creatinine (0.66-1.25) mg/dL Glucose 145 H (74-99) mg/dL POC Glucose (mg/dL) 176 H (75-99) mg/dL Calcium 8.1 L (8.4-10.2) mg/dL Magnesium (1.6-2.3) mg/dL Iron (65-175) ug/dL % Saturation (15.00-50.00) ALT 64 H (4-49) U/L Lactate Dehydrogenase (313-618) U/L Total Protein 4.9 L (6.3-8.2) g/dL Albumin 2.7 L (3.5-5.0) g/dL Microbiology - Last 24 Hours (Table) 12/29/19 15:06 Blood Culture - Preliminary Blood No Growth after 120 hours 12/29/19 15:00 Blood Culture - Preliminary Blood No Growth after 120 hours Assessment and Plan Assessment: -Acute on chronic hypercapnic respiratory failure secondary to COPD exacerbation, patient appears to have large left-sided mass computed tomography scan from the last admission, oncology following and currently receiving radiation which is new. Patient will follow-up with radiation oncology in [place] in the outpatient setting. -COPD with acute exacerbation and patient remains on IV steroids by pulmonology. -Acute renal failure secondary to Lasix, improving, current creatinine is 0.97 -Metabolic alkalosis: As a compensation to CO2 retention and patient also has some contraction alkalosis -History of lung cancer squamous cell cancer patient has advanced COPD , patient has a large mass for which radiation oncology is following and planning to con tinue with radiation therapy in [place] in the outpatient setting. the mass is expected to shrink probably will help with the postobstructive pneumonia or atelectasis -gastroesophageal reflux disease -Hypertension -Coronary artery disease with cardiac catheterization and stenting in the past Plan: Continue with current medications, management, and symptomatic treatment. Patient to continue with pulse oximeter reading evaluations overnight to assess for possible BiPAP in the home setting. Case management and social work following and assisting with discharge planning needs as patient will continue with home care and radiation treatments in [place] with radiation oncology. Will repeat a.m. labs. Further recommendations to follow. Anticipate discharge in 24 hours.
[2020-01-04 17:14] LABS: Glucose,Whole Blood 202 mg/dL (75-99)
[2020-01-04 20:17] LABS: Glucose,Whole Blood 207 mg/dL (75-99)
[2020-01-04] MEDS: MIRTAZAPINE 45 MG TABLET PO SCH (21:06)
[2020-01-04] MEDS: ATORVASTATIN 10 MG TAB PO SCH (21:06)
[2020-01-05 06:10] LABS: Basophils % (A) 0 %; Eosinophils % (A) 0 %; HCT 36.2 % (39.0-53.0); HGB 10.7 gm/dL (13.0-17.5); Hypochromasia Marked; Lymphocytes # (A) 0.2 k/uL (1.0-4.8); Lymphocytes % (A) 3 %; MCHC 29.6 g/dL (31.0-37.0); Mean Platelet Volume 7.5; Monocytes # (A) 0.2 k/uL (0-1.0); Monocytes % (A) 2 %; Neutrophils # (A) 7.2 k/uL (1.3-7.7); Neutrophils % (A) 95 %; Platelet Count 193 k/uL (150-450); RDW 14.2 % (11.5-15.5); WBC 7.6 k/uL (3.8-10.6)
[2020-01-05 06:12] LABS: Glucose,Whole Blood 168 mg/dL (75-99)
[2020-01-05 06:24] LABS: Calcium 8.6 mg/dL (8.4-10.2); Potassium 4.7 mmol/L (3.5-5.1)
[2020-01-05] MEDS: PANTOPRAZOLE 40 MG TABLET PO SCH (06:38)
[2020-01-05] MEDS: INSULIN ASPART (NovoLOG) 100 UNIT/ML VIAL SQ SCH (06:38)
[2020-01-05] MEDS: methylPREDNISolone SOD SUCCI 125 MG/2 ML VIAL IV SCH (06:39)
[2020-01-05] MEDS: IPRATROPIUM-ALBUTEROL 3 ML NEB INHALATION SCH ×2 (08:29→11:18)
[2020-01-05] MEDS: SODIUM CHLORIDE 0.9% 1,000 ML IV SCH (09:30)
[2020-01-05 09:37] VITALS: RESP 18; TEMP 97.1
[2020-01-05] MEDS: amLODIPine 5 MG TAB PO SCH (09:37)
[2020-01-05] MEDS: AMOXIC-POT CLAV 875-125MG 1 EACH TAB PO SCH (09:37)
[2020-01-05] MEDS: ASPIRIN 81 MG PO SCH (09:38)
[2020-01-05] MEDS: busPIRone HCl 10 MG TAB PO SCH (09:38)
[2020-01-05] MEDS: METOPROLOL SUCCINATE (ER) 25 MG TAB.ER.24H PO SCH (09:38)
[2020-01-05] MEDS: NON FORMULARY DRUG (Roflumilast [Daliresp] 500 MCG) PO SCH (09:39)
[2020-01-05] MEDS: ACETAMINOPHEN TAB 325 MG TAB PO PRN (09:43)
[2020-01-05] MEDS: SYMBICORT 160-4.5 MCG INHALER INHALATION SCH (11:18)
[2020-01-05 11:19] VITALS: BP 137/78
[2020-01-05 11:33] VITALS: PULSE 88
--- NOTE | 2020-01-05 11:35 | P.PN ---
Subjective Progress Note Date: 01/05/20 Principal diagnosis: Acute exacerbation of chronic obstructive pulmonary disease, clinically advanced adenocarcinoma 74-year-old male patient with a recent diagnosis of lung cancer was Hospital as for worsening shortness of breath. The patient has a large left upper lobe mass for which the patient underwent a fine-needle aspirate and the patient was found to have squamous cell carcinoma of the lung. PET scan did not show any distant metastases and disease is locally advanced, possibly stage III. The patient has not started any treatment. The patient is not a candidate for any surgical resection as the patient has advanced COPD. He came in for respiratory distress and COPD exacerbation. He was initially placed on BiPAP for respiratory support and he was covered with broad-spectrum antibiotic including Zosyn and vancomycin and he was given IV Solu-Medrol. On today's evaluation is off the BiPAP he is feeling slightly better. Nevertheless, he still weak and he has very limited exercise capacity and he gets short of breath with limited amount of activity. The patient's has no significant sputum production. No hemoptysis. No pleurisy. He is feeling slightly better compared to yesterday. He was seen by radiation oncology and the patient is being given palliative radiation therapy. Regarding his left upper lobe mass. No reported fever. No reported chills. No reported hemoptysis. He is on bronchodilators. He is on prednisone burst taper starting with 30 mg. On today's evaluation of 01/02/2020, the patient is still doing poorly. The patient on BiPAP at a pressure of 1205 cm of water and he seems to be requiring BiPAP more often. He underwent his first session of radiation yesterday. No hemoptysis. No pleurisy. No chest pain. He is awake and alert. He is on DuoNeb about treatments around the clock. I would suggest putting this patient back on IV Solu-Medrol as the patient is still quite bronchospastic and wheezy and I think this switched to oral prednisone [facility]. For that reason is for sedation back in 93 Solu-Medrol. No other new complaints otherwise for now. On 01/03/2020 patient seen in follow-up on selective care unit, he is awake and alert, in no acute distress, patient is on 4 L of oxygen pulse ox of 92%, she did wear BiPAP at night, with pressures of 12/5 FiO2 of 45%, he's been afebrile, hemodynamically patient has been stable. Patient continues on empiric antibiotics, currently on Augmentin, continues on IV Solu-Medrol, breathing treatments. Breathing has improved, some scattered wheezing and rhonchi, nonproductive cough. IV fluids infusing at a rate of 50 ML per hour, patient has been started on radiation therapy. Denies any chest pain, denies any pleurisy or hemoptysis. Mentation is appropriate, he is answering questions appropriately. No confusion. The patient is seen today 01/04/2020 in follow-up on the selective care unit. He is currently off BiPAP and on oxygen at 3 L/m per nasal cannula. O2 saturation 98%. He is currently afebrile. Hemodynamically stable. Sputum culture positive for Valeria only. Blood cultures reveal no growth. White count 9.4. Hemoglobin 10.2. Sodium 141. Potassium 5.0. Bicarb 46. Creatinine 0.97. He remains on DuoNeb inhalations, Symbicort, IV Solu-Medrol, Augmentin. The patient is seen today 01/05/2020 in follow-up on the selective care unit. He is currently awake and alert in no acute distress. He is maintaining O2 saturations in the 90s on 2 L/m per nasal cannula. He desaturated to 89% and up to 3 L. Alternating with BiPAP 12/5 and 45%. White count 7.6. Hemoglobin 10.7. Sodium 139. Potassium 4.7. Bicarb 45. Creatinine 0.99. He remains on bronchodilators, IV Solu-Medrol, Augmentin. Objective - Vital Signs Vital signs: Vital Signs Temp 97.1 F L 01/05/20 08:00 Pulse 84 01/05/20 11:18 Resp 18 01/05/20 11:16 BP 137/78 01/05/20 11:16 Pulse Ox 89 L 01/05/20 11:16 Intake & Output 01/04/20 01/05/20 01/05/20 18:59 06:59 18:59 Intake Total 489 50 Output Total 1800 400 Balance 489 -1800 -350 Weight 79.5 kg 83.5 kg Intake: Oral 489 50 Output: Urine 1800 400 Other: Voiding Method Urinal Urinal Urinal # Voids 0 2 1 # Bowel Movements 0 - Exam GENERAL EXAM: Alert, very pleasant, 74-year-old male patient, on on 3 L nasal cannula, O2 saturation 98%, alternating with BiPAP, comfortable in no apparent distress. HEAD: Normocephalic/atraumatic. EYES: Normal reaction of pupils, equal size. Conjunctiva pink, sclera white. NOSE: Clear with pink turbinates. THROAT: No erythema or exudates. NECK: No masses, no JVD, no thyroid enlargement, no adenopathy. CHEST: No chest wall deformity. Symmetrical expansion. LUNGS: Equal air entry with some scattered rhonchi and wheezing CVS: Regular rate and rhythm, normal S1 and S2, no gallops, no murmurs, no rubs ABDOMEN: Soft, nontender. No hepatosplenomegaly, normal bowel sounds, no guardi ng or rigidity. EXTREMITIES: No clubbing, no edema, no cyanosis, 2+ pulses and upper and lower extremities. MUSCULOSKELETAL: Muscle strength and tone normal. SPINE: No scoliosis or deformity SKIN: No rashes CENTRAL NERVOUS SYSTEM: No focal deficits, tone is normal in all 4 extremities. PSYCHIATRIC: Alert and oriented -3. Appropriate affect. Intact judgment and insight. - Labs CBC & Chem 7: 01/05/20 05:45 01/05/20 05:45 Labs: Abnormal Lab Results - Last 24 Hours (Table) 01/03/20 01/04/20 01/04/20 Range/Units 14:00 11:52 12:59 RBC (4.30-5.90) m/uL Hgb (13.0-17.5) gm/dL Hct (39.0-53.0) % MCHC (31.0-37.0) g/dL Lymphocytes # (1.0-4.8) k/uL Chloride (98-107) mmol/L Carbon Dioxide (22-30) mmol/L BUN (9-20) mg/dL Glucose (74-99) mg/dL POC Glucose (mg/dL) 176 H 220 H (75-99) mg/dL Methylmalonic Acid 0.93 H (<0.40) umol/L 01/04/20 01/04/20 01/05/20 Range/Units 17:07 20:16 05:45 RBC 3.70 L (4.30-5.90) m/uL Hgb 10.7 L (13.0-17.5) gm/dL Hct 36.2 L (39.0-53.0) % MCHC 29.6 L (31.0-37.0) g/dL Lymphocytes # 0.2 L (1.0-4.8) k/uL Chloride (98-107) mmol/L Carbon Dioxide (22-30) mmol/L BUN (9-20) mg/dL Glucose (74-99) mg/dL POC Glucose (mg/dL) 202 H 207 H (75-99) mg/dL Methylmalonic Acid (<0.40) umol/L 01/05/20 01/05/20 Range/Units 05:45 06:11 RBC (4.30-5.90) m/uL Hgb (13.0-17.5) gm/dL Hct (39.0-53.0) % MCHC (31.0-37.0) g/dL Lymphocytes # (1.0-4.8) k/uL Chloride 95 L (98-107) mmol/L Carbon Dioxide 45 H* (22-30) mmol/L BUN 40 H (9-20) mg/dL Glucose 151 H (74-99) mg/dL POC Glucose (mg/dL) 168 H (75-99) mg/dL Methylmalonic Acid (<0.40) umol/L Microbiology - Last 24 Hours (Table) 12/29/19 15:06 Blood Culture - Final Blood No Growth after 144 hours 12/29/19 15:00 Blood Culture - Final Blood No Growth after 144 hours Assessment and Plan Assessment: #1. Acute on chronic hypoxemic and hypercapnic respiratory failure related to acute COPD exacerbation #2. Locally advanced pulmonary adenocarcinoma with a large left upper lobe mass not causing any mass effect in the meantime care or in the left upper lobe bronchus based on the CAT scan and the PET scan findings, recently diagnosed, in November 2019, with no evidence of distant metastasis, outpatient PET scan, stage IIIa. Patient has been started on radiation therapy #3. Severe oxygen-dependent COPD with a baseline FEV1 value of 40% of predicted #4. History of tobacco dependence #5. History of right renal cell carcinoma status post nephrectomy #6. History of insomnia #7. Hyperlipidemia #8. GERD #9. 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 Chronic back pain Plan: The patient was seen and evaluated by Dr. Faith. He does qualify for BiPAP based on his ABGs with a P CO2 of 65 and nocturnal pulse oximeter readings that were less than 80% of the for greater than 6 minutes. Discontinue IV Solu- Medrol, initiated prednisone burst and taper. Continue current medical treatment Currently receiving radiation therapy. Overall prognosis remains quite poor and guarded. I, the cosigning physician, performed a history & physical examination of the patient. Lungs sounds with bilateral end expiratory wheeze, diminished. Maintaining good O2 saturations in the 90s on 3 L/m per nasal cannula alternating with BiPAP support 12/5 and 45% FiO2. I discussed the assessment and plan of care with my nurse practitioner, Bernadette Fernandez. I attest to the above note as dictated by her.
[2020-01-05 11:52] LABS: Glucose,Whole Blood 147 mg/dL (75-99)
--- NOTE | 2020-01-05 13:05 | P.DS ---
Providers Date of admission: 12/29/19 10:20 Expected date of discharge: 01/05/20 Attending physician: Juliet Rodriguez Consults: 12/29/19 10:20 Consult Physician Routine Consulting Provider: Mina Faith Consult Reason/Comments: COPD, hypoxic hypercapnic respiratory failure Do you want consulting provider notified?: Already Contacted 12/29/19 12:40 Consult Physician Routine Consulting Provider: Luis Leong Consult Reason/Comments: lung cancer Do you want consulting provider notified?: Yes 12/29/19 17:04 Consult Physician Routine Consulting Provider: Toney Zhou Consult Reason/Comments: palliative RT to lung mass Do you want consulting provider notified?: Yes Primary care physician: Kristy Williamson MD Hospital Course: Final diagnosis -Acute on chronic hypercapnic respiratory failure secondary to COPD exacerbation, patient appears to have large left-sided mass with BiPAP needed and CPAP ruled out -COPD with acute exacerbation -Acute renal failure secondary to Lasix, improving -Metabolic alkalosis: As a compensation to CO2 retention and patient also has some contraction alkalosis -History of lung cancer squamous cell cancer patient has advanced COPD -gastroesophageal reflux disease -Hypertension -Coronary artery disease with cardiac catheterization and stenting in the past Discharge disposition Patient is being discharged in a stable condition with extremely guarded and poor prognosis to home. Patient will continue with home care in the outpatient setting. Patient will follow-up with Dr. Kristy Williamson in the outpatient setting upon discharge. Patient is to continue with BiPAP. Patient will also continue on a short course of oral antibiotics in the form of Augmentin twice daily for the next 1 week along with a prednisone taper in the outpatient setting. Total time taken is greater than 35 minutes. History of present illness This is a 74-year-old male who was recently admitted with history of COPD current lung cancer and was in respiratory distress and was being closely monitored. Multiple medical consultations following. Patient was placed on a BiPAP and was found to have worsening pneumonia and initiated on IV antibiotics along with IV steroids. Patient continues to have extremely poor prognosis and was recently initiated on radiation therapy and will follow-up with radiation oncology in [place] for squamous cell lung carcinoma. Patient was evaluated for BiPAP and qualified and CPAP was ruled out. Patient was maintained on IV antibiotics and will transition to oral Augmentin and will continue for 1 week and complete the course. Patient also will continue with the prednisone taper. Patient continues to be weak and will continue with home care in the outpatient setting. Currently no reports of chest pain, worsening shortness of breath, or palpitations. Patient is afebrile. No reports of nausea or vomiting and patient is tolerating diet. Patient will be Discharged to home with extremely poor and guarded prognosis. On exam vital signs are stable. Temp is 97.1F, pulse is 86, respirations are 18, blood pressure is 137/78, oxygen saturation is 89-90 % on 2-3 L nasal cannula. Cardio S1, S2 are muffled. Respiratory system shows diminished breath sounds at the bases with no wheezing or rhonchi noted. Abdomen is soft and obese, and nontender. Nervous system shows diffuse weakness. Please refer to medication reconciliation sheet for a list of medications. Patient Condition at Discharge: Serious Plan - Discharge Summary Discharge Rx Participant: No New Discharge Prescriptions: New Amoxic-Pot Clav 875-125Mg [Augmentin 875-125] 1 each PO Q12HR 7 Days #14 tab Ipratropium-Albuterol Nebulize [Duoneb 0.5 mg-3 mg/3 ml Soln] 3 ml INHALATION RT-Q4H PRN ml PRN Reason: Shortness Of Breath Or Wheezing amLODIPine [Norvasc] 5 mg PO DAILY 30 Days #30 tab predniSONE 10 mg PO DIRECTED #30 tab Continue Mirtazapine 45 mg PO HS Atorvastatin [Lipitor] 10 mg PO HS Roflumilast [Daliresp] 500 mcg PO DAILY Aspirin EC [Ecotrin Low Dose] 81 mg PO DAILY Metoprolol Succinate [Toprol XL] 25 mg PO DAILY Trazodone (Unknown Strength) 1 tab PO HS Pantoprazole [Protonix] 40 mg PO DAILY #30 tablet. Budesonide-Formot 160-4.5 Mcg [Symbicort 160-4.5 Mcg Inhaler] 2 puff INHALATION RT-BID #1 puff busPIRone HCl [Buspar] 10 mg PO BID Acetaminophen Tab [Tylenol] 650 mg PO Q6HR PRN tab PRN Reason: Fever And/ Or Pain Ipratropium-Albuterol Nebulize [Duoneb 0.5 mg-3 mg/3 ml Soln] 3 ml INHALATION RT-QID #30 day Discontinued amLODIPine [Norvasc] 10 mg PO DAILY predniSONE See Taper PO DAILY Discharge Medication List Aspirin EC [Ecotrin Low Dose] 81 mg PO DAILY 01/05/18 [History] Atorvastatin [Lipitor] 10 mg PO HS 01/05/18 [History] Mirtazapine 45 mg PO HS 01/05/18 [History] Roflumilast [Daliresp] 500 mcg PO DAILY 01/05/18 [History] Metoprolol Succinate [Toprol XL] 25 mg PO DAILY 11/25/19 [History] Trazodone (Unknown Strength) 1 tab PO HS 11/25/19 [History] Budesonide-Formot 160-4.5 Mcg [Symbicort 160-4.5 Mcg Inhaler] 2 puff INHALATION RT-BID #1 puff 12/01/19 [Rx] Pantoprazole [Protonix] 40 mg PO DAILY #30 tablet. 12/01/19 [Rx] busPIRone HCl [Buspar] 10 mg PO BID 12/20/19 [History] Acetaminophen Tab [Tylenol] 650 mg PO Q6HR PRN tab 12/27/19 [Rx] Ipratropium-Albuterol Nebulize [Duoneb 0.5 mg-3 mg/3 ml Soln] 3 ml INHALATION RT-QID #30 day 12/27/19 [Rx] Amoxic-Pot Clav 875-125Mg [Augmentin 875-125] 1 each PO Q12HR 7 Days #14 tab 01/05/20 [Rx] Ipratropium-Albuterol Nebulize [Duoneb 0.5 mg-3 mg/3 ml Soln] 3 ml INHALATION RT-Q4H PRN ml 01/05/20 [Rx] amLODIPine [Norvasc] 5 mg PO DAILY 30 Days #30 tab 01/05/20 [Rx] predniSONE 10 mg PO DIRECTED #30 tab 01/05/20 [Rx] Follow up Appointment(s)/Referral(s): Kristy Williamson MD [Primary Care Provider] - 01/12/20 10:45 am (Wednesday) [facility], [NON-STAFF] - Patient Instructions/Handouts: Lung Cancer (GEN), COPD (Chronic Obstructive Pulmonary Disease) (DC) Activity/Diet/Wound Care/Special Instructions: Give patient CD of MRI and PET scan to take home at discharge [facility] radiation department will call you to set up outpatient radiation appointments. If you do not here from then within one week call [phone] and they will assist you - take CD of MRI and PET scan with you to your appointment Patient will require a bipap at discharge for severe copd, CPAP ruled out Activity Limited until follow-up Follow-up with primary care provider Continue current diet Continue antibiotics until finished Continue with prednisone taper Continue with home care Discharge Disposition: HOME WITH HOME HEALTH SERVICES
== END 2020-01-05 12:28 | disposition home health service (06) | DRG 189 ==
LOC: EC 10:11 → 3SCARD 10:20
PROVIDERS: ADMIT Internal Medicine; ATTEND Internal Medicine
PROC: 5A09557 Assistance with Respiratory Ventilation, Greater than 96 Consecutive Hours, Continuous Positive Airway Pressure (ICD-10-PCS; principal; 2019-12-29)
PROC: DB021ZZ Beam Radiation of Lung using Photons 1 - 10 MeV (ICD-10-PCS; 2020-01-02)
DX: J96.22 Acute and chronic respiratory failure with hypercapnia (principal); J18.9 Pneumonia, unspecified organism; C34.12 Malignant neoplasm of upper lobe, left bronchus or lung; N17.9 Acute kidney failure, unspecified; E87.4 Mixed disorder of acid-base balance; K76.89 Other specified diseases of liver; J43.9 Emphysema, unspecified; J96.21 Acute and chronic respiratory failure with hypoxia; Z66 Do not resuscitate; Z51.5 Encounter for palliative care; Z20.828 Contact with and (suspected) exposure to other viral communicable diseases; D64.9 Anemia, unspecified; G89.29 Other chronic pain; M54.41 Lumbago with sciatica, right side; I10 Essential (primary) hypertension; T50.1X5A Adverse effect of loop [high-ceiling] diuretics, initial encounter; N28.1 Cyst of kidney, acquired; I25.10 Atherosclerotic heart disease of native coronary artery without angina pectoris; K21.9 Gastro-esophageal reflux disease without esophagitis; E78.5 Hyperlipidemia, unspecified; G47.00 Insomnia, unspecified; F32.9 Major depressive disorder, single episode, unspecified; F41.9 Anxiety disorder, unspecified; I25.2 Old myocardial infarction; F17.200 Nicotine dependence, unspecified, uncomplicated; Z71.6 Tobacco abuse counseling; Z99.81 Dependence on supplemental oxygen; Z79.82 Long term (current) use of aspirin; Z79.51 Long term (current) use of inhaled steroids; Z79.899 Other long term (current) drug therapy; Z85.528 Personal history of other malignant neoplasm of kidney; Z87.01 Personal history of pneumonia (recurrent); Z90.5 Acquired absence of kidney; Z98.890 Other specified postprocedural states; Z87.442 Personal history of urinary calculi; Z95.5 Presence of coronary angioplasty implant and graft; Z87.828 Personal history of other (healed) physical injury and trauma; Z86.74 Personal history of sudden cardiac arrest; Z86.73 Personal history of transient ischemic attack (TIA), and cerebral infarction without residual deficits; Z80.3 Family history of malignant neoplasm of breast; Z80.9 Family history of malignant neoplasm, unspecified
CPT/HCPCS: 36600; 71045; 71046; 77290; 77295; 77300; 77332; 77334; 77336; 77370; 77387; 77412; 80048; 80053; 82607; 82728; 82746; 82805; 83540; 83550; 83615; 83735; 83921; 85025; 85027; 87040; 87070; 87205; 94640; 94660; 94760; 94762; 99291

== ENCOUNTER 2020-01-07 15:54 | Inpatient (IN) | payer MEDICARE ==
[2020-01-07] MEDS ORDERED: PNEUMONIA PROTOCOL UTILIZED 1 EACH MISC PO PRN (16:14)
[2020-01-07] MEDS ORDERED: IPRATROPIUM-ALBUTEROL 3 ML NEB INHALATION PRN ×2 (16:14→21:08)
[2020-01-07] MEDS ORDERED: PIPERACILLIN-TAZOBACTAM 3.375 GM in SODIUM CHLORIDE 0.9% 100 ML IVPB STA (16:14)
[2020-01-07] MEDS ORDERED: LEVOFLOXACIN 750MG-D5W PMX 750 MG in DEXTROSE/WATER 1 150ML.BAG IVPB STA (16:14)
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
[2020-01-07] MEDS: SODIUM CHLORIDE 0.9% 1,000 ML IV SCH (16:42)
--- NOTE | 2020-01-07 18:23 | XR ---
EXAMINATION TYPE: XR chest 2V DATE OF EXAM: 01/07/2020 COMPARISON: 12/30/2019 chest radiograph HISTORY: Fever, weakness, shortness of breath. History of lung cancer. TECHNIQUE: Frontal and lateral views of the chest are obtained. FINDINGS: There is a redemonstrated large mass of the left paratracheal region and left lung apex, w ith redemonstrated mass effect and mild rightward shift of the trachea. There is mildly increased opa cities diffusely involving the left lung versus 12/30/2019 comparison. No pleural effusion or pneumoth orax. Cardiomediastinal silhouette unchanged versus prior comparison. IMPRESSION: Redemonstrated large left chest mass. Mildly increased opacities throughout the left yury g versus 12/30/2019 comparison.
[2020-01-07] MEDS: methylPREDNISolone SOD SUCCI 125 MG/2 ML VIAL IV SCH ×2 (18:28→22:50)
[2020-01-07] MEDS: IPRATROPIUM-ALBUTEROL 3 ML NEB INHALATION SCH (20:22)
[2020-01-07 20:24] LABS: Glucose,Whole Blood 214 mg/dL (75-99)
--- NOTE | 2020-01-07 20:41 | NM ---
EXAMINATION TYPE: NM pul vent and perfuse DATE OF EXAM: 01/07/2020 COMPARISON: Correlation radiograph same date and prior VQ scan 12/20/2019 HISTORY: 74-year-old male with shortness of breath, dyspnea TECHNIQUE: Utilizing inhalation of 37.2 mCi Tc 99m DTPA aerosol and intravenous injection of 5.2 mCi of Tc 99m MAA, ventilation and perfusion images are acquired post injection in multiple projections. FINDINGS: There is generalized decreased ventilation and perfusion throughout the left lung. Some clumped trace r activity centrally within the airways can be seen with COPD. Perfusion images show no discrete perfusion mismatch. IMPRESSION: Continued whole left lung matched decreased ventilation and perfusion. Likely secondary to the patien t's known large left-sided mass compressing hilar structures. Overall low probability for pulmonary e mbolus.
[2020-01-07] MEDS: PIPERACILLIN-TAZOBACTAM 3.375 GM in SODIUM CHLORIDE 0.9% 100 ML IVPB SCH (22:50)
[2020-01-08] MEDS: SODIUM CHLORIDE 0.9% 1,000 ML IV SCH ×3 (02:34→21:04)
[2020-01-08] MEDS: methylPREDNISolone SOD SUCCI 125 MG/2 ML VIAL IV SCH ×4 (06:14→23:23)
[2020-01-08 06:28] LABS: Glucose,Whole Blood 146 mg/dL (75-99)
--- NOTE | 2020-01-08 07:22 | XR ---
EXAMINATION TYPE: XR chest 2V DATE OF EXAM: 01/08/2020 COMPARISON: Prior chest 01/07/2020 HISTORY: Pneumonia TECHNIQUE: Frontal and lateral views of the chest are obtained. FINDINGS: There is persistent basilar airspace disease, the patient's left upper lobe lung mass is a gain noted. No pneumothorax. Interstitium is increased within the left hemithorax, heart size is stab le. IMPRESSION: Findings similar to prior exam. Patient with known lung mass. Difficult to exclude super imposed pneumonia.
[2020-01-08] MEDS: IPRATROPIUM-ALBUTEROL 3 ML NEB INHALATION SCH ×4 (07:29→20:48)
[2020-01-08] MEDS: SYMBICORT 160-4.5 MCG INHALER INHALATION SCH ×2 (08:27→20:48)
[2020-01-08] MEDS: PIPERACILLIN-TAZOBACTAM 3.375 GM in SODIUM CHLORIDE 0.9% 100 ML IVPB SCH ×3 (08:38→23:24)
[2020-01-08] MEDS: amLODIPine 5 MG TAB PO SCH (08:39)
[2020-01-08] MEDS: busPIRone HCl 10 MG TAB PO SCH ×2 (08:39→21:03)
[2020-01-08] MEDS: METOPROLOL SUCCINATE (ER) 25 MG TAB.ER.24H PO SCH (08:39)
[2020-01-08] MEDS: PANTOPRAZOLE 40 MG TABLET PO SCH (08:39)
[2020-01-08] MEDS: ASPIRIN 81 MG PO SCH (08:39)
[2020-01-08] MEDS: Roflumilast [Daliresp] 500 MCG PO SCH (08:50)
[2020-01-08] MEDS ORDERED: AMOXIC-POT CLAV 875-125MG 1 EACH TAB PO SCH (09:00)
[2020-01-08] MEDS: ACETAMINOPHEN TAB 325 MG TAB PO PRN ×2 (11:16→21:08)
[2020-01-08] MEDS ORDERED: MAGNESIUM SULFATE-D5W PMX 1 GM in DEXTROSE/WATER 1 100ML.BAG IVPB SCH (11:30)
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
[2020-01-08 12:01] LABS: Glucose,Whole Blood 195 mg/dL (75-99)
[2020-01-08 12:20] LABS: HCT 31.5 % (39.0-53.0); Hypochromasia Marked; MCH 28.4 pg (25.0-35.0); MCHC 29.3 g/dL (31.0-37.0); MCV 97.2 fL (80.0-100.0); Mean Platelet Volume 7.7; Platelet Count 116 k/uL (150-450); RBC 3.24 m/uL (4.30-5.90); RDW 15.1 % (11.5-15.5); WBC 5.8 k/uL (3.8-10.6)
[2020-01-08 12:26] LABS: HGB 9.2 gm/dL (13.0-17.5)
[2020-01-08] MEDS: INSULIN ASPART (NovoLOG) 100 UNIT/ML VIAL SQ SCH ×3 (12:29→21:04)
[2020-01-08 12:35] LABS: Albumin 2.8 g/dL (3.5-5.0); Calcium 7.6 mg/dL (8.4-10.2); Potassium 4.2 mmol/L (3.5-5.1); Total Bilirubin 0.6 mg/dL (0.2-1.3); Total Protein 4.9 g/dL (6.3-8.2)
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
--- NOTE | 2020-01-08 16:43 | MR ---
EXAMINATION TYPE: MR brain wo/w con DATE OF EXAM: 01/08/2020 COMPARISON: 12/01/2019 HISTORY: Lung cancer, worsening neuro sx CONTRAST: Standard multiplanar, multisequence MRI departmental protocol utilizing 7.5 mL intravenous Gadavist g adolinium contrast. There is diffuse cerebral cortical atrophy. There is no mass effect nor midline shift. There is no si gn of intracranial hemorrhage. On the T2 and FLAIR images there are numerous foci of abnormal increas ed signal in the periventricular white matter and yang-white matter junction of both cerebral hemisph eres. These are coalescent and measure up to 1.5 cm. There is some thinning of the corpus callosum. T here is slight increased signal on the left side of the vlad on the FLAIR images that measures 8 mm. There is some mucosal thickening in the ethmoid air cells. There is no evidence of orbital mass. Ther e is no evidence of posterior fossa mass. The contrast images show no pathologic enhancement. There is normal contrast opacification of the cheryl ous sinuses. There is contrast opacification of the anterior middle and posterior cerebral arteries. There is arterial flow in the vertebrobasilar artery system. IMPRESSION: Cerebral atrophy and extensive chronic white matter changes consistent with chronic small vessel isch emia. Demyelinating disease not excluded. No evidence of cortical infarct. No evidence of metastatic disease. Brain appears not significantly different than old exam.
[2020-01-08 17:23] LABS: Glucose,Whole Blood 269 mg/dL (75-99)
[2020-01-08] MEDS ORDERED: LEVOFLOXACIN 750MG-D5W PMX 750 MG in DEXTROSE/WATER 1 150ML.BAG IVPB SCH (18:00)
[2020-01-08 20:45] LABS: Glucose,Whole Blood 136 mg/dL (75-99)
[2020-01-08] MEDS: ATORVASTATIN 10 MG TAB PO SCH (21:03)
[2020-01-08] MEDS: MIRTAZAPINE 15 MG TAB PO SCH (21:04)
[2020-01-09 06:09] LABS: Glucose,Whole Blood 183 mg/dL (75-99)
[2020-01-09] MEDS: methylPREDNISolone SOD SUCCI 125 MG/2 ML VIAL IV SCH ×4 (06:31→23:28)
[2020-01-09] MEDS: INSULIN ASPART (NovoLOG) 100 UNIT/ML VIAL SQ SCH ×4 (06:31→20:33)
[2020-01-09 06:32] LABS: HGB 9.6 gm/dL (13.0-17.5); Hypochromasia Marked; MCH 29.5 pg (25.0-35.0); MCHC 30.2 g/dL (31.0-37.0); MCV 97.9 fL (80.0-100.0); Mean Platelet Volume 7.5; Platelet Count 129 k/uL (150-450); RBC 3.27 m/uL (4.30-5.90); RDW 14.9 % (11.5-15.5)
[2020-01-09 06:38] LABS: Calcium 7.7 mg/dL (8.4-10.2); Potassium 4.4 mmol/L (3.5-5.1)
--- NOTE | 2020-01-09 08:20 | CT ---
EXAMINATION TYPE: CT chest angio for PE DATE OF EXAM: 01/09/2020 COMPARISON: Chest x-ray 01/08/2020 and PET/CT 12/15/2019 HISTORY: SOB, PE, lung CA CT DLP: 400.1 mGycm Automated exposure control for dose reduction was used. CONTRAST: CT Chest for pulmonary embolism performed with with IV Contrast, patient injected with 63 mL of Isovu e 370. FINDINGS: LUNGS: The left upper lobe lung mass is again noted. There is airspace disease present in the left lo wer lobe, scattered air bronchograms with associated areas of groundglass opacity, comments of inters titium which is developed compared to prior PET/CT, lingular groundglass opacity is again noted, ther e has been some progression in the airspace disease in the left upper lobe as compared to prior PET/C T. Emphysematous changes are present within the right lung. Emphysematous changes are noted in the ri ght lung. MEDIASTINUM: There is satisfactory enhancement of the central pulmonary arteries, prominence of pulmo nary artery could be due to pulmonary artery hypertension. Segmental branch vessels are not well, the re is extensive artifact present. There are no greater than 1 cm hilar or mediastinal lymph nodes. No pericardial effusion is seen. AORTA: Root of the aorta measures 4.4 cm, ascending aorta measures 23 cm, atheromatous changes are p resent. The descending aorta measures 2.9 cm. OTHER: No additional significant abnormality is seen. Large cystic foci are present within the liver . Extensive cystic foci present within the left kidney. There is a hiatal hernia. Postop changes are suspect within the posterior left chest, the metallic densities. Rib fractures are noted in the lower left chest. IMPRESSION: Pulmonary embolism is not excluded. Correlate for pneumonia versus postobstructive atele ctatic changes or interstitial spread of carcinoma. Aortic aneurysm.
[2020-01-09] MEDS: amLODIPine 5 MG TAB PO SCH (08:38)
[2020-01-09] MEDS: busPIRone HCl 10 MG TAB PO SCH ×2 (08:38→20:33)
[2020-01-09] MEDS: ASPIRIN 81 MG PO SCH (08:38)
[2020-01-09] MEDS: METOPROLOL SUCCINATE (ER) 25 MG TAB.ER.24H PO SCH (08:38)
[2020-01-09] MEDS: ENOXAPARIN 40 MG/0.4 ML SYRINGE SQ SCH (08:38)
[2020-01-09] MEDS: PANTOPRAZOLE 40 MG TABLET PO SCH (08:38)
[2020-01-09] MEDS: PIPERACILLIN-TAZOBACTAM 3.375 GM in SODIUM CHLORIDE 0.9% 100 ML IVPB SCH ×3 (08:39→23:28)
[2020-01-09] MEDS: SYMBICORT 160-4.5 MCG INHALER INHALATION SCH ×2 (08:49→20:03)
[2020-01-09] MEDS: IPRATROPIUM-ALBUTEROL 3 ML NEB INHALATION SCH ×4 (08:49→20:03)
[2020-01-09] MEDS ORDERED: FUROSEMIDE 20 MG TAB PO SCH (09:00)
[2020-01-09] MEDS: Roflumilast [Daliresp] 500 MCG PO SCH (09:54)
[2020-01-09 11:48] LABS: Glucose,Whole Blood 159 mg/dL (75-99)
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
--- NOTE | 2020-01-09 13:05 | P.PN ---
Subjective Progress Note Date: 01/09/20 Principal diagnosis: new lung ca, copd, post obs pneumonia resting comfortable on 5L Objective - Vital Signs Vital signs: Vital Signs Temp 97.7 F 01/09/20 11:19 Pulse 88 01/09/20 11:59 Resp 18 01/09/20 11:59 BP 107/66 01/09/20 11:19 Pulse Ox 95 01/09/20 11:19 Intake & Output 01/08/20 01/09/20 01/09/20 18:59 06:59 18:59 Intake Total 572 360 240 Output Total 325 750 300 Balance 247 -390 -60 Intake: Intake, IV Titration 100 Amount Piperacillin-Tazobactam 3 100 .375 gm In Sodium Chloride 0.9% 100 ml @ 25 mls/hr IVPB Q8HR [facility] Rx# :[id number] Oral 472 360 240 Output: Urine 325 750 300 Other: # Voids 1 1 - Exam - Exam - Constitutional General appearance: Present: average body habitus, cooperative, no acute distress - EENT Eyes: Present: PERRLA, poor dentition ENT: Present: hard of hearing, NA/AT - Neck Neck: Present: normal ROM - Respiratory - Improving Respiratory: bilateral: diminished, rhonchi NC, increased respiratory effort - Cardiovascular Rhythm: regular Tachy Heart sounds: normal: S1, S2 - Gastrointestinal General gastrointestinal: Present: normal bowel sounds, soft - Integumentary Integumentary: Present: pale - Neurologic Neurologic: Present:non-focal - Musculoskeletal Musculoskeletal: Present: generalized weakness, strength equal bilaterally - Psychiatric Psychiatric: Present: A&O x's 3, appropriate affect, intact judgment & insight although poor historian and forgetfull - Labs CBC & Chem 7: 01/09/20 06:06 01/09/20 06:06 Labs: Abnormal Lab Results - Last 24 Hours (Table) 01/07/20 01/08/20 01/08/20 Range/Units 17:22 11:55 11:55 RBC (4.30-5.90) m/uL Hgb (13.0-17.5) gm/dL Hct (39.0-53.0) % MCHC (31.0-37.0) g/dL Plt Count (150-450) k/uL Chloride 94 L (98-107) mmol/L Carbon Dioxide 39 H (22-30) mmol/L BUN 39 H (9-20) mg/dL Glucose 175 H (74-99) mg/dL POC Glucose (mg/dL) (75-99) mg/dL Calcium 7.6 L (8.4-10.2) mg/dL ALT 64 H (4-49) U/L Troponin I 0.062 H* (0.000-0.034) ng/mL Total Protein 4.9 L (6.3-8.2) g/dL Albumin 2.8 L (3.5-5.0) g/dL Procalcitonin 29.77 H (0.02-0.09) ng/mL 01/08/20 01/08/20 01/09/20 Range/Units 17:21 20:44 06:06 RBC 3.27 L (4.30-5.90) m/uL Hgb 9.6 L (13.0-17.5) gm/dL Hct 32.0 L (39.0-53.0) % MCHC 30.2 L (31.0-37.0) g/dL Plt Count 129 L (150-450) k/uL Chloride (98-107) mmol/L Carbon Dioxide (22-30) mmol/L BUN (9-20) mg/dL Glucose (74-99) mg/dL POC Glucose (mg/dL) 269 H 136 H (75-99) mg/dL Calcium (8.4-10.2) mg/dL ALT (4-49) U/L Troponin I (0.000-0.034) ng/mL Total Protein (6.3-8.2) g/dL Albumin (3.5-5.0) g/dL Procalcitonin (0.02-0.09) ng/mL 01/09/20 01/09/20 01/09/20 Range/Units 06:06 06:08 11:47 RBC (4.30-5.90) m/uL Hgb (13.0-17.5) gm/dL Hct (39.0-53.0) % MCHC (31.0-37.0) g/dL Plt Count (150-450) k/uL Chloride 97 L (98-107) mmol/L Carbon Dioxide 44 H* (22-30) mmol/L BUN 37 H (9-20) mg/dL Glucose 168 H (74-99) mg/dL POC Glucose (mg/dL) 183 H 159 H (75-99) mg/dL Calcium 7.7 L (8.4-10.2) mg/dL ALT (4-49) U/L Troponin I (0.000-0.034) ng/mL Total Protein (6.3-8.2) g/dL Albumin (3.5-5.0) g/dL Procalcitonin (0.02-0.09) ng/mL Microbiology - Last 24 Hours (Table) 01/07/20 17:22 Blood Culture - Preliminary Blood No Growth after 24 hours Assessment and Plan Plan: Assessment and Plan (1) Acute on chronic respiratory failure with hypoxia and hypercapnia Current Visit: Yes Status: Acute Code(s): J96.21 - ACUTE AND CHRONIC RESPIRATORY FAILURE WITH HYPOXIA; J96.22 - ACUTE AND CHRONIC RESPIRATORY FAILURE WITH HYPERCAPNIA SNOMED Code(s): 89222467787654 (2) COPD (chronic obstructive pulmonary disease) Current Visit: Yes Status: Acute Code(s): J44.9 - CHRONIC OBSTRUCTIVE PULMONARY DISEASE, UNSPECIFIED SNOMED Code(s): 43159852 (3) Adenocarcinoma of left lung Current Visit: No Status: Acute Code(s): C34.92 - MALIGNANT NEOPLASM OF UNSP PART OF LEFT BRONCHUS OR LUNG SNOMED Code(s): 82505383680887962 (4) COPD exacerbation Current Visit: No Status: Acute Code(s): J44.1 - CHRONIC OBSTRUCTIVE PULMONARY DISEASE W (ACUTE) EXACERBATION SNOMED Code(s): 221642583 (5) Dyspnea Current Visit: No Status: Acute Code(s): R06.00 - DYSPNEA, UNSPECIFIED SNOMED Code(s): 090386169 Assessment and Plan Acute on Chronic Hypoxic Respiratory Failure: - Currently on nasal canula 5L - Pulmonology is following - COPD Exacerbation plus Post obstruction component - reviewed CTA 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 - Missed follow-up for treatment plan with Dr. Leong secondary to this current hospital admission - PDL1 and NGS Sent on tissue pathology - No evidence of distant mets on MRI Brain or PET scan - Tobacco Cessation - Repeat MRI - no evidence of metastatic disease on repeat COPD Exacerbation: - Per Pulmonary Acute Renal Insufficiency: Resolved 12/31 - WIll repeat CTA and assess for PE Normocytic Anemia:secondary to chronic disease and malignancy - monitor CBC Plan: - PT/OT - Continue supportive care per pulm and primary teams
--- NOTE | 2020-01-09 13:36 | P.PN ---
Subjective Progress Note Date: 01/09/20 Principal diagnosis: Dyspnea, weakness 74-year-old white male patient with the recently diagnosed locally advanced lung adenocarcinoma in November 2019, and also has past medical history of severe oxygen-dependent COPD and baseline FEV1 of 40% of predicted with 3 recent [id number] admissions and hospitalizations in the month of November and December. Patient was last hospitalized from 12/29/2019 through 01/05/2020 for acute exacerbation of COPD. 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 His outpatient PET scan showed no evidence of distant metastasis, brain MRI showed no evident metastatic disease. Patient has not started treatment for this other than starting radiation therapy to the enlarging left upper lung mass. Medical oncology did see the patient in a shunt, and patient's overall medical condition was considered to be not opt imal for concurrent chemoradiation, and decision was made to initiate on palliative radiotherapy to improve aeration of the left lung. During that admission patient required on and off BiPAP support, he qualified for home BiPAP unit, and home BiPAP was arranged through [employer] upon discharge on 01/05/2020. On 01/07/2020 patient was transferred from [facility], where he went for evaluation of worsening dyspnea, and weakness. Patient states his shortness of breath was relatively normal for him, however his pulse ox was only 60% on room air. In addition patient had an elevated temperature with a temp of 10 1F. Troponin was elevated at 0.23 at [place], and 0.062. Patient denied any chest pain. White blood cell count is 5.8, hemoglobin was 9.2, platelet count was 116, sodium was 138, potassium is 4.2, chloride was 94, CO2 39, B1 is 39, creatinine is 1.16, AST was 24, ALT was 64, proBNP was 5710. Of note patient was discharged home on Augmentin for an tibiotic coverage. Patient is a d-dimer was somewhat elevated as well, and VQ scan was completed in place of a CT angios chest, in view of patient's history of nephrectomy, and patient's decision not to have IV contrast. VQ scan showed whole left lung matched decreased ventilation and perfusion signature to patient's known large left-sided mass compressing hilar structures. Overall low probability for pulmonary embolus. Chest x-ray shows large left chest mass, mildly increased opacity throughout the left lung compared to previous chest x- ray on 12/30/2019. Patient has been afebrile, he is currently requiring 6 L of oxygen his pulse ox is 93%, he is a sinus tachycardia on the monitor, with nonspecific ST and T wave changes, cardiology consultation was requested in view of elevation of troponins. Patient looks pretty comfortable during my evaluation, lung sounds are diminished over right lung, with no significant wheezing or congestion, with some diminished breath sounds and minimal expiratory wheezing. He is on Zosyn for empiric antibiotic coverage, IV steroids, and nebulized bronchodilators. On 01/09/2020 patient seen in follow-up on selective care unit, currently on 5 L of oxygen with a pulse ox of 95%, quite tight and wheezy on today's exam, short of breath with exertion. He went for his radiation treatment this morning. Did not wear BiPAP last night, his been afebrile, remains on nebulized bronchodilators, IV steroids and Zosyn for abiotic coverage. Is not bringing up any sputum. Denies any chest discomfort, CTA chest was completed again showing the left upper lobe lung mass, airspace disease in the left lower lobe, scattered air bronchograms with areas of groundglass opacity, increased interstitium, lingular groundglass opacity. There has been some progression in the airspace disease in the left upper lobe compared to prior PET/computed tomography scan on 12/15/2019. Central pulmonary arteries status actually enhanced, segmental branch vessels were not well visualized, there was extensive artifact and for that reason pulmonary embolism could not be excluded although the index of suspicion for pulmonary embolism is low, based on the low probabil ity VQ scan. Repeat brain MRI showed no evidence of metastatic disease. Pro- calcitonin level came back elevated at 29.77, suggesting evidence of infection. No altered mentation, no fever or chills, COVID 19 was negative, patient is on Zosyn for empiric abiotic coverage in regards possibility of underlying pneumonia Objective - Vital Signs Vital signs: Vital Signs Temp 97.7 F 01/09/20 11:19 Pulse 96 01/09/20 13:23 Resp 18 01/09/20 11:59 BP 107/66 01/09/20 11:19 Pulse Ox 95 01/09/20 11:19 Intake & Output 01/08/20 01/09/20 01/09/20 18:59 06:59 18:59 Intake Total 572 360 240 Output Total 325 750 300 Balance 247 -390 -60 Intake: Intake, IV Titration 100 Amount Piperacillin-Tazobactam 3 100 .375 gm In Sodium Chloride 0.9% 100 ml @ 25 mls/hr IVPB Q8HR [facility] Rx# :[id number] Oral 472 360 240 Output: Urine 325 750 300 Other: # Voids 1 1 - Exam GENERAL EXAM: Alert, pleasant, 74-year-old white male, currently on 5 L of oxygen a possible 95% comfortable in no apparent distress. HEAD: Normocephalic/atraumatic. EYES: Normal reaction of pupils, equal size. Conjunctiva pink, sclera white. NOSE: Clear with pink turbinates. THROAT: No erythema or exudates. NECK: No masses, no JVD, no thyroid enlargement, no adenopathy. CHEST: No chest wall deformity. Symmetrical expansion. LUNGS: Equal air entry with diminished breath sounds, with diffuse wheezes CVS: Regular rate and rhythm, normal S1 and S2, no gallops, no murmurs, no rubs ABDOMEN: Soft, nontender. No hepatosplenomegaly, normal bowel sounds, no guarding or rigidity. EXTREMITIES: No clubbing, no edema, no cyanosis, 2+ pulses and upper and lower extremities. MUSCULOSKELETAL: Muscle strength and tone normal. SPINE: No scoliosis or deformity SKIN: No rashes CENTRAL NERVOUS SYSTEM: Alert and oriented -3. No focal deficits, tone is normal in all 4 extremities. PSYCHIATRIC: Alert and oriented -3. Appropriate affect. Intact judgment and insight. - Labs CBC & Chem 7: 01/09/20 06:06 01/09/20 06:06 Labs: Abnormal Lab Results - Last 24 Hours (Table) 01/07/20 01/08/20 01/08/20 Range/Units 17:22 17:21 20:44 RBC (4.30-5.90) m/uL Hgb (13.0-17.5) gm/dL Hct (39.0-53.0) % MCHC (31.0-37.0) g/dL Plt Count (150-450) k/uL Chloride (98-107) mmol/L Carbon Dioxide (22-30) mmol/L BUN (9-20) mg/dL Glucose (74-99) mg/dL POC Glucose (mg/dL) 269 H 136 H (75-99) mg/dL Calcium (8.4-10.2) mg/dL Procalcitonin 29.77 H (0.02-0.09) ng/mL 01/09/20 01/09/20 01/09/20 Range/Units 06:06 06:06 06:08 RBC 3.27 L (4.30-5.90) m/uL Hgb 9.6 L (13.0-17.5) gm/dL Hct 32.0 L (39.0-53.0) % MCHC 30.2 L (31.0-37.0) g/dL Plt Count 129 L (150-450) k/uL Chloride 97 L (98-107) mmol/L Carbon Dioxide 44 H* (22-30) mmol/L BUN 37 H (9-20) mg/dL Glucose 168 H (74-99) mg/dL POC Glucose (mg/dL) 183 H (75-99) mg/dL Calcium 7.7 L (8.4-10.2) mg/dL Procalcitonin (0.02-0.09) ng/mL 01/09/20 Range/Units 11:47 RBC (4.30-5.90) m/uL Hgb (13.0-17.5) gm/dL Hct (39.0-53.0) % MCHC (31.0-37.0) g/dL Plt Count (150-450) k/uL Chloride (98-107) mmol/L Carbon Dioxide (22-30) mmol/L BUN (9-20) mg/dL Glucose (74-99) mg/dL POC Glucose (mg/dL) 159 H (75-99) mg/dL Calcium (8.4-10.2) mg/dL Procalcitonin (0.02-0.09) ng/mL Microbiology - Last 24 Hours (Table) 01/07/20 17:22 Blood Culture - Preliminary Blood No Growth after 24 hours Assessment and Plan Plan: Assessment: #1. Acute on chronic hypoxemic respiratory failure related to acute exacerbation of chronic obstructive pulmonary disease, and possibility of left lung pneumonia, no clear evidence of pulmonary embolism on CTA chest or VQ scan. #2. Elevated troponin, 0.023, and 0.062, possibly related to acute on chronic hypoxic respiratory failure #3. Elevated d-dimer, VQ scan showed low probability for pulmonary embolism showing matched ventilation perfusion defect in the left upper lung consistent with history of lung adenocarcinoma and a large left upper lobe mass. CTA chest showed extensive artifact with poor visualization of segmental branches, but no clear evidence of pulmonary embolism #4. Recent hospitalization for acute exacerbation of COPD discharged home on 01/05/2020, patient had 2 other [id number] admissions in late November and December for complications related to left upper lung mass, and COPD exacerbation #5. Local advanced pulmonary adenocarcinoma with a large left upper lobe mass, and most recent computed tomography scan and the PET scan findings did not show any mass effect, diagnosed in November 2019 via fine needle aspirate biopsy performed by interventional radiology. Outpatient PET scan showed no evidence of distant metastasis, MRI of the brain showed no evidence of metastatic disease. Patient's pulmonary adenocarcinoma with stage IIIa at diagnosis, patient has been started on palliative radiation during his previous admission #6. Severe oxygen-dependent COPD with a baseline FEV1 value of 40% of predicted, normally wears 2 L of oxygen at home #7. Chronic hypercapnic respiratory failure related to COPD, most recently sent home on BiPAP support with pressures of 12/5 #8. History of tobacco dependence #9. History of right renal cell carcinoma status post nephrectomy #10. History of coronary artery disease with previous intervention and stenting in 2014 #11. Chronic back pain #12. Hyperlipidemia #13. GERD #14. Hepatic/renal cyst Plan: Continue current antibiotics, continue IV steroids, nebulized bronchodilators, BiPAP support as needed, patient is quite bronchospastic on today's exam, but not requiring BiPAP support. He is continuing with radiation treatments which could probably be exacerbating his COPD symptoms. Continue supportive treatment. CTA chest results have been noted, no clear evidence of pulmonary embolism. No complaints of chest pain, no significant cough or congestion, we'll continue to follow I performed a history & physical examination of the patient and discussed their management with my nurse practitioner, Odalis Munguia. I reviewed the nurse practitioner's note and agree with the documented findings and plan of care. Lung sounds are positive for exp wheezes. The findings and the impression was discussed with the patient. I attest to the documentation by the nurse practitioner. Time with Patient: Less than 30
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
[2020-01-09 15:29] LABS: Glucose,Whole Blood 182 mg/dL (75-99)
[2020-01-09 16:14] LABS: Glucose,Whole Blood 221 mg/dL (75-99)
[2020-01-09] MEDS: SODIUM CHLORIDE 0.9% 1,000 ML IV SCH ×2 (16:55→20:32)
[2020-01-09 20:08] LABS: Glucose,Whole Blood 186 mg/dL (75-99)
[2020-01-09] MEDS: MIRTAZAPINE 15 MG TAB PO SCH (20:33)
[2020-01-09] MEDS: ATORVASTATIN 10 MG TAB PO SCH (20:33)
[2020-01-09] MEDS: ACETAMINOPHEN TAB 325 MG TAB PO PRN (20:36)
[2020-01-10 05:36] LABS: Mycoplasma IgG Antibody (EIA) 0.56 INDEX (<=0.90); Mycoplasma IgM Antibody 0.06 INDEX (<=0.90)
[2020-01-10 06:15] LABS: Glucose,Whole Blood 158 mg/dL (75-99)
[2020-01-10] MEDS: methylPREDNISolone SOD SUCCI 125 MG/2 ML VIAL IV SCH ×3 (06:39→17:51)
[2020-01-10] MEDS: INSULIN ASPART (NovoLOG) 100 UNIT/ML VIAL SQ SCH ×4 (06:39→21:01)
[2020-01-10] MEDS: SODIUM CHLORIDE 0.9% 1,000 ML IV SCH ×2 (06:39→18:35)
[2020-01-10] MEDS: ASPIRIN 81 MG PO SCH (08:29)
[2020-01-10] MEDS: ACETAMINOPHEN TAB 325 MG TAB PO PRN ×2 (08:29→22:11)
[2020-01-10] MEDS: METOPROLOL SUCCINATE (ER) 25 MG TAB.ER.24H PO SCH (08:29)
[2020-01-10] MEDS: busPIRone HCl 10 MG TAB PO SCH ×2 (08:29→21:01)
[2020-01-10] MEDS: amLODIPine 5 MG TAB PO SCH (08:29)
[2020-01-10] MEDS: PIPERACILLIN-TAZOBACTAM 3.375 GM in SODIUM CHLORIDE 0.9% 100 ML IVPB SCH ×2 (08:30→15:38)
[2020-01-10] MEDS: ENOXAPARIN 40 MG/0.4 ML SYRINGE SQ SCH (08:30)
[2020-01-10] MEDS: PANTOPRAZOLE 40 MG TABLET PO SCH (08:32)
[2020-01-10] MEDS: IPRATROPIUM-ALBUTEROL 3 ML NEB INHALATION SCH ×4 (09:10→21:38)
[2020-01-10] MEDS: SYMBICORT 160-4.5 MCG INHALER INHALATION SCH ×2 (09:10→21:38)
[2020-01-10 12:12] LABS: Glucose,Whole Blood 222 mg/dL (75-99)
--- NOTE | 2020-01-10 12:35 | P.PN ---
Subjective Progress Note Date: 01/10/20 Principal diagnosis: Dyspnea, weakness 74-year-old white male patient with the recently diagnosed locally advanced lung adenocarcinoma in November 2019, and also has past medical history of severe oxygen-dependent COPD and baseline FEV1 of 40% of predicted with 3 recent [id number] admissions and hospitalizations in the month of November and December. Patient was last hospitalized from 12/29/2019 through 01/05/2020 for acute exacerbation of COPD. 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 His outpatient PET scan showed no evidence of distant metastasis, brain MRI showed no evident metastatic disease. Patient has not started treatment for this other than starting radiation therapy to the enlarging left upper lung mass. Medical oncology did see the patient in a shunt, and patient's overall medical condition was considered to be not opt imal for concurrent chemoradiation, and decision was made to initiate on palliative radiotherapy to improve aeration of the left lung. During that admission patient required on and off BiPAP support, he qualified for home BiPAP unit, and home BiPAP was arranged through [facility] upon discharge on 01/05/2020. On 01/07/2020 patient was transferred from [facility], where he went for evaluation of worsening dyspnea, and weakness. Patient states his shortness of breath was relatively normal for him, however his pulse ox was only 60% on room air. In addition patient had an elevated temperature with a temp of 10 1F. Troponin was elevated at 0.23 at [place], and 0.062. Patient denied any chest pain. White blood cell count is 5.8, hemoglobin was 9.2, platelet count was 116, sodium was 138, potassium is 4.2, chloride was 94, CO2 39, B1 is 39, creatinine is 1.16, AST was 24, ALT was 64, proBNP was 5710. Of note patient was discharged home on Augmentin for an tibiotic coverage. Patient is a d-dimer was somewhat elevated as well, and VQ scan was completed in place of a CT angios chest, in view of patient's history of nephrectomy, and patient's decision not to have IV contrast. VQ scan showed whole left lung matched decreased ventilation and perfusion signature to patient's known large left-sided mass compressing hilar structures. Overall low probability for pulmonary embolus. Chest x-ray shows large left chest mass, mildly increased opacity throughout the left lung compared to previous chest x- ray on 12/30/2019. Patient has been afebrile, he is currently requiring 6 L of oxygen his pulse ox is 93%, he is a sinus tachycardia on the monitor, with nonspecific ST and T wave changes, cardiology consultation was requested in view of elevation of troponins. Patient looks pretty comfortable during my evaluation, lung sounds are diminished over right lung, with no significant wheezing or congestion, with some diminished breath sounds and minimal expiratory wheezing. He is on Zosyn for empiric antibiotic coverage, IV steroids, and nebulized bronchodilators. On 01/09/2020 patient seen in follow-up on selective care unit, currently on 5 L of oxygen with a pulse ox of 95%, quite tight and wheezy on today's exam, short of breath with exertion. He went for his radiation treatment this morning. Did not wear BiPAP last night, his been afebrile, remains on nebulized bronchodilators, IV steroids and Zosyn for abiotic coverage. Is not bringing up any sputum. Denies any chest discomfort, CTA chest was completed again showing the left upper lobe lung mass, airspace disease in the left lower lobe, scattered air bronchograms with areas of groundglass opacity, increased interstitium, lingular groundglass opacity. There has been some progression in the airspace disease in the left upper lobe compared to prior PET/computed tomography scan on 12/15/2019. Central pulmonary arteries status actually enhanced, segmental branch vessels were not well visualized, there was extensive artifact and for that reason pulmonary embolism could not be excluded although the index of suspicion for pulmonary embolism is low, based on the low probabil ity VQ scan. Repeat brain MRI showed no evidence of metastatic disease. Pro- calcitonin level came back elevated at 29.77, suggesting evidence of infection. No altered mentation, no fever or chills, COVID 19 was negative, patient is on Zosyn for empiric abiotic coverage in regards possibility of underlying pneumonia The patient is seen today 01/10/2028 in follow-up on the selective care unit. He is currently sitting up in a chair at the bedside. Awake and alert in no acute distress. Maintaining O2 saturations in the mid 90s on 5 L/m per nasal cannula. He did utilize the BiPAP last evening. Blood cultures reveal no growth to date. Glucose 222. He is continued on DuoNeb inhalations, Symbicort, IV Solu-Medrol. Antibiotics in the form of Zosyn. Objective - Vital Signs Vital signs: Vital Signs Temp 98.5 F 01/10/20 08:00 Pulse 96 01/10/20 09:21 Resp 20 01/10/20 08:00 BP 126/73 01/10/20 08:00 Pulse Ox 97 01/10/20 08:00 Intake & Output 01/09/20 01/10/20 01/10/20 18:59 06:59 18:59 Intake Total 420 240 236 Output Total 800 550 Balance -380 -310 236 Intake: Oral 420 240 236 Output: Urine 800 550 Other: Voiding Method Toilet Urinal # Voids 1 1 - Exam GENERAL EXAM: Alert, pleasant, 74-year-old male patient, currently on 5 L of oxygen a possible 97% comfortable in no apparent distress. HEAD: Normocephalic/atraumatic. EYES: Normal reaction of pupils, equal size. Conjunctiva pink, sclera white. NOSE: Clear with pink turbinates. THROAT: No erythema or exudates. NECK: No masses, no JVD, no thyroid enlargement, no adenopathy. CHEST: No chest wall deformity. Symmetrical expansion. LUNGS: Equal air entry with diminished breath sounds, with diffuse wheezes CVS: Regular rate and rhythm, normal S1 and S2, no gallops, no murmurs, no rubs ABDOMEN: Soft, nontender. No hepatosplenomegaly, normal bowel sounds, no guarding or rigidity. EXTREMITIES: No clubbing, no edema, no cyanosis, 2+ pulses and upper and lower extremities. MUSCULOSKELETAL: Muscle strength and tone normal. SPINE: No scoliosis or deformity SKIN: No rashes CENTRAL NERVOUS SYSTEM: No focal deficits, tone is normal in all 4 extremities. PSYCHIATRIC: Alert and oriented -3. Appropriate affect. Intact judgment and insight. - Labs CBC & Chem 7: 01/09/20 06:06 01/09/20 06:06 Labs: Abnormal Lab Results - Last 24 Hours (Table) 01/09/20 01/09/20 01/09/20 Range/Units 15:27 16:09 20:06 POC Glucose (mg/dL) 182 H 221 H 186 H (75-99) mg/dL 01/10/20 01/10/20 Range/Units 06:13 12:11 POC Glucose (mg/dL) 158 H 222 H (75-99) mg/dL Microbiology - Last 24 Hours (Table) 01/07/20 17:22 Blood Culture - Preliminary Blood No Growth after 48 hours Assessment and Plan Assessment: #1. Acute on chronic hypoxemic respiratory failure related to acute exacerbation of chronic obstructive pulmonary disease, and possibility of left lung pneumonia, no clear evidence of pulmonary embolism on CTA chest or VQ scan. #2. Elevated troponin, 0.023, and 0.062, possibly related to acute on chronic hypoxic respiratory failure #3. Elevated d-dimer, VQ scan showed low probability for pulmonary embolism showing matched ventilation perfusion defect in the left upper lung consistent with history of lung adenocarcinoma and a large left upper lobe mass. CTA chest showed extensive artifact with poor visualization of segmental branches, but no clear evidence of pulmonary embolism #4. Recent hospitalization for acute exacerbation of COPD discharged home on 01/05/2020, patient had 2 other [id number] admissions in late November and December for complications related to left upper lung mass, and COPD exacerbation #5. Local advanced pulmonary adenocarcinoma with a large left upper lobe mass, and most recent computed tomography scan and the PET scan findings did not show any mass effect, diagnosed in November 2019 via fine needle aspirate biopsy performed by interventional radiology. Outpatient PET scan showed no evidence of distant metastasis, MRI of the brain showed no evidence of metastatic disease. Patient's pulmonary adenocarcinoma with stage IIIa at diagnosis, patient has been started on palliative radiation during his previous admission #6. Severe oxygen-dependent COPD with a baseline FEV1 value of 40% of predicted, normally wears 2 L of oxygen at home #7. Chronic hypercapnic respiratory failure related to COPD, most recently sent home on BiPAP support with pressures of 12/5 #8. History of tobacco dependence #9. History of right renal cell carcinoma status post nephrectomy #10. History of coronary artery disease with previous intervention and stenting in 2014 #11. Chronic back pain #12. Hyperlipidemia #13. 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 Mo Abdullahi with current pulmonary treatment plan Continue BiPAP support as needed Possible continued radiation today We'll continue to follow I, the cosigning physician, performed a history & physical examination of the patient. Lungs sounds bilateral end expiratory wheeze, diminished. Maintaining good O2 saturations in the 90s on 5 L/m per nasal cannula. I discussed the assessment and plan of care with my nurse practitioner, Bernadette Fernandez. I attest to the above note as dictated by her.
[2020-01-10] MEDS: Roflumilast [Daliresp] 500 MCG PO SCH (13:26)
--- NOTE | 2020-01-10 16:10 | P.PN ---
Subjective Progress Note Date: 01/10/20 Principal diagnosis: new lung ca, copd, post obs pneumonia Patient is still struggling with breathing, long discussion today regarding ability to improve given radiation treatments and sustain at home. His overall prognosis is very guarded Objective - Vital Signs Vital signs: Vital Signs Temp 98.5 F 01/10/20 08:00 Pulse 93 01/10/20 12:00 Resp 18 01/10/20 12:00 BP 109/61 01/10/20 12:00 Pulse Ox 92 L 01/10/20 12:00 Intake & Output 01/09/20 01/10/20 01/10/20 18:59 06:59 18:59 Intake Total 420 240 236 Output Total 800 550 Balance -380 -310 236 Intake: Oral 420 240 236 Output: Urine 800 550 Other: Voiding Method Toilet Urinal # Voids 1 1 - Exam - Exam - Constitutional General appearance: Present: average body habitus, cooperative, no acute distress - EENT Eyes: Present: PERRLA, poor dentition ENT: Present: hard of hearing, NA/AT - Neck Neck: Present: normal ROM - Respiratory - Improving Respiratory: bilateral: diminished, rhonchi NC, increased respiratory effort - Cardiovascular Rhythm: regular Tachy Heart sounds: normal: S1, S2 - Gastrointestinal General gastrointestinal: Present: normal bowel sounds, soft - Integumentary Integumentary: Present: pale - Neurologic Neurologic: Present:non-focal - Musculoskeletal Musculoskeletal: Present: generalized weakness, strength equal bilaterally - Psychiatric Psychiatric: Present: A&O x's 3, appropriate affect, intact judgment & insight although poor historian and forgetfull - Labs CBC & Chem 7: 01/09/20 06:06 01/09/20 06:06 Labs: Abnormal Lab Results - Last 24 Hours (Table) 01/09/20 01/09/20 01/10/20 Range/Units 16:09 20:06 06:13 POC Glucose (mg/dL) 221 H 186 H 158 H (75-99) mg/dL 01/10/20 Range/Units 12:11 POC Glucose (mg/dL) 222 H (75-99) mg/dL Microbiology - Last 24 Hours (Table) 01/07/20 17:22 Blood Culture - Preliminary Blood No Growth after 48 hours Assessment and Plan Plan: Assessment and Plan (1) Acute on chronic respiratory failure with hypoxia and hypercapnia Current Visit: Yes Status: Acute Code(s): J96.21 - ACUTE AND CHRONIC RESPIRATORY FAILURE WITH HYPOXIA; J96.22 - ACUTE AND CHRONIC RESPIRATORY FAILURE WITH HYPERCAPNIA SNOMED Code(s): 15247606807252 (2) COPD (chronic obstructive pulmonary disease) Current Visit: Yes Status: Acute Code(s): J44.9 - CHRONIC OBSTRUCTIVE PULMONARY DISEASE, UNSPECIFIED SNOMED Code(s): 42274178 (3) Adenocarcinoma of left lung Current Visit: No Status: Acute Code(s): C34.92 - MALIGNANT NEOPLASM OF UNSP PART OF LEFT BRONCHUS OR LUNG SNOMED Code(s): 67522018195356732 (4) COPD exacerbation Current Visit: No Status: Acute Code(s): J44.1 - CHRONIC OBSTRUCTIVE PULMONARY DISEASE W (ACUTE) EXACERBATION SNOMED Code(s): 191847473 (5) Dyspnea Current Visit: No Status: Acute Code(s): R06.00 - DYSPNEA, UNSPECIFIED SNOMED Code(s): 712457348 Assessment and Plan Acute on Chronic Hypoxic Respiratory Failure: - Currently on nasal canula 5L - Pulmonology is following - COPD Exacerbation plus Post obstruction component - reviewed CTA 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 - Missed follow-up for treatment plan with Dr. Leong secondary to this current hospital admission - PDL1 and NGS Sent on tissue pathology - No evidence of distant mets on MRI Brain or PET scan - Tobacco Cessation - Repeat MRI - no evidence of metastatic disease on repeat COPD Exacerbation: - Per Pulmonary Acute Renal Insufficiency: Resolved 12/31 - WIll repeat CTA and assess for PE Normocytic Anemia:secondary to chronic disease and malignancy - monitor CBC Plan: - Will discuss further with . Unfortunetly it is difficult to truly know how he has responded to radiation as his subjective complaints are not improved. If radiation does not improve these will need to consider hospice. Physician Attest: I have completed the full history and physical and agree with above dictation, dictated as a scribe.
[2020-01-10 16:56] LABS: Glucose,Whole Blood 228 mg/dL (75-99)
--- NOTE | 2020-01-10 17:37 | P.PN ---
Subjective From records 74-year-old male level was transferred from [facility] after he presented there with the complaints of shortness of breath hypoxic with saturations going down to 60% patient evidently had elevated temperature of 101 although he doesn't have any temperature here. Patient was a lightheaded and the has been quite weak. Patient had mildly elevated troponin of 0.23 because of his cardiology was consulted. Patient was tachycardic does have positive orthostatic vitals. Patient was started on IV fluids patient doesn't have any history of gunshot failure in the past patient had a normal ejection fraction the past. 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 Patient denied any cough or sputum production. Patient usually uses a 2 L of onset at home, presently on 6 L of oxygen. Patient denied any chest pain nausea vomiting. EKG showed sinus tachycardia and some premature ventricular complexes without any acute ST-T wave changes. and an elevated d-dimer because of which VQ scan was obtained which is significantly abnormal because of interstitial infiltrate which was evident on the chest x-ray although low probability of pulmonary embolism. 01/09/2020 Patient wheezing is bit worse today. Patient appears to have local advanced to close lung cancer on the left side of interstitial spread. Urinary Legionella and mycoplasma IgM antibodies are pending. Patient is wasn't a Zosyn and IV steroids. Pulmonary evaluated the patient. Hospice will be evaluated the patient today. Patient had a CT angios the chest which is read as possible interstitial spread of the cancer. MRI of the brain did not show any metastatic disease Subjective This is the first day emptying care of the patient 01/10/2020 Patient is a pleasant 74 years old male with past medical history of 6 advanced COPD and left upper lobe adenocarcinoma of the lung, as recent previous multiple admissions due to his respiratory compromise. This time also presents with signs symptoms of acute COPD exacerbation and possible left lower lobe pneumonia on the top of his left lung cancer. Patient is awake and alert, is breathing quietly, denies chest pain or coughing. He is saturating 90s on 5 L oxygen via nasal cannula, rest of vitals are stable Labs reviewed the looks stable, he had mild anemia and thrombocytopenia Patient continued on Solu-Medrol and Zosyn and normal saline per hour He is status post palliative radiotherapy Objective - Vital Signs Vital signs: Vital Signs Temp 98.5 F 01/10/20 08:00 Pulse 84 01/10/20 16:17 Resp 18 01/10/20 12:00 BP 109/61 01/10/20 12:00 Pulse Ox 92 L 01/10/20 12:00 Intake & Output 01/09/20 01/10/20 01/10/20 18:59 06:59 18:59 Intake Total 420 240 236 Output Total 800 550 Balance -380 -310 236 Intake: Oral 420 240 236 Output: Urine 800 550 Other: Voiding Method Toilet Urinal # Voids 1 1 - Exam GENERAL: The patient is alert and oriented x3, not in any acute distress. Well developed, well nourished. HEENT: Pupils are round and equally reacting to light. EOMI. No scleral icterus. No conjunctival pallor. Normocephalic, atraumatic. No pharyngeal erythema. No thyromegaly. CARDIOVASCULAR: S1 and S2 present. No murmurs, rubs, or gallops. PULMONARY: Significant expiratory wheezing on exam mild crackles in the left side posteriorly ABDOMEN: Soft, nontender, nondistended, normoactive bowel sounds. No palpable organomegaly. MUSCULOSKELETAL: No joint swelling or deformity. EXTREMITIES: No cyanosis, clubbing, or pedal edema. NEUROLOGICAL: Gross neurological examination did not reveal any focal deficits. SKIN: No rashes. - Labs CBC & Chem 7: 01/09/20 06:06 01/09/20 06:06 Labs: Abnormal Lab Results - Last 24 Hours (Table) 01/09/20 01/10/20 01/10/20 Range/Units 20:06 06:13 12:11 POC Glucose (mg/dL) 186 H 158 H 222 H (75-99) mg/dL 01/10/20 Range/Units 16:55 POC Glucose (mg/dL) 228 H (75-99) mg/dL Microbiology - Last 24 Hours (Table) 01/07/20 17:22 Blood Culture - Preliminary Blood No Growth after 48 hours Assessment and Plan Assessment: -Acute on chronic hypoxic respiratory failure: Patient is wheezing today does have COPD exacerbation. Continue with systemic steroids patient appears to have interstitial spread of the cancer, pulmonary of the case -Left lower lobe pneumonia, possibly postobstructive patient is on Zosyn which w ill be continued for now -Advanced left lung adenocarcinoma, oncology on the case and they recommended radiation therapy and radiotherapy fails then may be considered for hospice -mildly elevated troponins , secondary to hypoxia, no evidence of acute myocardial infarction -Dizziness probably secondary to intravascular depletion patient was also tachycardic with mild renal dysfunction patient will be continued on IV fluids which was started on Lasix was discontinued and will discuss with cardiology. Patient had normal ejection fraction the past -COPD and chronic hypercapnic respiratory failure secondary to COPD patient uses to his falls and at home patient is pleasant and 6 L which will be continued as not appear to be in COPD exacerbation -Coronary artery disease -History of renal cell cancer status post nephrectomy -Squamous cell lung cancer with a mass lesion in the lung for which patient is receiving radiation therapy radiation oncology and oncology evaluate the patient patient received radiation therapy today -CVA in the past -Gastroesophageal reflux disease for which patient is on Protonix -Due to prophylaxis Lovenox
[2020-01-10] MEDS: ROFLUMILAST 500 MCG PO SCH (18:35)
[2020-01-10 20:07] LABS: Glucose,Whole Blood 225 mg/dL (75-99)
[2020-01-10] MEDS: MIRTAZAPINE 15 MG TAB PO SCH (21:01)
[2020-01-10] MEDS: ATORVASTATIN 10 MG TAB PO SCH (21:01)
[2020-01-11 06:23] LABS: Glucose,Whole Blood 129 mg/dL (75-99)
[2020-01-11] MEDS: INSULIN ASPART (NovoLOG) 100 UNIT/ML VIAL SQ SCH ×4 (06:24→20:41)
[2020-01-11] MEDS: methylPREDNISolone SOD SUCCI 125 MG/2 ML VIAL IV SCH ×4 (06:36→18:20)
[2020-01-11] MEDS: PIPERACILLIN-TAZOBACTAM 3.375 GM in SODIUM CHLORIDE 0.9% 100 ML IVPB SCH ×4 (08:46→16:36)
[2020-01-11] MEDS: amLODIPine 5 MG TAB PO SCH (08:51)
[2020-01-11] MEDS: ASPIRIN 81 MG PO SCH (08:51)
[2020-01-11] MEDS: busPIRone HCl 10 MG TAB PO SCH ×2 (08:51→20:41)
[2020-01-11] MEDS: METOPROLOL SUCCINATE (ER) 25 MG TAB.ER.24H PO SCH (08:51)
[2020-01-11] MEDS: ENOXAPARIN 40 MG/0.4 ML SYRINGE SQ SCH (08:52)
[2020-01-11] MEDS: PANTOPRAZOLE 40 MG TABLET PO SCH (08:52)
[2020-01-11] MEDS: ROFLUMILAST 500 MCG PO SCH (08:52)
[2020-01-11] MEDS: IPRATROPIUM-ALBUTEROL 3 ML NEB INHALATION SCH ×4 (09:02→20:44)
[2020-01-11] MEDS: SYMBICORT 160-4.5 MCG INHALER INHALATION SCH ×2 (09:02→20:44)
[2020-01-11] MEDS: SODIUM CHLORIDE 0.9% 1,000 ML IV SCH ×3 (10:56→20:41)
[2020-01-11 12:08] LABS: Glucose,Whole Blood 141 mg/dL (75-99)
--- NOTE | 2020-01-11 12:27 | P.PN ---
Subjective Progress Note Date: 01/11/20 Principal diagnosis: Dyspnea, weakness 74-year-old white male patient with the recently diagnosed locally advanced lung adenocarcinoma in November 2019, and also has past medical history of severe oxygen-dependent COPD and baseline FEV1 of 40% of predicted with 3 recent [id number] admissions and hospitalizations in the month of November and December. Patient was last hospitalized from 12/29/2019 through 01/05/2020 for acute exacerbation of COPD. 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 His outpatient PET scan showed no evidence of distant metastasis, brain MRI showed no evident metastatic disease. Patient has not started treatment for this other than starting radiation therapy to the enlarging left upper lung mass. Medical oncology did see the patient in a shunt, and patient's overall medical condition was considered to be not opt imal for concurrent chemoradiation, and decision was made to initiate on palliative radiotherapy to improve aeration of the left lung. During that admission patient required on and off BiPAP support, he qualified for home BiPAP unit, and home BiPAP was arranged through [facility] upon discharge on 01/05/2020. On 01/07/2020 patient was transferred from [facility], where he went for evaluation of worsening dyspnea, and weakness. Patient states his shortness of breath was relatively normal for him, however his pulse ox was only 60% on room air. In addition patient had an elevated temperature with a temp of 10 1F. Troponin was elevated at 0.23 at [place], and 0.062. Patient denied any chest pain. White blood cell count is 5.8, hemoglobin was 9.2, platelet count was 116, sodium was 138, potassium is 4.2, chloride was 94, CO2 39, B1 is 39, creatinine is 1.16, AST was 24, ALT was 64, proBNP was 5710. Of note patient was discharged home on Augmentin for an tibiotic coverage. Patient is a d-dimer was somewhat elevated as well, and VQ scan was completed in place of a CT angios chest, in view of patient's history of nephrectomy, and patient's decision not to have IV contrast. VQ scan showed whole left lung matched decreased ventilation and perfusion signature to patient's known large left-sided mass compressing hilar structures. Overall low probability for pulmonary embolus. Chest x-ray shows large left chest mass, mildly increased opacity throughout the left lung compared to previous chest x- ray on 12/30/2019. Patient has been afebrile, he is currently requiring 6 L of oxygen his pulse ox is 93%, he is a sinus tachycardia on the monitor, with nonspecific ST and T wave changes, cardiology consultation was requested in view of elevation of troponins. Patient looks pretty comfortable during my evaluation, lung sounds are diminished over right lung, with no significant wheezing or congestion, with some diminished breath sounds and minimal expiratory wheezing. He is on Zosyn for empiric antibiotic coverage, IV steroids, and nebulized bronchodilators. On 01/09/2020 patient seen in follow-up on selective care unit, currently on 5 L of oxygen with a pulse ox of 95%, quite tight and wheezy on today's exam, short of breath with exertion. He went for his radiation treatment this morning. Did not wear BiPAP last night, his been afebrile, remains on nebulized bronchodilators, IV steroids and Zosyn for abiotic coverage. Is not bringing up any sputum. Denies any chest discomfort, CTA chest was completed again showing the left upper lobe lung mass, airspace disease in the left lower lobe, scattered air bronchograms with areas of groundglass opacity, increased interstitium, lingular groundglass opacity. There has been some progression in the airspace disease in the left upper lobe compared to prior PET/computed tomography scan on 12/15/2019. Central pulmonary arteries status actually enhanced, segmental branch vessels were not well visualized, there was extensive artifact and for that reason pulmonary embolism could not be excluded although the index of suspicion for pulmonary embolism is low, based on the low probabil ity VQ scan. Repeat brain MRI showed no evidence of metastatic disease. Pro- calcitonin level came back elevated at 29.77, suggesting evidence of infection. No altered mentation, no fever or chills, COVID 19 was negative, patient is on Zosyn for empiric abiotic coverage in regards possibility of underlying pneumonia The patient is seen today 01/10/2028 in follow-up on the selective care unit. He is currently sitting up in a chair at the bedside. Awake and alert in no acute distress. Maintaining O2 saturations in the mid 90s on 5 L/m per nasal cannula. He did utilize the BiPAP last evening. Blood cultures reveal no growth to date. Glucose 222. He is continued on DuoNeb inhalations, Symbicort, IV Solu-Medrol. Antibiotics in the form of Zosyn. The patient is seen today 01/11/2020 in follow-up on the selective care unit. He is currently resting comfortably in bed. Awake and alert in no acute distress. Maintaining O2 saturations in the mid 90s on 4 L/m per nasal cannula. He's been afebrile. Hemodynamically stable. He is receiving radiation therapy currently. He is continued on DuoNeb inhalations, Symbicort, IV Solu-Medrol. Antibiotics in the form of Zosyn. Blood culture reveals no growth to date. Blood glucose 141. Objective - Vital Signs Vital signs: Vital Signs Temp 98.2 F 01/11/20 08:00 Pulse 97 01/11/20 12:15 Resp 18 01/11/20 08:00 BP 138/78 01/11/20 08:00 Pulse Ox 92 L 01/11/20 09:02 Intake & Output 01/10/20 01/11/20 01/11/20 18:59 06:59 18:59 Intake Total 458 360 Output Total 375 260 Balance 83 -260 360 Weight 82 kg Intake: Oral 458 360 Output: Urine 375 260 Other: Voiding Method Toilet Toilet Toilet Urinal Urinal Urinal # Voids 1 1 0 # Bowel Movements 1 - Exam GENERAL EXAM: Alert, pleasant, 74-year-old male patient, currently on 4 L of oxygen a possible 95% comfortable in no apparent distress. HEAD: Normocephalic/atraumatic. EYES: Normal reaction of pupils, equal size. Conjunctiva pink, sclera white. NOSE: Clear with pink turbinates. THROAT: No erythema or exudates. NECK: No masses, no JVD, no thyroid enlargement, no adenopathy. CHEST: No chest wall deformity. Symmetrical expansion. LUNGS: Equal air entry with diminished breath sounds on the left, with diffuse wheezes on the right CVS: Regular rate and rhythm, normal S1 and S2, no gallops, no murmurs, no rubs ABDOMEN: Soft, nontender. No hepatosplenomegaly, normal bowel sounds, no guarding or rigidity. EXTREMITIES: No clubbing, no edema, no cyanosis, 2+ pulses and upper and lower extremities. MUSCULOSKELETAL: Muscle strength and tone normal. SPINE: No scoliosis or deformity SKIN: No rashes CENTRAL NERVOUS SYSTEM: No focal deficits, tone is normal in all 4 extremities. PSYCHIATRIC: Alert and oriented -3. Appropriate affect. Intact judgment and insight. - Labs CBC & Chem 7: 01/09/20 06:06 01/09/20 06:06 Labs: Abnormal Lab Results - Last 24 Hours (Table) 01/10/20 01/10/20 01/11/20 Range/Units 16:55 20:06 06:22 POC Glucose (mg/dL) 228 H 225 H 129 H (75-99) mg/dL 01/11/20 Range/Units 12:04 POC Glucose (mg/dL) 141 H (75-99) mg/dL Microbiology - Last 24 Hours (Table) 01/07/20 17:22 Blood Culture - Preliminary Blood No Growth after 72 hours Assessment and Plan Assessment: #1. Acute on chronic hypoxemic respiratory failure related to acute exacerbation of chronic obstructive pulmonary disease, and possibility of left lung pneumonia, no clear evidence of pulmonary embolism on CTA chest or VQ scan. #2. Elevated troponin, 0.023, and 0.062, possibly related to acute on chronic hypoxic respiratory failure #3. Elevated d-dimer, VQ scan showed low probability for pulmonary embolism showing matched ventilation perfusion defect in the left upper lung consistent with history of lung adenocarcinoma and a large left upper lobe mass. CTA chest showed extensive artifact with poor visualization of segmental branches, but no clear evidence of pulmonary embolism #4. Recent hospitalization for acute exacerbation of COPD discharged home on 01/05/2020, patient had 2 other [id number] admissions in late November and December for complications related to left upper lung mass, and COPD exacerbation #5. Local advanced pulmonary adenocarcinoma with a large left upper lobe mass, and most recent computed tomography scan and the PET scan findings did not show any mass effect, diagnosed in November 2019 via fine needle aspirate biopsy performed by interventional radiology. Outpatient PET scan showed no evidence of distant metastasis, MRI of the brain showed no evidence of metastatic disease. Patient's pulmonary adenocarcinoma with stage IIIa at diagnosis, patient has been started on palliative radiation during his previous admission #6. Severe oxygen-dependent COPD with a baseline FEV1 value of 40% of predicted, normally wears 2 L of oxygen at home #7. Chronic hypercapnic respiratory failure related to COPD, most recently sent home on BiPAP support with pressures of 12/5 #8. History of tobacco dependence #9. History of right renal cell carcinoma status post nephrectomy #10. History of coronary artery disease with previous intervention and stenting in 2015 #11. Chronic back pain #12. Hyperlipidemia #13. 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 Mo Lin from the pulmonary standpoint Continue with current treatment plan Continue BiPAP support as needed Radiation as scheduled We'll continue to follow I, the cosigning physician, performed a history & physical examination of the patient. Lungs sounds diminished in the left lung, by rotatory wheezing on the right, diminished. Maintaining good O2 saturations in the 90s on 4 L/m per nasal cannula. I discussed the assessment and plan of care with my nurse practitioner, Bernadette Fernandez. I attest to the above note as dictated by her.
[2020-01-11 16:54] LABS: Glucose,Whole Blood 210 mg/dL (75-99)
--- NOTE | 2020-01-11 17:24 | P.PN ---
Subjective Progress Note Date: 01/11/20 Principal diagnosis: new lung ca, copd, post obs pneumonia no acute complaints but patient has not made much progress. was not present this am, will attempt to reach her today to discuss goals of care. As even with his early staged cancer his performance status is poor and overall breathing difficulties are not allowing his systemic treatment options or outpatient care. Objective - Vital Signs Vital signs: Vital Signs Temp 98.3 F 01/11/20 16:00 Pulse 92 01/11/20 16:50 Resp 18 01/11/20 16:00 BP 121/70 01/11/20 16:00 Pulse Ox 95 01/11/20 16:38 Intake & Output 01/10/20 01/11/20 01/11/20 18:59 06:59 18:59 Intake Total 458 2360 Output Total 375 260 Balance 83 -260 2360 Weight 82 kg Intake: Intake, IV Titration 1200 Amount Piperacillin-Tazobactam 3 200 .375 gm In Sodium Chloride 0.9% 100 ml @ 25 mls/hr IVPB Q8HR [facility] Rx# :[id number] Sodium Chloride 0.9% 1, 1000 000 ml @ 100 mls/hr IV . Q10H [facility] Rx#:[id number] Oral 458 1160 Output: Urine 375 260 Other: Voiding Method Toilet Toilet Toilet Urinal Urinal Urinal # Voids 1 1 0 # Bowel Movements 1 0 - Exam - Exam - Constitutional General appearance: Present: average body habitus, cooperative, no acute distress - EENT Eyes: Present: PERRLA, poor dentition ENT: Present: hard of hearing, NA/AT - Neck Neck: Present: normal ROM - Respiratory - Improving Respiratory: bilateral: diminished, rhonchi NC, increased respiratory effort - Cardiovascular Rhythm: regular Tachy Heart sounds: normal: S1, S2 - Gastrointestinal General gastrointestinal: Present: normal bowel sounds, soft - Integumentary Integumentary: Present: pale - Neurologic Neurologic: Present:non-focal - Musculoskeletal Musculoskeletal: Present: generalized weakness, strength equal bilaterally - Psychiatric Psychiatric: Present: A&O x's 3, appropriate affect, intact judgment & insight although poor historian and forgetfull - Labs CBC & Chem 7: 01/09/20 06:06 01/09/20 06:06 Labs: Abnormal Lab Results - Last 24 Hours (Table) 01/10/20 01/11/20 01/11/20 Range/Units 20:06 06:22 12:04 POC Glucose (mg/dL) 225 H 129 H 141 H (75-99) mg/dL 01/11/20 Range/Units 16:51 POC Glucose (mg/dL) 210 H (75-99) mg/dL Microbiology - Last 24 Hours (Table) 01/07/20 17:22 Blood Culture - Preliminary Blood No Growth after 72 hours Assessment and Plan Plan: Assessment and Plan (1) Acute on chronic respiratory failure with hypoxia and hypercapnia Current Visit: Yes Status: Acute Code(s): J96.21 - ACUTE AND CHRONIC RESPIRATORY FAILURE WITH HYPOXIA; J96.22 - ACUTE AND CHRONIC RESPIRATORY FAILURE WITH HYPERCAPNIA SNOMED Code(s): 02498841012712 (2) COPD (chronic obstructive pulmonary disease) Current Visit: Yes Status: Acute Code(s): J44.9 - CHRONIC OBSTRUCTIVE PULMONARY DISEASE, UNSPECIFIED SNOMED Code(s): 08841472 (3) Adenocarcinoma of left lung Current Visit: No Status: Acute Code(s): C34.92 - MALIGNANT NEOPLASM OF UNSP PART OF LEFT BRONCHUS OR LUNG SNOMED Code(s): 56338375414395923 (4) COPD exacerbation Current Visit: No Status: Acute Code(s): J44.1 - CHRONIC OBSTRUCTIVE P ULMONARY DISEASE W (ACUTE) EXACERBATION SNOMED Code(s): 982837770 (5) Dyspnea Current Visit: No Status: Acute Code(s): R06.00 - DYSPNEA, UNSPECIFIED SNOMED Code(s): 498726868 Assessment and Plan Acute on Chronic Hypoxic Respiratory Failure: - Currently on nasal canula 4L - Pulmonology is following - COPD Exacerbation plus Post obstruction component - reviewed CTA 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 - Missed follow-up for treatment plan with Dr. Leong secondary to this current hospital admission - PDL1 and NGS Sent on tissue pathology - No evidence of distant mets on MRI Brain or PET scan COPD Exacerbation: - Per Pulmonary Normocytic Anemia:secondary to chronic disease and malignancy - monitor CBC Plan: - Will attempt to further discuss with patients as although his cancer is limited stage his response to radiation has not been significant enough to allow him outpatient care. His performance is not allowing for options of systemic treatment either. If discharged home recommended with palliative care.
[2020-01-11] MEDS: ACETAMINOPHEN TAB 325 MG TAB PO PRN (18:23)
[2020-01-11 20:10] LABS: Glucose,Whole Blood 191 mg/dL (75-99)
[2020-01-11] MEDS: ALPRAZolam 0.25 MG TAB PO PRN (20:40)
[2020-01-11] MEDS: ATORVASTATIN 10 MG TAB PO SCH (20:41)
[2020-01-11] MEDS: MIRTAZAPINE 15 MG TAB PO SCH (20:41)
[2020-01-12] MEDS: PIPERACILLIN-TAZOBACTAM 3.375 GM in SODIUM CHLORIDE 0.9% 100 ML IVPB SCH ×3 (00:23→16:19)
[2020-01-12] MEDS: methylPREDNISolone SOD SUCCI 125 MG/2 ML VIAL IV SCH ×2 (00:23→06:40)
[2020-01-12 06:00] LABS: Glucose,Whole Blood 162 mg/dL (75-99)
[2020-01-12] MEDS: INSULIN ASPART (NovoLOG) 100 UNIT/ML VIAL SQ SCH ×4 (06:36→20:43)
[2020-01-12] MEDS: SODIUM CHLORIDE 0.9% 1,000 ML IV SCH ×2 (06:44→16:19)
[2020-01-12] MEDS: SYMBICORT 160-4.5 MCG INHALER INHALATION SCH ×2 (07:14→19:37)
[2020-01-12] MEDS: IPRATROPIUM-ALBUTEROL 3 ML NEB INHALATION SCH ×4 (07:15→19:36)
--- NOTE | 2020-01-12 08:06 | XR ---
EXAMINATION TYPE: XR chest 1V portable DATE OF EXAM: 01/12/2020 Comparison: 01/08/2020 Clinical History: 74-year-old male with lung cancer Findings: A couple surgical clips project at the lower left lung. Heart upper limits of normal in size. Diffuse interstitial and patchy opacity throughout the left lung, unchanged. Large left suprahilar/upper lob e mass redemonstrated. Impression: Known large left upper lobe/suprahilar mass. Interstitial and patchy air space infiltrates throughout the left lung are unchanged.
[2020-01-12] MEDS: METOPROLOL SUCCINATE (ER) 25 MG TAB.ER.24H PO SCH (09:53)
[2020-01-12] MEDS: ENOXAPARIN 40 MG/0.4 ML SYRINGE SQ SCH (09:53)
[2020-01-12] MEDS: PANTOPRAZOLE 40 MG TABLET PO SCH (09:53)
[2020-01-12] MEDS: amLODIPine 5 MG TAB PO SCH (09:53)
[2020-01-12] MEDS: predniSONE 20 MG TAB PO SCH (09:53)
[2020-01-12] MEDS: busPIRone HCl 10 MG TAB PO SCH ×2 (09:54→20:38)
[2020-01-12] MEDS: ASPIRIN 81 MG PO SCH (09:56)
[2020-01-12] MEDS: ROFLUMILAST 500 MCG PO SCH (10:00)
[2020-01-12 11:35] VITALS: BMI 24.2
[2020-01-12 12:05] LABS: Glucose,Whole Blood 91 mg/dL (75-99)
--- NOTE | 2020-01-12 15:23 | P.PN ---
Subjective Progress Note Date: 01/12/20 Principal diagnosis: Acute exacerbation of COPD and possible postobstructive pneumonitis 74-year-old white male patient with the recently diagnosed locally advanced lung adenocarcinoma in November 2019, and also has past medical history of severe oxygen-dependent COPD and baseline FEV1 of 40% of predicted with 3 recent [id number] admissions and hospitalizations in the month of November and December. Patient was last hospitalized from 12/29/2019 through 01/05/2020 for acute exacerbation of COPD. Patient has a large left upper lobe mass, and had a fine- needle aspirate biopsy on 11/29/2019 which showed non-small cell carcinoma consistent with primary pulmonary adenocarcinoma. His outpatient PET scan showed no evidence of distant metastasis, brain MRI showed no evident metastatic disease. Patient has not started treatment for this other than starting radiation therapy to the enlarging left upper lung mass. Medical oncology did see the patient in a shunt, and patient's overall medical condition was considered to be not optimal for concurrent chemoradiation, and decision was made to initiate on palliative radiotherapy to improve aeration of the left lung. During that admission patient required on and off BiPAP support, he qualified for home BiPAP unit, and home BiPAP was arranged through [facility] [place] upon discharge on 01/05/2020. On 01/07/2020 patient was transferred from [facility], where he went for evaluation of worsening dyspnea, and weakness. Patient states his shortness of breath was relatively normal for him, however his pulse ox was only 60% on room air. In addition patient had an elevated temperature with a temp of 10 1F. Troponin was elevated at 0.23 at [place], and 0.062. Patient denied any chest pain. White blood cell count is 5.8, hemoglobin was 9.2, platelet count was 116, sodium was 138, potassium is 4.2, chloride was 94, CO2 39, B1 is 39, creatinine is 1.16, AST was 24, ALT was 64, proBNP was 5710. Of note patient was discharged home on Augmentin for antibiotic coverage. Patient is a d-dimer was somewhat elevated as well, and VQ scan was completed in place of a CT angios chest, in view of patient's history of nephrectomy, and patient's decision not to have IV contrast. VQ scan showed whole left lung matched decreased ventilation and perfusion signature to patient's known large left-sided mass c ompressing hilar structures. Overall low probability for pulmonary embolus. Chest x-ray shows large left chest mass, mildly increased opacity throughout the left lung compared to previous chest x-ray on 12/30/2019. Patient has been afebrile, he is currently requiring 6 L of oxygen his pulse ox is 93%, he is a sinus tachycardia on the monitor, with nonspecific ST and T wave changes, cardiology consultation was requested in view of elevation of troponins. Patient looks pretty comfortable during my evaluation, lung sounds are diminished over right lung, with no significant wheezing or congestion, with some diminished breath sounds and minimal expiratory wheezing. He is on Zosyn for empiric antibiotic coverage, IV steroids, and nebulized bronchodilators. On 01/09/2020 patient seen in follow-up on selective care unit, currently on 5 L of oxygen with a pulse ox of 95%, quite tight and wheezy on today's exam, short of breath with exertion. He went for his radiation treatment this morning. Did not wear BiPAP last night, his been afebrile, remains on nebulized bronchodilators, IV steroids and Zosyn for abiotic coverage. Is not bringing up any sputum. Denies any chest discomfort, CTA chest was completed again showing the left upper lobe lung mass, airspace disease in the left lower lobe, scattered air bronchograms with areas of groundglass opacity, increased interstitium, lingular groundglass opacity. There has been some progression in the airspace disease in the left upper lobe compared to prior PET/computed tomography scan on 12/15/2019. Central pulmonary arteries status actually enhanced, segmental branch vessels were not well visualized, there was extensive artifact and for that reason pulmonary embolism could not be excluded although the index of suspicion for pulmonary embolism is low, based on the low probability VQ scan. Repeat brain MRI showed no evidence of metastatic disease. Pro-calcitonin level came back elevated at 29.77, suggesting evidence of inf ection. No altered mentation, no fever or chills, COVID 19 was negative, patient is on Zosyn for empiric abiotic coverage in regards possibility of underlying pneumonia The patient is seen today 01/10/2028 in follow-up on the selective care unit. He is currently sitting up in a chair at the bedside. Awake and alert in no acute distress. Maintaining O2 saturations in the mid 90s on 5 L/m per nasal cannula. He did utilize the BiPAP last evening. Blood cultures reveal no growth to date. Glucose 222. He is continued on DuoNeb inhalations, Symbicort, IV Solu-Medrol. Antibiotics in the form of Zosyn. The patient is seen today 01/11/2020 in follow-up on the selective care unit. He is currently resting comfortably in bed. Awake and alert in no acute distress. Maintaining O2 saturations in the mid 90s on 4 L/m per nasal cannula. He's been afebrile. Hemodynamically stable. He is receiving radiation therapy currently. He is continued on DuoNeb inhalations, Symbicort, IV Solu-Medrol. Antibiotics in the form of Zosyn. Blood culture reveals no growth to date. Blood glucose 141. Reevaluated today on 01/12/20, patient is on selective care unit, doing well, resting in bed, intermittently on BiPAP, maintained on 4 L nasal cannula with O2 saturations in the 90s. No fever no chills he has occasional cough and wheezing. Been maintained on bronchodilators and on antibiotics in the form of Zosyn. CBC is relatively unremarkable. Bicarb level is 44. Objective - Vital Signs Vital signs: Vital Signs Temp 98.0 F 01/11/20 23:00 Pulse 84 01/12/20 08:00 Resp 18 01/12/20 08:00 BP 124/92 01/11/20 23:00 Pulse Ox 95 01/11/20 23:00 Intake & Output 01/11/20 01/12/20 01/12/20 18:59 06:59 18:59 Intake Total 2600 480 Output Total 375 Balance 2600 105 Weight 81.1 kg 81.1 kg Intake: Intake, IV Titration 1200 Amount Piperacillin-Tazobactam 3 200 .375 gm In Sodium Chloride 0.9% 100 ml @ 25 mls/hr IVPB Q8HR [facility] Rx# :[id number] Sodium Chloride 0.9% 1, 1000 000 ml @ 100 mls/hr IV . Q10H [facility] Rx#:[id number] Oral 1400 480 Output: Urine 375 Other: Voiding Method Toilet Toilet Urinal Urinal # Voids 0 1 # Bowel Movements 0 1 - Exam GENERAL EXAM: Revealed 74-year-old white male in no distress. Very pleasant. HEENT: PERRLA, EOMI, no icterus, moist mucous membranes, no neck masses. No thyromegaly, no stridor. CHEST: No chest wall deformity. Symmetrical expansion. LUNGS: Equal air entry with diminished breath sounds on the left, wheezing on forced expiratory maneuver noted. CVS: Regular rate and rhythm, normal S1 and S2, no gallops, no murmurs, no rubs ABDOMEN: Soft, nontender. No hepatosplenomegaly, normal bowel sounds, no guarding or rigidity. EXTREMITIES: No clubbing, no edema, no cyanosis, 2+ pulses and upper and lower extremities. MUSCULOSKELETAL: Muscle strength and tone normal. SPINE: No scoliosis or deformity SKIN: No rashes CENTRAL NERVOUS SYSTEM: No focal deficits, tone is normal in all 4 extremities. PSYCHIATRIC: Alert and oriented -3. Appropriate affect. Intact judgment and insight. - Labs CBC & Chem 7: 01/09/20 06:06 01/09/20 06:06 Labs: Abnormal Lab Results - Last 24 Hours (Table) 01/11/20 01/11/20 01/12/20 Range/Units 16:51 20:09 05:59 POC Glucose (mg/dL) 210 H 191 H 162 H (75-99) mg/dL Microbiology - Last 24 Hours (Table) 01/07/20 17:22 Blood Culture - Preliminary Blood No Growth after 96 hours Assessment and Plan Assessment: Impression: Acute on chronic hypoxic respiratory failure secondary to COPD, adenocarcinoma of the left lung, and possible postobstructive pneumonitis. Local advanced pulmonary adenocarcinoma, patient is undergoing radiation treatment, it is basically a stage IIIa. Patient is on palliative radiation therapy. Severe COPD, FEV1 is 40%. Chronic hypoxic respiratory failure secondary to underlying COPD. 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 Requires BiPAP intermittently. History of renal cell carcinoma and previous nephrectomy. History of coronary artery disease and previous stenting in 2015. Dyslipidemia. GERD without esophagitis. History of tobacco dependence. Recommendation: Continue present treatment plan, including bronchodilators, antibiotics. Continue BiPAP as needed and especially at night during sleep time. Consider discharging the patient home in the next 24 hours, and follow-up on outpatient basis with us and with oncology Time with Patient: Less than 30
--- NOTE | 2020-01-12 16:46 | P.PN ---
Subjective Progress Note Date: 01/12/20 Principal diagnosis: dyspnea/ post obstructive PNA secondary to neoplasm The patient states he is feeling a little better today. He is comfortable, states not coughing too much. Still feeling short of breath at times, but has been on 4L without much complaint. He states he has been able to ambulate short distances to use the bathroom. Objective - Vital Signs Vital signs: Vital Signs Temp 98.0 F 01/11/20 23:00 Pulse 102 H 01/12/20 16:10 Resp 18 01/12/20 16:00 BP 133/71 01/12/20 15:00 Pulse Ox 95 01/12/20 15:00 Intake & Output 01/11/20 01/12/20 01/12/20 18:59 06:59 18:59 Intake Total 2600 480 Output Total 375 Balance 2600 105 Weight 81.1 kg 81.1 kg Intake: Intake, IV Titration 1200 Amount Piperacillin-Tazobactam 3 200 .375 gm In Sodium Chloride 0.9% 100 ml @ 25 mls/hr IVPB Q8HR [facility] Rx# :[id number] Sodium Chloride 0.9% 1, 1000 000 ml @ 100 mls/hr IV . Q10H [facility] Rx#:[id number] Oral 1400 480 Output: Urine 375 Other: Voiding Method Toilet Toilet Toilet Urinal Urinal Urinal # Voids 0 1 # Bowel Movements 0 1 - Constitutional General appearance: Present: no acute distress - EENT Eyes: Present: EOMI, PERRLA ENT: Present: hearing grossly normal - Respiratory Respiratory: right: wheezing, left: rhonchi - Cardiovascular Rhythm: regular - Gastrointestinal General gastrointestinal: Absent: tenderness - Integumentary Integumentary: Absent: calor - Neurologic Neurologic: Present: CNII-XII intact - Psychiatric Psychiatric: Present: appropriate affect - Labs CBC & Chem 7: 01/09/20 06:06 01/09/20 06:06 Labs: Abnormal Lab Results - Last 24 Hours (Table) 01/11/20 01/11/20 01/12/20 Range/Units 16:51 20:09 05:59 POC Glucose (mg/dL) 210 H 191 H 162 H (75-99) mg/dL Microbiology - Last 24 Hours (Table) 01/07/20 17:22 Blood Culture - Preliminary Blood No Growth after 96 hours - Imaging and Cardiology Chest x-ray: report reviewed, image reviewed Assessment and Plan Plan: 74 year old male with O2 dependent COPD and stage III lung ca. He has been hospitalized now 3 times in the last 2 months due to dyspnea. Has required bipap intermittently. He has now completed 6 fractions of palliative radi otherapy to the lung (24 Gy total). 1. Non-small cell lung ca: Patient has now achieved an adequate palliative dose of RT. He has completed 6/6 planned treatments over the past 2 weeks. If his symptoms are due to obstruction, he may see some continued improvement over the next week. I have advised outpatient oncology follow-up. He was previously referred to Dr. Torres in [place]. If patient is unable to proceed with further therapy due to his lung disease, certainly palliative care is reasonable. He has shown minimal improvement over the past week. Time with Patient: Less than 30
[2020-01-12 17:09] LABS: Glucose,Whole Blood 133 mg/dL (75-99)
--- NOTE | 2020-01-12 19:18 | P.PN ---
Subjective Progress Note Date: 01/12/20 Principal diagnosis: new lung ca, copd, post obs pneumonia Patient is laying in bed, breathing without difficulty while laying flat on side. He states he is feeling better today and able to walk short distances to bathroom with assistance. Objective - Vital Signs Vital signs: Vital Signs Temp 98.0 F 01/11/20 23:00 Pulse 102 H 01/12/20 16:10 Resp 18 01/12/20 16:00 BP 133/71 01/12/20 15:00 Pulse Ox 95 01/12/20 15:00 Intake & Output 01/12/20 01/12/20 01/13/20 06:59 18:59 06:59 Intake Total 480 Output Total 375 Balance 105 Weight 81.1 kg 81.1 kg Intake: Oral 480 Output: Urine 375 Other: Voiding Method Toilet Toilet Urinal Urinal # Voids 1 # Bowel Movements 1 - Exam - Exam - Constitutional General appearance: Present: average body habitus, cooperative, no acute distress - EENT Eyes: Present: PERRLA, poor dentition ENT: Present: hard of hearing, NA/AT - Neck Neck: Present: normal ROM - Respiratory - Improving Respiratory: bilateral: diminished, rhonchi NC, increased respiratory effort - Cardiovascular Rhythm: regular Tachy Heart sounds: normal: S1, S2 - Gastrointestinal General gastrointestinal: Present: normal bowel sounds, soft - Integumentary Integumentary: Present: pale - Neurologic Neurologic: Present:non-focal - Musculoskeletal Musculoskeletal: Present: generalized weakness, strength equal bilaterally - Psychiatric Psychiatric: Present: A&O x's 3, appropriate affect, intact judgment & insight although poor historian and forgetfull - Labs CBC & Chem 7: 01/09/20 06:06 01/09/20 06:06 Labs: Abnormal Lab Results - Last 24 Hours (Table) 01/11/20 01/12/20 01/12/20 Range/Units 20:09 05:59 16:48 POC Glucose (mg/dL) 191 H 162 H 133 H (75-99) mg/dL Microbiology - Last 24 Hours (Table) 01/07/20 17:22 Blood Culture - Preliminary Blood No Growth after 96 hours Assessment and Plan Plan: Assessment and Plan (1) Acute on chronic respiratory failure with hypoxia and hypercapnia Current Visit: Yes Status: Acute Code(s): J96.21 - ACUTE AND CHRONIC RESPIRATORY FAILURE WITH HYPOXIA; J96.22 - ACUTE AND CHRONIC RESPIRATORY FAILURE WITH HYPERCAPNIA SNOMED Code(s): 45077260745643 (2) COPD (chronic obstructive pulmonary disease) Current Visit: Yes Status: Acute Code(s): J44.9 - CHRONIC OBSTRUCTIVE PULMONARY DISEASE, UNSPECIFIED SNOMED Code(s): 17416702 (3) Adenocarcinoma of left lung Current Visit: No Status: Acute Code(s): C34.92 - MALIGNANT NEOPLASM OF UNSP PART OF LEFT BRONCHUS OR LUNG SNOMED Code(s): 23757374853548851 (4) COPD exacerbation Current Visit: No Status: Acute Code(s): J44.1 - CHRONIC OBSTRUCTIVE PULMONARY DISEASE W (ACUTE) EXACERBATION SNOMED Code(s): 473780930 (5) Dyspnea Current Visit: No Status: Acute Code(s): R06.00 - DYSPNEA, UNSPECIFIED SNOMED Code(s): 002462306 Assessment and Plan Acute on Chronic Hypoxic Respiratory Failure: - Currently on nasal canula 4L - Pulmonology is following - COPD Exacerbation plus Post obstruction component - reviewed CTA, no pulm emboli noted 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 - Missed follow-up for treatment plan with Dr. Leong secondary to this current hospital admission - PDL1 and NGS Sent on tissue pathology - No evidence of distant mets on MRI Brain or PET scan COPD Exacerbation: - Per Pulmonary Normocytic Anemia:secondary to chronic disease and malignancy - monitor CBC 01/12/20 - Plan: - Discussed with radiation oncology and with primary team. - PLan is to discharge home, with home care - recommendation with palliative care - He will benefit from home nursing and PT/OT in home - He is status post 6/6 planned treatments over 2 weeks of radiation therapy due to obstruction and seems to be improving slowly - Patient and understand that if they want to pursue treatment it is critical that he be able to sustain at home, working to increase and stabilize performance status and oxygenation. At this time he has been admitted three times in 2 months, since diagnosis of stage 3 lung ca and directed palliative treatments of radiation to the lungs have been the only available options thus far. - Palliative care now and moving forward would be primarily for his COPD and assist in preventing recurring admissions - Follow-up with Dr. Torres next week and Dr. Leong Physician Attest: I have completed the full history and physical and agree with above dictation, dictated as a scribe.
[2020-01-12 20:37] LABS: Glucose,Whole Blood 171 mg/dL (75-99)
[2020-01-12] MEDS: MIRTAZAPINE 15 MG TAB PO SCH (20:38)
[2020-01-12] MEDS: ATORVASTATIN 10 MG TAB PO SCH (20:38)
[2020-01-12] MEDS: ACETAMINOPHEN TAB 325 MG TAB PO PRN (20:39)
[2020-01-13] MEDS: PIPERACILLIN-TAZOBACTAM 3.375 GM in SODIUM CHLORIDE 0.9% 100 ML IVPB SCH ×3 (01:34→16:30)
[2020-01-13] MEDS: SODIUM CHLORIDE 0.9% 1,000 ML IV SCH ×2 (03:51→12:25)
[2020-01-13 06:07] LABS: Glucose,Whole Blood 91 mg/dL (75-99)
[2020-01-13] MEDS: INSULIN ASPART (NovoLOG) 100 UNIT/ML VIAL SQ SCH ×4 (06:20→21:03)
[2020-01-13] MEDS: SYMBICORT 160-4.5 MCG INHALER INHALATION SCH ×2 (07:28→20:22)
[2020-01-13] MEDS: IPRATROPIUM-ALBUTEROL 3 ML NEB INHALATION SCH ×5 (07:28→20:27)
[2020-01-13] MEDS: ASPIRIN 81 MG PO SCH (09:05)
[2020-01-13] MEDS: ROFLUMILAST 500 MCG PO SCH (09:05)
[2020-01-13] MEDS: amLODIPine 5 MG TAB PO SCH (09:05)
[2020-01-13] MEDS: PANTOPRAZOLE 40 MG TABLET PO SCH (09:05)
[2020-01-13] MEDS: busPIRone HCl 10 MG TAB PO SCH ×2 (09:05→21:05)
[2020-01-13] MEDS: predniSONE 20 MG TAB PO SCH (09:05)
[2020-01-13] MEDS: ENOXAPARIN 40 MG/0.4 ML SYRINGE SQ SCH (09:08)
[2020-01-13] MEDS: METOPROLOL SUCCINATE (ER) 25 MG TAB.ER.24H PO SCH (09:08)
[2020-01-13] MEDS: ACETAMINOPHEN TAB 325 MG TAB PO PRN ×2 (10:37→21:31)
--- NOTE | 2020-01-13 12:10 | P.PN ---
Subjective Progress Note Date: 01/13/20 Principal diagnosis: Dyspnea, weakness 74-year-old white male patient with the recently diagnosed locally advanced lung adenocarcinoma in November 2019, and also has past medical history of severe oxygen-dependent COPD and baseline FEV1 of 40% of predicted with 3 recent [id number] admissions and hospitalizations in the month of November and December. Patient was last hospitalized from 12/29/2019 through 01/05/2020 for acute exacerbation of COPD. 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 His outpatient PET scan showed no evidence of distant metastasis, brain MRI showed no evident metastatic disease. Patient has not started treatment for this other than starting radiation therapy to the enlarging left upper lung mass. Medical oncology did see the patient in a shunt, and patient's overall medical condition was considered to be not opt imal for concurrent chemoradiation, and decision was made to initiate on palliative radiotherapy to improve aeration of the left lung. During that admission patient required on and off BiPAP support, he qualified for home BiPAP unit, and home BiPAP was arranged through [employer] upon discharge on 01/05/2020. On 01/07/2020 patient was transferred from [facility], where he went for evaluation of worsening dyspnea, and weakness. Patient states his shortness of breath was relatively normal for him, however his pulse ox was only 60% on room air. In addition patient had an elevated temperature with a temp of 10 1F. Troponin was elevated at 0.23 at [place], and 0.062. Patient denied any chest pain. White blood cell count is 5.8, hemoglobin was 9.2, platelet count was 116, sodium was 138, potassium is 4.2, chloride was 94, CO2 39, B1 is 39, creatinine is 1.16, AST was 24, ALT was 64, proBNP was 5710. Of note patient was discharged home on Augmentin for an tibiotic coverage. Patient is a d-dimer was somewhat elevated as well, and VQ scan was completed in place of a CT angios chest, in view of patient's history of nephrectomy, and patient's decision not to have IV contrast. VQ scan showed whole left lung matched decreased ventilation and perfusion signature to patient's known large left-sided mass compressing hilar structures. Overall low probability for pulmonary embolus. Chest x-ray shows large left chest mass, mildly increased opacity throughout the left lung compared to previous chest x- ray on 12/30/2019. Patient has been afebrile, he is currently requiring 6 L of oxygen his pulse ox is 93%, he is a sinus tachycardia on the monitor, with nonspecific ST and T wave changes, cardiology consultation was requested in view of elevation of troponins. Patient looks pretty comfortable during my evaluation, lung sounds are diminished over right lung, with no significant wheezing or congestion, with some diminished breath sounds and minimal expiratory wheezing. He is on Zosyn for empiric antibiotic coverage, IV steroids, and nebulized bronchodilators. On 01/09/2020 patient seen in follow-up on selective care unit, currently on 5 L of oxygen with a pulse ox of 95%, quite tight and wheezy on today's exam, short of breath with exertion. He went for his radiation treatment this morning. Did not wear BiPAP last night, his been afebrile, remains on nebulized bronchodilators, IV steroids and Zosyn for abiotic coverage. Is not bringing up any sputum. Denies any chest discomfort, CTA chest was completed again showing the left upper lobe lung mass, airspace disease in the left lower lobe, scattered air bronchograms with areas of groundglass opacity, increased interstitium, lingular groundglass opacity. There has been some progression in the airspace disease in the left upper lobe compared to prior PET/computed tomography scan on 12/15/2019. Central pulmonary arteries status actually enhanced, segmental branch vessels were not well visualized, there was extensive artifact and for that reason pulmonary embolism could not be excluded although the index of suspicion for pulmonary embolism is low, based on the low probabil ity VQ scan. Repeat brain MRI showed no evidence of metastatic disease. Pro- calcitonin level came back elevated at 29.77, suggesting evidence of infection. No altered mentation, no fever or chills, COVID 19 was negative, patient is on Zosyn for empiric abiotic coverage in regards possibility of underlying pneumonia The patient is seen today 01/10/2028 in follow-up on the selective care unit. He is currently sitting up in a chair at the bedside. Awake and alert in no acute distress. Maintaining O2 saturations in the mid 90s on 5 L/m per nasal cannula. He did utilize the BiPAP last evening. Blood cultures reveal no growth to date. Glucose 222. He is continued on DuoNeb inhalations, Symbicort, IV Solu-Medrol. Antibiotics in the form of Zosyn. The patient is seen today 01/11/2020 in follow-up on the selective care unit. He is currently resting comfortably in bed. Awake and alert in no acute distress. Maintaining O2 saturations in the mid 90s on 4 L/m per nasal cannula. He's been afebrile. Hemodynamically stable. He is receiving radiation therapy currently. He is continued on DuoNeb inhalations, Symbicort, IV Solu-Medrol. Antibiotics in the form of Zosyn. Blood culture reveals no growth to date. Blood glucose 141. The patient is seen today 01/13/2020 in follow-up on the selective care unit. He is resting in bed. He has a loose nonproductive cough. Dyspneic even at rest. The plan was to discharge home for palliative care. He's completed palliative radiation. He does desaturate to 85% on 5 L/m per nasal cannula. He is maintained on BiPAP currently. 40% FiO2. Chest x-ray reveals large left upper lobe suprahilar mass with patchy airspace infiltrates throughout the left lung. Unchanged. He remains on bronchodilators, prednisone, Zosyn. Objective - Vital Signs Vital signs: Vital Signs Temp 98.6 F 01/13/20 06:16 Pulse 100 01/13/20 07:39 Resp 26 H 01/13/20 06:16 BP 177/96 01/13/20 06:16 Pulse Ox 94 L 01/13/20 06:56 Intake & Output 01/12/20 01/13/20 01/13/20 18:59 06:59 18:59 Intake Total 480 240 225 Output Total 375 175 Balance 105 65 225 Weight 81.1 kg 79.7 kg Intake: Oral 480 240 225 Output: Urine 375 175 Other: Voiding Method Toilet Urinal # Voids 1 - Exam GENERAL EXAM: Alert, pleasant, 74-year-old male patient, currently on BiPAP, mild respiratory distress EYES: Normal reaction of pupils, equal size. Conjunctiva pink, sclera white. NOSE: Clear with pink turbinates. THROAT: No erythema or exudates. NECK: No masses, no JVD, no thyroid enlargement, no adenopathy. CHEST: No chest wall deformity. Symmetrical expansion. LUNGS: Equal air entry with diminished breath sounds on the left, with scattered rhonchi throughout CVS: Regular rate and rhythm, normal S1 and S2, no gallops, no murmurs, no rubs ABDOMEN: Soft, nontender. No hepatosplenomegaly, normal bowel sounds, no guarding or rigidity. EXTREMITIES: No clubbing, no edema, no cyanosis, 2+ pulses and upper and lower extremities. MUSCULOSKELETAL: Muscle strength and tone normal. SPINE: No scoliosis or deformity SKIN: No rashes CENTRAL NERVOUS SYSTEM: No focal deficits, tone is normal in all 4 extremities. PSYCHIATRIC: Alert and oriented -3. Appropriate affect. Intact judgment and insight. - Labs CBC & Chem 7: 01/09/20 06:06 01/09/20 06:06 Labs: Abnormal Lab Results - Last 24 Hours (Table) 01/12/20 01/12/20 Range/Units 16:48 20:35 POC Glucose (mg/dL) 133 H 171 H (75-99) mg/dL Microbiology - Last 24 Hours (Table) 01/07/20 17:22 Blood Culture - Preliminary Blood No Growth after 120 hours Assessment and Plan Assessment: #1. Acute on chronic hypoxemic respiratory failure related to acute exacerbation of chronic obstructive pulmonary disease, and possibility of left lung pneumonia, no clear evidence of pulmonary embolism on CTA chest or VQ scan. #2. Elevated troponin, 0.023, and 0.062, possibly related to acute on chronic hypoxic respiratory failure #3. Elevated d-dimer, VQ scan showed low probability for pulmonary embolism showing matched ventilation perfusion defect in the left upper lung consistent with history of lung adenocarcinoma and a large left upper lobe mass. CTA chest showed extensive artifact with poor visualization of segmental branches, but no clear evidence of pulmonary embolism #4. Recent hospitalization for acute exacerbation of COPD discharged home on 01/05/2020, patient had 2 other [id number] admissions in late November and December for complications related to left upper lung mass, and COPD exacerbation #5. Local advanced pulmonary adenocarcinoma stage III with a large left upper lobe mass, and most recent computed tomography scan and the PET scan findings did not show any mass effect, diagnosed in November 2019 via fine needle aspirate biopsy performed by interventional radiology. Outpatient PET scan showed no evidence of distant metastasis, MRI of the brain showed no evidence of metastatic disease. Patient's pulmonary adenocarcinoma with stage IIIa at diagnosis, patient has been started on palliative radiation during his previous admission #6. Severe oxygen-dependent COPD with a baseline FEV1 value of 40% of predicted, normally wears 2 L of oxygen at home #7. Chronic hypercapnic respiratory failure related to COPD, most recently sent home on BiPAP support with pressures of 12/5 #8. History of tobacco dependence #9. History of right renal cell carcinoma status post nephrectomy #10. History of coronary artery disease with previous intervention and stenting in 2015 #11. Chronic back pain #12. Hyperlipidemia #13. 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 Hassan Continue with current treatment plan Continue BiPAP support as needed Palliative radiation completed No significant improvement DNR/DNI CODE STATUS Overall prognosis remains quite poor Palliative care/hospice recommended I, the cosigning physician, performed a history & physical examination of the patient. Lungs sounds diminished in the left lung, scattered rhonchi throughout. Maintaining good O2 saturations in the 90s on BiPAP at 40% FiO2. I discussed the assessment and plan of care with my nurse practitioner, Bernadette Fernandez. I attest to the above note as dictated by her.
[2020-01-13 12:33] LABS: Glucose,Whole Blood 86 mg/dL (75-99)
[2020-01-13 17:50] LABS: Glucose,Whole Blood 151 mg/dL (75-99)
[2020-01-13 20:20] LABS: Glucose,Whole Blood 127 mg/dL (75-99)
--- NOTE | 2020-01-13 20:26 | P.PN ---
Subjective From records 74-year-old male level was transferred from [facility] after he presented there with the complaints of shortness of breath hypoxic with saturations going down to 60% patient evidently had elevated temperature of 101 although he doesn't have any temperature here. Patient was a lightheaded and the has been quite weak. Patient had mildly elevated troponin of 0.23 because of his cardiology was consulted. Patient was tachycardic does have positive orthostatic vitals. Patient was started on IV fluids patient doesn't have any history of gunshot failure in the past patient had a normal ejection fraction the past. 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 Patient denied any cough or sputum production. Patient usually uses a 2 L of onset at home, presently on 6 L of oxygen. Patient denied any chest pain nausea vomiting. EKG showed sinus tachycardia and some premature ventricular complexes without any acute ST-T wave changes. and an elevated d-dimer because of which VQ scan was obtained which is significantly abnormal because of interstitial infiltrate which was evident on the chest x-ray although low probability of pulmonary embolism. 01/09/2020 Patient wheezing is bit worse today. Patient appears to have local advanced to close lung cancer on the left side of interstitial spread. Urinary Legionella and mycoplasma IgM antibodies are pending. Patient is wasn't a Zosyn and IV steroids. Pulmonary evaluated the patient. Hospice will be evaluated the patient today. Patient had a CT angios the chest which is read as possible interstitial spread of the cancer. 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 This time also presents with signs symptoms of acute COPD exacerbation and possible left lower lobe pneumonia on the top of his left lung cancer. Patient is awake and alert, is breathing quietly, denies chest pain or coughing. He is saturating 90s on 5 L oxygen via nasal cannula, rest of vitals are stable Labs reviewed the looks stable, he had mild anemia and thrombocytopenia Patient continued on Solu-Medrol and Zosyn and normal saline per hour He is status post palliative radiotherapy 01/11/2020 Patient today respiratory status is worse than yesterday his more tachypneic and he needs about 5 L of oxygen via nasal cannula. Patient supposed to be discharg ed yesterday however worsening his respiratory status we will keep him, I discussed the case with the at bedside she looks open to the idea of hospice/Comfort Care however she wants to talk to the oncology team, after discussion the case with Dr. Leong he spoke to the and she agreeable to talk to the hospice team and consult was placed Prognosis remains poor and the chances of cure is very minimal Objective - Vital Signs Vital signs: Vital Signs Temp 98 F 01/13/20 15:00 Pulse 107 H 01/13/20 15:00 Resp 22 01/13/20 15:00 BP 177/96 01/13/20 06:16 Pulse Ox 94 L 01/13/20 15:00 Intake & Output 01/13/20 01/13/20 01/14/20 06:59 18:59 06:59 Intake Total 240 225 Output Total 175 200 Balance 65 25 Weight 79.7 kg Intake: Oral 240 225 Output: Urine 175 200 Other: # Voids 1 - Exam GENERAL: The patient is alert and oriented x3, not in any acute distress. Well developed, well nourished. HEENT: Pupils are round and equally reacting to light. EOMI. No scleral icterus. No conjunctival pallor. Normocephalic, atraumatic. No pharyngeal erythema. No thyromegaly. CARDIOVASCULAR: S1 and S2 present. No murmurs, rubs, or gallops. PULMONARY: Significant expiratory wheezing on exam mild crackles in the left side posteriorly ABDOMEN: Soft, nontender, nondistended, normoactive bowel sounds. No palpable organomegaly. MUSCULOSKELETAL: No joint swelling or deformity. EXTREMITIES: No cyanosis, clubbing, or pedal edema. NEUROLOGICAL: Gross neurological examination did not reveal any focal deficits. SKIN: No rashes. - Labs CBC & Chem 7: 01/09/20 06:06 01/09/20 06:06 Labs: Abnormal Lab Results - Last 24 Hours (Table) 01/12/20 01/13/20 Range/Units 20:35 17:37 POC Glucose (mg/dL) 171 H 151 H (75-99) mg/dL Microbiology - Last 24 Hours (Table) 01/07/20 17:22 Blood Culture - Final Blood No Growth after 144 hours Assessment and Plan Assessment: -Acute on chronic hypoxic respiratory failure: Patient is wheezing today does have COPD exacerbation. Continue with systemic steroids patient appears to have interstitial spread of the cancer, pulmonary of the case -Left lower lobe pneumonia, possibly postobstructive patient is on Zosyn which will be continued for now -Advanced left lung adenocarcinoma, oncology on the case and they recommended radiation therapy and radiotherapy fails then may be considered for hospice. Hospice consult is placed and and patient agrees to talk to the -mildly elevated troponins , secondary to hypoxia, no evidence of acute myocardial infarction -Dizziness probably secondary to intravascular depletion patient was also tachycardic with mild renal dysfunction patient will be continued on IV fluids which was started on Lasix was discontinued and will discuss with cardiology. Patient had normal ejection fraction the past -COPD and chronic hypercapnic respiratory failure secondary to COPD patient uses to his falls and at home patient is pleasant and 6 L which will be continued as not appear to be in COPD exacerbation -Coronary artery disease -History of renal cell cancer status post nephrectomy -Squamous cell lung cancer with a mass lesion in the lung for which patient is receiving radiation therapy radiation oncology and oncology evaluate the patient patient received radiation therapy today -CVA in the past -Gastroesophageal reflux disease for which patient is on Protonix -Due to prophylaxis Lovenox
[2020-01-13] MEDS: ALPRAZolam 0.25 MG TAB PO PRN (21:05)
[2020-01-13] MEDS: MIRTAZAPINE 15 MG TAB PO SCH (21:06)
[2020-01-13] MEDS: ATORVASTATIN 10 MG TAB PO SCH (21:06)
[2020-01-13] MEDS ORDERED: MORPHINE SULFATE 4 MG/ML SYRINGE IM STA (22:50)
[2020-01-13] MEDS ORDERED: MORPHINE SULFATE 4 MG/ML SYRINGE IVP PRN (22:51)
--- NOTE | 2020-01-14 00:11 | P.PN ---
Subjective Progress Note Date: 01/13/20 The patient was somewhat improved yesterday, but has had worsening of his respiratory status today. He is fairly lethargic. No history of hemoptysis. No fevers or chills. Objective - Vital Signs Vital signs: Vital Signs Temp 97.8 F 01/13/20 23:00 Pulse 114 H 01/13/20 23:00 Resp 40 H 01/13/20 23:00 BP 156/85 01/13/20 23:00 Pulse Ox 85 L 01/13/20 23:00 Intake & Output 01/13/20 01/13/20 01/14/20 06:59 18:59 06:59 Intake Total 240 225 220 Output Total 175 200 Balance 65 25 220 Weight 79.7 kg Intake: Intake, IV Titration 100 Amount Piperacillin-Tazobactam 3 100 .375 gm In Sodium Chloride 0.9% 100 ml @ 25 mls/hr IVPB Q8HR [facility] Rx# :[id number] Oral 240 225 120 Output: Urine 175 200 Other: # Voids 1 1 - Constitutional Constitutional Comment(s): Moderate resp distress - EENT Eyes: Present: EOMI ENT: Present: hearing grossly normal, normal oropharynx - Respiratory Respiratory: bilateral: diminished, prolonged expiration - Cardiovascular Rhythm: regular Heart sounds: normal: S1, S2 - Gastrointestinal General gastrointestinal: Present: normal bowel sounds, soft - Integumentary Integumentary: Present: normal - Neurologic Neurologic: Present: CNII-XII intact - Musculoskeletal Musculoskeletal: Present: generalized weakness, strength equal bilaterally - Psychiatric Psychiatric Comment(s): Lethargic, drowsy Psychiatric: Present: A&O x's 3, appropriate affect - Labs CBC & Chem 7: 01/09/20 06:06 01/09/20 06:06 Labs: Abnormal Lab Results - Last 24 Hours (Table) 01/13/20 01/13/20 Range/Units 17:37 20:12 POC Glucose (mg/dL) 151 H 127 H (75-99) mg/dL Microbiology - Last 24 Hours (Table) 01/07/20 17:22 Blood Culture - Final Blood No Growth after 144 hours Assessment and Plan (1) COPD exacerbation Narrative/Plan: Patient's respiratory status remains quite fragile. He had improved somewhat yesterday and there was a plan for possible discharge. However he is more short of breath again today, as well as weaker. - Continue aggressive treatment with oxygen support, steroids and respiratory treatments per IM and pulmonary medicine. Current Visit: Yes Status: Acute Code(s): J44.1 - CHRONIC OBSTRUCTIVE PULMONARY DISEASE W (ACUTE) EXACERBATION SNOMED Code(s): 276166203 (2) Pneumonia Narrative/Plan: The patient is clinically felt to have possible superimposed pneumonia, possibly postobstructive. Continue current antibiotic treatment. Current Visit: Yes Status: Acute Code(s): J18.9 - PNEUMONIA, UNSPECIFIED ORGANISM SNOMED Code(s): 370648049 (3) Adenocarcinoma of left lung Narrative/Plan: the clinical situation was discussed in detail with the admitting service, the patient and his . The patient has localized disease and ideally would have been treated aggressively with a definitive intent. Unfortunately his respiratory status which is very fragile, which has precluded any treatment so far. The patient has been started on palliative radiation in the hope that it will improve lung function to where the patient can start on some more definitive treatment. No significant improvement has occurred so far. - It was discussed in detail with the admitting service as well as the patient and his , that unfortunately at this time it is probably too early to state if radiation will work or not. From that standpoint it would be reasonable to continue the current plan. On the other hand given the patient's very poor underlying lung function, it is certainly possible that the radiation may not be effective in its objective. Even if the radiation did work, it cannot be guaranteed that the patient would be able to continue the additional treatment that would be required for clinical benefit (systemic therapy and possibly more radiation). Therefore, from the standpoint of his very poor respiratory function, it would be reasonable if the patient and his were to consider comfort care. At this time they would like to continue current plan of treatment, while the consider the above options further. In the meantime she would like to set up an informational meeting with hospice. This was also discussed with the admitting service, and order placed Current Visit: No Status: Acute Code(s): C34.92 - MALIGNANT NEOPLASM OF UNSP PART OF LEFT BRONCHUS OR LUNG SNOMED Code(s): 24526049182392507
[2020-01-14] MEDS: PIPERACILLIN-TAZOBACTAM 3.375 GM in SODIUM CHLORIDE 0.9% 100 ML IVPB SCH ×2 (00:33→07:57)
--- NOTE | 2020-01-14 02:40 | P.PN ---
Subjective From records 74-year-old male level was transferred from [facility] after he presented there with the complaints of shortness of breath hypoxic with saturations going down to 60% patient evidently had elevated temperature of 101 although he doesn't have any temperature here. Patient was a lightheaded and the has been quite weak. Patient had mildly elevated troponin of 0.23 because of his cardiology was consulted. Patient was tachycardic does have positive orthostatic vitals. Patient was started on IV fluids patient doesn't have any history of gunshot failure in the past patient had a normal ejection fraction the past. 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 Patient denied any cough or sputum production. Patient usually uses a 2 L of onset at home, presently on 6 L of oxygen. Patient denied any chest pain nausea vomiting. EKG showed sinus tachycardia and some premature ventricular complexes without any acute ST-T wave changes. and an elevated d-dimer because of which VQ scan was obtained which is significantly abnormal because of interstitial infiltrate which was evident on the chest x-ray although low probability of pulmonary embolism. 01/09/2020 Patient wheezing is bit worse today. Patient appears to have local advanced to close lung cancer on the left side of interstitial spread. Urinary Legionella and mycoplasma IgM antibodies are pending. Patient is wasn't a Zosyn and IV steroids. Pulmonary evaluated the patient. Hospice will be evaluated the patient today. Patient had a CT angios the chest which is read as possible interstitial spread of the cancer. 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 This time also presents with signs symptoms of acute COPD exacerbation and possible left lower lobe pneumonia on the top of his left lung cancer. Patient is awake and alert, is breathing quietly, denies chest pain or coughing. He is saturating 90s on 5 L oxygen via nasal cannula, rest of vitals are stable Labs reviewed the looks stable, he had mild anemia and thrombocytopenia Patient continued on Solu-Medrol and Zosyn and normal saline per hour He is status post palliative radiotherapy 01/11/2020 Patient today respiratory status is worse than yesterday his more tachypneic and he needs about 5 L of oxygen via nasal cannula. Patient supposed to be discharg ed yesterday however worsening his respiratory status we will keep him, I discussed the case with the at bedside she looks open to the idea of hospice/Comfort Care however she wants to talk to the oncology team, after discussion the case with Dr. Leong he spoke to the and she agreeable to talk to the hospice team and consult was placed Prognosis remains poor and the chances of cure is very minimal Objective - Vital Signs Vital signs: Vital Signs Temp 98.3 F 01/11/20 16:00 Pulse 92 01/11/20 16:50 Resp 18 01/11/20 16:00 BP 121/70 01/11/20 16:00 Pulse Ox 95 01/11/20 16:38 Intake & Output 01/11/20 01/11/20 01/12/20 06:59 18:59 06:59 Intake Total 2600 Output Total 260 Balance -260 2600 Weight 82 kg Intake: Intake, IV Titration 1200 Amount Piperacillin-Tazobactam 3 200 .375 gm In Sodium Chloride 0.9% 100 ml @ 25 mls/hr IVPB Q8HR LISA Rx# :[id number] Sodium Chloride 0.9% 1, 1000 000 ml @ 100 mls/hr IV . Q10H LISA Rx#:[id number] Oral 1400 Output: Urine 260 Other: Voiding Method Toilet Toilet Urinal Urinal # Voids 1 0 # Bowel Movements 1 0 - Exam GENERAL: The patient is alert and oriented x3, not in any acute distress. Well developed, well nourished. HEENT: Pupils are round and equally reacting to light. EOMI. No scleral icterus. No conjunctival pallor. Normocephalic, atraumatic. No pharyngeal erythema. No thyromegaly. CARDIOVASCULAR: S1 and S2 present. No murmurs, rubs, or gallops. PULMONARY: Significant expiratory wheezing on exam mild crackles in the left side posteriorly ABDOMEN: Soft, nontender, nondistended, normoactive bowel sounds. No palpable organomegaly. MUSCULOSKELETAL: No joint swelling or deformity. EXTREMITIES: No cyanosis, clubbing, or pedal edema. NEUROLOGICAL: Gross neurological examination did not reveal any focal deficits. SKIN: No rashes. - Labs CBC & Chem 7: 01/09/20 06:06 01/09/20 06:06 Labs: Abnormal Lab Results - Last 24 Hours (Table) 01/10/20 01/11/20 01/11/20 Range/Units 20:06 06:22 12:04 POC Glucose (mg/dL) 225 H 129 H 141 H (75-99) mg/dL 01/11/20 Range/Units 16:51 POC Glucose (mg/dL) 210 H (75-99) mg/dL Microbiology - Last 24 Hours (Table) 01/07/20 17:22 Blood Culture - Preliminary Blood No Growth after 72 hours Assessment and Plan Assessment: -Acute on chronic hypoxic respiratory failure: Patient is wheezing today does have COPD exacerbation. Continue with systemic steroids patient appears to have interstitial spread of the cancer, pulmonary of the case -Left lower lobe pneumonia, possibly postobstructive patient is on Zosyn which will be continued for now -Advanced left lung adenocarcinoma, oncology on the case and they recommended radiation therapy and radiotherapy fails then may be considered for hospice. Hospice consult is placed and and patient agrees to talk to the -mildly elevated troponins , secondary to hypoxia, no evidence of acute myocardial infarction -Dizziness probably secondary to intravascular depletion patient was also tachycardic with mild renal dysfunction patient will be continued on IV fluids which was started on Lasix was discontinued and will discuss with cardiology. Patient had normal ejection fraction the past -COPD and chronic hypercapnic respiratory failure secondary to COPD patient uses to his falls and at home patient is pleasant and 6 L which will be continued as not appear to be in COPD exacerbation -Coronary artery disease -History of renal cell cancer status post nephrectomy -Squamous cell lung cancer with a mass lesion in the lung for which patient is receiving radiation therapy radiation oncology and oncology evaluate the patient patient received radiation therapy today -CVA in the past -Gastroesophageal reflux disease for which patient is on Protonix -Due to prophylaxis Lovenox
--- NOTE | 2020-01-14 02:44 | P.DS ---
Providers Date of admission: 01/07/20 16:14 Attending physician: Yadira Boone Consults: 01/07/20 16:16 Consult Physician Urgent Consulting Provider: Pavan Stafford Consult Reason/Comments: cardiac evaluation Do you want consulting provider notified?: Yes Consult Physician Urgent Consulting Provider: Mina Faith Consult Reason/Comments: dyspnea Do you want consulting provider notified?: Yes Consult Physician Urgent Consulting Provider: Luis Leong Consult Reason/Comments: oncological care Do you want consulting provider notified?: Yes 01/08/20 11:52 Consult Physician Routine Consulting Provider: Toney Zhou Consult Reason/Comments: radiation Do you want consulting provider notified?: Yes Primary care physician: Physician Nonstaff Hospital Course: Please consider this note as progress note rather than discharge summary From records 74-year-old male level was transferred from [facility] after he presented there with the complaints of shortness of breath hypoxic with saturations going down to 60% patient evidently had elevated temperature of 101 although he doesn't have any temperature here. Patient was a lightheaded and the has been quite weak. Patient had mildly elevated troponin of 0.23 because of his cardiology was consulted. Patient was tachycardic does have positive orthostatic vitals. Patient was started on IV fluids patient doesn't have any history of gunshot failure in the past patient had a normal ejection fraction the past. 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 Patient denied any cough or sputum production. Patient usually uses a 2 L of onset at home, presently on 6 L of oxygen. Patient denied any chest pain nausea vomiting. EKG showed sinus tachycardia and some premature ventricular complexes without any acute ST-T wave changes. and an elevated d-dimer because of which VQ scan was obtained which is significantly abnormal because of interstitial infiltrate which was evident on the chest x-ray although low probability of pulmonary embolism. 01/09/2020 Patient wheezing is bit worse today. Patient appears to have local advanced to close lung cancer on the left side of interstitial spread. Urinary Legionella and mycoplasma IgM antibodies are pending. Patient is wasn't a Zosyn and IV steroids. Pulmonary evaluated the patient. Hospice will be evaluated the patient today. Patient had a CT angios the chest which is read as possible interstitial spread of the cancer. 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 This time also presents with signs symptoms of acute COPD exacerbation and possible left lower lobe pneumonia on the top of his left lung cancer. Patient is awake and alert, is breathing quietly, denies chest pain or coughing. He is saturating 90s on 5 L oxygen via nasal cannula, rest of vitals are stable Labs reviewed the looks stable, he had mild anemia and thrombocytopenia Patient continued on Solu-Medrol and Zosyn and normal saline per hour He is status post palliative radiotherapy 01/11/2020 Patient today respiratory status is worse than yesterday his more tachypneic and he needs about 5 L of oxygen via nasal cannula. Patient supposed to be discharged yesterday however worsening his respiratory status we will keep him, I discussed the case with the at bedside she looks open to the idea of hospice/Comfort Care however she wants to talk to the oncology team, after discussion the case with Dr. Leong he spoke to the and she agreeable to talk to the hospice team and consult was placed Prognosis remains poor and the chances of cure is very minimal 01/12/2020 Patient finished his radiation therapy, I discussed the case with oncology team they cleared him for discharge and he has appointment with the radiation o ncologist on this coming Wednesday with , also pulmonary service for following him closely and getting closer to stabilization. He is hemodynamically stable. We'll continue with same medication Physical exam -GENERAL: The patient is alert and oriented x3, not in any acute distress. Generally Weak HEENT: Pupils are round and equally reacting to light. EOMI. No scleral icterus. No conjunctival pallor. Normocephalic, atraumatic. No pharyngeal erythema. No thyromegaly. CARDIOVASCULAR: S1 and S2 present. No murmurs, rubs, or gallops. -PULMONARY: Significant expiratory wheezing on exam mild crackles in the left side posteriorly. Decreased breath sounds on the left side ABDOMEN: Soft, nontender, nondistended, normoactive bowel sounds. No palpable organomegaly. MUSCULOSKELETAL: No joint swelling or deformity. EXTREMITIES: No cyanosis, clubbing, or pedal edema. NEUROLOGICAL: Gross neurological examination did not reveal any focal deficits. SKIN: No rashe Assessment and plan -Acute on chronic hypoxic respiratory failure: Patient is wheezing today does have COPD exacerbation. Continue with systemic steroids patient appears to have interstitial spread of the cancer, pulmonary of the case -Left lower lobe pneumonia, possibly postobstructive patient is on Zosyn which will be continued for now -Advanced left lung adenocarcinoma, oncology on the case and they recommended radiation therapy and radiotherapy fails then may be considered for hospice. Hospice consult is placed and and patient agrees to talk to the -mildly elevated troponins , secondary to hypoxia, no evidence of acute myocardial infarction -Dizziness probably secondary to intravascular depletion patient was also tachycardic with mild renal dysfunction patient will be continued on IV fluids which was started on Lasix was discontinued and will discuss with cardiology. Patient had normal ejection fraction the past -COPD and chronic hypercapnic respiratory failure secondary to COPD patient uses to his falls and at home patient is pleasant and 6 L which will be continued as not appear to be in COPD exacerbation -Coronary artery disease -History of renal cell cancer status post nephrectomy -Squamous cell lung cancer with a mass lesion in the lung for which patient is receiving radiation therapy radiation oncology and oncology evaluate the patient patient received radiation therapy today -CVA in the past -Gastroesophageal reflux disease for which patient is on Protonix -Due to prophylaxis Lovenox Patient Condition at Discharge: Serious Plan - Discharge Summary New Discharge Prescriptions: New RX: predniSONE 10 mg PO DIRECTED #60 tab Continue RX: Mirtazapine 45 mg PO HS RX: Atorvastatin [Lipitor] 10 mg PO HS RX: Roflumilast [Daliresp] 500 mcg PO DAILY RX: Aspirin EC [Ecotrin Low Dose] 81 mg PO DAILY RX: Metoprolol Succinate [Toprol XL] 25 mg PO DAILY RX: Pantoprazole [Protonix] 40 mg PO DAILY #30 tablet. RX: Budesonide-Formot 160-4.5 Mcg [Symbicort 160-4.5 Mcg Inhaler] 2 puff INHALATION RT-BID #1 puff RX: busPIRone HCl [Buspar] 10 mg PO BID RX: Acetaminophen Tab [Tylenol] 650 mg PO Q6HR PRN tab PRN Reason: Fever And/ Or Pain RX: Ipratropium-Albuterol Nebulize [Duoneb 0.5 mg-3 mg/3 ml Soln] 3 ml INHALATION RT-Q4H PRN ml PRN Reason: Shortness Of Breath Or Wheezing RX: amLODIPine [Norvasc] 5 mg PO DAILY 30 Days #30 tab RX: Amoxic-Pot Clav 875-125Mg [Augmentin 875-125] 1 tab PO Q12HR 10 Days #20 tab Discontinued RX: predniSONE See Taper PO DIRECTED Discharge Medication List RX: Aspirin EC [Ecotrin Low Dose] 81 mg PO DAILY 01/05/18 [History] RX: Atorvastatin [Lipitor] 10 mg PO HS 01/05/18 [History] RX: Mirtazapine 45 mg PO HS 01/05/18 [History] RX: Roflumilast [Daliresp] 500 mcg PO DAILY 01/05/18 [History] RX: Metoprolol Succinate [Toprol XL] 25 mg PO DAILY 11/25/19 [History] RX: Budesonide-Formot 160-4.5 Mcg [Symbicort 160-4.5 Mcg Inhaler] 2 puff INHALATION RT-BID #1 puff 12/01/19 [Rx] RX: Pantoprazole [Protonix] 40 mg PO DAILY #30 tablet.dr 12/01/19 [Rx] RX: busPIRone HCl [Buspar] 10 mg PO BID 12/20/19 [History] RX: Acetaminophen Tab [Tylenol] 650 mg PO Q6HR PRN tab 12/27/19 [Rx] RX: Ipratropium-Albuterol Nebulize [Duoneb 0.5 mg-3 mg/3 ml Soln] 3 ml INHA LATION RT-Q4H PRN ml 01/05/20 [Rx] RX: amLODIPine [Norvasc] 5 mg PO DAILY 30 Days #30 tab 01/05/20 [Rx] RX: Amoxic-Pot Clav 875-125Mg [Augmentin 875-125] 1 tab PO Q12HR 10 Days #20 tab 01/12/20 [Rx] RX: predniSONE 10 mg PO DIRECTED #60 tab 01/12/20 [Rx] Follow up Appointment(s)/Referral(s): Luis Leong MD [STAFF PHYSICIAN] - 1 Week [facility], [NON-STAFF] - Toney Zhou MD [STAFF PHYSICIAN] - As Needed (Please call Dr Torres at [facility] for follow-up appt at [phone]. Do not need to follow-up with Dr Zhou.) Fabio Torres MD [REFERRING] - 1 Week Patient Instructions/Handouts: COPD (Chronic Obstructive Pulmonary Disease) (DC) Discharge Disposition: HOME WITH HOME HEALTH SERVICES
[2020-01-14 06:19] LABS: Glucose,Whole Blood 85 mg/dL (75-99)
[2020-01-14] MEDS: INSULIN ASPART (NovoLOG) 100 UNIT/ML VIAL SQ SCH ×2 (06:19→12:04)
[2020-01-14 06:26] VITALS: BP 140/84; TEMP 97.6
[2020-01-14] MEDS: predniSONE 20 MG TAB PO SCH (07:57)
[2020-01-14] MEDS: ENOXAPARIN 40 MG/0.4 ML SYRINGE SQ SCH (07:57)
[2020-01-14] MEDS: METOPROLOL SUCCINATE (ER) 25 MG TAB.ER.24H PO SCH (07:57)
[2020-01-14] MEDS: busPIRone HCl 10 MG TAB PO SCH (07:58)
[2020-01-14] MEDS: ASPIRIN 81 MG PO SCH (07:58)
[2020-01-14] MEDS: amLODIPine 5 MG TAB PO SCH (07:58)
[2020-01-14] MEDS: PANTOPRAZOLE 40 MG TABLET PO SCH (07:58)
[2020-01-14] MEDS: ROFLUMILAST 500 MCG PO SCH (08:11)
[2020-01-14] MEDS: SYMBICORT 160-4.5 MCG INHALER INHALATION SCH (08:42)
[2020-01-14] MEDS: IPRATROPIUM-ALBUTEROL 3 ML NEB INHALATION SCH ×3 (08:43→15:13)
[2020-01-14 09:37] VITALS: PULSE 95; RESP 23
[2020-01-14 12:00] LABS: Glucose,Whole Blood 161 mg/dL (75-99)
[2020-01-14] MEDS ORDERED: ALPRAZolam 0.5 MG TAB PO PRN (12:16)
[2020-01-14] MEDS ORDERED: MORPHINE SULFATE 4 MG/ML SYRINGE IVP PRN (12:17)
--- NOTE | 2020-01-15 01:43 | P.DS ---
Providers Date of admission: 01/07/20 16:14 Attending physician: Yadira Boone Consults: 01/07/20 16:16 Consult Physician Urgent Consulting Provider: Pavan Stafford Consult Reason/Comments: cardiac evaluation Do you want consulting provider notified?: Yes Consult Physician Urgent Consulting Provider: Mina Faith Consult Reason/Comments: dyspnea Do you want consulting provider notified?: Yes Consult Physician Urgent Consulting Provider: Luis Leong Consult Reason/Comments: oncological care Do you want consulting provider notified?: Yes 01/08/20 11:52 Consult Physician Routine Consulting Provider: Toney Zhou Consult Reason/Comments: radiation Do you want consulting provider notified?: Yes Primary care physician: Physician Nonstaff Hospital Course: Dx: -Advanced left lung adenocarcinoma, felt chemo and radiotherapy. Patient is eligible for hospice and patient and family agrees -Acute on chronic hypoxic respiratory failure -Left lower lobe pneumonia, possibly postobstructive -mildly elevated troponins , secondary to hypoxia, no evidence of acute myocardial infarction -Dizziness probably secondary to intravascular depletion -COPD and chronic hypercapnic respiratory failure secondary to COPD -History of renal cell cancer status post nephrectomy -Gastroesophageal reflux disease for which patient is on Protonix Hospital course: 74-year-old male level was transferred from [facility] after he presented with respiratory failure and pneumonia which is found to be post obstructive pneumonia, secondary to his lung cancer on the left side. Pulmonary and o ncology evaluated the patient he was treated with any biopsies, oxygen, bronchodilators, also oncology recommended radiotherapy and he has several days of radiotherapy which showed temporal improvement, however once he finished radiation therapy next day his respiratory status deteriorated again and he needed higher oxygen and he was tachypneic with abnormal lung exam, because of this oncology team and pulmonary team recommended hospice which medical therapy was agrees with that and thinks eligible, family/ in the beginning were reluctant to agree with hospice however later on they change their mind and agreed for hospice care as patient showing no signs of improvement. Hospice care consult was placed and patient was accepted to go home with hospice. Today prior to discharge patient was fully awake and oriented, morphine and Xanax provided for him for early size oxygen and other medication Gen: patient is a AAOx3, no distress CVS: S1-S2, RRR, no murmur -Lungs: B/L CTA, bilateral scattered wheezing and crepitation, decreased air entry on the left side more harsh breath sounds on the left side Abdomen: soft, no distention, no tenderness, positive bowel sounds Extremity: no leg edema or induration Time spent more than 35 minutes Patient Condition at Discharge: Serious Plan - Discharge Summary New Discharge Prescriptions: New predniSONE 10 mg PO DIRECTED #60 tab Continue Mirtazapine 45 mg PO HS Atorvastatin [Lipitor] 10 mg PO HS Roflumilast [Daliresp] 500 mcg PO DAILY Aspirin EC [Ecotrin Low Dose] 81 mg PO DAILY Metoprolol Succinate [Toprol XL] 25 mg PO DAILY Pantoprazole [Protonix] 40 mg PO DAILY #30 tablet. Budesonide-Formot 160-4.5 Mcg [Symbicort 160-4.5 Mcg Inhaler] 2 puff INHALATION RT-BID #1 puff busPIRone HCl [Buspar] 10 mg PO BID Acetaminophen Tab [Tylenol] 650 mg PO Q6HR PRN tab PRN Reason: Fever And/ Or Pain Ipratropium-Albuterol Nebulize [Duoneb 0.5 mg-3 mg/3 ml Soln] 3 ml INHALATION RT-Q4H PRN ml PRN Reason: Shortness Of Breath Or Wheezing amLODIPine [Norvasc] 5 mg PO DAILY 30 Days #30 tab Amoxic-Pot Clav 875-125Mg [Augmentin 875-125] 1 tab PO Q12HR 10 Days #20 tab Discontinued predniSONE See Taper PO DIRECTED Discharge Medication List Aspirin EC [Ecotrin Low Dose] 81 mg PO DAILY 01/05/18 [History] Atorvastatin [Lipitor] 10 mg PO HS 01/05/18 [History] Mirtazapine 45 mg PO HS 01/05/18 [History] Roflumilast [Daliresp] 500 mcg PO DAILY 01/05/18 [History] Metoprolol Succinate [Toprol XL] 25 mg PO DAILY 11/25/19 [History] Budesonide-Formot 160-4.5 Mcg [Symbicort 160-4.5 Mcg Inhaler] 2 puff INHALATION RT-BID #1 puff 12/01/19 [Rx] Pantoprazole [Protonix] 40 mg PO DAILY #30 tablet. 12/01/19 [Rx] busPIRone HCl [Buspar] 10 mg PO BID 12/20/19 [History] Acetaminophen Tab [Tylenol] 650 mg PO Q6HR PRN tab 12/27/19 [Rx] Ipratropium-Albuterol Nebulize [Duoneb 0.5 mg-3 mg/3 ml Soln] 3 ml INHALATION RT-Q4H PRN ml 01/05/20 [Rx] amLODIPine [Norvasc] 5 mg PO DAILY 30 Days #30 tab 01/05/20 [Rx] Amoxic-Pot Clav 875-125Mg [Augmentin 875-125] 1 tab PO Q12HR 10 Days #20 tab 01/12/20 [Rx] predniSONE 10 mg PO DIRECTED #60 tab 01/12/20 [Rx] Follow up Appointment(s)/Referral(s): [facility], [NON-STAFF] - As Needed (This is the contact for [facility] also. ) Patient Instructions/Handouts: Hospice (DC), Hospice Care (GEN) Discharge Disposition: HOME WITH HOSPICE
== END 2020-01-14 15:36 | disposition hospice, home (50) | DRG 180 ==
LOC: EC 15:54 → 3SCARD 16:14
PROVIDERS: ADMIT Internal Medicine; ATTEND Internal Medicine
PROC: 5A09557 Assistance with Respiratory Ventilation, Greater than 96 Consecutive Hours, Continuous Positive Airway Pressure (ICD-10-PCS; principal; 2020-01-08)
PROC: DBY27ZZ Contact Radiation of Lung (ICD-10-PCS; 2020-01-10)
DX: C34.92 Malignant neoplasm of unspecified part of left bronchus or lung (principal); J18.9 Pneumonia, unspecified organism; J96.21 Acute and chronic respiratory failure with hypoxia; J96.22 Acute and chronic respiratory failure with hypercapnia; J44.1 Chronic obstructive pulmonary disease with (acute) exacerbation; J44.0 Chronic obstructive pulmonary disease with (acute) lower respiratory infection; C34.91 Malignant neoplasm of unspecified part of right bronchus or lung; I25.10 Atherosclerotic heart disease of native coronary artery without angina pectoris; K21.9 Gastro-esophageal reflux disease without esophagitis; I10 Essential (primary) hypertension; I49.3 Ventricular premature depolarization; D63.8 Anemia in other chronic diseases classified elsewhere; D69.6 Thrombocytopenia, unspecified; F32.9 Major depressive disorder, single episode, unspecified; F41.9 Anxiety disorder, unspecified; Z51.5 Encounter for palliative care; Z66 Do not resuscitate; F17.210 Nicotine dependence, cigarettes, uncomplicated; Z20.828 Contact with and (suspected) exposure to other viral communicable diseases; E78.5 Hyperlipidemia, unspecified; G89.29 Other chronic pain; E86.9 Volume depletion, unspecified; N28.1 Cyst of kidney, acquired; G47.00 Insomnia, unspecified; M54.9 Dorsalgia, unspecified; Z79.899 Other long term (current) drug therapy; Z79.82 Long term (current) use of aspirin; Z79.51 Long term (current) use of inhaled steroids; I25.2 Old myocardial infarction; Z86.73 Personal history of transient ischemic attack (TIA), and cerebral infarction without residual deficits; Z87.01 Personal history of pneumonia (recurrent); Z95.5 Presence of coronary angioplasty implant and graft; Z90.5 Acquired absence of kidney; Z98.890 Other specified postprocedural states; Z85.528 Personal history of other malignant neoplasm of kidney; Z85.118 Personal history of other malignant neoplasm of bronchus and lung; Z80.3 Family history of malignant neoplasm of breast; Z92.3 Personal history of irradiation; Z99.81 Dependence on supplemental oxygen; Z87.442 Personal history of urinary calculi; Z86.74 Personal history of sudden cardiac arrest
CPT/HCPCS: 70553; 71045; 71046; 71275; 77280; 77307; 77334; 77387; 77412; 78582; 80048; 80053; 83880; 84145; 84484; 85027; 86738; 87040; 87449; 94640; 94660; 94760; 96365; 99285